=== PATIENT | female | born 1945 | race Caucasian/White ===

== ENCOUNTER → 2016-11-13 | Outpatient (CLI) | payer OTHER ==
[~2016-11-13] MED LIST: ALBU2SYP9 NEB; ALBUAER2 INH; ASPI-435 PO; ATRINS NEB; BUDE180I INH; BUTACAP36 PO; CICL8SOL4 TOP; CLOR3.7515 PO; ESCI10TA17 PO; EZET10TA47 PO; FLNIN; FRS/40 PO; HYDRCRE28 RE; LANS30CA12 PO; LEVO137T3 PO; MAGIC MOUTH WASH PO; METH-446 PO; METO5TAB3 PO; NITR0.4S UT; NRN600 PO; OXGN; OXYB5TAB74 PO; POTA10CA28 PO; PRAV20TA PO; PRED1SUS3 OPL; RRALBUT083; SPIR25TA PO; SUMA100T15 PO; SYMIN160 INH; TERB250T51 PO; TGM300 PO; TIOTCAP INH; TRIA3AER NAE; VERA240T20 PO
== END | disposition home or self-care (01) ==
LOC: C.PATHSPEC 18:01
PROVIDERS: ATTEND Plastic Surgery
DX: D23.5 Other benign neoplasm of skin of trunk (principal)

== ENCOUNTER → 2017-03-02 | Outpatient (CLI) | payer OTHER ==
[~2017-03-02] MED LIST changes: +DTR/5 PO; -OXYB5TAB74 PO
--- NOTE | 2017-03-02 10:38 | DIAGNOSTIC IMAGING REPORT ---
CT OF THE CHEST WITHOUT IV CONTRAST CLINICAL HISTORY: Pulmonary nodule follow-up. COMPARISON STUDY: Chest CT February 18, 2016. CT DOSE: 225.61 mGycm TECHNIQUE: Axial images of the chest were obtained without IV contrast. Images were reviewed in the axial, sagittal, and coronal planes. IV contrast was not administered for this examination. FINDINGS: Bilateral silicone breast implants are present. No enlarged axillary, mediastinal or hilar lymph nodes are present. The size of the heart is normal. There is no pericardial effusion. Central airways are patent. Severe emphysema is noted. Right middle lobe and lingular opacity is noted. Right middle lobe opacity is unchanged. This suggests atelectasis or scarring. Lingular opacity has slightly increased. Minimal irregular opacity within the superior segment of the right lower lobe is noted with a few ill-defined nodules measuring up to 8 mm. This is new since prior exam. The previously described 1.5 cm irregular right apical opacity is unchanged since exam of April 28, 2014. This favors scarring. A 1.5 cm irregular left apical opacity shown on image 19 of 306 has developed. This likely reflects scarring is well. No pneumothorax or pleural effusion is present. Bony thorax and upper abdomen are unremarkable with exception of a large amount stool within visualized portions of the colon. IMPRESSION: 1. No change in the 1.5 cm irregular right apical opacity since exam of April 28, 2014. This favors scarring. 2. Interval development of a 1.5 cm irregular left apical opacity. This is indeterminate. Scarring is favored although a follow-up chest CT in 6 months is recommended to exclude the less likely possibility of a neoplasm. 3. Minimal nodular opacities within the superior segment of the right lower lobe and lingula which have developed since prior exam and suggest a minimal infectious process or atelectasis. These can be assessed on subsequent CT. 4. Severe emphysema. Electronically signed by: Michele Jackson M.D. 03/02/2017 10:37 AM Dictated Date/Time: 03/02/2017 10:25 AM
== END | disposition home or self-care (01) ==
LOC: C.CTS 10:09
PROVIDERS: ATTEND Internal Medicine Pulmonary Disease
DX: R91.1 Solitary pulmonary nodule (principal)

== ENCOUNTER → 2017-03-31 | Outpatient (CLI) | payer OTHER | END | disposition home or self-care (01) | LOC: C.MAMM 13:11 | PROVIDERS: ATTEND Internal Medicine | DX: M19.90 Unspecified osteoarthritis, unspecified site (principal); M85.89 Other specified disorders of bone density and structure, multiple sites ==

== ENCOUNTER → 2017-04-02 | Outpatient (CLI) | payer OTHER ==
[2017-04-02 14:44] LABS: BASO % 1.1 %; BASO ABS # 0.06 K/uL (0-0.2); COMPLETE YES; EOS % 13.1 %; HEMATOCRIT 39.8 % (37-47); IG% 0.4 %; LYMPH % 28.3 %; LYMPH ABS # 1.58 K/uL (1.2-3.4); MEAN CELL VOLUME 94.8 fL (80-100); MEAN CORPUSCULAR HEMOGLOBIN 30.7 pg (25-34); MEAN CORPUSCULAR HGB CONC 32.4 g/dl (32-36); MEAN PLATELET VOLUME 8.8 fL (7.4-10.4); MONO % 10.4 %; NEUT % 46.7 %; PLATELET COUNT 312 K/uL (130-400); WHITE BLOOD COUNT 5.58 K/uL (4.8-10.8)
[2017-04-02 14:58] LABS: URINE APPEARANCE CLEAR (CLEAR); URINE BILIRUBIN NEG (NEG); URINE COLOR YELLOW; URINE EPITHELIAL CELL AUTO 0-5 /lpf (0-5); URINE NITRITE NEG (NEG); URINE SPECIFIC GRAVITY 1.014 (1.000-1.030); UROBILINOGEN NEG (NEG)
[2017-04-02 15:00] LABS: MANUAL MICROSCOPIC REQUIRED? NO; REVIEW REQ? NO
[2017-04-02 15:41] LABS: CALCIUM 9.2 mg/dl (8.5-10.1)
[2017-04-02 15:46] LABS: ALT/SGPT 26 U/L (12-78); AST/SGOT 17 U/L (15-37); BLOOD UREA NITROGEN 10 mg/dl (7-18); BUN/CREATININE RATIO 10.3 (10-20); CARBON DIOXIDE 30 mmol/L (21-32); CHLORIDE 101 mmol/L (98-107); CHOLESTEROL 178 mg/dl (0-200); CREATININE 0.97 mg/dl (0.60-1.20); GLUCOSE 77 mg/dl (70-99); POTASSIUM 4.4 mmol/L (3.5-5.1); SODIUM 138 mmol/L (136-145); TRIGLYCERIDES 62 mg/dl (0-150); VERY LOW DENSITY LIPOPROT CALC 12 mg/dl
[2017-04-02 15:57] LABS: CHOLESTEROL/HDL RATIO 2.1; HDL CHOLESTEROL 83 mg/dl; LDL CHOLESTEROL CALCULATED 83 mg/dl
[2017-04-03 05:51] LABS: ESTIMATED AVERAGE GLUCOSE 120 mg/dl; HA1C FLAG Normal (Normal)
--- NOTE | 2017-04-07 10:10 | CODING QUERY MEDICAL NECESSITY ---
SUPPORTING DIAGNOSIS NEEDED Dr. Dougherty, A supporting diagnosis is required for the test/procedure performed on this patient in order for us to be reimbursed by the patient's insurance. Please provide a supporting diagnosis for the following test/procedure listed below next to the test name along with your signature. *If there is no additional diagnosis for this patient that would support the following test/procedure please document that below next to the test/procedure. Test(s)/Procedure(s) that require a supporting diagnosis: * [id number] GLYCATED HEMOGLOBIN DIAGNOSIS: DATE OF SERVICE: 04/02/17 Provider Signature: Date: Thank you Kael Goyal [facility] Information Management Once completed, please kindly fax back to [phone] For questions please call [phone]
== END | disposition home or self-care (01) ==
LOC: C.LAB1850 12:42
PROVIDERS: ATTEND Internal Medicine
DX: E78.00 Pure hypercholesterolemia, unspecified (principal); R73.9 Hyperglycemia, unspecified

== ENCOUNTER → 2017-04-07 | Outpatient (CLI) | payer OTHER | END | disposition home or self-care (01) | LOC: C.LAB1850 13:14 | PROVIDERS: ATTEND Internal Medicine | DX: E78.00 Pure hypercholesterolemia, unspecified (principal) ==

== ENCOUNTER → 2017-05-15 | Outpatient (CLI) | payer OTHER ==
[~2017-05-15] MED LIST changes: -DTR/5 PO; +OXYB5TAB74 PO
--- NOTE | 2017-05-15 10:50 | DIAGNOSTIC IMAGING REPORT ---
CHEST 2 VIEWS ROUTINE CLINICAL HISTORY: 71 years-old Female presenting with dyspnea, preoperative evaluation. TECHNIQUE: PA and lateral views of the chest were obtained. COMPARISON: Chest CT from 03/02/2017. FINDINGS: Cardiomediastinal silhouette remarkable for atherosclerosis of the aortic arch. Severe emphysematous changes better appreciated on CT. Subtle right apical opacity correlates with CT, likely cicatrizing atelectasis. Additional bandlike opacities in the mid and lower lungs likely also atelectasis/scarring. Lungs are hyperinflated. No pleural effusion or pneumothorax. Cholecystectomy clips noted. Osseous structures normal. IMPRESSION: 1. Hyperinflation and emphysema. 2. Multifocal areas of atelectasis/scarring. No other focal infiltrate. Electronically signed by: Sharath Manuel M.D. 05/15/2017 10:48 AM Dictated Date/Time: 05/15/2017 10:45 AM
[2017-05-15 12:08] LABS: BASO % 0.5 %; BASO ABS # 0.03 K/uL (0-0.2); COMPLETE YES; HEMATOCRIT 41.1 % (37-47); IG% 0.3 %; LYMPH % 29.4 %; MEAN CELL VOLUME 91.7 fL (80-100); MEAN CORPUSCULAR HEMOGLOBIN 29.9 pg (25-34); MEAN CORPUSCULAR HGB CONC 32.6 g/dl (32-36); MONO % 12.4 %; NEUT % 49.4 %; PLATELET COUNT 280 K/uL (130-400); RED BLOOD COUNT 4.48 M/uL (4.2-5.4); WHITE BLOOD COUNT 6.12 K/uL (4.8-10.8)
[2017-05-15 12:16] LABS: BLOOD UREA NITROGEN 14 mg/dl (7-18); BUN/CREATININE RATIO 12.7 (10-20); CALCIUM 9.1 mg/dl (8.5-10.1); CARBON DIOXIDE 32 mmol/L (21-32); CHLORIDE 99 mmol/L (98-107); GLUCOSE 78 mg/dl (70-99); POTASSIUM 3.8 mmol/L (3.5-5.1); SODIUM 137 mmol/L (136-145)
[2017-05-15 12:18] LABS: INR 0.9 (0.9-1.1); PROTHROMBIN TIME (PATIENT) 9.9 SECONDS (9.0-12.0)
== END | disposition home or self-care (01) ==
LOC: C.LAB1850 10:22
PROVIDERS: ATTEND Internal Medicine Cardiovascular Disease
DX: R06.00 Dyspnea, unspecified (principal); Z01.818 Encounter for other preprocedural examination; J98.11 Atelectasis; J43.9 Emphysema, unspecified

== ENCOUNTER → 2017-05-21 | Day surgery (SDC) | payer OTHER ==
[~2017-05-21] VITALS: Ht 160 cm; Wt 62.2 kg
[~2017-05-21] MED LIST changes: +ADENOSINE IV SOLN 3 MG/ML 20 ML VIAL ONE; +FENTANYL CITRATE INJ 50 MCG/1 ML 2 ML VIAL ONE; +HEPARIN SOD (PORCINE) 1000 UNIT/ML 10 ML VIAL ONE; +MIDAZOLAM HCL 1 MG/ML 2ML VIAL ONE; +NITROGLYCERIN/D5W 100MCG/ML 20ML SYR ONE; +NiCARDipine HCL INJ 2.5 MG/ML 10 ML AMP ONE
[2017-05-21 09:11] VITALS: BP 139/62; PULSE 76; TEMP 36.6; O2SAT 92; Ht 160 cm; Wt 62.2 kg
[2017-05-21 13:01] LABS: ISTAT ARTERIAL BLOOD GAS HCO3 29 meq/L (19-24); ISTAT ARTERIAL BLOOD GAS PCO2 52 mmHg (35-46); ISTAT ARTERIAL BLOOD GAS PO2 42 mmHg (80-95); ISTAT ARTERIAL BLOOD GAS pH 7.36 (7.35-7.45); ISTAT CARBON DIOXIDE 31 mEq/l (24-31)
[2017-05-21 13:01] LABS: ISTAT ARTERIAL BLOOD GAS HCO3 30 meq/L (19-24); ISTAT ARTERIAL BLOOD GAS PCO2 49 mmHg (35-46); ISTAT ARTERIAL BLOOD GAS PO2 95 mmHg (80-95); ISTAT ARTERIAL BLOOD GAS pH 7.39 (7.35-7.45); ISTAT CARBON DIOXIDE 31 mEq/l (24-31)
--- NOTE | 2017-05-21 13:18 | History & Physical Bridge Note ---
H&P Re-Evaluation Bridge Note: I have examined the patient, reviewed the History & Physical and in the interval since the performance of the History & Physical I have noted the following changes of clinical significance: No changes noted
--- NOTE | 2017-05-21 13:19 | Procedure Note ---
Post-Mod Sedation Assessment General Date of Moderate Sedation May 21, 2017. Vital Signs: Vital Signs Past 12 Hours Date Time Temp Pulse Resp B/P (MAP) Pulse Ox O2 Delivery O2 Flow Rate FiO2 05/21/17 13:05 75 16 128/70 (89) 92 Room Air 05/21/17 12:50 76 16 126/64 (84) 92 Room Air 05/21/17 09:11 36.6 76 16 139/62 92 Room Air Review - Discharge Criteria Vital Signs Stable: Yes Alert/Oriented/Conversant: Yes Returned to Baseline Mental St: Yes Nausea Absent/Minimal: Yes Pain/Discomfort/Absent/Minimal: Yes Normal/Baseline Respirations: Yes Active Bleeding?: No Pt Received D/C Instructions: No Prescriptions Given: None Specific Proced. D/C Criteria Distal Pulses Present (Cardiac: Yes Groin site assessed-Card Cath: N/A Voided Prior To Discharge: N/A Discharged Patients Adult Escort/Transportation: Yes
--- NOTE | 2017-05-21 13:19 | Procedure Note ---
Pre-Mod Sedation Assessment General Date of Moderate Sedation: May 21, 2017. Vital Signs: Vital Signs Past 12 Hours Date Time Temp Pulse Resp B/P (MAP) Pulse Ox O2 Delivery O2 Flow Rate FiO2 05/21/17 13:05 75 16 128/70 (89) 92 Room Air 05/21/17 12:50 76 16 126/64 (84) 92 Room Air 05/21/17 09:11 36.6 76 16 139/62 92 Room Air Review Cardiovascular: regular rate, rhythm, no edema Abdomen: normal bowel sounds, non tender Lungs: chest non-tender, lungs clear Airway Class: II Pre-Sedation Airway Assessment Oral Cavity: WNL Short Thick Neck: No Hx of Sleep Apnea: No Smoking Status: Former Smoker Mallampati Classification: Class III ASA Classification: Class III Procedure Planning Contraindications-for Mod Sed: None Yes Notes The planned sedation has been discussed with the patient and consent obtained. I have identified the patient, determined the appropriateness of sedation and have assessed the patient immediately prior to the procedure. All medicine(s) and interventions are by my order.
--- NOTE | 2017-05-21 13:38 | Cardiac Catheterization ---
Procedure Note Procedure Date May 21, 2017. Pre-Procedure Diagnosis Angina, CAD AUC Score 7 Post-Procedure Diagnosis Moderate CAD, Normal Intracardiac Pressures Procedure(s) Performed Coronary Angiography, Left Heart Cath, Right Heart Cath, Fractional Flow [place] Supervisor [employer] [place] Environmental Compliance Technician(s) Ninfa Estimated Blood Loss 15 Medication(s) Fentanyl, Heparin, Nitroglycerin, Versed, Lidocaine 1% Summary of Findings Indication: History of CAD post prior stenting, concern for unstable angina. Access: 6Fr Right Radial Artery; 6Fr Slender antecubital vein Catheters: [place], 6Fr [place]; JR4 Findings: LM - Angiographically normal LAD - Moderate caliber, tortuous vessel, 30% mid segment stenosis, distal luminal irregularities. 1st diagonal with 40-50% proximal stenosis. Circumflex - Large caliber vessel, patent proximal-mid stent with minimal instent restenosis, distal vessel angiographically normal. RCA - Dominant, 40-50% mid segment stenosis, distal luminal irregularities. Small PLB, PDA with luminal irregularities. RA 4 RV 33/8 PA 35/13 (22) PCW 13 LV 18 PaSat 75% AoSat 97% [place] CO/CI 5.1/3.1 Thermo CO/CI 5.2/3.1 TPG 5 PVR 1 iFR mid RCA 0.96 FFR mid RCA 0.88 Arterial Closure: TR Band Summary: 1. Mild to moderate non-obstructive coronary artery disease - 40-50% mid RCA (FFR 0.88) - 40-50% 1st diagonal - Patent proximal-mid circumflex stent 2. Normal intracardiac filling pressures with normal cardiac output. No pulmonary hypertension. Recommendations: Continued ASCVD risk factor modification Follow-up with Dr. Webster, Dr. Purvis Hemodynamics Rest Ao: 138/56/89 Final Ao: 141/48/88 LV: 151/18 Recommendations Medical therapy and/or Counseling Specimens None Radiation Exposure (mGy) 630 Contrast (mls) 80 Fluids (cc crystalloids) 92 Drains None Anesthesia Moderate (11:50 - 12:50) Procedural Complication(s) None Disposition Key Sander Holding/Recovery ACC Data Cardiac Status Clinical evaluation leading to the procedure CAD Presntation: Unstable angina Anginal Classification: CCS III Heart Failure: No, NYHA Class: CCS I Cardiogenic Shock w/in 24Hrs: No Cardiac Arrest w/in 24Hrs: No Imaging studies past 6 months: Yes Stress studies past 6 months: No Coronary Anatomy Dominant: Right Left Main (% Stenosis): Normal LAD (% Stenosis): Mid (30) D1 (% Stenosis): Proximal (40-50) Circumflex (% Stenosis): Proximal (patent stent) RCA (% Stenosis): Mid (40-50) Diagnostic Physician's Name: Jayme Tomlin MD Status: Elective Closure Device Percutaneous Entry Location: Radial Closure Device: Radial Band Recommendations: Medical therapy and/or Counseling Intraprocedure Events Significant Dissection: No Perforation: No
--- NOTE | 2017-05-21 13:40 | Discharge Instructions ---
Discharge Instructions Procedure Procedure Date: May 21, 2017. Reason for Visit: Sob *Dr. Tomlin To Do*. Discharge Discharge Date: May 21, 2017. Discharge Diagnosis: mild to moderate coronary artery disease Last Recorded Wt (Kilograms): 62.2 Anesthesia Post Anesthesia Instructions: If you have had General Anesthesia or IV Sedation: * Do not drive today. * Resume driving when surgeon permits. * Do not make important decisions or sign legal documents today. * Call surgeon for: 1. Temperature elevations greater than 101 degrees F. 2. Uncontrollable pain. 3. Excessive bleeding. 4. Persistent nausea and vomiting. 5. Medication intolerance (nausea, vomiting or rash). * For nausea and vomiting use only clear liquids such as: tea, soda, bouillon until nausea subsides, then gradually increase diet as tolerated. * If you have any concerns or questions, call your surgeon's office. If physician is unavailable and it is an emergency, call 911 or go to the nearest emergency room. Instructions Activity Recommendations: limitations as noted below Recommended Home Diet: resume previous diet Allergies: Coded Allergies: Cortisone (Verified Allergy, Unknown, RASH FOR 3 MONTHS, 10/09/15) Levofloxacin (Verified Allergy, Unknown, RASH, 10/09/15) Uncoded Allergies: CLASS B STERIODS (Allergy, Unknown, RASH, 08/09/15) Follow Up Additional Instructions: ACTIVITY RECOMMENDATIONS: It is common to feel weak and fatigue for a few days. * Do not drive or operate any motorized equipment for the next 2 days. * Limit stair usage (2 or 3 trips a day only) for the next 2 days. * Do not lift anything heavier than 10 pounds for the next three days. * Do not engage in vigorous exercise or any sports for the next five days. * You may shower the day after your procedure, but do not immerse the area for three days. Cleanse the site gently with soap and water. SPECIAL CARE INSTRUCTIONS: * You may replace the pressure dressing or band-aid the morning after the procedure. * After your procedure, it is normal to have a small bruise or small lump at the site. Examine your site daily for any change in the bruise or lump, redness, swelling, drainage or numbness. Notify your doctor if any change. BLEEDING: * If there is a small amount of bleeding at the site, lie down and apply firm pressure with a clean cloth for ten minutes. When the bleeding stops, lie quietly keeping the procedure limb straight for six hours. Notify your doctor as soon as possible. * If the bleeding does not stop after ten minutes or if there is a large amount of bleeding or spurting, call 911 immediately. Continue to lie down and hold firm pressure until help arrives. SKIN IRRITATION: * You may experience some redness and/or swelling in the area where radiation was administered. If any skin irritation occurs, please contact your family physician. FOLLOW UP VISIT: Keep any scheduled doctor appointments. Follow-up with: Dr. Purvis; Dr. Webster [facility] Recommendations: Call your doctor if: * Temperature above 101 degrees * Pain not relieved by pain medicine ordered * There is increased drainage or redness from any incision * You have any unanswered questions or concerns. Your Doctors Instructions noted above were prepared by provider Evan Tomlin. Patient Signature Section: Patient Instructions Signature Page Luana Meek Patient (or Guardian) Signature/Date: I have read and understand the instructions given to me by my caregivers. Caregiver/RN/Doctor Signature/Date: The above-named patient and/or guardian has received patient instructions on this date. + Original Patient Signature Page (only) stays with chart. Please make copy for patient.
[2017-05-21 15:30] VITALS: BP 116/66; PULSE 68; O2SAT 92
== END | disposition home or self-care (01) ==
LOC: C.CATH 08:27
PROVIDERS: ATTEND Internal Medicine Interventional Cardiology
DX: I25.110 Atherosclerotic heart disease of native coronary artery with unstable angina pectoris (principal); J44.9 Chronic obstructive pulmonary disease, unspecified; K22.70 Barrett's esophagus without dysplasia; I50.42 Chronic combined systolic (congestive) and diastolic (congestive) heart failure; F32.9 Major depressive disorder, single episode, unspecified; E78.00 Pure hypercholesterolemia, unspecified; I11.0 Hypertensive heart disease with heart failure; E03.9 Hypothyroidism, unspecified; M19.90 Unspecified osteoarthritis, unspecified site; I25.2 Old myocardial infarction; Z79.82 Long term (current) use of aspirin; Z90.49 Acquired absence of other specified parts of digestive tract; Z82.49 Family history of ischemic heart disease and other diseases of the circulatory system; Z80.1 Family history of malignant neoplasm of trachea, bronchus and lung

== ENCOUNTER → 2017-05-23 | Outpatient (CLI) | payer OTHER ==
[~2017-05-23] MED LIST changes: -ADENOSINE IV SOLN 3 MG/ML 20 ML VIAL ONE; -BUDE180I INH; -FENTANYL CITRATE INJ 50 MCG/1 ML 2 ML VIAL ONE; -HEPARIN SOD (PORCINE) 1000 UNIT/ML 10 ML VIAL ONE; -MIDAZOLAM HCL 1 MG/ML 2ML VIAL ONE; -NITROGLYCERIN/D5W 100MCG/ML 20ML SYR ONE; -NiCARDipine HCL INJ 2.5 MG/ML 10 ML AMP ONE; -PRED1SUS3 OPL; -TERB250T51 PO
[2017-05-23 15:28] LABS: BLOOD UREA NITROGEN 10 mg/dl (7-18); BUN/CREATININE RATIO 10.6 (10-20); CARBON DIOXIDE 35 mmol/L (21-32); CHLORIDE 100 mmol/L (98-107); CREATININE 0.95 mg/dl (0.60-1.20); GLUCOSE 86 mg/dl (70-99); POTASSIUM 3.9 mmol/L (3.5-5.1); SODIUM 138 mmol/L (136-145)
== END | disposition home or self-care (01) ==
LOC: C.LAB 14:54
PROVIDERS: ATTEND Internal Medicine Interventional Cardiology
DX: N28.9 Disorder of kidney and ureter, unspecified (principal)

== ENCOUNTER → 2017-07-27 | Outpatient (CLI) | payer OTHER ==
[~2017-07-27] MED LIST changes: -ALBU2SYP9 NEB
== END | disposition home or self-care (01) ==
LOC: C.LABSPEC 13:30
PROVIDERS: ATTEND Internal Medicine
DX: E78.00 Pure hypercholesterolemia, unspecified (principal)

== ENCOUNTER → 2017-08-11 | Outpatient (CLI) | payer OTHER ==
--- NOTE | 2017-08-11 15:34 | DIAGNOSTIC IMAGING REPORT ---
(CHEST) THORAX WITHOUT CLINICAL HISTORY: 71 years-old Female presenting with PULMONARY NODULE. TECHNIQUE: Multidetector CT imaging of the chest was performed without the use of intravenous contrast. IV contrast: None. A dose lowering technique was used consistent with the principles of ALARA (as low as reasonably achievable). COMPARISON: 03/02/2017. CT DOSE (mGy.cm): The estimated cumulative dose is 220.09 mGycm. FINDINGS: Wild Life Manager topogram: Unremarkable. On soft tissue windows, bilateral breast implants with calcified pseudocapsules and evidence of extracapsular rupture at the inferior lateral aspect on the right. This is unchanged from prior. No axillary, supraclavicular, or mediastinal lymphadenopathy. Evaluation of the richard limited without intravenous contrast. Atherosclerosis of the aorta. Three-vessel coronary artery calcification. Normal heart size. No pericardial or pleural effusion. Cholecystectomy clips. Large stool burden. On lung windows, severe emphysema. Stable size and appearance of biapical spiculated consolidative changes. On the left this measures 1.4 cm, previously 1.5 cm. Few bandlike opacities in the right middle lobe, unchanged, likely scarring and/or atelectasis. Focal retractile changes with a bandlike opacity at the superior segment of the right lower lobe. This architectural distortion is new from prior and was the previous site of multiple nodular opacities. This may represent scarring from a prior infectious or inflammatory etiology. Minimal mucus plugging of subsegmental airways in the right lower lobe. Scattered debris noted in the trachea. On bone windows, significant osteopenia IMPRESSION: 1. Stable appearance of biapical irregular consolidative changes most consistent with cicatrizing atelectasis. 2. At the site of prior nodular opacities in the superior segment of the right lower lobe, new architectural distortion and scarring. 3. No new pulmonary nodule or concerning infiltrate. 4. Severe emphysema. 5. Minimal mucus plugging and subsegmental airways of the right lower lobe and debris in the trachea. This could raise concern for aspiration. 6. Stable appearance of the extracapsular rupture of the right breast implant. 7. Osteopenia. Electronically signed by: Sharath Manuel M.D. 08/11/2017 3:33 PM Dictated Date/Time: 08/11/2017 3:25 PM
== END | disposition home or self-care (01) ==
LOC: C.CTS 15:09
PROVIDERS: ATTEND Internal Medicine Critical Care Medicine
DX: J44.9 Chronic obstructive pulmonary disease, unspecified (principal); R91.1 Solitary pulmonary nodule; M85.88 Other specified disorders of bone density and structure, other site

== ENCOUNTER → 2017-10-19 | Outpatient (CLI) | payer OTHER ==
[~2017-10-19] MED LIST changes: +DTR/5 PO; -OXYB5TAB74 PO
--- NOTE | 2017-10-19 14:27 | DIAGNOSTIC IMAGING REPORT ---
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 Acute shortness of breath TECHNIQUE: Multiaxial CT images of the chest were performed without contrast. A dose lowering technique was utilized adhering to the principles of ALARA. COMPARISON: CT chest 08/11/2017. FINDINGS: Thyroid appears atrophic. No pathologically enlarged lymph nodes of the chest identified. Heart is normal in size without pericardial effusion. Coronary arterial disease. Moderate atherosclerosis of the thoracic aorta without aneurysm. No pneumothorax, pleural effusion or focal airspace consolidation. Severe upper lobe predominant emphysema with multifocal areas of pleural-parenchymal scarring and architectural distortion. Mild layering secretions are seen within the trachea and bronchi. Focal area of somewhat nodular biapical pleural-parenchymal scarring is unchanged. Focal pleural parenchymal scarring of the superior segment right lower lobe is also unchanged in comparison as seen on image 129 of series 4. No new pulmonary nodules or masses. Linear subsegmental opacities of the right middle lobe are unchanged with mild bronchial wall thickening suggesting area of chronic scarring/atelectasis. 3 mm pulmonary nodule of the screw segment left lower lobe, image 121 series 4 is unchanged and likely benign. No lobar airspace consolidation to suggest pneumonia. No acute amount of the imaged upper abdomen. Moderate stool volume. Prior cholecystectomy. Bilateral breast augmentation with extracapsular rupture on the right redemonstrated. The bones appear mildly demineralized and are intact. IMPRESSION: 1. No acute intrathoracic abnormality identified. No lobar airspace consolidation to suggest pneumonia. 2. Advanced emphysema with unchanged multifocal areas of pleural-parenchymal scarring and architectural distortion as described above. 3. Minimal mucosal debris noted within the tracheobronchial tree. 4. Additional incidental findings as above. Electronically signed by: Clarence Roche M.D. 10/19/2017 2:25 PM Dictated Date/Time: 10/19/2017 2:17 PM
== END | disposition home or self-care (01) ==
LOC: C.CTS 13:53
PROVIDERS: ATTEND Internal Medicine Critical Care Medicine
DX: A49.8 Other bacterial infections of unspecified site (principal)

== ENCOUNTER → 2017-12-03 | Day surgery (SDC) | payer OTHER ==
[2017-11-30 15:12] VITALS: BMI 23.0
[~2017-12-03] VITALS: Ht 162.6 cm; Wt 61.4 kg
[~2017-12-03] MED LIST changes: -ALBUAER2 INH; +AZIT500T26 PO; -CICL8SOL4 TOP; +LIDOCAINE HCL 2% 2 ML VIAL (20MG/ML) ONE; +METH-307 PO; +PROPOFOL IV EMULSION 10 MG/ML 20 ML VIAL IV ONE; -RRALBUT083; +RRALBUT083 INH; +SODIUM CHLORIDE 0.9% 500ML 500 ML IV ONE; +SPRIN/30 INH; -TIOTCAP INH; -TRIA3AER NAE; +VNTHFA/IN INH; +[UNRECOGNIZED DRUG - CODE] PO
--- NOTE | 2017-12-03 10:52 | Endo History and Physical ---
History & Physical Date of Service: Dec 03, 2017. Chief Complaint: screening; wale Referring Physician: Dr. Dougherty History of Present Illness screening colonoscopy; h/o wale Past Medical History Asthma, Anxiety, High Cholesterol, Heart Disease, CHF, Hypertension, COPD, Thyroid Disease, Depression, OK Past Surgical History Hx Cardiac Surgery: Yes (HEART CATH X2, STENT X1) Hx Internal Defibrillator: No Hx Pacemaker: No Hx Abdominal Surgery: Yes (TUBAL LIGATION, D&C, PRATIK, HEMORRHOIDECTOMY, PARTIAL HYSTER) Hx of Implantable Prosthesis: No Hx Post-Op Nausea and Vomiting: No Hx Cancer Surgery: No Hx Thoracic Surgery: Yes (BRONCHOSCOPY) Hx Orthopedic: No Hx Urinary Tract Surgery: Yes ("BLADDER TUBE" TACK X2, LT/RT CATARACTS) Family History Colon CA Social History Smoking Status: Never Smoker Hx Substance Use: No Hx Alcohol Use: Yes (OCCASIONAL) Allergies Coded Allergies: Cortisone (Verified Allergy, Unknown, RASH FOR 3 MONTHS, 11/30/17) Levofloxacin (Verified Allergy, Unknown, RASH, 11/30/17) Uncoded Allergies: CLASS B STERIODS (Allergy, Unknown, RASH, 08/09/15) Current Medications Reported Home Medications Medications Dose Route/Sig Max Daily Dose Days Date Category Sterrett Moisturizing Mouth (Glycerin (Mouth/Throat)) 35 % Spr 1 [place] PO UD PRN 11/30/17 Reported Zithromax (Azithromycin) 500 Mg Tab 500 Mg PO MWF 11/30/17 Reported Robaxin (Methocarbamol) 750 Mg Tab 2 Tabs PO HS 11/30/17 Reported Ventolin Hfa (Albuterol) 200 Puffs/59838 Mcg Aers 2-4 Puffs INH Q6H PRN 11/30/17 Reported Spiriva Handihaler (Tiotropium [place]) 30 Puff/540 Mcg Aerp 1 Cap INH QAM 11/30/17 Reported Oxygen Gas 3 Liters NA CONTINOUS 07/08/17 Reported Albuterol Sulfate (Albuterol Sulf) 2.5 Mg/3 Ml Nebu 3 Ml INH QID PRN 07/08/17 Reported Symbicort 160/4.5 Inhaler (Budesonide/Formoterol Fumarate) Aero 2 Puffs INH TID 05/21/17 Reported Imitrex (Sumatriptan Succinate) 100 Mg Tab 1 Tab PO UD PRN 05/21/17 Reported Ipratropium [place] 0.5 Mg/2.5 Ml Nebu 1 Vial NEB QID PRN 05/21/17 Reported Fluticasone Propionate 50 Mcg/Act Spr 1-2 Sprays NA HS 05/21/17 Reported [Magic Mouth Wash] 1 Tsp PO QID PRN 08/09/15 Reported Proctozone-Hc (Hydrocortisone (Rectal)) 2.5 % Cre 1 RE PRN 08/09/15 Reported Ditropan (Oxybutynin Chloride) 5 Mg Tab 5 Mg PO QID 07/10/15 Reported Levothyroxine Sodium 137 Mcg Tab 137 Mcg PO QAM 07/10/15 Reported Metoclopramide HCl 5 Mg Tab 5 Mg PO TIDM 07/10/15 Reported Cimetidine 300 Mg Tab 300 Mg PO HS 07/10/15 Reported Gabapentin 600 Mg Tab 600 Mg PO QID 07/10/15 Reported Aspirin 81 (Aspirin) 81 Mg Tab 81 Mg PO HS 07/10/15 Reported Robaxin (Methocarbamol) 750 Mg Tab 750 Mg PO QAM 06/28/15 Reported Fiorinal (Gvsgzkrpnu-Oiwpkkn-Pkhymzxb) 1 Cap Cap 1 Tab PO BID PRN 03/17/15 Reported Lasix (Furosemide) 40 Mg Tab 1.5-2 Tabs PO QAM 03/17/15 Reported Micro-K Ext Rel (Potassium Chloride) 10 Meq Capcr 10 Meq PO QAM 04/20/14 Reported Calan Sr Ext Rel (Verapamil HCl) 240 Mg Tabcr 240 Mg PO BID 04/20/14 Reported Zetia (Ezetimibe) 10 Mg Tab 10 Mg PO QPM 10/29/12 Reported Pravachol (Pravastatin Sodium) 20 Mg Tab 20 Mg PO HS 04/23/12 Reported Prevacid (Lansoprazole) 30 Mg Capcr 30 Mg PO QAM 04/12/12 Reported Nitrostat (Nitroglycerin) 0.4 Mg Sub 0.4 Mg UT UD PRN 04/12/12 Reported Micro-K Ext Rel (Potassium Chloride) 10 Meq Capcr 40 Meq PO HS 04/12/12 Reported Tranxene-T (Clorazepate Dipotassium) 3.75 Mg Tab 1-2 Tabs PO HS PRN 05/25/06 Reported Lexapro (Escitalopram Oxalate) 10 Mg Tab 10 Mg PO QPM 05/25/06 Reported Aldactone (Spironolactone) 25 Mg Tab 25 Mg PO BID 05/25/06 Reported Vital Signs Weight (Kilograms): 61.36 Height (Feet): 5 Height (Inches): 3.5 Physical Exam General Appearance: WD/WN, no apparent distress Assessment and Plan EGD and colonoscopy today
[2017-12-03 11:02] VITALS: Ht 162.6 cm; Wt 61.4 kg
--- NOTE | 2017-12-03 12:04 | Discharge Instructions ---
Endoscopy Patient Instructions Date / Procedure(s) Performed Dec 03, 2017. Colonoscopy, EGD Allergy Information Coded Allergies: Cortisone (Verified Allergy, Unknown, RASH FOR 3 MONTHS, 11/30/17) Levofloxacin (Verified Allergy, Unknown, RASH, 11/30/17) Uncoded Allergies: CLASS B STERIODS (Allergy, Unknown, RASH, 08/09/15) Discharge Date / Findings Dec 03, 2017. gastritis, Cronin's, tortuous colon Medication Instructions Stopped Medication(s): ASPRIN Restart Stopped Medication(s): OK to resume home medications Provider Instructions Activity Restrictions - No exercising or heavy lifting for 24 hours. - Do not drink alcohol the day of the procedure. - Do not drive a car or operate machinery until the day after the procedure. - Do not make any important decisions or sign important papers in 24 hours after the procedure. Following Day: - Return to full activity which may include returning to work/school. Diet Start your diet with liquids and light foods (jello, soup, juice, toast). Then eat your usual diet if not nauseated. Treatment For Common After Affects For mild abdominal pain, bloating, or excessive gas: - Rest - Eat lightly - Lie on right side Follow-Up Information Follow-up with DR. MYERS as scheduled Anesthesia Information What You Should Know You have had a procedure that required some medicine to reduce anxiety and discomfort. This treatment is called moderate sedation. After receiving the treatment, you may be sleepy, but you will be able to breathe on your own. The effects of the treatment may last for several hours. Follow these instructions along with Activity/Diet recommendations noted above: * Do NOT do anything where dizziness or clumsiness would be dangerous. * Rest quietly at home today, then you can be up and about tomorrow. * Have a responsible person stay with you the rest of today. * You may have had an I.V. today. If so, you may take the dressing off later today. Recommendations Call your doctor if: * Trouble breathing * Continuous vomiting for more than 24 hours * Temperature above 101 degrees * Severe abdominal pain or bloating * Pain not relieved by pain medicine ordered * There is increased drainage or redness from any incision * A large amount of rectal bleeding greater than 2-3 tablespoons. (If you had a polyp/s removed or have hemorrhoids, a small amount of blood - from the rectum is to be expected.) * You have any unanswered questions or concerns. IN THE EVENT OF A SERIOUS EMERGENCY, GO TO THE NEAREST EMERGENCY ROOM Your discharge instructions were prepared by provider Sugar Chicas. Patient Instructions Signature Page Luana Meek Patient (or Guardian) Signature/Date: I have read and understand the instructions given to me by my caregivers. Caregiver/RN/Doctor Signature/Date: The above-named patient and/or guardian has received patient instructions on this date. + Original Patient Signature Page (only) stays with chart. Please make copy for patient.
--- NOTE | 2017-12-03 12:08 | GI REPORT ---
Procedure Date: 12/03/2017 11:23 AM Procedure: Upper GI endoscopy Indications: Heartburn, Follow-up of Cronin's esophagus Medicines: Propofol per Anesthesia Complications: No immediate complications. Estimated blood loss: Minimal. Estimated Blood Loss: Estimated blood loss was minimal. Procedure: Pre-Anesthesia Assessment: - Prior to the procedure, a History and Physical was performed, and patient medications, allergies and sensitivities were reviewed. The patient's tolerance of previous anesthesia was reviewed. - The risks and benefits of the procedure and the sedation options and risks were discussed with the patient. All questions were answered and informed consent was obtained. - Patient identification and proposed procedure were verified prior to the procedure by the physician and the nurse. The procedure was verified in the pre-procedure area in the procedure room. - Mental Status Examination: alert and oriented. Airway Examination: normal oropharyngeal airway and neck mobility. Respiratory Examination: clear to auscultation. CV Examination: normal. Abdominal Examination: bowel sounds present, abdomen soft and non-tender, no masses or organomegaly noted. - ASA Grade Assessment: III - A patient with severe systemic disease. After obtaining informed consent, the endoscope was passed under direct vision. Throughout the procedure, the patient's blood pressure, pulse, and oxygen saturations were monitored continuously. The Scope was introduced through the mouth, and advanced to the second part of duodenum. The upper GI endoscopy was accomplished without difficulty. The patient tolerated the procedure well. Findings: The Z-line was irregular and was found at the gastroesophageal junction. Biopsies were taken with a cold forceps for histology. Verification of patient identification for the specimen was done by the physician and nurse using the patient's name and date. Estimated blood loss was minimal. Mild inflammation characterized by erythema was found in the entire examined stomach. Biopsies were taken with a cold forceps for Helicobacter pylori testing. Verification of patient identification for the specimen was done by the physician and nurse using the patient's name and date. Estimated blood loss was minimal. The examined duodenum was normal. Impression: - Z-line irregular, at the gastroesophageal junction. Biopsied. - Gastritis. Biopsied. - Normal examined duodenum. Recommendation: - Await pathology results. - Follow an antireflux regimen. - Continue present medications. - Repeat upper endoscopy for surveillance based on pathology results. - Discharge patient to home. Sugar Chicas D.O. Sugar Chicas, 12/03/2017 12:08:04 PM This report has been signed electronically. Note Initiated On: 12/03/2017 11:23 AM I attest to the content of the Intraoperative Record and orders documented therein, exceptions below
--- NOTE | 2017-12-03 12:10 | GI REPORT ---
Procedure Date: 12/03/2017 11:38 AM Procedure: Colonoscopy Indications: Screening patient at increased risk: Family history of 1st-degree relative with colorectal cancer at age 60 years (or older) Medicines: Propofol per Anesthesia Complications: No immediate complications. Estimated blood loss: None. Estimated Blood Loss: Estimated blood loss: none. Procedure: Pre-Anesthesia Assessment: - Prior to the procedure, a History and Physical was performed, and patient medications, allergies and sensitivities were reviewed. The patient's tolerance of previous anesthesia was reviewed. - The risks and benefits of the procedure and the sedation options and risks were discussed with the patient. All questions were answered and informed consent was obtained. - Patient identification and proposed procedure were verified prior to the procedure by the physician and the nurse. The procedure was verified in the pre-procedure area in the procedure room. - Mental Status Examination: alert and oriented. Airway Examination: normal oropharyngeal airway and neck mobility. Respiratory Examination: clear to auscultation. CV Examination: normal. Abdominal Examination: bowel sounds present, abdomen soft and non-tender, no masses or organomegaly noted. - ASA Grade Assessment: III - A patient with severe systemic disease. After I obtained informed consent, the scope was passed under direct vision. Throughout the procedure, the patient's blood pressure, pulse, and oxygen saturations were monitored continuously. The scope was introduced through the anus and advanced to the cecum, identified by appendiceal orifice and ileocecal valve. The colonoscopy was performed without difficulty. The patient tolerated the procedure well. The quality of the bowel preparation was fair. Findings: The perianal and digital rectal examinations were normal. Pertinent negatives include normal sphincter tone and no palpable rectal lesions. A moderate amount of liquid stool was found in the entire colon. The retroflexed view of the distal rectum and anal verge was normal and showed no anal or rectal abnormalities. Impression: - Preparation of the colon was fair. - Stool in the entire examined colon. - The distal rectum and anal verge are normal on retroflexion view. - No specimens collected. Recommendation: - Repeat colonoscopy in 5 years for screening purposes. - Return to referring physician as previously scheduled. - Discharge patient to home. Sugar Chicas D.O. Sugar Chicas DO 12/03/2017 12:09:39 PM This report has been signed electronically. Note Initiated On: 12/03/2017 11:38 AM I attest to the content of the Intraoperative Record and orders documented therein, exceptions below
--- NOTE | 2017-12-03 12:32 | Anesthesiology Progress Note ---
Anesthesia Post Op Note Date & Time Dec 03, 2017 at 12:32 Vital Signs Pain Intensity: 0 Vital Signs Past 12 Hours Date Time Temp Pulse Resp B/P (MAP) Pulse Ox O2 Delivery O2 Flow Rate FiO2 12/03/17 12:23 74 18 138/66 (90) 100 Nasal Cannula 3 12/03/17 12:09 71 16 113/66 (82) 98 Nasal Cannula 3 12/03/17 11:07 36.3 73 26 129/61 (83) 99 Nasal Cannula 3 Notes Mental Status: alert / awake / arousable, participated in evaluation Pt Amnestic to Procedure: Yes Nausea / Vomiting: adequately controlled Pain: adequately controlled Airway Patency, RR, SpO2: stable & adequate BP & HR: stable & adequate Hydration State: stable & adequate Anesthetic Complications: no major complications apparent
[2017-12-03 12:39] VITALS: BP 151/65; PULSE 70; O2SAT 100
== END | disposition home or self-care (01) ==
LOC: C.GI 10:38
PROVIDERS: ATTEND Internal Medicine
DX: Z12.11 Encounter for screening for malignant neoplasm of colon (principal); K29.70 Gastritis, unspecified, without bleeding; R12 Heartburn; J45.909 Unspecified asthma, uncomplicated; E78.00 Pure hypercholesterolemia, unspecified; I11.0 Hypertensive heart disease with heart failure; J44.9 Chronic obstructive pulmonary disease, unspecified; E07.9 Disorder of thyroid, unspecified; F32.9 Major depressive disorder, single episode, unspecified; I25.2 Old myocardial infarction; I50.9 Heart failure, unspecified; Z79.899 Other long term (current) drug therapy; Z80.0 Family history of malignant neoplasm of digestive organs
CPT/HCPCS: 43239; G0105

== ENCOUNTER → 2018-01-01 | Outpatient (CLI) | payer OTHER ==
[~2018-01-01] MED LIST changes: -LIDOCAINE HCL 2% 2 ML VIAL (20MG/ML) ONE; -PROPOFOL IV EMULSION 10 MG/ML 20 ML VIAL IV ONE; -SODIUM CHLORIDE 0.9% 500ML 500 ML IV ONE
== END | disposition home or self-care (01) ==
LOC: C.LAB1850 15:11
PROVIDERS: ATTEND Internal Medicine
DX: E78.00 Pure hypercholesterolemia, unspecified (principal)

== ENCOUNTER → 2018-01-21 | Outpatient (CLI) | payer OTHER | END | disposition home or self-care (01) | LOC: C.LAB1850 14:08 | PROVIDERS: ATTEND Internal Medicine | DX: Z00.00 Encounter for general adult medical examination without abnormal findings (principal) ==

== ENCOUNTER → 2018-01-28 | Outpatient (CLI) | payer OTHER ==
--- NOTE | 2018-01-29 07:20 | MAMMOGRAPHY REPORT ---
BILATERAL DIGITAL SCREENING MAMMOGRAM TOMOSYNTHESIS WITH CAD: 01/28/2018 CLINICAL HISTORY: Routine screening. Patient has no complaints. TECHNIQUE: Breast tomosynthesis in addition to standard 2D mammography was performed. Current study was also evaluated with a Computer Aided Detection (CAD) system. Tomosynthesis images were obtained of the implant displaced views only. COMPARISON: Comparison is made to exams dated: 10/08/2015 mammogram, 10/04/2014 mammogram, 06/13/2013 m ammogram, 07/30/2011 mammogram, 11/27/2009 mammogram - [facility], and 06/02/2008. BREAST COMPOSITION: There are scattered areas of fibroglandular density in both breasts. FINDINGS: There is motion artifact involving the non-implant displaced right CC and MLO views, for wh ich repeat is recommended. There are asymmetries seen along the medial aspect and superior aspect of the right prepectoral silicone implant, which could represent extracapsular silicone although evalua tion is limited due to motion artifact. Recommend second look ultrasound and possible additional spo t compression views. The remainder of both breasts are not significantly changed, without suspicious masses, calcification s, or areas of architectural distortion noted. The prepectoral left silicone implant is stable in ap pearance. Scattered bilateral benign-appearing calcifications are again noted. IMPRESSION: ACR BI-RADS CATEGORY 0: INCOMPLETE EVALUATION: NEED ADDITIONAL IMAGING EVALUATION Right breast asymmetries, for which additional imaging evaluation is recommended. Also recommend rep eat right CC and MLO non-implant displaced views due to motion artifact. The patient will be called to schedule an appointment. Approximately 10% of breast cancers are not detected with mammography. A negative mammographic report should not delay biopsy if a clinically suggestive mass is present. Chitra Hogue M.D. /:01/28/2018 17:03:48 Top Carrier: Amina MO(Robinson)(Donald)(BD), [facility] letter sent: Addl Imaging 0 BI-RADS Code: ACR BI-RADS Category 0: Incomplete Evaluation: Need Additional Imaging Evaluation
== END | disposition home or self-care (01) ==
LOC: C.MAMM 14:07
PROVIDERS: ATTEND Internal Medicine
DX: Z12.31 Encounter for screening mammogram for malignant neoplasm of breast (principal); Z98.82 Breast implant status; N64.89 Other specified disorders of breast

== ENCOUNTER → 2018-02-04 | Outpatient (CLI) | payer OTHER | END | disposition home or self-care (01) | LOC: C.PATHSPEC 13:31 | PROVIDERS: ATTEND Dermatology | DX: B07.9 Viral wart, unspecified (principal) ==

== ENCOUNTER → 2018-02-09 | Outpatient (CLI) | payer OTHER ==
--- NOTE | 2018-02-09 12:52 | MAMMOGRAPHY REPORT ---
UNILATERAL RIGHT DIGITAL DIAGNOSTIC MAMMOGRAM TOMOSYNTHESIS AND TARGETED RIGHT ULTRASOUND: 02/09/2018 CLINICAL HISTORY: 72-year-old woman with a history of bilateral silicone implants called back from sc reening mammography for dense asymmetries in the superior and medial aspect of the right breast. Als o repeat nondisplaced right CC and MLO views for motion artifact. TECHNIQUE: Nondisplaced right CC and MLO views in addition to spot compression tomosynthesis right CC and MLO views were obtained. COMPARISON: Comparison is made to exams dated: 01/28/2018 mammogram, 10/08/2015 mammogram, 10/04/2014 m ammogram, 06/13/2013 mammogram, 07/30/2011 mammogram, and 11/27/2009 mammogram - [facility]. BREAST COMPOSITION: There are scattered areas of fibroglandular density in the right breast. FINDINGS: There is a subglandular silicone implant in the right breast. There is a lobulated contour and focal dense ovoid mass adjacent to the superior aspect of the implant seen on the spot compressi on MLO view measuring 18 x 11 mm, which is the same density as the implants and likely represents ext racapsular silicone. There is a smaller dense asymmetry in the medial right breast on the spot compr ession CC view measuring approximately 8 x 5 mm, likely representing extracapsular silicone. Targeted ultrasound was performed in the upper outer and medial aspects of the right breast. In the 10:00 axis, 11 cm from the nipple, there is a curvilinear hyperechoic shadowing mass measuring approx imately 2 cm, likely representing extracapsular silicone. This is seen abutting the implant. A [place] hyperechoic smaller mass is seen in the medial approximate 3:00 right breast, also likely represe nting extracapsular silicone. IMPRESSION: ACR BI-RADS CATEGORY 2: BENIGN, TARGETED ULTRASOUND ACR BI-RADS CATEGORY 2: BENIGN There are mammographic and sonographic findings of extracapsular silicone in the upper outer 10:00 an d 3:00 right breast, compatible with extracapsular implant rupture. Given these findings and the age of the implants, there is a high likelihood of intracapsular and or extracapsular rupture of the con tralateral implant as well, although no definite dense mass was seen on the left mammograms. If need ed, further information regarding the left implant could be obtained with a breast MRI, which is the gold standard for assessing implant integrity. Otherwise would recommend return to annual screening mammography schedule. Approximately 10% of breast cancers are not detected with mammography. A negative mammographic report should not delay biopsy if a clinically suggestive mass is present. Ifrah Torres M.D. ay/:02/09/2018 12:14:05 Research Professional: Jelly MO(Robinson)(M), [facility] letter sent: Normal 1/2 BI-RADS Code: ACR BI-RADS Category 2: Benign Ultrasound BI-RADS: ACR BI-RADS Category 2: Benign
== END | disposition home or self-care (01) ==
LOC: C.MAMM 11:23
PROVIDERS: ATTEND Internal Medicine
DX: N64.89 Other specified disorders of breast (principal); Z98.82 Breast implant status

== ENCOUNTER → 2018-03-01 | Outpatient (CLI) | payer OTHER ==
[2018-03-01 15:51] LABS: ALT/SGPT 62 U/L (12-78); AST/SGOT 40 U/L (15-37); BLOOD UREA NITROGEN 12 mg/dl (7-18); CALCIUM 8.4 mg/dl (8.5-10.1); CARBON DIOXIDE 33 mmol/L (21-32); CREATININE 0.88 mg/dl (0.60-1.20); GLUCOSE 90 mg/dl (70-99); POTASSIUM 3.7 mmol/L (3.5-5.1); SODIUM 135 mmol/L (136-145)
[2018-03-01 15:54] LABS: ALKALINE PHOSPHATASE 81 U/L (45-117)
== END | disposition home or self-care (01) ==
LOC: C.LAB1850 13:34
PROVIDERS: ATTEND Physician Assistant
DX: R51 Headache (principal)

== ENCOUNTER → 2018-03-04 | Outpatient (CLI) | payer OTHER | END | disposition home or self-care (01) | LOC: C.PAPS 18:01 | PROVIDERS: ATTEND Obstetrics & Gynecology | DX: Z01.419 Encounter for gynecological examination (general) (routine) without abnormal findings (principal) ==

== ENCOUNTER 2019-01-04 18:30 | Inpatient (IN) ==
[2019-01-04] MEDS ORDERED: methylPREDNISolone 125 MG/2 ML VIAL IV STA (19:18)
[2019-01-04] MEDS ORDERED: ALBUT/IPRATROP 3MG/0.5MG NEB 3 ML VIAL NEB STA ×2 (19:18→20:55)
--- NOTE | 2019-01-04 19:24 | Emergency Department Note ---
Entered by Bridger Yu acting as a scribe for Micky Mast DO History of Present Illness General Chief complaint: Shortness of Breath/Dyspnea Stated complaint: SOB Source: patient History of Present Illness Onset (ago): week(s) 1 Location: chest (lungs) Pain Consistency: + other (persistent and worsening) Quality: + other (shortness of breath) Associated symptoms: + cough; no fever/chills and no nausea/vomiting The patient is a 73 year old female with a history of COPD/emphysema who presents to the Emergency Room with complaints of persistent and worsening shortness of breath beginning one week ago. The patient reports that she has a cough productive of yellow phlegm. She denies chest pain, fevers, nausea, or vom iting. She states that her symptoms have been worse today, noting that she called Dr. Craig Pulmonology and was advised to take a nebulizer and come to the ER. She reports that the last time she took steroids was a while ago. She states that she chronically wears three liters of supplemental oxygen, and she has not increased this amount. She notes that she has been mildly constipated during the past week but still occasionally has bowel movements. She states that she last saw her PCP Dr. Dougherty about a month ago. She reports a history of daily migraines managed by Dr. [facility]. Home Medications Home Medications Medication Instructions Recorded Confirmed Type Magic Mix 1 dose PO UD 01/04/19 01/04/19 History acetaminophen [Tylenol Extra 1,000 mg PO HS 01/04/19 01/04/19 History Strength] albuterol sulfate 0.63 mg INHALATION QID PRN 01/04/19 01/04/19 History albuterol sulfate [Ventolin HFA] 2 puff INHALATION QID PRN 01/04/19 01/04/19 History aspirin [Aspir-81] 81 mg PO QPM 01/04/19 01/04/19 History azithromycin [Zithromax] 500 mg PO 3XWK 01/04/19 01/04/19 History budesonide-formoterol [Symbicort] 2 puff INHALATION TID 01/04/19 01/04/19 History cimetidine 300 mg PO DAILY 01/04/19 01/04/19 History clorazepate dipotassium 2 tabs PO HS 01/04/19 01/04/19 History coQ10 (ubiquinol) 200 mg PO DAILY 01/04/19 01/04/19 History cranberry extract 200 mg PO DAILY 01/04/19 01/04/19 History erenumab-aooe [Aimovig 140 mg SUBCUT UD 01/04/19 01/04/19 History Autoinjector (2 Pack)] escitalopram oxalate [Lexapro] 10 mg PO QAM 01/04/19 01/04/19 History ezetimibe [Zetia] 10 mg PO QPM 01/04/19 01/04/19 History fluticasone [Flonase Allergy 1 - 2 spray INTRANASAL DAILY 01/04/19 01/04/19 History Relief] furosemide [Lasix] 80 mg PO QAM 01/04/19 01/04/19 History gabapentin 1,200 mg PO 01/04/19 01/04/19 History gabapentin 600 mg PO BID 01/04/19 01/04/19 History hydrocortisone [Proctosol HC] 1 applic IL TID PRN 01/04/19 01/04/19 History ipratropium bromide 1 dose INHALATION Q6H PRN 01/04/19 01/04/19 History lactobacillus combination no.4 0 mmu cells PO DAILY 01/04/19 01/04/19 History [Probiotic] lansoprazole [Prevacid] 30 mg PO BID 01/04/19 01/04/19 History levothyroxine [Synthroid] 137 mcg PO DAILY 01/04/19 01/04/19 History methocarbamol 750 mg PO QAM 01/04/19 01/04/19 History methocarbamol [Robaxin-750] 1,500 mg PO 01/04/19 01/04/19 History nitroglycerin [Nitrostat] 0.4 mg SUBLINGUAL UD PRN 01/04/19 01/04/19 History oxybutynin chloride 5 mg PO QID 01/04/19 01/04/19 History potassium chloride 10 meq PO QAM 01/04/19 01/04/19 History potassium chloride 40 meq PO QPM 01/04/19 01/04/19 History pravastatin 10 mg PO QPM 01/04/19 01/04/19 History simethicone [Gas Relief Ultra 180 mg PO DAILY 01/04/19 01/04/19 History Strength] spironolactone [Aldactone] 50 mg PO BID 01/04/19 01/04/19 History sumatriptan succinate 100 mg PO UD PRN 01/04/19 01/04/19 History sumatriptan succinate [Imitrex] 100 mg PO UD 01/04/19 01/04/19 History zinc 50 mg PO BID 01/04/19 01/04/19 History Allergies Allergy/AdvReac Type Severity Reaction Status Date / Time cortisone Allergy Unknown RASH FOR 3 Verified 01/04/19 22:23 MONTHS levofloxacin Allergy Unknown RASH Verified 01/04/19 22:23 nortriptyline Allergy Unknown RASH Unverified 01/04/19 22:23 CLASS B STERIODS Allergy Unknown RASH Uncoded 01/04/19 22:23 Past Med/Surg History Medical History COPD (chronic obstructive pulmonary disease) (Chronic) Emphysema lung (Chronic) Family History Other Family history non-contributory Social History Preferred Language: Indonesian Feels Safe at Home: Yes Smoking Status: Former smoker Review of Systems See HPI for pertinent positives & negatives. and A total of 10 systems reviewed and were otherwise negative Physical Exam Vital Signs Vital Signs - 24 hr 01/04/19 18:34 01/04/19 19:39 01/04/19 19:40 Temperature 36.6 C Temperature Source Oral Sepsis Recent Fever Within 48 Hours No Sepsis New/Unexplained Change in Mental Status No Sepsis Action Taken by Nursing No Action Required Pulse Rate 100 H Pulse Rate [Finger] 88 Respiratory Rate 22 18 Respiratory Effort / Characteristics Non-Labored Respiratory Depth Normal Normal Respiratory Pattern Regular Blood Pressure 172/78 H Blood Pressure [Left Arm] 142/74 H Blood Pressure Mean 109 Blood Pressure Mean [Left Arm] 96 Blood Pressure Position Sitting Pulse Oximetry 97 98 99 Oxygen Delivery Method Nasal Cannula Nasal Cannula Nasal Cannula Oxygen Flow Rate 3 3 3 01/04/19 20:59 01/04/19 22:00 01/04/19 23:08 Temperature Temperature Source Sepsis Recent Fever Within 48 Hours Sepsis New/Unexplained Change in Mental Status Sepsis Action Taken by Nursing Pulse Rate Pulse Rate [Finger] 86 95 H 99 H Respiratory Rate 22 20 18 Respiratory Effort / Characteristics Respiratory Depth Respiratory Pattern Blood Pressure Blood Pressure [Left Arm] 162/73 H 162/63 H 172/75 H Blood Pressure Mean Blood Pressure Mean [Left Arm] 102 96 107 Blood Pressure Position Pulse Oximetry 99 98 99 Oxygen Delivery Method Nebulizer Nasal Cannula Nasal Cannula Oxygen Flow Rate 3 3 01/05/19 01:06 Temperature Temperature Source Sepsis Recent Fever Within 48 Hours Sepsis New/Unexplained Change in Mental Status Sepsis Action Taken by Nursing Pulse Rate Pulse Rate [Finger] 97 H Respiratory Rate 18 Respiratory Effort / Characteristics Respiratory Depth Respiratory Pattern Blood Pressure Blood Pressure [Left Arm] 155/69 H Blood Pressure Mean Blood Pressure Mean [Left Arm] 97 Blood Pressure Position Pulse Oximetry 100 Oxygen Delivery Method Nasal Cannula Oxygen Flow Rate 3 GENERAL: Patient is awake alert in no acute distress patient is resting c omfortably and showing no signs of anxiety EYES: The conjunctivae are clear. The pupils are round and reactive. EARS, NOSE, MOUTH AND THROAT: The nose is without any evidence of any deformity. Mucous membranes are moist tongue is midline NECK: The neck is nontender and supple. RESPIRATORY: Diminished breath sounds were noted throughout. There is scattered wheezing in both upper lung bell. Significant tachypnea and conversational dyspnea was appreciated. Pursed lip breathing was noted. CARDIOVASCULAR: Regular rate and rhythm noted there no murmurs rubs or gallops normal S1 normal S2 GASTROINTESTINAL: The abdomen is soft. Bowel sounds are present in all quadrants. Abdomen is nontender MUSCULOSKELETAL/EXTREMITIES: There is no evidence of gross deformity full range of motion is noted in the hips and shoulders SKIN: There is no obvious evidence of any rash. There are no petechiae, pallor or cyanosis noted. NEUROLOGIC: Patient is awake alert and oriented x3. Course 1917: Past medical records reviewed. The patient was evaluated in room A10, and a complete history and physical examination were performed. 2054: The patient became winded when standing to use the restroom, but she states that she does not want to stay. She will be given another Duoneb. 2129: I consulted Dr. [facility] Pulmon[facility]. He states that he would prefer that the patient stays in the hospital, but if she insists on leaving then he will follow up with her as an outpatient. 2142: I updated the patient on results. 2300: I consulted Dr. Donaldo [facility] Hospitalist. He will reevaluate the patient for hospitalization. Consultations Consultation #1: I consulted Dr. [facility] Pulmonology. He states that he would prefer that the patient stays in the hospital, but if she insists on leaving then he will follow up with her as an outpatient. Time: 21:30 Consultation #2: I consulted [facility] Hospitalist. He will reevaluate the patient for hospitalization. Time: 23:01 Administered Medications Discontinued Medications Albuterol (Duoneb) 3 ml NEB NOW STA Stop: 01/04/19 19:19 Last Admin: 01/04/19 19:37 Dose: 3 ml Documented by: [id number] Albuterol (Duoneb) 3 ml NEB NOW STA Stop: 01/04/19 20:56 Last Admin: 01/04/19 20:58 Dose: 3 ml Documented by: [id number] Azithromycin (Zithromax) 500 mg PO NOW ONE Stop: 01/04/19 21:32 Last Admin: 01/04/19 21:48 Dose: 500 mg Documented by: [id number] Methylprednisolone (Solumedrol) 125 mg IV NOW STA Stop: 01/04/19 19:19 Last Admin: 01/04/19 19:37 Dose: 125 mg Documented by: [id number] Medical Decision Making Differential Diagnosis Differential diagnosis: Etiologies such as infections, reactive airway disease, pneumonia, pneumothorax, COPD, CHF, cardiac ischemia, pulmonary embolism, musculoskeletal, gastrointestinal, as well as others were entertained. Medical Records Attestation: I reviewed the patient's medical records. Home Medications Current Medication List: was personally reviewed by me Laboratory Data Attestation: I reviewed the patient's lab results. Result diagrams: 01/04/19 19:30 01/04/19 19:30 Lab Results 01/04/19 01/04/19 01/04/19 Range/Units 19:30 19:30 19:30 WBC 6.33 (4.8-10.8) K/uL RBC 4.09 L (4.2-5.4) M/uL Hgb 12.2 (12.0-16.0) g/dL Hct 37.4 (37-47) % MCV 91.4 (80-100) fL MCH 29.8 (25-34) pg MCHC 32.6 (32-36) g/dL RDW Std Deviation 47.4 H (36.4-46.3) fL RDW Coeff of Opal 14.0 (11.5-14.5) % Plt Count 241 (130-400) K/uL MPV 8.6 (7.4-10.4) fL Immature Gran % (Auto) 0.3 % Neut % (Auto) 60.7 % Lymph % (Auto) 25.3 % Wallace % (Auto) 10.7 % Eos % (Auto) 2.4 % Baso % (Auto) 0.6 % Immature Gran # (Auto) 0.02 (0.00-0.02) K/uL Neut # (Auto) 3.84 (1.4-6.5) K/uL Lymph # (Auto) 1.60 (1.2-3.4) K/uL Wallace # (Auto) 0.68 H (0.11-0.59) K/uL Eos # (Auto) 0.15 (0-0.5) K/uL Baso # (Auto) 0.04 (0-0.2) K/uL PT 10.0 (9.0-12.0) Seconds INR 1.0 (0.9-1.1) APTT 25.4 (21.0-31.0) Seconds PTT Ratio 0.9 Sodium 137 (136-145) mmol/L Potassium 3.4 L (3.5-5.1) mmol/L Chloride 97 L (98-107) mmol/L Carbon Dioxide 33 H (21-32) mmol/L Anion Gap 8.0 (3-11) BUN 15 (7-18) mg/dl Creatinine 0.86 (0.6-1.2) mg/dl Est Cr Clr Drug Dosing 52.9 ml/min Est GFR ( Amer) 78.2 Est GFR (Non-Af Amer) 67.5 BUN/Creatinine Ratio 17.0 (10-20) Glucose 90 (70-99) mg/dl Calcium 8.5 (8.5-10.1) mg/dl Magnesium 2.3 (1.8-2.4) mg/dl Total Bilirubin 0.2 (0.2-1) mg/dl AST 31 (15-37) U/L ALT 38 (12-78) U/L Alkaline Phosphatase 116 (45-117) U/L Troponin I < 0.015 (0-0.045) ng/ml Total Protein 7.1 (6.4-8.2) gm/dl Albumin 4.0 (3.4-5.0) gm/dl Globulin 3.1 (2.5-4.0) gm/dl Albumin/Globulin Ratio 1.3 (0.9-2) Valproic Acid (50-100) mcg/ml 01/04/19 Range/Units 19:30 WBC (4.8-10.8) K/uL RBC (4.2-5.4) M/uL Hgb (12.0-16.0) g/dL Hct (37-47) % MCV (80-100) fL MCH (25-34) pg MCHC (32-36) g/dL RDW Std Deviation (36.4-46.3) fL RDW Coeff of Opal (11.5-14.5) % Plt Count (130-400) K/uL MPV (7.4-10.4) fL Immature Gran % (Auto) % Neut % (Auto) % Lymph % (Auto) % Wallace % (Auto) % Eos % (Auto) % Baso % (Auto) % Immature Gran # (Auto) (0.00-0.02) K/uL Neut # (Auto) (1.4-6.5) K/uL Lymph # (Auto) (1.2-3.4) K/uL Wallace # (Auto) (0.11-0.59) K/uL Eos # (Auto) (0-0.5) K/uL Baso # (Auto) (0-0.2) K/uL PT (9.0-12.0) Seconds INR (0.9-1.1) APTT (21.0-31.0) Seconds PTT Ratio Sodium (136-145) mmol/L Potassium (3.5-5.1) mmol/L Chloride (98-107) mmol/L Carbon Dioxide (21-32) mmol/L Anion Gap (3-11) BUN (7-18) mg/dl Creatinine (0.6-1.2) mg/dl Est Cr Clr Drug Dosing ml/min Est GFR ( Amer) Est GFR (Non-Af Amer) BUN/Creatinine Ratio (10-20) Glucose (70-99) mg/dl Calcium (8.5-10.1) mg/dl Magnesium (1.8-2.4) mg/dl Total Bilirubin (0.2-1) mg/dl AST (15-37) U/L ALT (12-78) U/L Alkaline Phosphatase (45-117) U/L Troponin I (0-0.045) ng/ml Total Protein (6.4-8.2) gm/dl Albumin (3.4-5.0) gm/dl Globulin (2.5-4.0) gm/dl Albumin/Globulin Ratio (0.9-2) Valproic Acid 5 L (50-100) mcg/ml Imaging Data Radiologist's Impression: Radiology results as stated below per my review and the radiologist's interpretation: SINGLE VIEW CHEST CLINICAL HISTORY: Dyspnea. FINDINGS: An AP, portable, upright chest radiograph is compared to study dated 04/09/2018 and correlated with chest CT dated 04/08/2018. The cardiomediastinal silhouette is unremarkable, noting atherosclerotic calcification of the thoracic aorta. Advanced emphysema and chronic interstitial thickening are similar to previous. Apical scarring is observed, and there is bibasilar scarring/atelectasis. No airspace consolidation or large pleural effusion is identified. No pneumothorax is seen. The skeletal structures are osteopenic. The bony thorax is grossly intact. Calcified breast implants are noted bilaterally. IMPRESSION: Advanced emphysematous change with no acute cardiopulmonary abnormality identified. Electronically signed by: Chinmay Briscoe M.D. 01/04/2019 7:50 PM ECG Data Attestation: I personally reviewed and interpreted this ECG as follows: Indication: SOB/dyspnea Rate (beats per minute): 92 Rhythm: normal sinus Findings: + ST depression (laterally); no PAC and no PVC Comparison ECG Date: from (04/09/18) Change: no significant change Blood Pressure Blood Pressure Findings: Elevated blood pressure Blood Pressure Disposition: further management by hospitalist BRITTANY Navarro The patient is a 73-year-old female who presented to the emergency department for an evaluation of shortness of breath. Patient's history and physical exam to be consistent with COPD with superimposed bronchitis. The patient was treated with multiple bronchodilator duo nebs in the emergency department. She also had a DuoNeb prior to arrival. She was treated with IV steroids as well as oral antibiotics. The patient was reevaluated multiple times. She continued to have significant bronchospasm. I discussed the patient's laboratory and radiographic studies with her. I also discussed her case with her primary superintendent communications. Ultimately the patient was felt to be a good candidate for inpatient management. I discussed her case with the on-call [facility] hospitalist. They have agreed to evaluate the patient in the emergency department for further management and disposition. Impression & Plan COPD exacerbation, Bronchitis Discharge Plan Visit Data Chief Complaint: Shortness of Breath/Dyspnea Stated Complaint: SOB ED Provider: Micky Mast Discharge Problem: COPD exacerbation, Bronchitis Patient Disposition: Being Evaluated by Hospitalist Forms Stand Alone Forms: My [facility] Prescriptions Prescriptions: No Action furosemide [Lasix] 40 mg Tablet 80 mg PO QAM RF: 0 albuterol sulfate 0.63 mg/3 mL Solution For Nebulization 0.63 mg INHALATION QID PRN (Reason: Shortness Of Breath Or Wheezing) RF: 0 levothyroxine [Synthroid] 137 mcg tablet 137 mcg PO DAILY RF: 0 potassium chloride 10 mEq capsule, extended release 10 meq PO QAM RF: 0 potassium chloride 10 mEq capsule, extended release 40 meq PO QPM RF: 0 gabapentin 600 mg Tablet 600 mg PO BID RF: 0 gabapentin 600 mg Tablet 1,200 mg PO HS RF: 0 clorazepate dipotassium 3.75 mg tablet 2 tabs PO HS RF: 0 simethicone [Gas Relief Ultra Strength] 180 mg Capsule 180 mg PO DAILY RF: 0 sumatriptan succinate [Imitrex] 100 mg tablet 100 mg PO UD RF: 0 sumatriptan succinate 100 mg tablet 100 mg PO UD PRN (Reason: Migraine Headache) RF: 0 cimetidine 300 mg Tablet 300 mg PO DAILY RF: 0 aspirin [Aspir-81] 81 mg Tablet,Delayed Release (Dr/Ec) 81 mg PO QPM RF: 0 acetaminophen [Tylenol Extra Strength] 500 mg Tablet 1,000 mg PO HS RF: 0 spironolactone [Aldactone] 25 mg tablet 50 mg PO BID RF: 0 hydrocortisone [Proctosol HC] 2.5 % Cream With Perineal Applicator 1 applic IL TID PRN (Reason: Hemorrhoids) RF: 0 methocarbamol 750 mg Tablet 750 mg PO QAM RF: 0 methocarbamol [Robaxin-750] 750 mg tablet 1,500 mg PO HS RF: 0 pravastatin 10 mg Tablet 10 mg PO QPM RF: 0 lansoprazole [Prevacid] 30 mg Capsule,Delayed Release(Dr/Ec) 30 mg PO BID RF: 0 nitroglycerin [Nitrostat] 0.4 mg Tablet, Sublingual 0.4 mg Sublingual UD PRN (Reason: Chest Pain) RF: 0 zinc 50 mg Tablet 50 mg PO BID RF: 0 albuterol sulfate [Ventolin HFA] 90 mcg/actuation HFA aerosol inhaler 2 puff Inhalation QID PRN (Reason: Shortness Of Breath Or Wheezing) RF: 0 oxybutynin chloride 5 mg tablet 5 mg PO QID RF: 0 fluticasone [Flonase Allergy Relief] 50 mcg/actuation spray,suspension 1 - 2 spray Intranasal DAILY RF: 0 ipratropium bromide 0.02 % Solution 1 dose INHALATION Q6H PRN (Reason: Shortness Of Breath Or Wheezing) RF: 0 azithromycin [Zithromax] 500 mg tablet 500 mg PO 3XWK RF: 0 escitalopram oxalate [Lexapro] 10 mg tablet 10 mg PO QAM RF: 0 ezetimibe [Zetia] 10 mg tablet 10 mg PO QPM RF: 0 Symbicort 160-4.5 mcg/actuation HFA aerosol inhaler 2 puff Inhalation TID RF: 0 cranberry extract 200 mg Capsule 200 mg PO DAILY RF: 0 coQ10 (ubiquinol) 200 mg Capsule 200 mg PO DAILY RF: 0 Probiotic 3 billion cell Capsule PO DAILY RF: 0 Aimovig Autoinjector (2 Pack) 70 mg/mL auto-injector 140 mg subcut UD RF: 0 Magic Mix 1 dose PO UD RF: 0 Referrals Referrals: eZb Dougherty MD [Primary Care Provider] - The scribe's documentation has been prepared under my direction and personally reviewed by me in its entirety. I confirm that the note above accurately reflects all work, treatment, procedures, and medical decision making performed by me.
[2019-01-04 19:40] LABS: Basophils # (auto) 0.04 K/uL (0-0.2); Basophils % (auto) 0.6 %; Eosinophils # (auto) 0.15 K/uL (0-0.5); Eosinophils % (auto) 2.4 %; Hematocrit (blood only) 37.4 % (37-47); Hemoglobin 12.2 g/dL (12.0-16.0); Immature Granulocytes # (auto) 0.02 K/uL (0.00-0.02); Immature Granulocytes % (auto) 0.3 %; Lymphocytes % (auto) 25.3 %; Mean Corpuscular Hgb Conc 32.6 g/dL (32-36); Mean Corpuscular Volume 91.4 fL (80-100); Mean Platelet Volume 8.6 fL (7.4-10.4); Monocytes # (auto) 0.68 K/uL (0.11-0.59); Monocytes % (auto) 10.7 %; Neutrophils # (auto) 3.84 K/uL (1.4-6.5); Neutrophils % (auto) 60.7 %; Platelet Count 241 K/uL (130-400); RDW Standard Deviation 47.4 fL (36.4-46.3); Red Blood Count 4.09 M/uL (4.2-5.4); White Blood Count 6.33 K/uL (4.8-10.8)
[2019-01-04 19:51] LABS: Partial Thromboplastin Ratio 0.9; Partial Thromboplastin Time 25.4 Seconds (21.0-31.0)
--- NOTE | 2019-01-04 19:52 | XRay Report ---
SINGLE VIEW CHEST CLINICAL HISTORY: Dyspnea. FINDINGS: An AP, portable, upright chest radiograph is compared to study dated 04/09/2018 and correlate d with chest CT dated 04/08/2018. The cardiomediastinal silhouette is unremarkable, noting atherosclero tic calcification of the thoracic aorta. Advanced emphysema and chronic interstitial thickening are s imilar to previous. Apical scarring is observed, and there is bibasilar scarring/atelectasis. No airs pace consolidation or large pleural effusion is identified. No pneumothorax is seen. The skeletal str uctures are osteopenic. The bony thorax is grossly intact. Calcified breast implants are noted bilate rally. IMPRESSION: Advanced emphysematous change with no acute cardiopulmonary abnormality identified. Electronically signed by: Chinmay Briscoe M.D. 01/04/2019 7:50 PM
[2019-01-04 20:02] LABS: Alanine Aminotransferase 38 U/L (12-78); Aspartate Aminotransferase 31 U/L (15-37); Blood Urea Nitrogen 15 mg/dl (7-18); Calcium 8.5 mg/dl (8.5-10.1); Carbon Dioxide 33 mmol/L (21-32); Chloride 97 mmol/L (98-107); Creatinine Clr Calc Pharmacy 52.9 ml/min; Est GFR (African American) 78.2; Est GFR (Non-African American) 67.5; Glucose 90 mg/dl (70-99); Magnesium 2.3 mg/dl (1.8-2.4); Potassium 3.4 mmol/L (3.5-5.1); Sodium 137 mmol/L (136-145)
[2019-01-04 20:07] LABS: Albumin Globulin Ratio 1.3 (0.9-2); Alkaline Phosphatase 116 U/L (45-117); Bilirubin,Total 0.2 mg/dl (0.2-1); Globulin 3.1 gm/dl (2.5-4.0); Total Protein 7.1 gm/dl (6.4-8.2); Troponin I < 0.015 ng/ml (0-0.045)
[2019-01-04] MEDS ORDERED: AZITHROMYCIN 250 MG TAB PO ONE (21:31)
--- NOTE | 2019-01-05 01:06 | History & Physical Report ---
Date of Service January 05, 2019 Assessment & Plan (1) COPD exacerbation: Ms. Meek is a 73-year-old female with a history of COPD, Cronin's esophagus, coronary artery disease, chronic systolic congestive heart failure, migraine without aura, depression and anxiety, hypercholesterolemia, hypothy roidism, chronic low back pain with lumbar radiculopathy, who presents to the emergency department due to a 1 week history of more productive cough, shortness of breath, and chest tightness. ED course: DuoNeb's x2, 500 mg p.o. azithromycin, 125 mg IV Solu-Medrol -Admit to Med/Surg -Patient meets GOLD criteria for COPD exacerbation with increased cough, sputum production and dyspnea -Continue IV steroids, with Solu-Medrol 60 mg IV every 8 hours -Duo nebs every 4 hours scheduled, continue home inhalers -Continue azithromycin, add Rocephin to cover for possible superimposed pneumonia -Start budesonide 0.5 mg nebs twice daily GERD -Continue cimetidine, change lansoprazole to pantoprazole Depression and anxiety -Continue home Lexapro and clorazepate Congestive heart failure -Continue home Lasix, spironolactone and potassium supplementation Chronic back pain -Continue home gabapentin and methocarbamol Hypercholesterolemia -Continue home Zetia and pravastatin Coronary artery disease -Continue home aspirin Migraine without aura -Continue home PRN sumatriptan Urinary incontinence -To new home oxybutynin Hypothyroidism -Continue home Synthroid CODE STATUS: Full Disposition: Admit to med/surg DVT prophylaxis: SCDs, given patient ambulatory F/E/N: Heart healthy diet, potassium low at 3.4, continue home potassium supplementation. No IV fluids ordered. (2) GERD (gastroesophageal reflux disease): (3) Depression: (4) CHF (congestive heart failure): (5) Back pain: (6) Hypercholesterolemia: (7) Coronary artery disease: (8) Migraine without aura: (9) Hypothyroidism: History of Present Illness Primary Care Provider: Zeb Dougherty MD Ms. Meek is a 73-year-old female with a history of COPD, Cronin's esophagus, coronary artery disease, chronic systolic congestive heart failure, migraine without aura, depression and anxiety, hypercholesterolemia, hypothyroidism, chronic low back pain with lumbar radiculopathy, who presents to the emergency department due to a 1 week history of more productive cough, shortness of breath, and chest tightness. The patient states that she chronically wears 3 L of oxygen continuously at home. She has noted in the last 1 week, that her chest has felt "more rattle-y" and tight. She has been more short of breath and tired with minimal activity, such as walking from her bedroom to the bathroom. She denies associated fever and chills, and states that she is eating and drinking normally. She does have nebulizers that she uses at home, she states that she has been using them once a day for the past week. She states that she has a pulse oximeter at home, however has not been checking her oxygen saturations. She states that she has a history of chronic migraines without aura, for which she follows with Dr. Shea. She states she is trying a regimen of Aimovig for this. Of note, she is a prior smoker. She quit in October 2004, however smoked approximately 2 packs/day for 45 years. She consumes alcohol on a monthly basis, and denies use of recreational drugs. Allergies Allergy/AdvReac Type Severity Reaction Status Date / Time cortisone Allergy Unknown RASH FOR 3 Verified 01/04/19 22:23 MONTHS levofloxacin Allergy Unknown RASH Verified 01/04/19 22:23 nortriptyline Allergy Unknown RASH Unverified 01/04/19 22:23 CLASS B STERIODS Allergy Unknown RASH Uncoded 01/04/19 22:23 Home Medications Home Medications Medication Instructions Recorded Confirmed Type Magic Mix 1 dose PO UD 01/04/19 01/04/19 History acetaminophen [Tylenol Extra 1,000 mg PO HS 01/04/19 01/04/19 History Strength] albuterol sulfate 0.63 mg INHALATION QID PRN 01/04/19 01/04/19 History albuterol sulfate [Ventolin HFA] 2 puff INHALATION QID PRN 01/04/19 01/04/19 History aspirin [Aspir-81] 81 mg PO QPM 01/04/19 01/04/19 History azithromycin [Zithromax] 500 mg PO 3XWK 01/04/19 01/04/19 History budesonide-formoterol [Symbicort] 2 puff INHALATION TID 01/04/19 01/04/19 History cimetidine 300 mg PO DAILY 01/04/19 01/04/19 History clorazepate dipotassium 2 tabs PO HS 01/04/19 01/04/19 History coQ10 (ubiquinol) 200 mg PO DAILY 01/04/19 01/04/19 History cranberry extract 200 mg PO DAILY 01/04/19 01/04/19 History erenumab-aooe [Aimovig 140 mg SUBCUT UD 01/04/19 01/04/19 History Autoinjector (2 Pack)] escitalopram oxalate [Lexapro] 10 mg PO QAM 01/04/19 01/04/19 History ezetimibe [Zetia] 10 mg PO QPM 01/04/19 01/04/19 History fluticasone [Flonase Allergy 1 - 2 spray INTRANASAL DAILY 01/04/19 01/04/19 History Relief] furosemide [Lasix] 80 mg PO QAM 01/04/19 01/04/19 History gabapentin 1,200 mg PO HS 01/04/19 01/04/19 History gabapentin 600 mg PO BID 01/04/19 01/04/19 History hydrocortisone [Proctosol HC] 1 applic [place] TID PRN 01/04/19 01/04/19 History ipratropium bromide 1 dose INHALATION Q6H PRN 01/04/19 01/04/19 History lactobacillus combination no.4 0 mmu cells PO DAILY 01/04/19 01/04/19 History [Probiotic] lansoprazole [Prevacid] 30 mg PO BID 01/04/19 01/04/19 History levothyroxine [Synthroid] 137 mcg PO DAILY 01/04/19 01/04/19 History methocarbamol 750 mg PO QAM 01/04/19 01/04/19 History methocarbamol [Robaxin-750] 1,500 mg PO HS 01/04/19 01/04/19 History nitroglycerin [Nitrostat] 0.4 mg SUBLINGUAL UD PRN 01/04/19 01/04/19 History oxybutynin chloride 5 mg PO QID 01/04/19 01/04/19 History potassium chloride 10 meq PO QAM 01/04/19 01/04/19 History potassium chloride 40 meq PO QPM 01/04/19 01/04/19 History pravastatin 10 mg PO QPM 01/04/19 01/04/19 History simethicone [Gas Relief Ultra 180 mg PO DAILY 01/04/19 01/04/19 History Strength] spironolactone [Aldactone] 50 mg PO BID 01/04/19 01/04/19 History sumatriptan succinate 100 mg PO UD PRN 01/04/19 01/04/19 History sumatriptan succinate [Imitrex] 100 mg PO UD 01/04/19 01/04/19 History zinc 50 mg PO BID 01/04/19 01/04/19 History Past Med/Surg History Medical History Hypothyroidism Migraine without aura Coronary artery disease Hypercholesterolemia Back pain CHF (congestive heart failure) Depression GERD (gastroesophageal reflux disease) COPD (chronic obstructive pulmonary disease) (Chronic) Emphysema lung (Chronic) Family History Other Family history non-contributory Social History Communication Ability: Effective Beliefs That Will Affect Care: None Current Living Situation: Spouse Other Information That Helps Us Care for You: No Feels Safe at Home: Yes Safety Concerns: Feels Safe At This Time Smoking Status: Former smoker Hx Alcohol Use: No Hx Substance Use: No Review of Systems Constitutional: + fatigue; no fever, no chills and no anorexia Respiratory: + cough, + chest congestion, + dyspnea on exertion and + sputum production; no dyspnea Cardiovascular: no chest pain, no palpitations, no syncope, no edema and no calf pain Gastrointestinal: + constipation; no abdominal pain, no nausea and no vomiting Genitourinary (Female): no dysuria, no urinary frequency and no urinary hesitancy Integumentary: no rash and no lesions Neurologic: + headache(s) Physical Exam Vital Signs (Past 24 Hours): Last Vital Signs Temp 36.6 C 01/04/19 18:34 Pulse 99 H 01/04/19 23:08 Resp 18 01/04/19 23:08 BP 172/75 H 01/04/19 23:08 Pulse Ox 99 01/04/19 23:08 Constitutional: WD/WN, vitals as above cooperative and comfortable Wearing 3 L of oxygen via nasal cannula Eyes: PERRL, conjunctivae normal, anicteric sclerae ENMT: external ear and nose normal, oropharynx normal Respiratory: + cough and able to speak in complete sentences; no respiratory distress Auscultation: + diminished lung sounds (bilaterally) and + wheezes (Soft, scattered expiratory wheezing) Gastrointestinal (Abdomen): Inspection/Auscultation: + abdomen distended Percussion/Palpation: abdomen soft; abdomen nontender, no guarding and abdomen not rigid Psychiatric: A+Ox3, euthymic affect Results & Data Laboratory Results Laboratory Results - last 24 hr 01/04/19 01/04/19 01/04/19 19:30 19:30 19:30 WBC 6.33 RBC 4.09 L Hgb 12.2 Hct 37.4 MCV 91.4 MCH 29.8 MCHC 32.6 RDW Std Deviation 47.4 H RDW Coeff of Opal 14.0 Plt Count 241 MPV 8.6 Immature Gran % (Auto) 0.3 Neut % (Auto) 60.7 Lymph % (Auto) 25.3 Nuckolls % (Auto) 10.7 Eos % (Auto) 2.4 Baso % (Auto) 0.6 Immature Gran # (Auto) 0.02 Neut # (Auto) 3.84 Lymph # (Auto) 1.60 Nuckolls # (Auto) 0.68 H Eos # (Auto) 0.15 Baso # (Auto) 0.04 PT 10.0 INR 1.0 APTT 25.4 PTT Ratio 0.9 Sodium 137 Potassium 3.4 L Chloride 97 L Carbon Dioxide 33 H Anion Gap 8.0 BUN 15 Creatinine 0.86 Est Cr Clr Drug Dosing 52.9 Est GFR ( Amer) 78.2 Est GFR (Non-Af Amer) 67.5 BUN/Creatinine Ratio 17.0 Glucose 90 Calcium 8.5 Magnesium 2.3 Total Bilirubin 0.2 AST 31 ALT 38 Alkaline Phosphatase 116 Troponin I < 0.015 Total Protein 7.1 Albumin 4.0 Globulin 3.1 Albumin/Globulin Ratio 1.3 Valproic Acid 01/04/19 19:30 WBC RBC Hgb Hct MCV MCH MCHC RDW Std Deviation RDW Coeff of Opal Plt Count MPV Immature Gran % (Auto) Neut % (Auto) Lymph % (Auto) Nuckolls % (Auto) Eos % (Auto) Baso % (Auto) Immature Gran # (Auto) Neut # (Auto) Lymph # (Auto) Nuckolls # (Auto) Eos # (Auto) Baso # (Auto) PT INR APTT PTT Ratio Sodium Potassium Chloride Carbon Dioxide Anion Gap BUN Creatinine Est Cr Clr Drug Dosing Est GFR ( Amer) Est GFR (Non-Af Amer) BUN/Creatinine Ratio Glucose Calcium Magnesium Total Bilirubin AST ALT Alkaline Phosphatase Troponin I Total Protein Albumin Globulin Albumin/Globulin Ratio Valproic Acid 5 L Supervising Physician Co-Signing Physician Notes Attending addendum: I have physically seen this patient, have supervised the medical residents activities, and agree with the H&P unless as otherwise noted. Assessment and Plan: COPD exacerbation-- In the ED received Solu-Medrol 125 mg IV, duo nebs x2, and azithromycin 500 mg p.o. Solu-Medrol 60 mg IV every 8 hours. Duonebs every 4 hours while awake and every 2 hours when necessary. Ceftriaxone 1 g IV daily, and azithromycin 500 mg IV daily. Pulmicort Respules 0.5 mg inhaled twice daily. Sputum Gram stain and culture. Nasal cannula oxygen, titrate to keep pulse ox 92%. Remainder of orders and notations as noted. Resident Activity Tracking Resident Involvement: Resident Care Provided Care Provided: Adult Hospital Medicine
[2019-01-05] MEDS ORDERED: ACETAMINOPHEN 325 MG TAB PO PRN (01:46)
[2019-01-05] MEDS ORDERED: SUMAtriptan succinate 100 MG TAB PO PRN ×2 (01:46→16:50)
[2019-01-05] MEDS ORDERED: methylPREDNISolone 125 MG/2 ML VIAL IV SCH (01:46)
[2019-01-05] MEDS ORDERED: cefTRIAXone SODIUM 1,000 MG in DEXTROSE 5% 50 ML IV SCH (03:00)
[2019-01-05] MEDS ORDERED: CLORAZEPATE DIPOTASSIUM 3.75 MG TAB PO ONE (03:14)
[2019-01-05] MEDS: ALBUT/IPRATROP 3MG/0.5MG NEB 3 ML VIAL NEB SCH ×6 (03:17→23:01)
[2019-01-05] MEDS: methylPREDNISolone 60 MG in SYRINGE 0 ML IV SCH ×3 (03:59→20:38)
[2019-01-05] MEDS: GABAPENTIN 600 MG TAB PO SCH ×2 (06:05→13:52)
[2019-01-05] MEDS: LEVOTHYROXINE SODIUM 137 MCG TABLET PO SCH (06:05)
[2019-01-05] MEDS: BUDESONIDE 0.5 MG/2 ML VIAL (PULMICORT) NEB SCH ×2 (07:40→19:00)
[2019-01-05] MEDS ORDERED: NON-FORMULARY MEDICATION (Coq10 (Ubiquinol) 200 MG) PO SCH (09:00)
[2019-01-05] MEDS ORDERED: BUDESONIDE/FORMOTEROL FUMARATE 160/4.5 60 PUFFS/INHALER INH SCH (09:00)
[2019-01-05] MEDS ORDERED: CRANBERRY EXTRACT 200 MG PO SCH (09:00)
[2019-01-05] MEDS: SPIRONOLACTONE 25 MG TAB PO SCH ×2 (09:08→20:38)
[2019-01-05] MEDS: PANTOprazole 40 MG TAB PO SCH (09:08)
[2019-01-05] MEDS: OXYBUTYNIN CHLORIDE 5 MG TAB PO SCH ×4 (09:08→20:39)
[2019-01-05] MEDS: FAMOTIDINE 20 MG TAB PO SCH (09:09)
[2019-01-05] MEDS: FUROSEMIDE 80 MG TAB PO SCH (09:09)
[2019-01-05] MEDS: AZITHROMYCIN 250 MG TAB PO SCH (09:09)
[2019-01-05] MEDS: POTASSIUM CHLORIDE 10 MEQ TABCR PO SCH (09:10)
[2019-01-05] MEDS: METHOCARBAMOL 750 MG TABLET PO SCH (09:10)
[2019-01-05] MEDS: ESCITALOPRAM OXALATE 10 MG TAB PO SCH (09:10)
[2019-01-05] MEDS: FLUTICASONE PROPIONATE NA SPR 16 GM BTL SCH (09:10)
[2019-01-05 11:13] LABS: BUN Creatinine Ratio 13.6 (10-20); Blood Urea Nitrogen 14 mg/dl (7-18); Calcium 8.7 mg/dl (8.5-10.1); Carbon Dioxide 30 mmol/L (21-32); Chloride 101 mmol/L (98-107); Creatinine Clr Calc Pharmacy 41.6 ml/min; Est GFR (African American) 64.4; Est GFR (Non-African American) 55.6; Glucose 189 mg/dl (70-99); Magnesium 2.3 mg/dl (1.8-2.4); Potassium 3.5 mmol/L (3.5-5.1); Sodium 138 mmol/L (136-145)
[2019-01-05 11:24] LABS: Troponin I < 0.015 ng/ml (0-0.045)
[2019-01-05] MEDS ORDERED: MAGNESIUM HYDROXIDE SUSP 30 ML UDC PO PRN (15:35)
--- NOTE | 2019-01-05 15:36 | Hospitalist Progress Note ---
Date of Service January 05, 2019 Assessment & Plan (1) COPD exacerbation: COPD exacerbation: Ms. Meek is a 73-year-old female with a history of severe COPD, Cronin's esophagus, coronary artery disease, chronic systolic congestive heart failure, migraine without aura, depression and anxiety, hypercholesterolemia, hypothyroidism, chronic low back pain with lumbar radiculopathy, who presents to the emergency department due to a 1 week history of more productive cough, shortness of breath, and chest tightness. -Improving -with known severe COPD and has been evaluated for lung transplant at [facility] but then withdrew from the program due to not wanting to take the risk -Continue IV steroids, with Solu-Medrol 60 mg IV every 8 hours -continue Duo nebs every 4 hours scheduled, continue home inhalers -Continue azithromycin, can dc Rocephin as there is no PNA, PCT neg -continue home inhalers Acute on chronic hypoxic respiratory failure-now weaned back to home O2 3LNC GERD -Continue cimetidine, PPI Depression and anxiety -Continue home Lexapro and clorazepate Congestive heart failure -Continue home Lasix, spironolactone and potassium supplementation Chronic back pain -Continue home gabapentin and methocarbamol Hypercholesterolemia -Continue home Zetia and pravastatin Coronary artery disease -Continue home aspirin Migraine without aura -Continue home PRN sumatriptan Urinary incontinence -cont home oxybutynin Hypothyroidism -Continue home Synthroid CODE STATUS: Full Disposition: remain on med floor, possible dc to home tomorrow DVT prophylaxis: SCDs, add Lovenox SQ (2) GERD (gastroesophageal reflux disease): (3) Depression: (4) CHF (congestive heart failure): (5) Back pain: (6) Hypercholesterolemia: (7) Coronary artery disease: (8) Migraine without aura: (9) Hypothyroidism: (10) DVT prophylaxis: Subjective Feeling much better, less SOB and almost back to her baseline. Not coughing her usual productive yellow mucus Review of Systems All systems reviewed & are unremarkable except as noted in HPI & below Physical Exam Vital Signs (Past 24 Hours): Last Vital Signs Temp 36.7 C 01/05/19 15:00 Pulse 68 01/05/19 15:06 Resp 16 01/05/19 15:06 BP 153/76 H 01/05/19 15:00 Pulse Ox 98 01/05/19 15:06 Constitutional: WD/WN, vitals as above Eyes: PERRL, conjunctivae normal, anicteric sclerae ENMT: external ear and nose normal, oropharynx normal Neck: trachea midline, no thyromegaly Respiratory: normal respiratory effort Auscultation: + wheezes (diffuse exp, poor air movement) Cardiovascular: RRR, no murmur, no edema Gastrointestinal (Abdomen): normal bowel sounds, soft, nontender, no hepatosplenomegaly Musculoskeletal: Extremities: extremities normal to inspection; no cyanosis and no clubbing Skin: no rashes, warm and dry Neurologic: moves all extremities and awake; no focal motor deficits Psychiatric: A+Ox3, euthymic affect Results & Data Laboratory Results 01/05/19 01/05/19 01/05/19 Range/Units 10:42 10:42 10:42 Sodium 138 Cancelled Potassium 3.5 Cancelled Chloride 101 Cancelled Carbon Dioxide 30 Cancelled Anion Gap 7.0 Cancelled BUN 14 Cancelled Creatinine 1.01 Cancelled Est Cr Clr Drug Dosing 41.6 Cancelled Est GFR ( Amer) 64.4 Cancelled Est GFR (Non-Af Amer) 55.6 Cancelled BUN/Creatinine Ratio 13.6 Cancelled Glucose 189 H Cancelled Calcium 8.7 Cancelled Magnesium 2.3 (1.8-2.4) mg/dl Troponin I < 0.015 (0-0.045) ng/ml Procalcitonin < 0.05 (0-0.5) ng/ml TSH 0.087 L (0.300-4.500) uIu/ml
[2019-01-05] MEDS ORDERED: ASPIRIN 81 MG ECTAB PO SCH (21:00)
[2019-01-05] MEDS ORDERED: EZETIMIBE 10 MG TABLET PO SCH (21:00)
[2019-01-05] MEDS ORDERED: GABAPENTIN 600 MG TAB PO SCH (21:00)
[2019-01-05] MEDS ORDERED: CLORAZEPATE DIPOTASSIUM 3.75 MG TAB PO SCH (21:00)
[2019-01-05] MEDS ORDERED: POTASSIUM CHLORIDE 10 MEQ TABCR PO SCH (21:00)
[2019-01-05] MEDS ORDERED: METHOCARBAMOL 750 MG TABLET PO SCH (21:00)
[2019-01-05] MEDS ORDERED: PRAVASTATIN SOD 10 MG TAB PO SCH (21:00)
[2019-01-06] MEDS: ALBUT/IPRATROP 3MG/0.5MG NEB 3 ML VIAL NEB SCH ×3 (03:07→10:58)
[2019-01-06] MEDS: methylPREDNISolone 60 MG in SYRINGE 0 ML IV SCH ×2 (04:11→12:31)
[2019-01-06] MEDS: LEVOTHYROXINE SODIUM 137 MCG TABLET PO SCH (06:07)
[2019-01-06] MEDS: GABAPENTIN 600 MG TAB PO SCH (06:07)
[2019-01-06] MEDS: BUDESONIDE 0.5 MG/2 ML VIAL (PULMICORT) NEB SCH (06:53)
[2019-01-06] MEDS: ESCITALOPRAM OXALATE 10 MG TAB PO SCH (08:06)
[2019-01-06] MEDS: FAMOTIDINE 20 MG TAB PO SCH (08:06)
[2019-01-06] MEDS: METHOCARBAMOL 750 MG TABLET PO SCH (08:06)
[2019-01-06] MEDS: AZITHROMYCIN 250 MG TAB PO SCH (08:06)
[2019-01-06] MEDS: POTASSIUM CHLORIDE 10 MEQ TABCR PO SCH (08:07)
[2019-01-06] MEDS: OXYBUTYNIN CHLORIDE 5 MG TAB PO SCH ×2 (08:07→12:31)
[2019-01-06] MEDS: FUROSEMIDE 80 MG TAB PO SCH (08:07)
[2019-01-06] MEDS: SPIRONOLACTONE 25 MG TAB PO SCH (08:07)
[2019-01-06] MEDS: PANTOprazole 40 MG TAB PO SCH (08:08)
[2019-01-06] MEDS: FLUTICASONE PROPIONATE NA SPR 16 GM BTL SCH (08:09)
--- NOTE | 2019-01-06 11:47 | Discharge Summary ---
Date of Service January 06, 2019 Admission HPI Per Admitting Provider Ms. Meek is a 73-year-old female with a history of COPD, Cronin's esophagus, coronary artery disease, chronic systolic congestive heart failure, migraine without aura, depression and anxiety, hypercholesterolemia, hypothyroidism, chronic low back pain with lumbar radiculopathy, who presents to the emergency department due to a 1 week history of more productive cough, shortness of breath, and chest tightness. The patient states that she chronically wears 3 L of oxygen continuously at home. She has noted in the last 1 week, that her chest has felt "more rattle-y" and tight. She has been more short of breath and tired with minimal activity, such as walking from her bedroom to the bathroom. She denies associated fever and chills, and states that she is eating and drinking normally. She does have nebulizers that she uses at home, she states that she has been using them once a day for the past week. She states that she has a pulse oximeter at home, however has not been checking her oxygen saturations. She states that she has a history of chronic migraines without aura, for which she follows with Dr. Shea. She states she is trying a regimen of Aimovig for this. Of note, she is a prior smoker. She quit in October 2004, however smoked approximately 2 packs/day for 45 years. She consumes alcohol on a monthly basis, and denies use of recreational drugs. Principal Diagnosis COPD exacerbation, acute on chronic hypoxic respiratory failure Discharge Exam Constitutional WD/WN, vitals as above Eyes PERRL, conjunctivae normal, anicteric sclerae ENMT external ear and nose normal, oropharynx normal Neck trachea midline, no thyromegaly Respiratory normal respiratory effort Auscultation: + wheezes (Faint expiratory wheezes in upper airways only, much improved air movement from previous); no rales and no rhonchi Cardiovascular RRR, no murmur, no edema Gastrointestinal (Abdomen) normal bowel sounds, soft, nontender, no hepatosplenomegaly Musculoskeletal Extremities: extremities normal to inspection; no cyanosis and no clubbing Skin no rashes, warm and dry Neurologic moves all extremities and awake; no focal motor deficits Psychiatric A+Ox3, euthymic affect Discharge Data Allergies Allergy/AdvReac Type Severity Reaction Status Date / Time cortisone Allergy Unknown RASH FOR 3 Verified 01/04/19 22:23 MONTHS levofloxacin Allergy Unknown RASH Verified 01/04/19 22:23 nortriptyline Allergy Unknown RASH Unverified 01/04/19 22:23 CLASS B STERIODS Allergy Unknown RASH Uncoded 01/04/19 22:23 Consultations None Procedures Performed None Ordered Studies Chest x-ray Hospital Course (1) COPD exacerbation: COPD exacerbation: Ms. Meek is a 73-year-old female with a history of severe COPD, Cronin's esophagus, coronary artery disease, chronic systolic congestive heart failure, migraine without aura, depression and anxiety, hypercholesterolemia, hypothyroidism, chronic low back pain with lumbar radiculopathy, who presents to the emergency department due to a 1 week history of more productive cough, shortness of breath, and chest tightness. -Much improved since admission -with known severe COPD and has been evaluated for lung transplant at [facility] but then withdrew from the program due to not wanting to take the risk -Received IV steroids, with Solu-Medrol 60 mg IV every 8 hours and will transition to p.o. prednisone taper upon discharge over the next 2 weeks -continue Duo nebs every 4 hours scheduled, continue home inhalers -Continue azithromycin 500 mg daily x2 more days and then back to 500 mg on Thursday Acute on chronic hypoxic respiratory failure-now weaned back to home O2 3LNC GERD -Continue cimetidine, PPI Depression and anxiety -Continue home Lexapro and clorazepate Congestive heart failure -Continue home Lasix, spironolactone and potassium supplementation Chronic back pain -Continue home gabapentin and methocarbamol Hypercholesterolemia -Continue home Zetia and pravastatin Coronary artery disease -Continue home aspirin Migraine without aura -Continue home PRN sumatriptan Urinary incontinence -cont home oxybutynin Hypothyroidism -Continue home Synthroid CODE STATUS: Full Disposition: Stable for discharge to home DVT prophylaxis: SCDs, Lovenox SQ (2) GERD (gastroesophageal reflux disease): (3) Depression: (4) CHF (congestive heart failure): (5) Back pain: (6) Hypercholesterolemia: (7) Coronary artery disease: (8) Migraine without aura: (9) Hypothyroidism: (10) DVT prophylaxis: Total Time Total Time Spent Total Time Spent (In Minutes): Greater than 30 minutes Total Time Includes: Examination of the Patient, Discharge Planning and Medication Reconciliation Discharge Plan Discharge Items Patient Disposition: Home - Self-Care Reason For Visit: COPD EXACERBATION Discharge Diagnosis: COPD exacerbation Condition: Good Discharge Goals: Decrease discomfort, Diagnostic testing, Improve disease control, Learn about illness and Therapeutic intervention Activity: Resume your previous activity Bathing: No limitations Exercise/Sports: As tolerated Non-emergency contact: Primary Care Provider Call non-emergency contact if: you have any medication questions and your symptoms worsen Follow-up/Referrals: Zeb Dougherty MD [Primary Care Provider] - Diet: Heart Healthy Addtl Provider Instructions: You were admitted with an exacerbation for COPD. You are treated with IV steroids and daily azithromycin; he had improvement of your symptoms. Please finish out the prednisone taper and follow-up with Dr. Dougherty within 1-2 weeks as will be scheduled for you. Prescriptions: New prednisone 10 mg tablet 60 mg PO DAILY Qty: 48 RF: 0 Continued furosemide [Lasix] 40 mg Tablet 80 mg PO QAM RF: 0 albuterol sulfate 0.63 mg/3 mL Solution For Nebulization 0.63 mg INHALATION QID PRN (Reason: Shortness Of Breath Or Wheezing) RF: 0 levothyroxine [Synthroid] 137 mcg tablet 137 mcg PO DAILY RF: 0 potassium chloride 10 mEq capsule, extended release 10 meq PO QAM RF: 0 potassium chloride 10 mEq capsule, extended release 40 meq PO QPM RF: 0 gabapentin 600 mg Tablet 600 mg PO BID RF: 0 gabapentin 600 mg Tablet 1,200 mg PO HS RF: 0 clorazepate dipotassium 3.75 mg tablet 2 tabs PO HS RF: 0 simethicone [Gas Relief Ultra Strength] 180 mg Capsule 180 mg PO DAILY RF: 0 sumatriptan succinate [Imitrex] 100 mg tablet 100 mg PO UD RF: 0 cimetidine 300 mg Tablet 300 mg PO DAILY RF: 0 aspirin [Aspir-81] 81 mg Tablet,Delayed Release (Dr/Ec) 81 mg PO QPM RF: 0 acetaminophen [Tylenol Extra Strength] 500 mg Tablet 1,000 mg PO HS RF: 0 spironolactone [Aldactone] 25 mg tablet 50 mg PO BID RF: 0 hydrocortisone [Proctosol HC] 2.5 % Cream With Perineal Applicator 1 applic [place] TID PRN (Reason: Hemorrhoids) RF: 0 methocarbamol 750 mg Tablet 750 mg PO QAM RF: 0 methocarbamol [Robaxin-750] 750 mg tablet 1,500 mg PO HS RF: 0 pravastatin 10 mg Tablet 10 mg PO QPM RF: 0 lansoprazole [Prevacid] 30 mg Capsule,Delayed Release(Dr/Ec) 30 mg PO BID RF: 0 nitroglycerin [Nitrostat] 0.4 mg Tablet, Sublingual 0.4 mg Sublingual UD PRN (Reason: Chest Pain) RF: 0 zinc 50 mg Tablet 50 mg PO BID RF: 0 albuterol sulfate [Ventolin HFA] 90 mcg/actuation HFA aerosol inhaler 2 puff Inhalation QID PRN (Reason: Shortness Of Breath Or Wheezing) RF: 0 oxybutynin chloride 5 mg tablet 5 mg PO QID RF: 0 fluticasone [Flonase Allergy Relief] 50 mcg/actuation spray,suspension 1 - 2 spray Intranasal DAILY RF: 0 ipratropium bromide 0.02 % Solution 1 dose INHALATION Q6H PRN (Reason: Shortness Of Breath Or Wheezing) RF: 0 escitalopram oxalate [Lexapro] 10 mg tablet 10 mg PO QAM RF: 0 ezetimibe [Zetia] 10 mg tablet 10 mg PO QPM RF: 0 Symbicort 160-4.5 mcg/actuation HFA aerosol inhaler 2 puff Inhalation TID RF: 0 cranberry extract 200 mg Capsule 200 mg PO DAILY RF: 0 coQ10 (ubiquinol) 200 mg Capsule 200 mg PO DAILY RF: 0 Probiotic 3 billion cell Capsule PO DAILY RF: 0 Aimovig Autoinjector (2 Pack) 70 mg/mL auto-injector 140 mg subcut UD RF: 0 Magic Mix 1 dose PO UD RF: 0 Changed azithromycin [Zithromax] 500 mg tablet 500 mg PO DAILY 2 Days Qty: 2 RF: 0 Discontinued sumatriptan succinate 100 mg tablet 100 mg PO UD PRN (Reason: Migraine Headache) RF: 0 Stand-Alone Forms: [facility] Discharge Orders: Discharge Order (Routine); Ordered 01/06/19 Ordered By: Rosalinda Abrams Admission Data Admit Date/Time: 01/05/19 01:05 Attending Provider: Rosalinda Abrams Admit Provider: Tlaha Castelan Primary Care Provider: Zeb Dougherty Other Providers: Madi Fulton Service: Medical Other Pending Studies at Discharge: No
== END 2019-01-06 12:50 | disposition home or self-care (01) | DRG 189 ==
LOC: ED 18:30 → SUATTDRO 01-05 01:05 → 4W 01-05 01:05

== ENCOUNTER 2019-05-07 17:05 | Inpatient (IN) ==
--- NOTE | 2019-05-07 18:28 | Emergency Department Note ---
Entered by Sergo Cardenas acting as a scribe for Dante Celeste MD History of Present Illness General Chief complaint: Fall Stated complaint: FALL, HIT LEFT SIDE ON END TABLE, SOB Time Seen by Provider: 05/07/19 17:49 Source: patient and family Limitations: no limitations History of Present Illness Provider complaint: Fall Onset (ago): day(s) (this morning) Location: head, upper extremity (elbow), lower extremity (thigh) and left Radiation: non-radiation Maximum Pain Intensity: 9 Current Pain Intensity: 9 Relieved By: + none Exacerbated By: + none Associated symptoms: + cough (constant), + headaches, + shortness of breath (constant) and + other (-visual changes); no chest pain, no fever/chills and no syncope Treatments prior to arrival: other (constant oxygen) The patient is a 73 year old female who presents to the Emergency Department after falling this morning onto her left side. The patient states that last night she had fallen asleep in a rocking chair and had gotten up early this morning to go to the bathroom. As the patient was leaving the bathroom, she lost her balance and fell into a coffee table causing her to hit her left elbow and thigh. She denies hitting her head, syncope, and does not have any visual changes. She states that it hurts to take deep breathes since she fell. The patient rates her pain as a 9 out of 10 in severity. The patient has a history of COPD and has had a heart attack. She takes a baby aspirin daily and is on constant oxygen at home. The patient has a cough that has been worsening over the past month and also has intermittent headaches. The patient recently had an infection in her lungs which has been treated with prophylactics. The patient denies having a fever. Home Medications Home Medications Medication Instructions Recorded Confirmed Type Magic Mix 1 dose PO UD 01/04/19 05/07/19 History Probiotic 3 mmu cells PO DAILY 01/04/19 05/07/19 History Symbicort 2 puff INHALATION TID 01/04/19 05/07/19 History acetaminophen [Tylenol Extra 1,000 mg PO HS 01/04/19 05/07/19 History Strength] albuterol sulfate 0.63 mg INHALATION QID PRN 01/04/19 05/07/19 History albuterol sulfate [Ventolin HFA] 2 puff INHALATION QID PRN 01/04/19 05/07/19 History aspirin [Aspir-81] 81 mg PO QPM 01/04/19 05/07/19 History cimetidine 300 mg PO DAILY 01/04/19 05/07/19 History clorazepate dipotassium 2 tabs PO HS 01/04/19 05/07/19 History coQ10 (ubiquinol) 200 mg PO DAILY 01/04/19 05/07/19 History cranberry extract 200 mg PO DAILY 01/04/19 05/07/19 History escitalopram oxalate [Lexapro] 10 mg PO QAM 01/04/19 05/07/19 History ezetimibe [Zetia] 10 mg PO QPM 01/04/19 05/07/19 History fluticasone propionate [Flonase 1 - 2 spray INTRANASAL DAILY 01/04/19 05/07/19 History Allergy Relief] furosemide [Lasix] 80 mg PO QAM 01/04/19 05/07/19 History gabapentin 1,200 mg PO 01/04/19 05/07/19 History gabapentin 600 mg PO BID 01/04/19 05/07/19 History hydrocortisone [Proctosol HC] 1 applic TN TID PRN 01/04/19 05/07/19 History ipratropium bromide 1 dose INHALATION Q6H PRN 01/04/19 05/07/19 History lansoprazole [Prevacid] 30 mg PO BID 01/04/19 05/07/19 History levothyroxine [Synthroid] 137 mcg PO DAILY 01/04/19 05/07/19 History methocarbamol 750 mg PO QAM 01/04/19 05/07/19 History methocarbamol [Robaxin-750] 1,500 mg PO 01/04/19 05/07/19 History nitroglycerin [Nitrostat] 0.4 mg SUBLINGUAL UD PRN 01/04/19 05/07/19 History oxybutynin chloride 5 mg PO QID 01/04/19 05/07/19 History potassium chloride 20 meq PO QAM 01/04/19 05/07/19 History potassium chloride 30 meq PO QPM 01/04/19 05/07/19 History pravastatin 20 mg PO QPM 01/04/19 05/07/19 History simethicone [Gas Relief Ultra 180 mg PO DAILY 01/04/19 05/07/19 History Strength] spironolactone [Aldactone] 25 mg PO BID 01/04/19 05/07/19 History sumatriptan succinate [Imitrex] 100 mg PO UD 01/04/19 05/07/19 History zinc 50 mg PO BID 01/04/19 05/07/19 History [id number] 1 cap PO BID PRN 05/07/19 05/07/19 History metoclopramide HCl 5 mg PO TIDM 05/07/19 05/07/19 History tiotropium bromide [Spiriva with 1 cap INHALATION DAILY 05/07/19 05/07/19 History HandiHaler] Allergies Allergy/AdvReac Type Severity Reaction Status Date / Time cortisone Allergy Unknown RASH FOR 3 Verified 05/07/19 17:37 MONTHS levofloxacin Allergy Unknown RASH Verified 05/07/19 17:37 nortriptyline Allergy Unknown RASH Unverified 05/07/19 17:37 Past Med/Surg History Medical History Hypothyroidism Migraine without aura Coronary artery disease Hypercholesterolemia Back pain CHF (congestive heart failure) Depression GERD (gastroesophageal reflux disease) COPD (chronic obstructive pulmonary disease) (Chronic) Emphysema lung (Chronic) Anxiety and depression Cronin esophagus Surgical History History of bladder surgery History of breast augmentation History of cholecystectomy History of hemorrhoidectomy History of tonsillectomy Family History Other Family history non-contributory Social History Preferred Language: Romanian Communication Ability: Effective Beliefs That Will Affect Care: None Current Living Situation: Spouse Feels Safe at Home: Yes Smoking Status: Former smoker Tobacco Type: cigarettes Hx Alcohol Use: No Hx Substance Use: No Review of Systems See HPI for pertinent positives & negatives. and A total of 10 systems reviewed and were otherwise negative Physical Exam Vital Signs Vital Signs - 24 hr 05/07/19 17:07 05/07/19 18:05 05/07/19 19:13 Temperature 36.6 C Temperature Source Oral Sepsis Recent Fever Within 48 Hours No Sepsis New/Unexplained Change in Mental Status No Sepsis Action Taken by Nursing No Action Required Pulse Rate 82 Pulse Rate [Left Finger] 79 Pulse Rhythm [Left Finger] Respiratory Rate 20 16 Respiratory Effort / Characteristics Non-Labored Respiratory Depth Normal Respiratory Pattern Regular Blood Pressure 136/67 Blood Pressure [Left Arm] 163/90 H Blood Pressure Mean 90 Blood Pressure Mean [Left Arm] 114 Pulse Oximetry 97 100 Oxygen Delivery Method Nasal Cannula Room Air Nasal Cannula Oxygen Flow Rate 3 3 05/07/19 20:37 05/07/19 21:31 05/07/19 22:27 Temperature Temperature Source Sepsis Recent Fever Within 48 Hours Sepsis New/Unexplained Change in Mental Status Sepsis Action Taken by Nursing Pulse Rate Pulse Rate [Left Finger] 75 80 77 Pulse Rhythm [Left Finger] Regular Regular Respiratory Rate 15 15 25 H Respiratory Effort / Characteristics Non-Labored Non-Labored Non-Labored Respiratory Depth Normal Normal Normal Respiratory Pattern Regular Regular Regular Blood Pressure Blood Pressure [Left Arm] 177/83 H 177/87 H 176/80 H Blood Pressure Mean Blood Pressure Mean [Left Arm] 114 117 112 Pulse Oximetry 100 100 99 Oxygen Delivery Method Nasal Cannula Nasal Cannula Nasal Cannula Oxygen Flow Rate 3 3 3 General: Non-ill appearing older female in no acute distress with baseline nasal cannula. HEENT: Normal cephalic atraumatic. Pupils are equal round and reactive to light. Extraocular movements are intact. Oropharynx is pink with moist mucous membranes. No swelling of the mouth lips or tongue. Neck: Supple with a midline trachea. No meningeal signs or stiffness, no JVD or bruits. No Stridor. Chest: Clear to auscultation bilaterally. No wheezes or rhonchi. No increased work of breathing. Tender to palpation in left lateral chest with bruising. Heart: regular rate and rhythm. Abdomen: Soft nontender, nondistended without rebound guarding or rigidity. Extremities: No cyanosis clubbing or edema. No calf tenderness or asymmetry Spine/Back. Non tender to palpation. No CVA tenderness Skin: Good turgor without rashes. Neurologic exam: Cranial nerves two through 12 are intact. Motor and sensation are intact and symmetrical throughout. Course 1748: The patient was seen in room A11A, a physical exam was performed. 2114: I spoke with the patient about the rib fractures, I suggested she get admitted to the hospital for further evaluation. The patient states she does not want to be admitted and that she will think about it. I also gave her IV Toradol. 2223: The patient agrees to be admitted. 2225: I discussed the patient's case with Dr. Jay, [facility] Hospitalist, who agrees to accept the patient for further evaluation. 2230: The patient was admitted for further evaluation. Administered Medications Acetaminophen (Tylenol) 650 mg PO TID MARCUS Stop: 06/07/19 13:59 Last Admin: 05/08/19 13:43 Dose: 650 mg Documented by: [id number] Albuterol (Duoneb) 3 ml NEB [id number] MARCUS Stop: 06/07/19 07:59 Last Admin: 05/08/19 14:56 Dose: 3 ml Documented by: [id number] Admin: 05/08/19 11:00 Dose: 3 ml Documented by: [id number] Admin: 05/08/19 06:43 Dose: 3 ml Documented by: [id number] Budesonide/Formoterol Fumarate (Symbicort 160mcg/4.5mcg) 2 puffs INH TID MARCUS Stop: 06/07/19 08:59 Last Admin: 05/08/19 13:43 Dose: 2 puffs Documented by: [id number] Admin: 05/08/19 08:36 Dose: 2 puffs Documented by: [id number] Escitalopram Oxalate (Lexapro Tab) 10 mg PO QAM [facility] Stop: 06/07/19 08:59 Last Admin: 05/08/19 08:38 Dose: 10 mg Documented by: [id number] Famotidine (Pepcid) 20 mg PO DAILY MARCUS Stop: 06/07/19 08:59 Last Admin: 05/08/19 08:39 Dose: 20 mg Documented by: [id number] Fluticasone Propionate (Flonase) 2 sprays NA DAILY MARCUS Stop: 06/07/19 08:59 Last Admin: 05/08/19 08:54 Dose: 2 sprays Documented by: [id number] Furosemide (Lasix) 80 mg PO QAM MARCUS Stop: 06/07/19 08:59 Last Admin: 05/08/19 08:38 Dose: 80 mg Documented by: [id number] Gabapentin (Neurontin) 600 mg PO BID@0900,1400 MARCUS Stop: 06/07/19 08:59 Last Admin: 05/08/19 13:43 Dose: 600 mg Documented by: [id number] Admin: 05/08/19 08:39 Dose: 600 mg Documented by: [id number] Guaifenesin (Mucinex) 1,200 mg PO Q12 MARCUS Stop: 06/07/19 08:59 Last Admin: 05/08/19 08:37 Dose: 1,200 mg Documented by: [id number] Levothyroxine Sodium (Levothyroxine Sodium) 137 mcg PO DAILYBB [facility] Stop: 06/07/19 06:29 Last Admin: 05/08/19 06:33 Dose: 137 mcg Documented by: [id number] Lidocaine (Lidoderm 5%) 1 patch TD QAM [facility] Stop: 06/07/19 10:59 Last Admin: 05/08/19 11:29 Dose: 1 patch Documented by: [id number] Methocarbamol (Robaxin) 750 mg PO QAM [facility] Stop: 06/07/19 08:59 Last Admin: 05/08/19 08:44 Dose: 750 mg Documented by: [id number] Metoclopramide HCl (Reglan) 5 mg PO TIDM [facility] Stop: 06/07/19 07:59 Last Admin: 05/08/19 11:31 Dose: 5 mg Documented by: [id number] Admin: 05/08/19 08:38 Dose: 5 mg Documented by: [id number] Morphine Sulfate (Morphine Sulfate) 2 mg IV Q4H PRN PRN Reason: severe or breakthrough pain Stop: 05/22/19 00:20 Last Admin: 05/08/19 15:45 Dose: 2 mg Documented by: [id number] Oxybutynin Chloride (Ditropan) 5 mg PO QID [facility] Stop: 06/07/19 08:59 Last Admin: 05/08/19 13:42 Dose: 5 mg Documented by: [id number] Admin: 05/08/19 08:37 Dose: 5 mg Documented by: [id number] Pantoprazole Sodium (Protonix) 40 mg PO BID [facility] Stop: 06/07/19 08:59 Last Admin: 05/08/19 08:43 Dose: 40 mg Documented by: [id number] Polyethylene Glycol (Miralax Powder Packet) 17 gm PO DAILY PRN PRN Reason: Constipation Stop: 06/07/19 00:20 Last Admin: 05/08/19 08:59 Dose: 17 gm Documented by: [id number] Polyethylene Glycol (Miralax Powder Packet) 34 gm PO DAILY [facility] Stop: 06/07/19 10:44 Last Admin: 05/08/19 11:25 Dose: 34 gm Documented by: [id number] Potassium Chloride (Klor-Con M10) 20 meq PO QAM [facility] Stop: 06/07/19 08:59 Last Admin: 05/08/19 08:37 Dose: 20 meq Documented by: [id number] Simethicone (Mylicon) 160 mg PO DAILY MARCUS Stop: 06/07/19 08:59 Last Admin: 05/08/19 08:45 Dose: 160 mg Documented by: [id number] Spironolactone (Aldactone) 25 mg PO BIDM [facility] Stop: 06/07/19 07:59 Last Admin: 05/08/19 08:43 Dose: 25 mg Documented by: [id number] Tiotropium Ozan (Spiriva) 1 puffs INH QAM [facility] Stop: 06/07/19 10:29 Last Admin: 05/08/19 11:23 Dose: 1 puffs Documented by: [id number] Discontinued Medications Bisacodyl (Dulcolax) 10 mg PO NOW ONE Stop: 05/08/19 10:33 Last Admin: 05/08/19 11:23 Dose: 10 mg Documented by: [id number] Ioversol (Optiray 320 100ml) 93 ml IV ONCE PRN PRN Reason: Interaction Checking Stop: 05/11/19 20:12 Last Admin: 05/07/19 20:13 Dose: 93 ml Documented by: [id number] Ketorolac Tromethamine (Toradol) 15 mg IV NOW ONE Stop: 05/07/19 21:11 Last Admin: 05/07/19 21:20 Dose: 15 mg Documented by: [id number] Methylprednisolone (Solumedrol) 125 mg IV NOW STA Stop: 05/07/19 22:11 Last Admin: 05/07/19 22:22 Dose: 125 mg Documented by: [id number] Morphine Sulfate (Morphine Sulfate) 2 mg IV Q4H PRN PRN Reason: Pain Stop: 05/22/19 00:20 Last Admin: 05/08/19 08:59 Dose: 2 mg Documented by: [id number] Prednisone (Prednisone) 40 mg PO DAILY [facility] Stop: 06/07/19 08:59 Last Admin: 05/08/19 08:38 Dose: 40 mg Documented by: [id number] Medical Decision Making Differential Diagnosis Differential Diagnosis: Trauma, PNX, COPD exacerbation, cardiac distress Medical Records Attestation: I reviewed the patient's medical records. Home Medications Current Medication List: was personally reviewed by me Laboratory Data Attestation: I reviewed the patient's lab results. Result diagrams: 05/07/19 18:35 05/07/19 18:35 Lab Results 05/07/19 05/07/19 Range/Units 18:35 18:35 WBC 7.41 (4.8-10.8) K/uL RBC 4.57 (4.2-5.4) M/uL Hgb 13.5 (12.0-16.0) g/dL Hct 40.4 (37-47) % MCV 88.4 (80-100) fL MCH 29.5 (25-34) pg MCHC 33.4 (32-36) g/dL RDW Std Deviation 50.1 H (36.4-46.3) fL RDW Coeff of Opal 15.6 H (11.5-14.5) % Plt Count 211 (130-400) K/uL MPV 8.6 (7.4-10.4) fL Immature Gran % (Auto) 0.4 % Neut % (Auto) 69.7 % Lymph % (Auto) 15.0 % [place] % (Auto) 9.4 % Eos % (Auto) 5.1 % Baso % (Auto) 0.4 % Immature Gran # (Auto) 0.03 H (0.00-0.02) K/uL Neut # (Auto) 5.16 (1.4-6.5) K/uL Lymph # (Auto) 1.11 L (1.2-3.4) K/uL [place] # (Auto) 0.70 H (0.11-0.59) K/uL Eos # (Auto) 0.38 (0-0.5) K/uL Baso # (Auto) 0.03 (0-0.2) K/uL Sodium 136 (136-145) mmol/L Potassium 3.7 (3.5-5.1) mmol/L Chloride 98 (98-107) mmol/L Carbon Dioxide 32 (21-32) mmol/L Anion Gap 7.0 (3-11) BUN 10 (7-18) mg/dl Creatinine 0.85 (0.6-1.2) mg/dl Est Cr Clr Drug Dosing Not Reportable Est GFR ( Amer) 79.3 Est GFR (Non-Af Amer) 68.5 BUN/Creatinine Ratio 11.2 (10-20) Glucose 87 (70-99) mg/dl Calcium 8.7 (8.5-10.1) mg/dl Total Bilirubin 0.3 (0.2-1) mg/dl AST 34 (15-37) U/L ALT 39 (12-78) U/L Alkaline Phosphatase 100 (45-117) U/L Troponin I < 0.015 (0-0.045) ng/ml Total Protein 6.9 (6.4-8.2) gm/dl Albumin 4.2 (3.4-5.0) gm/dl Globulin 2.7 (2.5-4.0) gm/dl Albumin/Globulin Ratio 1.6 (0.9-2) Lipase 119 (73-393) U/L Imaging Data Radiologist's Impression: Radiology results as states below per my review and the radiologist's interpretation: CHEST CT WITH CONTRAST; CT abdomen and pelvis with IV contrast only CT DOSE: 450.20 mGy.cm HISTORY: Acute left-sided rib and abdominal pain status post trauma eval for trauma TECHNIQUE: Multiaxial CT images of the chest, abdomen and pelvis were performed following the intravenous administration of contrast. A dose lowering technique was utilized adhering to the principles of ALARA. COMPARISON: Chest CT 04/08/2018, CT abdomen and pelvis 12/15/2017. FINDINGS: CT CHEST: No focal thyroid nodule or adenopathy. Heart is normal in size without pericardial effusion. Coronary arterial calcifications are noted. Since of calcified plaque of the thoracic aorta. Pulmonary arterial tree appears unremarkable. Severe emphysema with biapical pleural-parenchymal scarring redemonstrated, notably within the right lung apex measuring up to 3.3 x 1.0 cm, unchanged. Chronic fibrotic changes with bilateral bronchial wall thickening. No pneumothorax or pleural effusion. Central airways appear to be patent. Peripherally calcified bilateral breast implants. Dense 1.8 x 1.4 cm lesion along the superior aspect of the right breast capsule is unchanged which may reflect a component of the granulomatous scarring. Degenerative changes of the shoulders and spine. Acute comminuted minimally displaced fracture of the posterior left 12th rib. Additional acute nondisplaced fractures are noted about the anterior left ninth and 10th ribs. Vertebral bodies appear intact. No acute sternal fracture. CT ABDOMEN/PELVIS: No pneumatosis or pneumoperitoneum. Hepatomegaly. No acute injury of the liver identified. Spleen and adrenal glands are unremarkable. Moderate to severe parenchymal atrophy of the pancreas. Mild dilation of the biliary tree, likely secondary to cholecystectomy. Kidneys appear normal. Hysterectomy with small cystocele. No adnexal mass lesions. Aorta and IVC are unremarkable without aneurysm. Extensive mixed plaque formation of the aorta. Wall thickening of the distal esophagus with small hiatal hernia. Moderate to extensive calcification. No bowel obstruction. There is no bowel wall thickening. Trace free fluid about the left pericolic gutter and inferior to the spleen. Normal appendix. Tiny fat filled periumbilical hernia. IMPRESSION: 1. Acute minimally displaced fracture of the posterior left 12th rib with additional acute nondisplaced fractures about the anterolateral left 9th and 10th ribs. No associated pneumothorax. 2. No pneumatosis, pneumoperitoneum or evidence of acute solid organ injury. 3. Severe emphysema with unchanged biapical pleural-parenchymal scarring. 4. No evidence of acute solid organ injury or pneumoperitoneum. 5. Trace nonspecific free fluid about the left pericolic gutter and inferior to the spleen. No evidence of acute splenic injury. 6. Additional incidental findings as above. Electronically signed by: Clarence Roche M.D. 05/07/2019 8:[address] WITH CONTRAST; CT abdomen and pelvis with IV contrast only CT DOSE: 450.20 mGy.cm HISTORY: Acute left-sided rib and abdominal pain status post trauma eval for trauma TECHNIQUE: Multiaxial CT images of the chest, abdomen and pelvis were performed following the intravenous administration of contrast. A dose lowering technique was utilized adhering to the principles of ALARA. COMPARISON: Chest CT 04/08/2018, CT abdomen and pelvis 12/15/2017. FINDINGS: CT CHEST: No focal thyroid nodule or adenopathy. Heart is normal in size without pericardial effusion. Coronary arterial calcifications are noted. Since of calcified plaque of the thoracic aorta. Pulmonary arterial tree appears unremarkable. Severe emphysema with biapical pleural-parenchymal scarring redemonstrated, notably within the right lung apex measuring up to 3.3 x 1.0 cm, unchanged. Chronic fibrotic changes with bilateral bronchial wall thickening. No pneumothorax or pleural effusion. Central airways appear to be patent. Peripherally calcified bilateral breast implants. Dense 1.8 x 1.4 cm lesion along the superior aspect of the right breast capsule is unchanged which may reflect a component of the granulomatous scarring. Degenerative changes of the shoulders and spine. Acute comminuted minimally displaced fracture of the posterior left 12th rib. Additional acute nondisplaced fractures are noted about the anterior left ninth and 10th ribs. Vertebral bodies appear intact. No acute sternal fracture. CT ABDOMEN/PELVIS: No pneumatosis or pneumoperitoneum. Hepatomegaly. No acute injury of the liver identified. Spleen and adrenal glands are unremarkable. Moderate to severe parenchymal atrophy of the pancreas. Mild dilation of the biliary tree, likely secondary to cholecystectomy. Kidneys appear normal. Hysterectomy with small cystocele. No adnexal mass lesions. Aorta and IVC are unremarkable without aneurysm. Extensive mixed plaque formation of the aorta. Wall thickening of the distal esophagus with small hiatal hernia. Moderate to extensive calcification. No bowel obstruction. There is no bowel wall thickening. Trace free fluid about the left pericolic gutter and inferior to the spleen. Normal appendix. Tiny fat filled periumbilical hernia. IMPRESSION: 1. Acute minimally displaced fracture of the posterior left 12th rib with additional acute nondisplaced fractures about the anterolateral left 9th and 10th ribs. No associated pneumothorax. 2. No pneumatosis, pneumoperitoneum or evidence of acute solid organ injury. 3. Severe emphysema with unchanged biapical pleural-parenchymal scarring. 4. No evidence of acute solid organ injury or pneumoperitoneum. 5. Trace nonspecific free fluid about the left pericolic gutter and inferior to the spleen. No evidence of acute splenic injury. 6. Additional incidental findings as above. Electronically signed by: Clarence Roche M.D. 05/07/2019 8:46 PM XR chest 1V portable HISTORY: 73 years-old Female Chest Pain acute atypical chest pain COMPARISON: Chest radiograph 03/14/2019, chest CT 04/08/2018. TECHNIQUE: Portable AP view of the chest FINDINGS: Cardiomediastinal and hilar silhouettes are unchanged. Calcification of the thoracic aortic arch. Severe emphysema with chronic interstitial coarsening. Ill-defined 1.7 cm linear opacity of the right upper lobe suggestive of probable pleural parenchymal scarring appears unchanged from comparison. There is no pn eumothorax, pleural effusion, overt pulmonary edema or new focal airspace consolidation. Calcified bilateral breast implants. Changes of the shoulders and spine. IMPRESSION: 1. No acute process. 2. Severe emphysema with chronic fibrotic change. 3. Unchanged opacity of the right lung apex, possibly reflective of pleural- parenchymal scarring. The above report was generated using voice recognition software. It may contain grammatical, syntax or spelling errors. Electronically signed by: Clarence Roche M.D. 05/07/2019 7:15 PM ECG Data Attestation: I personally reviewed and interpreted this ECG as follows: Indication: other (fall) Rate (beats per minute): 75 Rhythm: normal sinus Findings: + nonspecific-ST abn; no ST depression, no ST elevation, no acute ischemic change and no ectopy Comparison ECG Date: from (January 05, 2019) Change: no significant change Blood Pressure Blood Pressure Findings: Elevated blood pressure MDM Narrative This patient comes in as described above. She was placed in room a 11. She fell today and suffered a mechanical fall around 6:00 in the morning she does have history of COPD and wears oxygen she has pain in her left lateral rib/flank that hurts with breathing. On my exam, she appears in no distress and is wearing her baseline oxygen and is not hypoxemic with that. She does have some bruises on the flank. She did not have any syncope or head trauma. Denies any neck pain. She had no chest pain or palpitations or anything prior to falling to suggest this was anything but a mechanical fall. Chest x-ray was obtained as well as multiple blood testing. She was reassessed frequently. She was offered nebs but declined. Was given Toradol 50 mg IV and was feeling quite a bit better. EKG does not suggest acute coronary syndrome or arrhythmia. Chest x- ray does not show pneumothorax or any CHF or infiltrate. Her labs were not significantly abnormal. CAT scan of her chest and abdomen shows 3 rib fractures without pneumothorax. No definite solid organ injury. She tells me that her COPD has been getting worse lately prior to falling I did give her Solu-Medrol 125 mg IV. She does have significant COPD with oxygen requirements and seems in a lot of pain with moving, I do think she needs to be admitted/observe for pain management and further treatment evaluation of her COPD. I did consult the [facility] hospitalist to see her for these measures. Impression & Plan Acute exacerbation of chronic obstructive pulmonary disease (COPD), Fracture, ribs, Left-sided chest pain Discharge Plan Visit Data *Final* Discharge Date/Time: 05/07/19 23:50 Chief Complaint: Fall Stated Complaint: FALL, HIT LEFT SIDE ON END TABLE, SOB ED Provider: Dante Celeste Discharge Problem: Acute exacerbation of chronic obstructive pulmonary disease (COPD), Fracture, ribs, Left-sided chest pain Patient Disposition: Admitted As Inpatient Discharge Instructions Interventions: ED Discharge Assessment Last Done: 05/07/19 23:50 Discharge Problem: Fracture, ribs Qualifiers: Encounter type: initial encounter Rib fracture type: multiple ribs Fracture type: closed Laterality: left Qualified Code(s): S22.42XA - Multiple fractures of ribs, left side, initial encounter for closed fracture The scribe's documentation has been prepared under my direction and personally reviewed by me in its entirety. I confirm that the note above accurately reflects all work, treatment, procedures, and medical decision making performed by me.
[2019-05-07 18:51] LABS: Basophils # (auto) 0.03 K/uL (0-0.2); Basophils % (auto) 0.4 %; Eosinophils # (auto) 0.38 K/uL (0-0.5); Eosinophils % (auto) 5.1 %; Hematocrit (blood only) 40.4 % (37-47); Hemoglobin 13.5 g/dL (12.0-16.0); Immature Granulocytes # (auto) 0.03 K/uL (0.00-0.02); Immature Granulocytes % (auto) 0.4 %; Lymphocytes # (auto) 1.11 K/uL (1.2-3.4); Mean Corpuscular Hgb Conc 33.4 g/dL (32-36); Mean Corpuscular Volume 88.4 fL (80-100); Mean Platelet Volume 8.6 fL (7.4-10.4); Monocytes % (auto) 9.4 %; Neutrophils # (auto) 5.16 K/uL (1.4-6.5); Neutrophils % (auto) 69.7 %; Platelet Count 211 K/uL (130-400); RDW Coefficient of Variation 15.6 % (11.5-14.5); RDW Standard Deviation 50.1 fL (36.4-46.3); Red Blood Count 4.57 M/uL (4.2-5.4); White Blood Count 7.41 K/uL (4.8-10.8)
[2019-05-07 19:14] LABS: Alanine Aminotransferase 39 U/L (12-78); Albumin Level 4.2 gm/dl (3.4-5.0); Aspartate Aminotransferase 34 U/L (15-37); BUN Creatinine Ratio 11.2 (10-20); Blood Urea Nitrogen 10 mg/dl (7-18); Calcium 8.7 mg/dl (8.5-10.1); Carbon Dioxide 32 mmol/L (21-32); Chloride 98 mmol/L (98-107); Est GFR (African American) 79.3; Est GFR (Non-African American) 68.5; Glucose 87 mg/dl (70-99); Potassium 3.7 mmol/L (3.5-5.1); Sodium 136 mmol/L (136-145)
--- NOTE | 2019-05-07 19:16 | XRay Report ---
XR chest 1V portable HISTORY: 73 years-old Female Chest Pain acute atypical chest pain COMPARISON: Chest radiograph 03/14/2019, chest CT 04/08/2018. TECHNIQUE: Portable AP view of the chest FINDINGS: Cardiomediastinal and hilar silhouettes are unchanged. Calcification of the thoracic aortic arch. Sev ere emphysema with chronic interstitial coarsening. Ill-defined 1.7 cm linear opacity of the right up per lobe suggestive of probable pleural parenchymal scarring appears unchanged from comparison. There is no pneumothorax, pleural effusion, overt pulmonary edema or new focal airspace consolidation. Kelechi cified bilateral breast implants. Changes of the shoulders and spine. IMPRESSION: 1. No acute process. 2. Severe emphysema with chronic fibrotic change. 3. Unchanged opacity of the right lung apex, possibly reflective of pleural-parenchymal scarring. The above report was generated using voice recognition software. It may contain grammatical, syntax o r spelling errors. Electronically signed by: Clarence Roche M.D. 05/07/2019 7:15 PM
[2019-05-07 19:19] LABS: Albumin Globulin Ratio 1.6 (0.9-2); Alkaline Phosphatase 100 U/L (45-117); Bilirubin,Total 0.3 mg/dl (0.2-1); Globulin 2.7 gm/dl (2.5-4.0); Total Protein 6.9 gm/dl (6.4-8.2); Troponin I < 0.015 ng/ml (0-0.045)
[2019-05-07] MEDS ORDERED: IOVERSOL 100ml IV PRN (20:13)
--- NOTE | 2019-05-07 20:48 | CT Scan Report ---
CHEST CT WITH CONTRAST; CT abdomen and pelvis with IV contrast only CT DOSE: 450.20 mGy.cm HISTORY: Acute left-sided rib and abdominal pain status post trauma eval for trauma TECHNIQUE: Multiaxial CT images of the chest, abdomen and pelvis were performed following the intrave nous administration of contrast. A dose lowering technique was utilized adhering to the principles o f ALARA. COMPARISON: Chest CT 04/08/2018, CT abdomen and pelvis 12/15/2017. FINDINGS: CT CHEST: No focal thyroid nodule or adenopathy. Heart is normal in size without pericardial effusion. Coronary arterial calcifications are noted. Since of calcified plaque of the thoracic aorta. Pulmonary arteri al tree appears unremarkable. Severe emphysema with biapical pleural-parenchymal scarring redemonstra erika, notably within the right lung apex measuring up to 3.3 x 1.0 cm, unchanged. Chronic fibrotic jenny nges with bilateral bronchial wall thickening. No pneumothorax or pleural effusion. Central airways a ppear to be patent. Peripherally calcified bilateral breast implants. Dense 1.8 x 1.4 cm lesion along the superior aspect of the right breast capsule is unchanged which may reflect a component of the gr anulomatous scarring. Degenerative changes of the shoulders and spine. Acute comminuted minimally dis placed fracture of the posterior left 12th rib. Additional acute nondisplaced fractures are noted abo ut the anterior left ninth and 10th ribs. Vertebral bodies appear intact. No acute sternal fracture. CT ABDOMEN/PELVIS: No pneumatosis or pneumoperitoneum. Hepatomegaly. No acute injury of the liver identified. Spleen and adrenal glands are unremarkable. Moderate to severe parenchymal atrophy of the pancreas. Mild dilati on of the biliary tree, likely secondary to cholecystectomy. Kidneys appear normal. Hysterectomy with small cystocele. No adnexal mass lesions. Aorta and IVC are unremarkable without aneurysm. Extensive mixed plaque formation of the aorta. Wall thickening of the distal esophagus with small hiatal hernia. Moderate to extensive calcification . No bowel obstruction. There is no bowel wall thickening. Trace free fluid about the left pericolic gutter and inferior to the spleen. Normal appendix. Tiny fat filled periumbilical hernia. IMPRESSION: 1. Acute minimally displaced fracture of the posterior left 12th rib with additional acute nondisplac ed fractures about the anterolateral left 9th and 10th ribs. No associated pneumothorax. 2. No pneumatosis, pneumoperitoneum or evidence of acute solid organ injury. 3. Severe emphysema with unchanged biapical pleural-parenchymal scarring. 4. No evidence of acute solid organ injury or pneumoperitoneum. 5. Trace nonspecific free fluid about the left pericolic gutter and inferior to the spleen. No eviden ce of acute splenic injury. 6. Additional incidental findings as above. Electronically signed by: Clarence Roche M.D. 05/07/2019 8:46 PM
[2019-05-07] MEDS ORDERED: KETOROLAC TROMETHAMINE 15 MG/ML VIAL IV ONE (21:10)
[2019-05-07] MEDS ORDERED: methylPREDNISolone 125 MG/2 ML VIAL IV STA (22:10)
--- NOTE | 2019-05-07 23:11 | History & Physical Report ---
Date of Service May 07, 2019 Assessment & Plan (1) Fracture, ribs: Patient with closed fracture of T9-T10 and T12, no respiratory distress, no PTX -Admit to medical floor -Pain control with Morphine PRN -IS, encourage use q2hwa Present on Admission?: Yes (2) COPD exacerbation: Patient with one week of worsening cough, SOB and GAMEZ. No fevers/chills/edema/orthopnea. No PNA noted on imaging. -Prednisone 40mg po daily -DuoNeb q 4 hours -Albuterol q 2 hours PRN -Continue Symbicort -Continue to monitor respiratory status Present on Admission?: Yes (3) Hypothyroidism: Chronic -Continue Synthroid 137mcg po daily Present on Admission?: Yes (4) Migraine without aura: Patient reports daily headache. Patient reports taking her Butalbital BID scheduled. ?Medication overuse may be contributing to daily headache. -Continue Butalbital BID. Discuss with patient possibility of medication overuse contributing to headache -Imitrex PRN Present on Admission?: Yes (5) Coronary artery disease: Chronic. Stable. No CP or EKG evidence of ischemia. Cath in May 2017 with mild to moderate non-obstructive CAD -Continue ASA, Zetia, Pravastatin Present on Admission?: Yes (6) Hypercholesterolemia: Chronic -Continue Pravastatin and Zetia -Continue coQ10 at home Present on Admission?: Yes (7) CHF (congestive heart failure): No evidence of decompensated CHF. -Continue Lasix, Spironalactone and potassium Present on Admission?: Yes (8) Depression: Chronic. Well controlled -Continue Lexapro and clorazepate HS Present on Admission?: Yes (9) GERD (gastroesophageal reflux disease): Chronic. Stable -Continue cimetidine, Prevacid Present on Admission?: Yes (10) Back pain: Well controlled at present -Continue Methocarbamol -Continue Gabapentin (11) Urinary incontinence: Continue Oxybutynin F/E/N - Heplock. Electrolytes WNL. heart healthy diet Ppx - SCDs Code - Full Dispo - Obs to medicine floor History of Present Illness Chief Complaint: rib fractures Primary Care Provider: Zeb Dougherty MD Luana Meek is a 73yo C female with multiple medical comorbidities, COPD on 3L home O2. Patient was getting up from her chair this AM at 06:00 when she lost her balance and fell against an end table. She had a skin tear on her left arm and severe pain in her left flank following the fall. Patient denies LOC, head trauma, CP/palpitations/dizziness. She states that she is unable to take a deep breath secondary to pain and feels short of breath. She has had worsening GAMEZ and SOB as well as cough productive for yellow sputum over the last week as well as increased wheezing. ER Course: Toradol, Solumedrol 125mg Allergies Allergy/AdvReac Type Severity Reaction Status Date / Time cortisone Allergy Unknown RASH FOR 3 Verified 05/07/19 17:37 MONTHS levofloxacin Allergy Unknown RASH Verified 05/07/19 17:37 nortriptyline Allergy Unknown RASH Unverified 05/07/19 17:37 CLASS B STERIODS Allergy Unknown RASH Uncoded 05/07/19 17:37 Home Medications Home Medications Medication Instructions Recorded Confirmed Type Magic Mix 1 dose PO UD 01/04/19 05/07/19 History Probiotic 3 mmu cells PO DAILY 01/04/19 05/07/19 History Symbicort 2 puff INHALATION TID 01/04/19 05/07/19 History acetaminophen [Tylenol Extra 1,000 mg PO HS 01/04/19 05/07/19 History Strength] albuterol sulfate 0.63 mg INHALATION QID PRN 01/04/19 05/07/19 History albuterol sulfate [Ventolin HFA] 2 puff INHALATION QID PRN 01/04/19 05/07/19 History aspirin [Aspir-81] 81 mg PO QPM 01/04/19 05/07/19 History cimetidine 300 mg PO DAILY 01/04/19 05/07/19 History clorazepate dipotassium 2 tabs PO HS 01/04/19 05/07/19 History coQ10 (ubiquinol) 200 mg PO DAILY 01/04/19 05/07/19 History cranberry extract 200 mg PO DAILY 01/04/19 05/07/19 History escitalopram oxalate [Lexapro] 10 mg PO QAM 01/04/19 05/07/19 History ezetimibe [Zetia] 10 mg PO QPM 01/04/19 05/07/19 History fluticasone propionate [Flonase 1 - 2 spray INTRANASAL DAILY 01/04/19 05/07/19 History Allergy Relief] furosemide [Lasix] 80 mg PO QAM 01/04/19 05/07/19 History gabapentin 1,200 mg PO HS 01/04/19 05/07/19 History gabapentin 600 mg PO BID 01/04/19 05/07/19 History hydrocortisone [Proctosol HC] 1 applic AL TID PRN 01/04/19 05/07/19 History ipratropium bromide 1 dose INHALATION Q6H PRN 01/04/19 05/07/19 History lansoprazole [Prevacid] 30 mg PO BID 01/04/19 05/07/19 History levothyroxine [Synthroid] 137 mcg PO DAILY 01/04/19 05/07/19 History methocarbamol 750 mg PO QAM 01/04/19 05/07/19 History methocarbamol [Robaxin-750] 1,500 mg PO HS 01/04/19 05/07/19 History nitroglycerin [Nitrostat] 0.4 mg SUBLINGUAL UD PRN 01/04/19 05/07/19 History oxybutynin chloride 5 mg PO QID 01/04/19 05/07/19 History potassium chloride 20 meq PO QAM 01/04/19 05/07/19 History potassium chloride 30 meq PO QPM 01/04/19 05/07/19 History pravastatin 20 mg PO QPM 01/04/19 05/07/19 History simethicone [Gas Relief Ultra 180 mg PO DAILY 01/04/19 05/07/19 History Strength] spironolactone [Aldactone] 25 mg PO BID 01/04/19 05/07/19 History sumatriptan succinate [Imitrex] 100 mg PO UD 01/04/19 05/07/19 History zinc 50 mg PO BID 01/04/19 05/07/19 History [id number]-[id number] 1 cap PO BID 05/07/19 05/07/19 History metoclopramide HCl 5 mg PO TIDM 05/07/19 05/07/19 History tiotropium bromide [Spiriva with 1 cap INHALATION DAILY 05/07/19 05/07/19 History HandiHaler] Past Med/Surg History Medical History Hypothyroidism Migraine without aura Coronary artery disease Hypercholesterolemia Back pain CHF (congestive heart failure) Depression GERD (gastroesophageal reflux disease) COPD (chronic obstructive pulmonary disease) (Chronic) Emphysema lung (Chronic) Anxiety and depression Cronin esophagus Surgical History History of bladder surgery History of breast augmentation History of cholecystectomy History of hemorrhoidectomy History of tonsillectomy Family History Other Family history non-contributory Social History Preferred Language: [place] Communication Ability: Effective Beliefs That Will Affect Care: None Current Living Situation: Spouse Feels Safe at Home: Yes Smoking Status: Former smoker Tobacco Type: cigarettes Hx Alcohol Use: No Hx Substance Use: No Review of Systems Review of Systems: All systems reviewed & are unremarkable except as noted in HPI & below Patient denies fevers, chills, chest pain, palpitations Denies abdominal pain, nausea, vomiting, diarrhea +Constipation Physical Exam Physical Exam: General: patient resting comfortably, NAD, non-toxic in appearance, AA&O x 4 Skin: warm, dry, small tear on left arm with dressing in place, no bleeding or hematoma, bruising on left flank HEENT: NC/AT, PERRL, EOMI, anicteric sclera, conjunctiva without injection, external ear normal to inspection and nontender, nares patent, moist mucus membranes, dentition intact, no oropharyngeal lesions, neck supple, trachea midline, no LAD, no thyromegaly, no JVD Heart: +S1/S2, regular, no m/r/g Lungs: equal air entry bilaterally, no rales/rhonchi, scattered end expiratory wheezing, no crepitus Abd: +BS, soft, NT/ND, no masses/organomegaly/ascites Ext: warm, 2+ pulses in UE/LE bilaterally, no clubbing/cyanosis or edema Neuro: nonfocal, patient AA&O x 4, speech intact, no facial droop, moving all extremities on command with equal strength 5/5 Results & Data Vital Signs (Past 12 Hours) Vital Signs Temp Pulse Pulse Resp BP BP Pulse Ox 05/07/19 22:27 77 25 H 176/80 H 99 05/07/19 21:31 80 15 177/87 H 100 05/07/19 20:37 75 15 177/83 H 100 05/07/19 19:13 79 16 163/90 H 100 05/07/19 17:07 36.6 C 82 20 136/67 97 Laboratory Results Lab Results 05/07/19 05/07/19 Range/Units 18:35 18:35 WBC 7.41 (4.8-10.8) K/uL RBC 4.57 (4.2-5.4) M/uL Hgb 13.5 (12.0-16.0) g/dL Hct 40.4 (37-47) % MCV 88.4 (80-100) fL MCH 29.5 (25-34) pg MCHC 33.4 (32-36) g/dL RDW Std Deviation 50.1 H (36.4-46.3) fL RDW Coeff of Opal 15.6 H (11.5-14.5) % Plt Count 211 (130-400) K/uL MPV 8.6 (7.4-10.4) fL Immature Gran % (Auto) 0.4 % Neut % (Auto) 69.7 % Lymph % (Auto) 15.0 % Emanuel % (Auto) 9.4 % Eos % (Auto) 5.1 % Baso % (Auto) 0.4 % Immature Gran # (Auto) 0.03 H (0.00-0.02) K/uL Neut # (Auto) 5.16 (1.4-6.5) K/uL Lymph # (Auto) 1.11 L (1.2-3.4) K/uL Emanuel # (Auto) 0.70 H (0.11-0.59) K/uL Eos # (Auto) 0.38 (0-0.5) K/uL Baso # (Auto) 0.03 (0-0.2) K/uL Sodium 136 (136-145) mmol/L Potassium 3.7 (3.5-5.1) mmol/L Chloride 98 (98-107) mmol/L Carbon Dioxide 32 (21-32) mmol/L Anion Gap 7.0 (3-11) BUN 10 (7-18) mg/dl Creatinine 0.85 (0.6-1.2) mg/dl Est Cr Clr Drug Dosing Not Reportable Est GFR ( Amer) 79.3 Est GFR (Non-Af Amer) 68.5 BUN/Creatinine Ratio 11.2 (10-20) Glucose 87 (70-99) mg/dl Calcium 8.7 (8.5-10.1) mg/dl Total Bilirubin 0.3 (0.2-1) mg/dl AST 34 (15-37) U/L ALT 39 (12-78) U/L Alkaline Phosphatase 100 (45-117) U/L Troponin I < 0.015 (0-0.045) ng/ml Total Protein 6.9 (6.4-8.2) gm/dl Albumin 4.2 (3.4-5.0) gm/dl Globulin 2.7 (2.5-4.0) gm/dl Albumin/Globulin Ratio 1.6 (0.9-2) Lipase 119 (73-393) U/L Diagnostic Findings CHEST CT WITH CONTRAST; CT abdomen and pelvis with IV contrast only CT DOSE: 450.20 mGy.cm HISTORY: Acute left-sided rib and abdominal pain status post trauma eval for trauma TECHNIQUE: Multiaxial CT images of the chest, abdomen and pelvis were performed following the intravenous administration of contrast. A dose lowering technique was utilized adhering to the principles of ALARA. COMPARISON: Chest CT 04/08/2018, CT abdomen and pelvis 12/15/2017. FINDINGS: CT CHEST: No focal thyroid nodule or adenopathy. Heart is normal in size without pericardial effusion. Coronary arterial calcifications are noted. Since of calcified plaque of the thoracic aorta. Pulmonary arterial tree appears unremarkable. Severe emphysema with biapical pleural-parenchymal scarring redemonstrated, notably within the right lung apex measuring up to 3.3 x 1.0 cm, unchanged. Chronic fibrotic changes with bilateral bronchial wall thickening. No pneumothorax or pleural effusion. Central airways appear to be patent. Peripherally calcified bilateral breast implants. Dense 1.8 x 1.4 cm lesion along the superior aspect of the right breast capsule is unchanged which may reflect a component of the granulomatous scarring. Degenerative changes of the shoulders and spine. Acute comminuted minimally displaced fracture of the posterior left 12th rib. Additional acute nondisplaced fractures are noted about the anterior left ninth and 10th ribs. Vertebral bodies appear intact. No acute sternal fracture. CT ABDOMEN/PELVIS: No pneumatosis or pneumoperitoneum. Hepatomegaly. No acute injury of the liver identified. Spleen and adrenal glands are unremarkable. Moderate to severe parenchymal atrophy of the pancreas. Mild dilation of the biliary tree, likely secondary to cholecystectomy. Kidneys appear normal. Hysterectomy with small cystocele. No adnexal mass lesions. Aorta and IVC are unremarkable without aneurysm. Extensive mixed plaque formation of the aorta. Wall thickening of the distal esophagus with small hiatal hernia. Moderate to extensive calcification. No bowel obstruction. There is no bowel wall thickening. Trace free fluid about the left pericolic gutter and inferior to the spleen. Normal appendix. Tiny fat filled periumbilical hernia. IMPRESSION: 1. Acute minimally displaced fracture of the posterior left 12th rib with additional acute nondisplaced fractures about the anterolateral left 9th and 10th ribs. No associated pneumothorax. 2. No pneumatosis, pneumoperitoneum or evidence of acute solid organ injury. 3. Severe emphysema with unchanged biapical pleural-parenchymal scarring. 4. No evidence of acute solid organ injury or pneumoperitoneum. 5. Trace nonspecific free fluid about the left pericolic gutter and inferior to the spleen. No evidence of acute splenic injury. 6. Additional incidental findings as above. Electronically signed by: Clarence Roche M.D. 05/07/2019 8:46 PM Dictated: 05/07/192033 Transcribed: 05/07/192033 ######################### ################################################################################ ################################## XR chest 1V portable HISTORY: 73 years-old Female Chest Pain acute atypical chest pain COMPARISON: Chest radiograph 03/14/2019, chest CT 04/08/2018. TECHNIQUE: Portable AP view of the chest FINDINGS: Cardiomediastinal and hilar silhouettes are unchanged. Calcification of the thoracic aortic arch. Severe emphysema with chronic interstitial coarsening. Ill-defined 1.7 cm linear opacity of the right upper lobe suggestive of probable pleural parenchymal scarring appears unchanged from comparison. There is no pneumothorax, pleural effusion, overt pulmonary edema or new focal airspace consolidation. Calcified bilateral breast implants. Changes of the shoulders and spine. IMPRESSION: 1. No acute process. 2. Severe emphysema with chronic fibrotic change. 3. Unchanged opacity of the right lung apex, possibly reflective of pleural- parenchymal scarring. The above report was generated using voice recognition software. It may contain grammatical, syntax or spelling errors. Electronically signed by: Clarence Roche M.D. 05/07/2019 7:15 PM Dictated: 05/07/191912 Transcribed: 05/07/191912 ECG Additional Comments: The study shows NSR at 75, normal axis, OJ=395, QRS=84, GBc=277, no acute ischemic changes Code Status & VTE Plan Code Status Full code. PG Care Time/CCT Total # of Minutes Spent Total Time Spent with Patient: Total time spent is greater than 50% in coordination of care (as documented) at patient's floor/unit and/or counseling patient: (1) Fracture, ribs Encounter type: initial encounter Laterality: left Rib fracture type: multiple ribs Fracture type: closed Qualified Code(s): S22.42XA - Multiple fractures of ribs, left side, initial encounter for closed fracture (2) Hypothyroidism Hypothyroidism type: unspecified Qualified Code(s): E03.9 - Hypothyroidism, unspecified (3) Migraine without aura Status migrainosus presence: without status migrainosus Intractability: not intractable Qualified Code(s): G43.009 - Migraine without aura, not intractable, without status migrainosus (4) Coronary artery disease Coronary Disease-Associated Artery/Lesion type: [place] artery [place] vs. transplanted heart: [place] heart Associated angina: without angina Qualified Code(s): I25.10 - Atherosclerotic heart disease of [place] coronary artery without angina pectoris (5) CHF (congestive heart failure) Heart failure type: systolic Heart failure chronicity: chronic Qualified Code(s): I50.22 - Chronic systolic (congestive) heart failure (6) Depression Depression Type: unspecified Qualified Code(s): F32.9 - Major depressive disorder, single episode, unspecified (7) GERD (gastroesophageal reflux disease) Esophagitis presence: esophagitis presence not specified Qualified Code(s): K21.9 - Gastro-esophageal reflux disease without esophagitis (8) Back pain Back pain location: low back pain Chronicity: chronic Back pain laterality: unspecified Sciatica presence: without sciatica Qualified Code(s): M54.5 - Low back pain; G89.29 - Other chronic pain (9) Urinary incontinence Urinary Incontinence type: unspecified incontinence Qualified Code(s): R32 - Unspecified urinary incontinence
[2019-05-08] MEDS ORDERED: BISACODYL 10 MG SUPP PR PRN (00:21)
[2019-05-08] MEDS ORDERED: MoRPHine SULFATE 2 MG/ML CARP IV PRN (00:21)
[2019-05-08] MEDS ORDERED: MAGIC MIX PO SCH (00:21)
[2019-05-08] MEDS ORDERED: DOCUSATE SODIUM 100 MG CAP PO PRN (00:21)
[2019-05-08] MEDS ORDERED: ONDANSETRON INJ 2 MG/ML 2 ML VIAL IV PRN (00:21)
[2019-05-08] MEDS ORDERED: POLYETHYLENE (MIRALAX) 17 GM PACK PO PRN ×2 (00:21→10:34)
[2019-05-08] MEDS: LEVOTHYROXINE SODIUM 137 MCG TABLET PO SCH (06:33)
[2019-05-08] MEDS: ALBUT/IPRATROP 3MG/0.5MG NEB 3 ML VIAL NEB SCH ×5 (06:43→22:50)
[2019-05-08] MEDS: BUDESONIDE/FORMOTEROL FUMARATE 160/4.5 60 PUFFS/INHALER INH SCH ×3 (08:36→20:53)
[2019-05-08] MEDS: OXYBUTYNIN CHLORIDE 5 MG TAB PO SCH ×4 (08:37→20:52)
[2019-05-08] MEDS: POTASSIUM CHLORIDE 10 MEQ TABCR PO SCH ×2 (08:37→20:51)
[2019-05-08] MEDS: guaiFENesin 600 MG TABCR PO SCH ×2 (08:37→20:52)
[2019-05-08] MEDS: ESCITALOPRAM OXALATE 10 MG TAB PO SCH (08:38)
[2019-05-08] MEDS: METOCLOPRAMIDE HCL 5 MG TABLET PO SCH ×3 (08:38→17:00)
[2019-05-08] MEDS: FUROSEMIDE 80 MG TAB PO SCH (08:38)
[2019-05-08] MEDS: GABAPENTIN 600 MG TAB PO SCH ×3 (08:39→20:52)
[2019-05-08] MEDS: FAMOTIDINE 20 MG TAB PO SCH (08:39)
[2019-05-08] MEDS: PANTOprazole 40 MG TAB PO SCH ×2 (08:43→20:52)
[2019-05-08] MEDS: SPIRONOLACTONE 25 MG TAB PO SCH ×2 (08:43→17:00)
[2019-05-08] MEDS: METHOCARBAMOL 750 MG TABLET PO SCH ×2 (08:44→20:52)
[2019-05-08] MEDS: SIMETHICONE 80 MG CHEW PO SCH (08:45)
[2019-05-08] MEDS: FLUTICASONE PROPIONATE NA SPR 16 GM BTL SCH (08:54)
[2019-05-08] MEDS ORDERED: predniSONE 20 MG TAB PO SCH (09:00)
[2019-05-08] MEDS ORDERED: NON-FORMULARY MEDICATION (Coq10 (Ubiquinol) 200 MG) PO SCH (09:00)
[2019-05-08] MEDS ORDERED: BISACODYL 5 MG TABEC PO ONE (10:32)
[2019-05-08] MEDS: TIOTROPIUM BROMIDE 5 PUFF/90 MCG INH INH SCH (11:23)
[2019-05-08] MEDS: POLYETHYLENE (MIRALAX) 17 GM PACK PO SCH (11:25)
[2019-05-08] MEDS: LIDOCAINE 5% 1 PATCH TD SCH (11:29)
[2019-05-08] MEDS: ACETAMINOPHEN 325 MG TAB PO SCH ×2 (13:43→20:52)
[2019-05-08] MEDS: MoRPHine SULFATE 2 MG/ML CARP IV PRN (15:45)
--- NOTE | 2019-05-08 15:49 | Hospitalist Progress Note ---
Date of Service May 08, 2019 Assessment & Plan (1) Fracture, ribs: Patient with closed fracture of T9-T10 and T12, no respiratory distress, no PTX -Lidocaine patch -Scheduled Tylenol -Oxycodone/morphine as needed -PT/OT eval and treat (2) COPD exacerbation: Seems much improved already. Reduce steroids to 20 mg. Continue supportive care/pulmonary toilet otherwise. (3) Hypothyroidism: Continue home medsSynthroid 137mcg po daily (4) Migraine without aura: Seems to be tension and migraine headaches, possibly with rebound headaches as well. -Tried to educate on the difference between tension and migraine, it is not quite clear what her symptoms are that would cue her in on which it is, so therefore we can educate her on how to use her triptan more judiciously but also earlier in the course of a migraine. -OMT for tension headache (5) Coronary artery disease: Asymptomatic. Continue home meds (6) Hypercholesterolemia: Continue home meds (7) CHF (congestive heart failure): Asymptomatic, volume status appears euvolemic (8) Depression: Chronic. Well controlled -Continue Lexapro and clorazepate HS (9) GERD (gastroesophageal reflux disease): Chronic. Stable -Continue cimetidine, Prevacid (10) Back pain: Well controlled at present -Continue Methocarbamol -Continue Gabapentin (11) Urinary incontinence: Continue Oxybutynin (12) Constipation: Dulcolax x1 today. Escalate MiraLAX significantly to work towards bowel movements. Educated on escalating doses of MiraLAX in the future (13) Headache: See above discussion (14) Somatic dysfunction of cervical region: OMT as above (15) Discharge planning issues: PT/OT eval and treat. Discussed that sometimes after these types of fractures people need rehab, we will see how she progresses (16) DVT prophylaxis: Lovenox Subjective Pain reasonably controlled. Does hurt, but notes that morphine helps. It did make her feel a little bit dizzy. Overall she feels better than she thought she would. Breathing is okay, she does not have significant shortness of breath although it does hurt to breathe. She is worried about constipation, she notes she is chronically constipated notes she has not had a bowel movement for several days and of course with the current pain and pain control she is worried about having ongoing bowel movements. She also has chronic headaches, noting most recently she is probably had 20 severe headaches in the last month and basically daily headaches. She does not necessarily notice discrete changes in different headaches other than intensity but seems vaguely aware that sometimes she has photophobia. She is afraid to take Imitrex too often because she only has 12 a month, so she takes other medications frequently as well. She has worked with chiropractic, but it does not sound like they have necessarily focused in on her suboccipital region. Review of Systems Review of Systems: All systems reviewed & are unremarkable except as noted in HPI & below Physical Exam Physical Exam: General she is awake and alert fatigued appearing but otherwise no distress. HEENT normocephalic atraumatic mucous members moist. Breathing is surprisingly clear somewhat quiet no rales rhonchi or wheezes good effort no accessory muscle use. Abdomen is soft mildly distended nontender no guarding no rebound no rigidity, extremities show no sinus clubbing or edema. Skin shows no rashes no pallor or icterus. Neuro shows cranial nerves II through XII be grossly intact gross motor and sensory intact. Osteopathic/musculoskeletal exam shows right greater than left suboccipital musculature high in tone, tender, decreased range of motioninhibitory pressure/unwinding done with improvement in tissue texture, patient tolerated well. Results & Data Vital Signs (Past 12 Hours) Vital Signs Temp Pulse Pulse Resp BP Pulse Ox 05/08/19 15:44 108 H 20 127/66 05/08/19 14:57 18 96 05/08/19 11:01 71 18 94 05/08/19 08:00 36.4 C L 115 H 18 129/72 95 05/08/19 06:45 87 18 96 PG Care Time/CCT Total # of Minutes Spent Total Time Spent with Patient: Total time spent is greater than 50% in coordination of care (as documented) at patient's floor/unit and/or counseling patient: (1) Fracture, ribs Encounter type: initial encounter Fracture type: closed Laterality: left Rib fracture type: multiple ribs Qualified Code(s): S22.42XA - Multiple fractures of ribs, left side, initial encounter for closed fracture (2) Hypothyroidism Hypothyroidism type: unspecified Qualified Code(s): E03.9 - Hypothyroidism, unspecified (3) Migraine without aura Status migrainosus presence: without status migrainosus Intractability: not intractable Qualified Code(s): G43.009 - Migraine without aura, not intractable, without status migrainosus (4) Coronary artery disease Coronary Disease-Associated Artery/Lesion type: [place] artery [place] vs. transplanted heart: [place] heart Associated angina: without angina Qualified Code(s): I25.10 - Atherosclerotic heart disease of [place] coronary artery without angina pectoris (5) CHF (congestive heart failure) Heart failure type: systolic Heart failure chronicity: chronic Qualified Code(s): I50.22 - Chronic systolic (congestive) heart failure (6) Depression Depression Type: unspecified Qualified Code(s): F32.9 - Major depressive disorder, single episode, unspecified (7) GERD (gastroesophageal reflux disease) Esophagitis presence: esophagitis presence not specified Qualified Code(s): K21.9 - Gastro-esophageal reflux disease without esophagitis (8) Back pain Back pain location: low back pain Chronicity: chronic Back pain laterality: unspecified Sciatica presence: without sciatica Qualified Code(s): M54.5 - Low back pain; G89.29 - Other chronic pain (9) Urinary incontinence Urinary Incontinence type: unspecified incontinence Qualified Code(s): R32 - Unspecified urinary incontinence
[2019-05-08] MEDS: ASPIRIN 81 MG ECTAB PO SCH (20:52)
[2019-05-08] MEDS: PRAVASTATIN SOD 10 MG TAB PO SCH (20:52)
[2019-05-08] MEDS: EZETIMIBE 10 MG TABLET PO SCH (20:52)
[2019-05-08] MEDS: CLORAZEPATE DIPOTASSIUM 3.75 MG TAB PO SCH ×2 (20:59→22:03)
[2019-05-08] MEDS ORDERED: ACETAMINOPHEN 500 MG TAB PO SCH (21:00)
[2019-05-08] MEDS: OXYCODONE HCL IR 5 MG TAB (IMMEDIATE RELEASE) PO PRN (23:08)
[2019-05-09] MEDS: BUTALBITAL/ASPIRIN/CAFFEINE 1 TAB TAB PO PRN (00:42)
[2019-05-09] MEDS: ALBUTEROL 0.5% NEB SOLN 2.5 MG/0.5 ML VIAL NEB PRN (00:57)
[2019-05-09] MEDS: LEVOTHYROXINE SODIUM 137 MCG TABLET PO SCH (05:59)
[2019-05-09] MEDS: ALBUT/IPRATROP 3MG/0.5MG NEB 3 ML VIAL NEB SCH ×4 (06:59→19:19)
[2019-05-09] MEDS: METHOCARBAMOL 750 MG TABLET PO SCH ×2 (08:03→21:14)
[2019-05-09] MEDS: METOCLOPRAMIDE HCL 5 MG TABLET PO SCH ×3 (08:03→17:10)
[2019-05-09] MEDS: OXYBUTYNIN CHLORIDE 5 MG TAB PO SCH ×4 (08:03→21:19)
[2019-05-09] MEDS: GABAPENTIN 600 MG TAB PO SCH ×3 (08:04→21:18)
[2019-05-09] MEDS: ESCITALOPRAM OXALATE 10 MG TAB PO SCH (08:04)
[2019-05-09] MEDS: guaiFENesin 600 MG TABCR PO SCH ×2 (08:04→21:17)
[2019-05-09] MEDS: SPIRONOLACTONE 25 MG TAB PO SCH ×2 (08:04→17:12)
[2019-05-09] MEDS: POTASSIUM CHLORIDE 10 MEQ TABCR PO SCH ×2 (08:05→17:10)
[2019-05-09] MEDS: FAMOTIDINE 20 MG TAB PO SCH (08:05)
[2019-05-09] MEDS: ACETAMINOPHEN 325 MG TAB PO SCH ×3 (08:05→21:15)
[2019-05-09] MEDS: FLUTICASONE PROPIONATE NA SPR 16 GM BTL SCH (08:06)
[2019-05-09] MEDS: TIOTROPIUM BROMIDE 5 PUFF/90 MCG INH INH SCH (08:06)
[2019-05-09] MEDS: predniSONE 20 MG TAB PO SCH (08:06)
[2019-05-09] MEDS: FUROSEMIDE 80 MG TAB PO SCH (08:07)
[2019-05-09] MEDS: POLYETHYLENE (MIRALAX) 17 GM PACK PO SCH (08:07)
[2019-05-09] MEDS: SIMETHICONE 80 MG CHEW PO SCH (08:07)
[2019-05-09] MEDS: PANTOprazole 40 MG TAB PO SCH ×2 (08:07→21:18)
[2019-05-09] MEDS: LIDOCAINE 5% 1 PATCH TD SCH (08:08)
[2019-05-09] MEDS: BUDESONIDE/FORMOTEROL FUMARATE 160/4.5 60 PUFFS/INHALER INH SCH ×3 (09:00→21:20)
--- NOTE | 2019-05-09 09:54 | Family Medicine Progress Note ---
Date of Service May 09, 2019 Assessment & Plan (1) Fracture, ribs: 73yo F PMH COPD (3L at home), CAD, HLD, CHF, Depression, Hypothyroid, migraines admitted after mechanical fall and resultant rib fracture Fracture, ribs Patient with closed fracture of T9-T10 and T12, no respiratory distress, no PTX -Lidocaine patch -Scheduled Tylenol -Oxycodone/morphine as needed -PT/OT eval and treat, awaiting assessments. May need acute rehab stay COPD Exacerbation -Improving. -Continue prednisone 20, day 2 -Supportive care, pulm toilet as tolerated Migraine without aura -Seems to be tension and migraine headaches, possibly with rebound headaches as well. -Tried to educate on the difference between tension and migraine, it is not quite clear what her symptoms are that would cue her in on which it is, -Pt educated on how to use her triptan more judiciously but also earlier in the course of a migraine. -OMT for tension headache. Recommend Dr. Short gear treatments towards occipital muscle relaxation, or recommend OMT with Dr. Sanchez to continue to help treat tension headaches. Hypothyroid -Cont home synthroid 137mcg daily CAD/CHF/HLD -Stable/asymptomatic -Clinically euvolemic -Continue home med regimen Depression -Continue Lexapro and clorazepate HS GERD -Continue cimetidine, Prevacid Back Pain Well controlled at present -Continue Methocarbamol, Gabapentin Urinary Incontinence -Continue Oxybutynin Constipation -Escalate MiraLAX, pt educated. Code: Full DVTP: [facility] Dispo: awaiting PT/OT evals, possible rehab candidate (2) COPD exacerbation: (3) Hypothyroidism: (4) Migraine without aura: (5) Coronary artery disease: (6) Hypercholesterolemia: (7) CHF (congestive heart failure): (8) Depression: (9) GERD (gastroesophageal reflux disease): (10) Back pain: (11) Urinary incontinence: (12) Constipation: (13) Headache: (14) Somatic dysfunction of cervical region: (15) Discharge planning issues: (16) DVT prophylaxis: Supervising Physician Co-Signing Physician Notes I personally examined the patient and verified all rudd points of history and exam, discussed case, and agree with decision making with Dr Downing. Pain a little bit worse today, breathing a little bit worse today. Not significantly changed. Headache ongoing but better. [place] that OMT helped considerably. Vitals noted, in general she is awake and alert pleasant fatigued appearing no distress. Lungs show diffuse faint wheeze and slightly diminished base right. She shows proficiency with incentive spirometry but only able to move approximately 200 to 500 mL's of air each time. Osteopathic structural exam shows right greater than left suboccipitals to be high in tone, tender, decreased range of motion although better than yesterdayinhibitory pressureimproved. Patient tolerated well. Rib fractures/dyspneato appear to generally go together. I suspect that her worsening pain today is simply because of surrounding muscle spasm and inflammation from the rib fractures. She shows no considerable objective worsening, continue current care and supportive care. Encouraged incentive spirometry use. Suspect her lung findings are predominantly due to baseline COPD as well as atelectasis, continue to follow closely, but keep steroids at 20 mg for now. Headachesimproved. Somatic dysfunction cervical regionOMT as above. Given her improvement with OMT, would definitely give consideration outpatient referral for further treatment. Subjective Pt c/o 9/10 pain this morning. States that she thinks the oxycodone does not work as well compared to the IV morphine. She also notes breathing difficulty from her rib fracture and notes her breathing is worse than yesterday. She does note her headache is "not that bad yet today". Review of Systems Review of Systems: All systems reviewed & are unremarkable except as noted in HPI & below Constitutional: + body aches Respiratory: + dyspnea, + pain on inspiration, + pain with cough and + sputum production Cardiovascular: + dyspnea at rest and + dyspnea on exertion; no chest pain, no chest pain with activity and no edema Gastrointestinal: no nausea and no vomiting Musculoskeletal: + back pain, + joint pain, + stiffness and + limited range of motion Neurologic: + gait abnormality, + unsteadiness, + falls and + generalized w eakness; no dizziness Physical Exam Constitutional: WD/WN, vitals as above + well hydrated, + frail appearing and cooperative Eyes: PERRL, conjunctivae normal, anicteric sclerae ENMT: external ear and nose normal, oropharynx normal Neck: normal visual inspection Respiratory: normal respiratory effort and + cough Auscultation: + crackles (LLL) and + wheezes (minimal, diffuse expiratory) Cardiovascular: RRR, no murmur, no edema Gastrointestinal (Abdomen): normal bowel sounds, soft, nontender, no hepatosplenomegaly Musculoskeletal: Head/Neck/Chest: + localized rib tenderness Spine: + li mited thoraco-lumbar ROM and + thoracic spinal tenderness Skin: no rashes, warm and dry Neurologic: PERRL, EOMI, accommodation nl, no face palsy, no dysarthria Psychiatric: A+Ox3, euthymic affect Results & Data Vital Signs (Past 12 Hours) Vital Signs Temp Pulse Pulse Resp BP Pulse Ox 05/09/19 07:32 36.5 C 89 20 116/69 99 05/09/19 07:00 78 16 97 05/09/19 00:59 81 20 92 05/08/19 23:46 36.7 C 90 20 111/63 100 05/08/19 22:56 95 H 16 97 Laboratory Results 05/09/19 Range/Units 05:34 PT 10.0 (9.0-12.0) Seconds INR 1.0 (0.9-1.1) Medications Administered Current Inpatient Medications Acetaminophen (Tylenol) 650 mg PO TID [facility] Stop: 06/07/19 13:59 Last Admin: 05/09/19 08:05 Dose: 650 mg Documented by: Albuterol (Ventolin 0.5% 2.5mg/0.5ml) 2.5 mg NEB Q2H PRN PRN Reason: SOB/Wheeze Stop: 06/07/19 00:20 Last Admin: 05/09/19 00:57 Dose: 2.5 mg Documented by: Albuterol (Duoneb) 3 ml NEB Q4RWA [facility] Stop: 06/07/19 07:59 Last Admin: 05/09/19 06:59 Dose: 3 ml Documented by: Aspirin (Ecotrin Ectab) 81 mg PO QPM [facility] Stop: 06/07/19 20:59 Last Admin: 05/08/19 20:52 Dose: 81 mg Documented by: Bisacodyl (Dulcolax) 10 mg SD DAILY PRN PRN Reason: Constipation Stop: 06/07/19 00:20 Budesonide/Formoterol Fumarate (Symbicort 160mcg/4.5mcg) 2 puffs INH TID [facility] Stop: 06/07/19 08:59 Last Admin: 05/08/19 20:53 Dose: 2 puffs Documented by: Butalbital/Aspirin/Caffeine (Fiorinal) 1 tab PO BID PRN PRN Reason: Migraine Headache Stop: 06/07/19 08:59 Last Admin: 05/09/19 00:42 Dose: 1 tab Documented by: Clorazepate Dipotassium (Tranxene-T) 7.5 mg PO HS [facility] Stop: 06/07/19 20:59 Last Admin: 05/08/19 22:03 Dose: 7.5 mg Documented by: Docusate Sodium (Colace) 100 mg PO BID PRN PRN Reason: Constipation Stop: 06/07/19 00:20 Ezetimibe (Zetia) 10 mg PO QPM [facility] Stop: 06/07/19 20:59 Last Admin: 05/08/19 20:52 Dose: 10 mg Documented by: Enoxaparin Sodium (Lovenox) 40 mg SQ QAM [facility] Stop: 06/08/19 08:59 Escitalopram Oxalate (Lexapro Tab) 10 mg PO QAM [facility] Stop: 06/07/19 08:59 Last Admin: 05/09/19 08:04 Dose: 10 mg Documented by: Famotidine (Pepcid) 20 mg PO DAILY [facility] Stop: 06/07/19 08:59 Last Admin: 05/09/19 08:05 Dose: 20 mg Documented by: Fluticasone Propionate (Flonase) 2 sprays NA DAILY [facility] Stop: 06/07/19 08:59 Last Admin: 05/09/19 08:06 Dose: 2 sprays Documented by: Furosemide (Lasix) 80 mg PO QAM [facility] Stop: 06/07/19 08:59 Last Admin: 05/09/19 08:07 Dose: 80 mg Documented by: Gabapentin (Neurontin) 1,200 mg PO HS [facility] Stop: 06/07/19 20:59 Last Admin: 05/08/19 20:52 Dose: 1,200 mg Documented by: Gabapentin (Neurontin) 600 mg PO BID@0900,1400 [facility] Stop: 06/07/19 08:59 Last Admin: 05/09/19 08:04 Dose: 600 mg Documented by: Guaifenesin (Mucinex) 1,200 mg PO Q12 [facility] Stop: 06/07/19 08:59 Last Admin: 05/09/19 08:04 Dose: 1,200 mg Documented by: Levothyroxine Sodium (Levothyroxine Sodium) 137 mcg PO DAILYBB [facility] Stop: 06/07/19 06:29 Last Admin: 05/09/19 05:59 Dose: 137 mcg Documented by: Lidocaine (Lidoderm 5%) 1 patch TD QAM [facility] Stop: 06/07/19 10:59 Last Admin: 05/09/19 08:08 Dose: 1 patch Documented by: Methocarbamol (Robaxin) 1,500 mg PO HS [facility] Stop: 06/07/19 20:59 Last Admin: 05/08/19 20:52 Dose: 1,500 mg Documented by: Methocarbamol (Robaxin) 750 mg PO QAM [facility] Stop: 06/07/19 08:59 Last Admin: 05/09/19 08:03 Dose: 750 mg Documented by: Metoclopramide HCl (Reglan) 5 mg PO TIDM [facility] Stop: 06/07/19 07:59 Last Admin: 05/09/19 08:03 Dose: 5 mg Documented by: Miscellaneous (Remove Lidoderm Patch) 1 ea N/A DAILY@2100 [facility] Stop: 06/07/19 22:59 Last Admin: 05/08/19 22:13 Dose: 1 ea Documented by: Morphine Sulfate (Morphine Sulfate) 2 mg IV Q4H PRN PRN Reason: severe or breakthrough pain Stop: 05/22/19 00:20 Last Admin: 05/08/19 15:45 Dose: 2 mg Documented by: Ondansetron HCl (Zofran) 4 mg IV Q6H PRN PRN Reason: Nausea Stop: 06/07/19 00:20 Oxybutynin Chloride (Ditropan) 5 mg PO QID [facility] Stop: 06/07/19 08:59 Last Admin: 05/09/19 08:03 Dose: 5 mg Documented by: Oxycodone HCl (Roxicodone Immediate Rel) 5 mg PO QID PRN PRN Reason: Moderate Pain Stop: 05/22/19 10:31 Last Admin: 05/08/19 23:08 Dose: 5 mg Documented by: Pantoprazole Sodium (Protonix) 40 mg PO BID [facility] Stop: 06/07/19 08:59 Last Admin: 05/09/19 08:07 Dose: 40 mg Documented by: Polyethylene Glycol (Miralax Powder Packet) 17 gm PO DAILY PRN PRN Reason: Constipation Stop: 06/07/19 00:20 Last Admin: 05/08/19 08:59 Dose: 17 gm Documented by: Polyethylene Glycol (Miralax Powder Packet) 34 gm PO DAILY [facility] Stop: 06/07/19 10:44 Last Admin: 05/09/19 08:07 Dose: 34 gm Documented by: Polyethylene Glycol (Miralax Powder Packet) 34 gm PO DAILY PRN PRN Reason: Constipation Stop: 06/07/19 10:33 Potassium Chloride (Klor-Con M10) 20 meq PO QAM [facility] Stop: 06/07/19 08:59 Last Admin: 05/09/19 08:05 Dose: 20 meq Documented by: Potassium Chloride (Klor-Con M10) 30 meq PO 1700 [facility] Stop: 06/07/19 16:59 Last Admin: 05/08/19 20:51 Dose: 30 meq Documented by: Pravastatin Sodium (Pravachol) 20 mg PO QPM [facility] Stop: 06/07/19 20:59 Last Admin: 05/08/19 20:52 Dose: 20 mg Documented by: Prednisone (Prednisone) 20 mg PO DAILY [facility] Stop: 06/08/19 08:59 Last Admin: 05/09/19 08:06 Dose: 20 mg Documented by: Simethicone (Mylicon) 160 mg PO DAILY [facility] Stop: 06/07/19 08:59 Last Admin: 05/09/19 08:07 Dose: 160 mg Documented by: Spironolactone (Aldactone) 25 mg PO BIDM [facility] Stop: 06/07/19 07:59 Last Admin: 05/09/19 08:04 Dose: 25 mg Documented by: Tiotropium [place] (Spiriva) 1 puffs INH QAM [facility] Stop: 06/07/19 10:29 Last Admin: 05/09/19 08:06 Dose: 1 puffs Documented by: PG Care Time/CCT Total # of Minutes Spent Total Time Spent with Patient: Total time spent is greater than 50% in coordination of care (as documented) at patient's floor/unit and/or counseling patient: Resident Activity Tracking Resident Involvement: Resident Care Provided Care Provided: Adult Hospital Medicine (1) Fracture, ribs Encounter type: initial encounter Fracture type: closed Laterality: left Rib fracture type: multiple ribs Qualified Code(s): S22.42XA - Multiple fractures of ribs, left side, initial encounter for closed fracture (2) Urinary incontinence Urinary Incontinence type: unspecified incontinence Qualified Code(s): R32 - Unspecified urinary incontinence (3) Coronary artery disease Associated angina: without angina Coronary Disease-Associated Artery/Lesion type: [place] artery [place] vs. transplanted heart: [place] heart Qualified Code(s): I25.10 - Atherosclerotic heart disease of [place] coronary artery without angina pectoris (4) Migraine without aura Intractability: not intractable Status migrainosus presence: without status migrainosus Qualified Code(s): G43.009 - Migraine without aura, not intractable, without status migrainosus (5) CHF (congestive heart failure) Heart failure chronicity: chronic Heart failure type: systolic Qualified Code(s): I50.22 - Chronic systolic (congestive) heart failure (6) Back pain Back pain laterality: unspecified Back pain location: low back pain Chronicity: chronic Sciatica presence: without sciatica Qualified Code(s): M54.5 - Low back pain; G89.29 - Other chronic pain (7) Depression Depression Type: unspecified Qualified Code(s): F32.9 - Major depressive disorder, single episode, unspecified (8) Hypothyroidism Hypothyroidism type: unspecified Qualified Code(s): E03.9 - Hypothyroidism, unspecified (9) GERD (gastroesophageal reflux disease) Esophagitis presence: esophagitis presence not specified Qualified Code(s): K21.9 - Gastro-esophageal reflux disease without esophagitis
[2019-05-09] MEDS: MoRPHine SULFATE 2 MG/ML CARP IV PRN ×2 (10:23→22:20)
[2019-05-09] MEDS: ENOXAPARIN INJ 40 MG/0.4 ML SYR SQ SCH (12:41)
[2019-05-09] MEDS: OXYCODONE HCL IR 5 MG TAB (IMMEDIATE RELEASE) PO PRN (17:14)
[2019-05-09] MEDS: ASPIRIN 81 MG ECTAB PO SCH (21:16)
[2019-05-09] MEDS: PRAVASTATIN SOD 10 MG TAB PO SCH (21:17)
[2019-05-09] MEDS: EZETIMIBE 10 MG TABLET PO SCH (21:19)
[2019-05-09] MEDS: CLORAZEPATE DIPOTASSIUM 3.75 MG TAB PO SCH (21:22)
[2019-05-10] MEDS: ALBUTEROL 0.5% NEB SOLN 2.5 MG/0.5 ML VIAL NEB PRN (03:03)
[2019-05-10] MEDS: LEVOTHYROXINE SODIUM 137 MCG TABLET PO SCH (06:35)
[2019-05-10] MEDS: ALBUT/IPRATROP 3MG/0.5MG NEB 3 ML VIAL NEB SCH ×4 (07:08→19:20)
[2019-05-10] MEDS: BUDESONIDE/FORMOTEROL FUMARATE 160/4.5 60 PUFFS/INHALER INH SCH ×3 (07:41→21:07)
[2019-05-10] MEDS: TIOTROPIUM BROMIDE 5 PUFF/90 MCG INH INH SCH (07:42)
[2019-05-10] MEDS: FLUTICASONE PROPIONATE NA SPR 16 GM BTL SCH (07:42)
[2019-05-10] MEDS: FAMOTIDINE 20 MG TAB PO SCH (07:43)
[2019-05-10] MEDS: POTASSIUM CHLORIDE 10 MEQ TABCR PO SCH ×2 (07:44→23:13)
[2019-05-10] MEDS: predniSONE 20 MG TAB PO SCH (07:44)
[2019-05-10] MEDS: SIMETHICONE 80 MG CHEW PO SCH (07:44)
[2019-05-10] MEDS: METOCLOPRAMIDE HCL 5 MG TABLET PO SCH ×3 (07:45→17:15)
[2019-05-10] MEDS: OXYBUTYNIN CHLORIDE 5 MG TAB PO SCH ×4 (07:45→21:02)
[2019-05-10] MEDS: GABAPENTIN 600 MG TAB PO SCH ×3 (07:45→21:00)
[2019-05-10] MEDS: FUROSEMIDE 80 MG TAB PO SCH (07:45)
[2019-05-10] MEDS: guaiFENesin 600 MG TABCR PO SCH ×2 (07:45→20:59)
[2019-05-10] MEDS: ACETAMINOPHEN 325 MG TAB PO SCH ×3 (07:46→21:01)
[2019-05-10] MEDS: METHOCARBAMOL 750 MG TABLET PO SCH ×2 (07:46→20:59)
[2019-05-10] MEDS: LIDOCAINE 5% 1 PATCH TD SCH (07:47)
[2019-05-10] MEDS: ENOXAPARIN INJ 40 MG/0.4 ML SYR SQ SCH (07:48)
[2019-05-10] MEDS: POLYETHYLENE (MIRALAX) 17 GM PACK PO SCH (07:48)
[2019-05-10] MEDS: PANTOprazole 40 MG TAB PO SCH ×2 (07:49→21:02)
[2019-05-10] MEDS: ESCITALOPRAM OXALATE 10 MG TAB PO SCH (07:49)
--- NOTE | 2019-05-10 08:24 | Family Medicine Progress Note ---
Date of Service May 10, 2019 Assessment & Plan (1) Fracture, ribs: 73yo F PMH COPD (3L at home), CAD, HLD, CHF, Depression, Hypothyroid, migraines admitted after mechanical fall and resultant rib fracture Fracture, ribs -Patient with closed fracture of T9-T10 and T12, no respiratory distress, no PTX -Lidocaine patch -Scheduled Tylenol -Oxycodone/morphine as needed. Goal to opt for PO meds for discharge. -PT rec's home with possible home PT. Awaiting OT eval -Improving. Discussed, as above, trying to avoid IV if possible to get home sooner. COPD Exacerbation -Improving. -Continue prednisone 20, started 05/08/19. Complete 5 day course -Supportive care, pulm toilet as tolerated (increased IS use particularly) Migraine without aura -Seems to be tension and migraine headaches, possibly with rebound headaches as well. -Tried to educate on the difference between tension and migraine, it is not quite clear what her symptoms are that would cue her in on which it is, -Pt educated on how to use her triptan more judiciously but also earlier in the course of a migraine. -OMT for tension headache. Recommend Dr. Short gear treatments towards occipital muscle relaxation, or recommend OMT with Dr. Sanchez to continue to help treat tension headaches. Hypothyroid -Cont home synthroid 137mcg daily CAD/CHF/HLD -Stable/asymptomatic -Clinically euvolemic -Continue home med regimen Depression -Continue Lexapro and clorazepate HS GERD -Continue cimetidine, Prevacid Back Pain Well controlled at present -Continue Methocarbamol, Gabapentin Urinary Incontinence -Continue Oxybutynin Constipation -Optimize MiraLAX, pt educated. Code: Full DVTP: lovenox Dispo: awaiting OT eval, hopefully home tomorrow (2) COPD exacerbation: (3) Hypothyroidism: (4) Migraine without aura: (5) Coronary artery disease: (6) Hypercholesterolemia: (7) CHF (congestive heart failure): (8) Depression: (9) GERD (gastroesophageal reflux disease): (10) Back pain: (11) Urinary incontinence: (12) Constipation: (13) Headache: (14) Somatic dysfunction of cervical region: (15) Discharge planning issues: (16) DVT prophylaxis: Supervising Physician Co-Signing Physician Notes I personally examined the patient and verified all rudd points of history and exam, discussed case, and agree with decision making with Dr Downing. pain improving breathing improving. just worried about goig home too soon from past experiences Vitals noted, in general she is awake and alert pleasant fatigued appearing no distress. Lungs show diffuse faint wheeze but noticably better air entry than yesterday no accessory muscles. Rib fractures/dyspneato appear to generally go together. pain ipmroving. con tinue current regimen, hopefully home tomorrow Headachesimproved. outpt OMT referral would be of benefit Subjective Luana feels subjectively better today, stating her rib pain is improved and she feels she can take deeper breaths. She notes from a COPD perspective she was pretty junky this morning but after her medicines she felt a lot better. Notes continued headache. Is hesitant for home today but hopes to be ready tomorrow. Review of Systems Constitutional: + body aches Respiratory: + pain on inspiration, + pain with cough and + sputum production Cardiovascular: + dyspnea on exertion; no chest pain, no chest pain with acti vity and no edema Musculoskeletal: + back pain, + joint pain, + stiffness and + limited range of motion Neurologic: + gait abnormality, + unsteadiness and + generalized weakness; no dizziness Physical Exam Constitutional: WD/WN, vitals as above + well hydrated, + frail appearing and cooperative Eyes: PERRL, conjunctivae normal, anicteric sclerae ENMT: external ear and nose normal, oropharynx normal Neck: normal visual inspection Respiratory: normal respiratory effort Auscultation: + wheezes (minimal, diffuse expiratory) Cardiovascular: RRR, no murmur, no edema Gastrointestinal (Abdomen): normal bowel sounds, soft, nontender, no hepatosplenomegaly Musculoskeletal: Head/Neck/Chest: + localized rib tenderness Spine: + limited thoraco-lumbar ROM and + thoracic spinal tenderness Skin: no rashes, warm and dry Neurologic: PERRL, EOMI, accommodation nl, no face palsy, no dysarthria Psychiatric: A+Ox3, euthymic affect Results & Data Vital Signs (Past 12 Hours) Vital Signs Temp Pulse Pulse Resp BP Pulse Ox 05/10/19 07:08 36.5 C 83 18 154/75 H 98 05/10/19 03:04 89 16 97 05/09/19 23:09 37.1 C 93 H 20 110/68 98 Medications Administered Current Inpatient Medications Acetaminophen (Tylenol) 650 mg PO TID [facility] Stop: 06/07/19 13:59 Last Admin: 05/10/19 07:46 Dose: 650 mg Documented by: Albuterol (Ventolin 0.5% 2.5mg/0.5ml) 2.5 mg NEB Q2H PRN PRN Reason: SOB/Wheeze Stop: 06/07/19 00:20 Last Admin: 05/10/19 03:03 Dose: 2.5 mg Documented by: Albuterol (Duoneb) 3 ml NEB Q4RWA [facility] Stop: 06/07/19 07:59 Last Admin: 05/10/19 07:08 Dose: 3 ml Documented by: Aspirin (Ecotrin Ectab) 81 mg PO QPM [facility] Stop: 06/07/19 20:59 Last Admin: 05/09/19 21:16 Dose: 81 mg Documented by: Bisacodyl (Dulcolax) 10 mg SD DAILY PRN PRN Reason: Constipation Stop: 06/07/19 00:20 Budesonide/Formoterol Fumarate (Symbicort 160mcg/4.5mcg) 2 puffs INH TID [facility] Stop: 06/07/19 08:59 Last Admin: 05/10/19 07:41 Dose: 2 puffs Documented by: Butalbital/Aspirin/Caffeine (Fiorinal) 1 tab PO BID PRN PRN Reason: Migraine Headache Stop: 06/07/19 08:59 Last Admin: 05/09/19 00:42 Dose: 1 tab Documented by: Clorazepate Dipotassium (Tranxene-T) 7.5 mg PO HS [facility] Stop: 06/07/19 20:59 Last Admin: 05/09/19 21:22 Dose: 7.5 mg Documented by: Docusate Sodium (Colace) 100 mg PO BID PRN PRN Reason: Constipation Stop: 06/07/19 00:20 Last Admin: 05/10/19 08:30 Dose: 100 mg Documented by: Ezetimibe (Zetia) 10 mg PO QPM [facility] Stop: 06/07/19 20:59 Last Admin: 05/09/19 21:19 Dose: 10 mg Documented by: Enoxaparin Sodium (Lovenox) 40 mg SQ QAM [facility] Stop: 06/08/19 08:59 Last Admin: 05/10/19 07:48 Dose: 40 mg Documented by: Escitalopram Oxalate (Lexapro Tab) 10 mg PO QAM [facility] Stop: 06/07/19 08:59 Last Admin: 05/10/19 07:49 Dose: 10 mg Documented by: Famotidine (Pepcid) 20 mg PO DAILY [facility] Stop: 06/07/19 08:59 Last Admin: 05/10/19 07:43 Dose: 20 mg Documented by: Fluticasone Propionate (Flonase) 2 sprays NA DAILY [facility] Stop: 06/07/19 08:59 Last Admin: 05/10/19 07:42 Dose: 2 sprays Documented by: [facility]urosem[facility] (Lasix) [facility] [place] Stop: 06/07/19 08:59 Last Admin: 05/10/19 07:45 Dose: 80 mg Documented by: Gabapentin (Neurontin) 1,200 mg PO [facility] Stop: 06/07/19 20:59 Last Admin: 05/09/19 21:18 Dose: 1,200 mg Documented by: Gabapentin (Neurontin) 600 mg PO BID@0900,1400 [facility] Stop: 06/07/19 08:59 Last Admin: 05/10/19 07:45 Dose: 600 mg Documented by: Guaifenesin (Mucinex) 1,200 mg PO Q12 [facility] Stop: 06/07/19 08:59 Last Admin: 05/10/19 07:45 Dose: 1,200 mg Documented by: Levothyroxine Sodium (Levothyroxine Sodium) 137 mcg PO DAILYBB [facility] Stop: 06/07/19 06:29 Last Admin: 05/10/19 06:35 Dose: 137 mcg Documented by: Lidocaine (Lidoderm 5%) 1 patch TD [facility] [place] Stop: 06/07/19 10:59 Last Admin: 05/10/19 07:47 Dose: 1 patch Documented by: Methocarbamol (Robaxin) 1,500 mg PO [facility] Stop: 06/07/19 20:59 Last Admin: 05/09/19 21:14 Dose: 1,500 mg Documented by: Methocarbamol (Robaxin) 750 mg PO QAM [facility] Stop: 06/07/19 08:59 Last Admin: 05/10/19 07:46 Dose: 750 mg Documented by: Metoclopramide HCl (Reglan) 5 mg PO TIDM [facility] Stop: 06/07/19 07:59 Last Admin: 05/10/19 07:45 Dose: 5 mg Documented by: Miscellaneous (Remove Lidoderm Patch) 1 ea N/A DAILY@2100 [facility] Stop: 06/07/19 22:59 Last Admin: 05/09/19 21:21 Dose: 1 ea Documented by: Morphine Sulfate (Morphine Sulfate) 2 mg IV Q4H PRN PRN Reason: severe or breakthrough pain Stop: 05/22/19 00:20 Last Admin: 05/09/19 22:20 Dose: 2 mg Documented by: Ondansetron HCl (Zofran) 4 mg IV Q6H PRN PRN Reason: Nausea Stop: 06/07/19 00:20 Oxybutynin Chloride (Ditropan) 5 mg PO QID [facility] Stop: 06/07/19 08:59 Last Admin: 05/10/19 07:45 Dose: 5 mg Documented by: Oxycodone HCl (Roxicodone Immediate Rel) 5 mg PO QID PRN PRN Reason: Moderate Pain Stop: 05/22/19 10:31 Last Admin: 05/10/19 08:29 Dose: 5 mg Documented by: Pantoprazole Sodium (Protonix) 40 mg PO BID [facility] Stop: 06/07/19 08:59 Last Admin: 05/10/19 07:49 Dose: 40 mg Documented by: Polyethylene Glycol (Miralax Powder Packet) 17 gm PO DAILY PRN PRN Reason: Constipation Stop: 06/07/19 00:20 Last Admin: 05/08/19 08:59 Dose: 17 gm Documented by: Polyethylene Glycol (Miralax Powder Packet) 34 gm PO DAILY [facility] Stop: 06/07/19 10:44 Last Admin: 05/10/19 07:48 Dose: 34 gm Documented by: Polyethylene Glycol (Miralax Powder Packet) 34 gm PO DAILY PRN PRN Reason: Constipation Stop: 06/07/19 10:33 Potassium Chloride (Klor-Con M10) 20 meq PO QAM [facility] Stop: 06/07/19 08:59 Last Admin: 05/10/19 07:44 Dose: 20 meq Documented by: Potassium Chloride (Klor-Con M10) 30 meq PO 1700 [facility] Stop: 06/07/19 16:59 Last Admin: 05/09/19 17:10 Dose: 30 meq Documented by: Pravastatin Sodium (Pravachol) 20 mg PO QPM [facility] Stop: 06/07/19 20:59 Last Admin: 05/09/19 21:17 Dose: 20 mg Documented by: Prednisone (Prednisone) 20 mg PO DAILY [facility] Stop: 06/08/19 08:59 Last Admin: 05/10/19 07:44 Dose: 20 mg Documented by: Simethicone (Mylicon) 160 mg PO DAILY [facility] Stop: 06/07/19 08:59 Last Admin: 05/10/19 07:44 Dose: 160 mg Documented by: Spironolactone (Aldactone) 25 mg PO BIDM [facility] Stop: 06/07/19 07:59 Last Admin: 05/10/19 08:30 Dose: 25 mg Documented by: Tiotropium [place] (Spiriva) 1 puffs INH QAM [facility] Stop: 06/07/19 10:29 Last Admin: 05/10/19 07:42 Dose: 1 puffs Documented by: PG Care Time/CCT Total # of Minutes Spent Total Time Spent with Patient: Total time spent is greater than 50% in coordination of care (as documented) at patient's floor/unit and/or counseling patient: Resident Activity Tracking Resident Involvement: Resident Care Provided Care Provided: Adult Hospital Medicine (1) Fracture, ribs Encounter type: initial encounter Fracture type: closed Laterality: left Rib fracture type: multiple ribs Qualified Code(s): S22.42XA - Multiple fractures of ribs, left side, initial encounter for closed fracture (2) Urinary incontinence Urinary Incontinence type: unspecified incontinence Qualified Code(s): R32 - Unspecified urinary incontinence (3) Coronary artery disease Associated angina: without angina Coronary Disease-Associated Artery/Lesion type: [place] artery [place] vs. transplanted heart: [place] heart Qualified Code(s): I25.10 - Atherosclerotic heart disease of [place] coronary artery without angina pectoris (4) Migraine without aura Intractability: not intractable Status migrainosus presence: without status migrainosus Qualified Code(s): G43.009 - Migraine without aura, not intractable, without status migrainosus (5) CHF (congestive heart failure) Heart failure chronicity: chronic Heart failure type: systolic Qualified Code(s): I50.22 - Chronic systolic (congestive) heart failure (6) Back pain Back pain laterality: unspecified Back pain location: low back pain Chronicity: chronic Sciatica presence: without sciatica Qualified Code(s): M54.5 - Low back pain; G89.29 - Other chronic pain (7) Depression Depression Type: unspecified Qualified Code(s): F32.9 - Major depressive disorder, single episode, unspecified (8) Hypothyroidism Hypothyroidism type: unspecified Qualified Code(s): E03.9 - Hypothyroidism, unspecified (9) GERD (gastroesophageal reflux disease) Esophagitis presence: esophagitis presence not specified Qualified Code(s): K21.9 - Gastro-esophageal reflux disease without esophagitis
[2019-05-10] MEDS: OXYCODONE HCL IR 5 MG TAB (IMMEDIATE RELEASE) PO PRN (08:29)
[2019-05-10] MEDS: SPIRONOLACTONE 25 MG TAB PO SCH ×2 (08:30→17:14)
[2019-05-10] MEDS: CLORAZEPATE DIPOTASSIUM 3.75 MG TAB PO SCH (20:58)
[2019-05-10] MEDS ORDERED: POTASSIUM CHLORIDE 10 MEQ TABCR PO SCH (21:00)
[2019-05-10] MEDS: PRAVASTATIN SOD 10 MG TAB PO SCH (21:00)
[2019-05-10] MEDS: EZETIMIBE 10 MG TABLET PO SCH (21:04)
[2019-05-10] MEDS: ASPIRIN 81 MG ECTAB PO SCH (21:06)
[2019-05-11] MEDS: ALBUT/IPRATROP 3MG/0.5MG NEB 3 ML VIAL NEB SCH ×3 (01:51→11:07)
[2019-05-11 05:54] LABS: Hematocrit (blood only) 35.3 % (37-47); Hemoglobin 11.3 g/dL (12.0-16.0); Mean Corpuscular Volume 89.6 fL (80-100); Mean Platelet Volume 8.8 fL (7.4-10.4); Platelet Count 204 K/uL (130-400); RDW Coefficient of Variation 15.9 % (11.5-14.5); RDW Standard Deviation 52.4 fL (36.4-46.3); Red Blood Count 3.94 M/uL (4.2-5.4); White Blood Count 5.82 K/uL (4.8-10.8)
[2019-05-11] MEDS: LEVOTHYROXINE SODIUM 137 MCG TABLET PO SCH (06:07)
[2019-05-11] MEDS: OXYCODONE HCL IR 5 MG TAB (IMMEDIATE RELEASE) PO PRN (06:09)
[2019-05-11 06:24] LABS: Creatinine Clr Calc Pharmacy 65.9 ml/min; Est GFR (African American) 100.3; Est GFR (Non-African American) 86.6
[2019-05-11] MEDS: BUDESONIDE/FORMOTEROL FUMARATE 160/4.5 60 PUFFS/INHALER INH SCH ×2 (06:26→13:16)
[2019-05-11] MEDS: POLYETHYLENE (MIRALAX) 17 GM PACK PO SCH (07:35)
[2019-05-11] MEDS: ENOXAPARIN INJ 40 MG/0.4 ML SYR SQ SCH (07:36)
[2019-05-11] MEDS: guaiFENesin 600 MG TABCR PO SCH (07:36)
[2019-05-11] MEDS: FLUTICASONE PROPIONATE NA SPR 16 GM BTL SCH (07:36)
[2019-05-11] MEDS: POTASSIUM CHLORIDE 10 MEQ TABCR PO SCH (07:37)
[2019-05-11] MEDS: OXYBUTYNIN CHLORIDE 5 MG TAB PO SCH ×2 (07:37→13:16)
[2019-05-11] MEDS: METOCLOPRAMIDE HCL 5 MG TABLET PO SCH ×2 (07:37→12:00)
[2019-05-11] MEDS: PANTOprazole 40 MG TAB PO SCH (07:38)
[2019-05-11] MEDS: ACETAMINOPHEN 325 MG TAB PO SCH ×2 (07:38→13:16)
[2019-05-11] MEDS: TIOTROPIUM BROMIDE 5 PUFF/90 MCG INH INH SCH (07:38)
[2019-05-11] MEDS: SPIRONOLACTONE 25 MG TAB PO SCH (07:38)
[2019-05-11] MEDS: METHOCARBAMOL 750 MG TABLET PO SCH (07:39)
[2019-05-11] MEDS: LIDOCAINE 5% 1 PATCH TD SCH (07:39)
[2019-05-11] MEDS: SIMETHICONE 80 MG CHEW PO SCH (07:40)
[2019-05-11] MEDS: FUROSEMIDE 80 MG TAB PO SCH (07:40)
[2019-05-11] MEDS: FAMOTIDINE 20 MG TAB PO SCH (07:40)
[2019-05-11] MEDS: GABAPENTIN 600 MG TAB PO SCH ×2 (07:41→13:16)
[2019-05-11] MEDS: predniSONE 20 MG TAB PO SCH (07:41)
[2019-05-11] MEDS: ESCITALOPRAM OXALATE 10 MG TAB PO SCH (07:41)
[2019-05-11] MEDS: BUTALBITAL/ASPIRIN/CAFFEINE 1 TAB TAB PO PRN (09:30)
--- NOTE | 2019-05-11 10:40 | Discharge Summary ---
Date of Service May 11, 2019 Admission HPI Per Admitting Provider Luana Meek is a 73yo C female with multiple medical comorbidities, COPD on 3L home O2. Patient was getting up from her chair this AM at 06:00 when she lost her balance and fell against an end table. She had a skin tear on her left arm and severe pain in her left flank following the fall. Patient denies LOC, head trauma, CP/palpitations/dizziness. She states that she is unable to take a deep breath secondary to pain and feels short of breath. She has had worsening GAMEZ and SOB as well as cough productive for yellow sputum over the last week as well as increased wheezing. ER Course: Toradol, Solumedrol 125mg Admission Exam (Per Admitting) Constitutional WD/WN, vitals as above + well hydrated, + frail appearing and cooperative Eyes PERRL, conjunctivae normal, anicteric sclerae ENMT external ear and nose normal, oropharynx normal Neck normal visual inspection Respiratory normal respiratory effort Auscultation: + wheezes (minimal, diffuse expiratory) Cardiovascular RRR, no murmur, no edema Gastrointestinal (Abdomen) normal bowel sounds, soft, nontender, no hepatosplenomegaly Musculoskeletal Head/Neck/Chest: + localized rib tenderness Spine: + limited thoraco-lumbar ROM and + thoracic spinal tenderness Skin no rashes, warm and dry Neurologic PERRL, EOMI, accommodation nl, no face palsy, no dysarthria Psychiatric A+Ox3, euthymic affect Discharge Data Consultations 05/07/19 22:12 ED Decision to Admit Stat Hospital Course (1) Fracture, ribs: 73yo F PMH COPD (3L at home), CAD, HLD, CHF, Depression, Hypothyroid, migraines admitted after mechanical fall and resultant rib fracture Fracture, ribs -Patient with closed fracture of T9-T10 and T12, no respiratory distress, no PTX -Lidocaine patch at night -Scheduled Tylenol -Voltaren gel q4h when patch not applied. -Oxycodone q6h as needed if above measures do not keep pain <7/10. -Improving. Discussed lengthy process of rib healing and techniques to avoid straining ribcage. COPD Exacerbation -Improving. -Completed 5 day course of steroids. Pt feels back to baseline -Pulm toilet as tolerated (increased IS use particularly) Migraine without aura -Seems to be tension and migraine headaches, possibly with rebound headaches as well. -Tried to educate on the difference between tension and migraine, it is not quite clear what her symptoms are that would cue her in on which it is, -Pt educated on how to use her triptan more judiciously but also earlier in the course of a migraine. -OMT for tension headache. Recommend Dr. Short gear treatments towards occipital muscle relaxation, and referred to OMT with Dr. Sanchez to continue to help treat tension headaches. Hypothyroid -Cont home synthroid 137mcg daily CAD/CHF/HLD -Stable/asymptomatic -Clinically euvolemic -Continue home med regimen Depression -Continue Lexapro and clorazepate HS GERD -Continue cimetidine, Prevacid Back Pain Well controlled at present -Continue Methocarbamol, Gabapentin Urinary Incontinence -Continue Oxybutynin Constipation -Optimize MiraLAX, pt educated especially in light of opioid use Code: Full (2) COPD exacerbation: (3) Hypothyroidism: (4) Migraine without aura: (5) Coronary artery disease: (6) Hypercholesterolemia: (7) CHF (congestive heart failure): (8) Depression: (9) GERD (gastroesophageal reflux disease): (10) Back pain: (11) Urinary incontinence: (12) Constipation: (13) Headache: (14) Somatic dysfunction of cervical region: (15) Discharge planning issues: (16) DVT prophylaxis: Supervising Physician Co-Signing Physician Notes I personally examined the patient and verified all rudd points of history and exam, discussed case, and agree with decision making with Dr Downing. pain improving breathing improving. Feels okay to go home. Would like further OMT prior to discharge. Vitals noted, in general she is awake and alert pleasant fatigued appearing no distress. Lungs show diffuse faint wheeze but noticably better air entry than yesterday no accessory muscles. Osteopathic structural exam shows right greater than left suboccipital musculature high in tone, tender, decreased range of motioninhibitory pressureimproved. Patient tolerated well. Rib fractures/dyspneastable for home. Med management as above. Headachesimproved. outpt OMT referral would be of benefit Somatic dysfunction cervicalOMT as above. Resident Activity Tracking Resident Involvement: Resident Care Provided Care Provided: Adult [facility] Medicine
[2019-05-11] MEDS ORDERED: DICLOFENAC SOD 1% GEL 100 GM TUBE EXT SCH ×2 (12:00→21:00)
[2019-05-11] MEDS ORDERED: LIDOCAINE 5% 1 PATCH TD SCH (21:00)
== END 2019-05-11 14:00 | disposition home or self-care (01) | DRG 184 ==
LOC: ED 17:05 → SUATTDRO 23:06 → OBSVTOIN 23:06 → INTOOBSV 23:06 → 4E 23:06

== ENCOUNTER 2020-07-22 19:37 | Inpatient (IN) ==
[2020-07-22] MEDS ORDERED: methylPREDNISolone 125 MG/2 ML VIAL IV STA (19:44)
[2020-07-22] MEDS ORDERED: ALBUT/IPRATROP 3MG/0.5MG NEB 3 ML VIAL NEB ONE (19:44)
--- NOTE | 2020-07-22 19:55 | Emergency Department Note ---
Impression & Plan Acute exacerbation of chronic obstructive pulmonary disease, Acute bronchitis, Acute respiratory distress, Acute respiratory acidosis ED Provider Note NAME: PANFILO MAN AGE: 74 SEX: F : 1945 ARRIVES VIA: Ambulance INFORMANT: Patient, prehospital personnel ED PROVIDER(S): Micky Mast DO CHIEF COMPLAINT: Shortness of breath HPI: The patient is a 74-year-old female who presented to the emergency department for an evaluation of cough and shortness of breath. The patient has had ongoing symptoms for approximately 1 week. She states that she normally uses bronchodilator therapy as well as home oxygen. She has been using her bronchodilator therapy more often and increasing her oxygen over the last 48 hours especially. She complains of cough which is productive for colored sputum. Usually it is yellow. She denies having any hemoptysis. She denies having any fever. She has no orthopnea or lower extremity swelling. She denies having any chest pain. She states her symptoms are mild at rest but increased to moderate to severe especially with any exertion. She denies having any recent falls. She is been compliant with all of her outpatient medication. ROS: See above HPI for pertinent positives & negatives. A total of 10 systems reviewed and were otherwise negative. PAST MEDICAL HISTORY: See Below PAST SURGICAL HISTORY: See Below FAMILY HISTORY: See Below SOCIAL HISTORY: See Below HOME MEDICATIONS: See Below ALLERGIES: See Below VITALS: See Below PHYSICAL EXAMINATION: GENERAL: The patient is awake and alert. The patient is very anxious appearing and appears to be in significant distress. EYES: The conjunctivae are clear. The pupils are round and reactive. EARS, NOSE, MOUTH AND THROAT: The nose is without any evidence of any deformity. Mucous membranes are moist. Tongue is midline. NECK: The neck is nontender and supple. RESPIRATORY: Very shallow respirations were noted. Diminished breath sounds are noted throughout. There is faint expiratory wheezing in both upper lung bell. CARDIOVASCULAR: Tachycardic rate with regular rhythm was noted. There was no definite murmur. GASTROINTESTINAL: The abdomen is soft. Abdomen is nontender. MUSCULOSKELETAL/EXTREMITIES: There is no evidence of gross deformity full range of motion is noted in the hips and shoulders. SKIN: There is no obvious evidence of any rash. Skin was warm and dry. Trace pedal edema was noted bilaterally. NEUROLOGIC: Patient is awake alert and oriented x3. MEDICAL DECISION MAKING: The patient is a 74-year-old female who presented to the emergency department for an evaluation of difficulty breathing. The patient has a history of COPD. She presented to the emergency department for productive cough and difficulty breathing over the last month. Her physical exam was consistent with very significant difficulty breathing with tachypnea and pursed lip breathing. She was treated with an hour-long DuoNeb as well as IV fluids and IV antibiotics. She was also given IV steroids. She was reevaluated multiple times. On subsequent reevaluation she was significantly improved. I discussed the patient's laboratory and radiographic studies with her. I also discussed her case with the on-call [facility] hospitalist group. They will evaluate the patient in the emergency department for further management and disposition. Triage Nursing notes reviewed. Prior medical records reviewed Vital Signs: reviewed and remarkable for tachycardia and tachypnea. Differential diagnosis: Reactive airway disease, pneumonia, pneumothorax, COPD, CHF, infections, cardiac ischemia, pulmonary embolism, musculoskeletal, gastrointestinal, as well as other pathologies. ER treatment provided: See below Diagnostics interpreted by me: ECG: EKG was obtained in the emergency department. My interpretation is sinus tachycardia 112 bpm. There is no ectopy. Inferior and lateral ST depressions were noted. Diffuse T wave inversions were noted. This was compared to a tracing from May [id number]. The T wave flattening is new compared to the previous tracing. Cardiac Monitoring: An order was placed for continuous cardiac monitoring. The monitor shows a rate of 110 bpm with sinus tachycardia rhythm. Laboratory studies: As stated above and show below. Imaging studies: See below Consultation(s): 2300: I discussed this case with Dr. Fulton ED COURSE: Procedures: none PDMP:reviewed and no issues Critical Care: I have personally spent greater than 45 minutes of critical care time in the direct management of this patient. This includes bedside care, interpretation of diagnostic studies, and testing, discussion with consultants, patient, and family members, and other required patient management activities. This 45 minutes is in excess of all separately billable procedures. Past Med/Surg History Medical History Anxiety and depression Back pain Cronin esophagus CHF (congestive heart failure) Chronic rhinitis COPD (chronic obstructive pulmonary disease) Coronary artery disease Depression Emphysema lung GERD (gastroesophageal reflux disease) Hypercholesterolemia Hypothyroidism Migraine without aura Surgical History History of bladder surgery History of breast augmentation History of cholecystectomy History of hemorrhoidectomy History of tonsillectomy Family History Unknown Lung cancer Liver cancer Colon cancer Father Liver cancer Mother Hypertension Other Family history non-contributory Social History Smoking Status: Current every day smoker Age Quit Using Tobacco: 60; packs per day: 2; Hx Alcohol Use: No Hx Substance Use: No Preferred Language: German Communication Ability: Effective Skein Drier Required: No Beliefs That Will Affect Care: None marital status: Current Living Situation: Spouse Feels Safe at Home: Yes Allergies Allergies Allergy/AdvReac Type Severity Reaction Status Date / Time Sulfa (Sulfonamide Allergy Intermediate Hives Verified 05/29/20 13:30 Antibiotics) cortisone Allergy Unknown RASH FOR 3 Verified 05/29/20 13:30 MONTHS levofloxacin Allergy Unknown RASH Verified 05/29/20 13:30 nortriptyline Allergy Unknown RASH Verified 05/29/20 13:30 hydrocortisone Allergy Verified 05/29/20 13:30 [From Cortizone-10] Home Meds Home Medications Medication Instructions Recorded Confirmed Probiotic 3 mmu cells PO DAILY 01/04/19 07/22/20 acetaminophen [Tylenol Extra 1,000 mg PO HS 01/04/19 07/22/20 Strength] coQ10 (ubiquinol) 200 mg PO QPM 01/04/19 07/22/20 cranberry extract 200 mg PO DAILY 01/04/19 05/30/20 nitroglycerin [Nitrostat] 0.4 mg SUBLINGUAL UD PRN 01/04/19 07/22/20 pravastatin 20 mg PO QPM 01/04/19 07/22/20 simethicone [Gas Relief Ultra 180 mg PO DAILY 01/04/19 05/30/20 Strength] zinc 50 mg PO AMHS 01/04/19 05/30/20 albuterol sulfate 2.5 mg CONTINUOUS NEBULIZATION Q4 06/29/19 07/22/20 PRN aspirin 81 mg tablet,delayed 81 mg PO QPM tab 04/02/20 07/22/20 release lysine 500 mg tablet 500 mg PO BID tab 05/22/20 07/22/20 azithromycin 500 mg PO 3XWK 07/22/20 07/22/20 ptizdkyckc-qjhmxzp-eefwlkko 1 cap PO Q6 PRN 07/22/20 07/22/20 cimetidine 300 mg PO HS 07/22/20 07/22/20 clorazepate dipotassium 3.75 mg PO UD PRN 07/22/20 07/22/20 gabapentin 600 mg PO QID 07/22/20 07/22/20 hydrocortisone [Proctosol HC] 1 applic [place] DAILY PRN 07/22/20 07/22/20 ipratropium bromide 2.5 ml INHALATION Q4 PRN 07/22/20 07/22/20 lansoprazole 30 mg PO BID 07/22/20 07/22/20 metoclopramide HCl 5 mg PO AC 07/22/20 07/22/20 sumatriptan succinate [Imitrex] 100 mg PO BID PRN MDD 2 07/22/20 07/22/20 Previous Rx's Medication Instructions Recorded furosemide 40 mg tablet 80 mg PO QAM #180 tab 07/27/19 potassium chloride 10 mEq 20 meq PO QAM #180 cap 08/29/19 capsule,extended release potassium chloride 10 mEq 30 meq PO QPM #270 cap 08/29/19 capsule,extended release methocarbamol 750 mg tablet 750 mg PO .COMPLEX 30 Days #270 tab 09/12/19 ipratropium bromide 42 mcg (0.06 2 sprays INTNAS Q8H PRN #30 ml 09/16/19 %) nasal spray tiotropium bromide 18 mcg capsule 1 cap INHALATION DAILY #90 puffs 10/29/19 with inhalation device levothyroxine 137 mcg tablet 137 mcg PO DAILY #90 tab 11/04/19 spironolactone 25 mg tablet 25 mg PO BID #180 tab 04/16/20 oxybutynin chloride 5 mg tablet 5 mg PO QID #360 tab 04/23/20 azelastine 0.15 % (205.5 mcg) 2 sprays INTNAS BID #30 ml 05/30/20 nasal spray nystatin 100,000 unit/mL oral 500,000 units PO QID #200 ml 05/30/20 suspension budesonide-formoterol HFA 160 2 puff INHALATION BID #10.2 gm 06/08/20 mcg-4.5 mcg/actuation aerosol inhaler ezetimibe 10 mg tablet 10 mg PO QPM #90 tab 06/11/20 escitalopram oxalate 10 mg tablet See Rx Instructions .ROUTE 06/21/20 .COMPLEX #30 tab albuterol sulfate 90 mcg/actuation 2 puff INHALATION QID PRN #54 gm 07/04/20 aerosol inhaler Results & Data (ED) Vital Signs Vital Signs - 24 hr 07/22/20 19:55 07/22/20 20:00 07/22/20 20:01 Temperature 36.4 C L Temperature Source Oral Pulse Rate 101 H Pulse Rate [Right Finger] 101 H Respiratory Rate 23 21 Respiratory Effort / Characteristics Labored Labored Respiratory Pattern Regular Blood Pressure 178/117 H Blood Pressure [Right Arm] 128/81 Blood Pressure Mean 137 Blood Pressure Mean [Right Arm] 96 Blood Pressure Position Lying Pulse Oximetry 93 93 99 Oxygen Delivery Method Nasal Cannula Room Air Nasal Cannula Oxygen Flow Rate 3 6 Sepsis Recent Fever Within 48 Hours No Sepsis New/Unexplained Change in Mental Status N/A Sepsis Action Taken by Nursing Physician Notified 07/22/20 20:07 07/22/20 20:25 07/22/20 20:38 Temperature Temperature Source Pulse Rate Pulse Rate [Right Finger] 98 H 97 H 104 H Respiratory Rate 16 14 18 Respiratory Effort / Characteristics Spontaneous SOB on Exertion Respiratory Pattern Blood Pressure Blood Pressure [Right Arm] 153/79 H 135/74 Blood Pressure Mean Blood Pressure Mean [Right Arm] 103 94 Blood Pressure Position Pulse Oximetry 99 100 100 Oxygen Delivery Method Nasal Cannula Nebulizer Nebulizer Oxygen Flow Rate 6 Sepsis Recent Fever Within 48 Hours Sepsis New/Unexplained Change in Mental Status Sepsis Action Taken by Nursing 07/22/20 21:02 07/22/20 21:28 07/22/20 22:08 Temperature Temperature Source Pulse Rate Pulse Rate [Right Finger] 110 H 115 H 112 H Respiratory Rate 24 13 16 Respiratory Effort / Characteristics Respiratory Pattern Blood Pressure Blood Pressure [Right Arm] 141/74 H 138/66 143/73 H Blood Pressure Mean Blood Pressure Mean [Right Arm] 96 90 96 Blood Pressure Position Pulse Oximetry 100 100 99 Oxygen Delivery Method Nasal Cannula Nasal Cannula Oxygen Flow Rate 4 3 Sepsis Recent Fever Within 48 Hours Sepsis New/Unexplained Change in Mental Status Sepsis Action Taken by Nursing 07/22/20 22:46 Temperature Temperature Source Pulse Rate Pulse Rate [Right Finger] 107 H Respiratory Rate 19 Respiratory Effort / Characteristics Respiratory Pattern Blood Pressure Blood Pressure [Right Arm] 118/75 Blood Pressure Mean Blood Pressure Mean [Right Arm] 89 Blood Pressure Position Pulse Oximetry 100 Oxygen Delivery Method Oxygen Flow Rate Sepsis Recent Fever Within 48 Hours Sepsis New/Unexplained Change in Mental Status Sepsis Action Taken by Retirement Medications Current Medication List: was personally reviewed by me Laboratory Data Attestation: I reviewed the patient's lab results. Result diagrams: 07/22/20 19:44 07/22/20 19:44 Lab Results 07/22/20 07/22/20 07/22/20 Range/Units 19:44 19:44 19:44 WBC 7.65 (4.8-10.8) K/uL RBC 4.33 (4.2-5.4) M/uL Hgb 13.9 (12.0-16.0) g/dL Hct 42.2 (37-47) % MCV 97.5 (80-100) fL MCH 32.1 (25-34) pg MCHC 32.9 (32-36) g/dL RDW Std Deviation 47.8 H (36.4-46.3) fL RDW Coeff of Opal 13.3 (11.5-14.5) % Plt Count 265 (130-400) K/uL MPV 9.5 (7.4-10.4) fL Immature Gran % (Auto) 0.5 % Neut % (Auto) 59.7 % Lymph % (Auto) 24.2 % [place] % (Auto) 7.6 % Eos % (Auto) 7.2 % Baso % (Auto) 0.8 % Neut # (Auto) 4.57 (1.4-6.5) K/uL Lymph # (Auto) 1.85 (1.2-3.4) K/uL [place] # (Auto) 0.58 (0.11-0.59) K/uL Eos # (Auto) 0.55 H (0-0.5) K/uL Baso # (Auto) 0.06 (0-0.2) K/uL Immature Gran # (Auto) 0.04 H (0.00-0.02) K/uL PT 10.8 (9.0-12.0) Seconds INR 1.0 (0.9-1.1) APTT 24.4 (21.0-31.0) Seconds PTT Ratio 0.9 VBG pH (7.36-7.41) VBG pCO2 (38-50) mmHg VBG pO2 mmHg VBG HCO3 mmol/L VBG O2 Saturation % VBG Base Excess mEq/L Barometric Pressure mm/Hg Sodium 138 (136-145) mmol/L Potassium 4.2 (3.5-5.1) mmol/L Chloride 100 (98-107) mmol/L Carbon Dioxide 27 (21-32) mmol/L Anion Gap 11.0 (3-11) BUN 7 (7-18) mg/dl Creatinine 0.77 (0.6-1.2) mg/dl Est Cr Clr Drug Dosing 64.3 ml/min Est GFR ( Amer) 88.8 Est GFR (Non-Af Amer) 76.6 BUN/Creatinine Ratio 8.7 L (10-20) Glucose 163 H (70-99) mg/dl Lactate (0.4-2.0) mmol/L Calcium 9.1 (8.5-10.1) mg/dl Magnesium 2.2 (1.8-2.4) mg/dl Total Bilirubin 0.3 (0.2-1) mg/dl AST 42 H (15-37) U/L ALT 45 (12-78) U/L Alkaline Phosphatase 111 (45-117) U/L Troponin I 0.073 H* (0-0.045) ng/ml Total Protein 6.5 (6.4-8.2) gm/dl Albumin 3.9 (3.4-5.0) gm/dl Globulin 2.6 (2.5-4.0) gm/dl Albumin/Globulin Ratio 1.5 (0.9-2) Procalcitonin (0-0.5) ng/ml COVID-19 Eval Order COVID-19 PCR (Negative) Influenza Type A (PCR) (Neg) Influenza Type B (PCR) (Neg) 07/22/20 07/22/20 07/22/20 Range/Units 19:44 19:44 19:52 WBC (4.8-10.8) K/uL RBC (4.2-5.4) M/uL Hgb (12.0-16.0) g/dL Hct (37-47) % MCV (80-100) fL MCH (25-34) pg MCHC (32-36) g/dL RDW Std Deviation (36.4-46.3) fL RDW Coeff of Opal (11.5-14.5) % Plt Count (130-400) K/uL MPV (7.4-10.4) fL Immature Gran % (Auto) % Neut % (Auto) % Lymph % (Auto) % [place] % (Auto) % Eos % (Auto) % Baso % (Auto) % Neut # (Auto) (1.4-6.5) K/uL Lymph # (Auto) (1.2-3.4) K/uL [place] # (Auto) (0.11-0.59) K/uL Eos # (Auto) (0-0.5) K/uL Baso # (Auto) (0-0.2) K/uL Immature Gran # (Auto) (0.00-0.02) K/uL PT (9.0-12.0) Seconds INR (0.9-1.1) APTT (21.0-31.0) Seconds PTT Ratio VBG pH (7.36-7.41) VBG pCO2 (38-50) mmHg VBG pO2 mmHg VBG HCO3 mmol/L VBG O2 Saturation % VBG Base Excess mEq/L Barometric Pressure mm/Hg Sodium (136-145) mmol/L Potassium (3.5-5.1) mmol/L Chloride (98-107) mmol/L Carbon Dioxide (21-32) mmol/L Anion Gap (3-11) BUN (7-18) mg/dl Creatinine (0.6-1.2) mg/dl Est Cr Clr Drug Dosing ml/min Est GFR ( Amer) Est GFR (Non-Af Amer) BUN/Creatinine Ratio (10-20) Glucose (70-99) mg/dl Lactate 1.3 (0.4-2.0) mmol/L Calcium (8.5-10.1) mg/dl Magnesium (1.8-2.4) mg/dl Total Bilirubin (0.2-1) mg/dl AST (15-37) U/L ALT (12-78) U/L Alkaline Phosphatase (45-117) U/L Troponin I (0-0.045) ng/ml Total Protein (6.4-8.2) gm/dl Albumin (3.4-5.0) gm/dl Globulin (2.5-4.0) gm/dl Albumin/Globulin Ratio (0.9-2) Procalcitonin < 0.05 (0-0.5) ng/ml COVID-19 Eval Order COVID-19 PCR (Negative) Influenza Type A (PCR) Neg for Influ A (Neg) Influenza Type B (PCR) Neg for Influ B (Neg) 07/22/20 07/22/20 07/22/20 Range/Units 19:52 19:52 21:18 WBC (4.8-10.8) K/uL RBC (4.2-5.4) M/uL Hgb (12.0-16.0) g/dL Hct (37-47) % MCV (80-100) fL MCH (25-34) pg MCHC (32-36) g/dL RDW Std Deviation (36.4-46.3) fL RDW Coeff of Opal (11.5-14.5) % Plt Count (130-400) K/uL MPV (7.4-10.4) fL Immature Gran % (Auto) % Neut % (Auto) % Lymph % (Auto) % [place] % (Auto) % Eos % (Auto) % Baso % (Auto) % Neut # (Auto) (1.4-6.5) K/uL Lymph # (Auto) (1.2-3.4) K/uL [place] # (Auto) (0.11-0.59) K/uL Eos # (Auto) (0-0.5) K/uL Baso # (Auto) (0-0.2) K/uL Immature Gran # (Auto) (0.00-0.02) K/uL PT (9.0-12.0) Seconds INR (0.9-1.1) APTT (21.0-31.0) Seconds PTT Ratio VBG pH 7.32 L (7.36-7.41) VBG pCO2 65 H (38-50) mmHg VBG pO2 25 mmHg VBG HCO3 33 mmol/L VBG O2 Saturation < 60.0 % VBG Base Excess 4.5 mEq/L Barometric Pressure 744.9 mm/Hg Sodium (136-145) mmol/L Potassium (3.5-5.1) mmol/L Chloride (98-107) mmol/L Carbon Dioxide (21-32) mmol/L Anion Gap (3-11) BUN (7-18) mg/dl Creatinine (0.6-1.2) mg/dl Est Cr Clr Drug Dosing ml/min Est GFR ( Amer) Est GFR (Non-Af Amer) BUN/Creatinine Ratio (10-20) Glucose (70-99) mg/dl Lactate (0.4-2.0) mmol/L Calcium (8.5-10.1) mg/dl Magnesium (1.8-2.4) mg/dl Total Bilirubin (0.2-1) mg/dl AST (15-37) U/L ALT (12-78) U/L Alkaline Phosphatase (45-117) U/L Troponin I (0-0.045) ng/ml Total Protein (6.4-8.2) gm/dl Albumin (3.4-5.0) gm/dl Globulin (2.5-4.0) gm/dl Albumin/Globulin Ratio (0.9-2) Procalcitonin (0-0.5) ng/ml COVID-19 Eval Order Covid19 Done at [facility] COVID-19 PCR NEGATIVE (Negative) Influenza Type A (PCR) (Neg) Influenza Type B (PCR) (Neg) Administered Medications Discontinued Medications Albuterol (Albut/Ipratrop 3mg/0.5mg Neb 3 Ml Vial) 12 ml NEB ONE ONE Stop: 07/22/20 19:45 Last Admin: 07/22/20 20:05 Dose: 12 ml Documented by: [id number] Ceftriaxone Sodium (Rocephin) 1,000 mg in 50 mls @ 100 mls/hr IV NOW STA Stop: 07/22/20 21:32 Last Infusion: 07/22/20 21:53 Dose: 0 mls/hr Documented by: [id number] Admin: 07/22/20 21:17 Dose: 100 mls/hr Documented by: [id number] Ioversol (Optiray 320 125ml) 86 ml IV ONCE ONE Stop: 07/22/20 21:47 Last Admin: 07/22/20 21:46 Dose: 86 ml Documented by: [id number] Methylprednisolone (Methylprednisolone 125 Mg/2 Ml Vial) 125 mg IV NOW STA Stop: 07/22/20 19:45 Last Admin: 07/22/20 20:00 Dose: 125 mg Documented by: [id number] Imaging Data Attestation: I personally reviewed and interpreted this imaging study as follows: My Impression: Chest x-ray was obtained in the emergency department. My interpretation is no free air breast augmentation was noted. Possible right lower lobe infiltrate was noted. Heart size was small. Radiologist's Impression: CT the chest was obtained in the emergency department. The stat read report was reviewed. No PE was noted, no aortic aneurysm or dissection. Central lobar emphysema was noted. No definite consolidation or pleural effusion was noted. Blood Pressure Blood Pressure Findings: Normal blood pressure Discharge Plan Visit Data Chief Complaint: Respiratory Distress Stated Complaint: RESP. DISTRESS ED Provider: Micky Mast Discharge Problem: Acute exacerbation of chronic obstructive pulmonary disease, Acute bronchitis, Acute respiratory distress, Acute respiratory acidosis Patient Disposition: Being Evaluated by Hospitalist Condition: Good Forms Stand Alone Forms: My [facility] Prescriptions Prescriptions: No Action furosemide [Lasix] 40 mg tablet 80 mg PO QAM Qty: 180 RF: 3 potassium chloride 10 mEq capsule, extended release 30 meq PO QPM Qty: 270 RF: 3 potassium chloride 10 mEq capsule, extended release 20 meq PO QAM Qty: 180 RF: 3 methocarbamol 750 mg tablet 750 mg PO .COMPLEX 30 Days Qty: 270 RF: 3 ipratropium bromide 42 mcg (0.06 %) spray,non-aerosol 2 sprays INTNAS Q8H PRN (Reason: runny nose) Qty: 30 RF: 5 Spiriva with HandiHaler 18 mcg capsule, w/inhalation device 1 cap inhalation DAILY Qty: 90 RF: 3 levothyroxine [Synthroid] 137 mcg tablet 137 mcg PO DAILY Qty: 90 RF: 3 spironolactone [Aldactone] 25 mg tablet 25 mg PO BID Qty: 180 RF: 3 oxybutynin chloride 5 mg tablet 5 mg PO QID Qty: 360 RF: 3 Symbicort 160-4.5 mcg/actuation HFA aerosol inhaler 2 puff Inhalation BID Qty: 10.2 RF: 5 ezetimibe [Zetia] 10 mg tablet 10 mg PO QPM Qty: 90 RF: 3 escitalopram oxalate 10 mg tablet See Rx Instructions .ROUTE .COMPLEX Qty: 30 RF: 5 albuterol sulfate [Ventolin HFA] 90 mcg/actuation HFA aerosol inhaler 2 puff Inhalation QID PRN (Reason: Shortness Of Breath Or Wheezing) Qty: 54 RF: 1 albuterol sulfate 2.5 mg /3 mL (0.083 %) solution for nebulization 2.5 mg continuous nebulization Q4 PRN (Reason: Shortness Of Breath Or Wheezing) RF: 0 nystatin 100,000 unit/mL suspension 500,000 units PO QID Qty: 200 RF: 0 azelastine 0.15 % (205.5 mcg) spray,non-aerosol 2 sprays INTNAS BID Qty: 30 RF: 3 lysine [L-Lysine] 500 mg tablet 500 mg PO BID RF: 0 simethicone [Gas Relief Ultra Strength] 180 mg Capsule 180 mg PO DAILY RF: 0 acetaminophen [Tylenol Extra Strength] 500 mg Tablet 1,000 mg PO HS RF: 0 pravastatin 10 mg Tablet 20 mg PO QPM RF: 0 nitroglycerin [Nitrostat] 0.4 mg Tablet, Sublingual 0.4 mg Sublingual UD PRN (Reason: Chest Pain) RF: 0 zinc 50 mg Tablet 50 mg PO AMHS RF: 0 cranberry extract 200 mg Capsule 200 mg PO DAILY RF: 0 coQ10 (ubiquinol) 200 mg Capsule 200 mg PO QPM RF: 0 Probiotic 3 billion cell Capsule 3 mmu cells PO DAILY RF: 0 aspirin [Aspir-81] 81 mg tablet,delayed release (DR/EC) 81 mg PO QPM RF: 0 gabapentin 600 mg tablet 600 mg PO QID RF: 0 sumatriptan succinate [Imitrex] 100 mg tablet 100 mg PO BID MDD 2 PRN (Reason: migraine headache) RF: 0 cimetidine 300 mg tablet 300 mg PO HS RF: 0 azithromycin 500 mg tablet 500 mg PO [id number] RF: 0 metoclopramide HCl 5 mg tablet 5 mg PO AC RF: 0 lansoprazole 30 mg capsule,delayed release(DR/EC) 30 mg PO BID RF: 0 ipratropium bromide 0.02 % solution 2.5 ml inhalation Q4 PRN (Reason: Shortness Of Breath Or Wheezing) RF: 0 hydrocortisone [Proctosol HC] 2.5 % cream with perineal applicator 1 applic [place] DAILY PRN (Reason: Hemorrhoids) RF: 0 clorazepate dipotassium 3.75 mg tablet 3.75 mg PO UD PRN (Reason: Sleep) RF: 0 nczqcuywlr-hmfvrcn-zzjkcypj 50-325-40 mg capsule 1 cap PO Q6 PRN (Reason: Headache) RF: 0 Referrals Referrals: Tl Dougherty MD [Primary Care Provider] - Discharge Problem: Acute bronchitis Qualifiers: Bronchitis organism: unspecified organism Qualified Code(s): J20.9 - Acute bronchitis, unspecified
[2020-07-22 19:59] LABS: Basophils # (auto) 0.06 K/uL (0-0.2); Basophils % (auto) 0.8 %; Eosinophils # (auto) 0.55 K/uL (0-0.5); Eosinophils % (auto) 7.2 %; Hematocrit (blood only) 42.2 % (37-47); Hemoglobin 13.9 g/dL (12.0-16.0); Immature Granulocytes # (auto) 0.04 K/uL (0.00-0.02); Immature Granulocytes % (auto) 0.5 %; Lymphocytes # (auto) 1.85 K/uL (1.2-3.4); Lymphocytes % (auto) 24.2 %; Mean Corpuscular Hemoglobin 32.1 pg (25-34); Mean Corpuscular Hgb Conc 32.9 g/dL (32-36); Mean Corpuscular Volume 97.5 fL (80-100); Mean Platelet Volume 9.5 fL (7.4-10.4); Monocytes # (auto) 0.58 K/uL (0.11-0.59); Monocytes % (auto) 7.6 %; Neutrophils # (auto) 4.57 K/uL (1.4-6.5); Neutrophils % (auto) 59.7 %; Platelet Count 265 K/uL (130-400); RDW Coefficient of Variation 13.3 % (11.5-14.5); RDW Standard Deviation 47.8 fL (36.4-46.3); Red Blood Count 4.33 M/uL (4.2-5.4); White Blood Count 7.65 K/uL (4.8-10.8)
[2020-07-22 20:12] LABS: Partial Thromboplastin Ratio 0.9; Partial Thromboplastin Time 24.4 Seconds (21.0-31.0); Prothrombin Time 10.8 Seconds (9.0-12.0)
[2020-07-22 20:33] LABS: Albumin Level 3.9 gm/dl (3.4-5.0); BUN Creatinine Ratio 8.7 (10-20); Calcium 9.1 mg/dl (8.5-10.1); Creatinine Clr Calc Pharmacy 64.3 ml/min; Est GFR (African American) 88.8; Est GFR (Non-African American) 76.6; Magnesium 2.2 mg/dl (1.8-2.4); Potassium 4.2 mmol/L (3.5-5.1)
[2020-07-22 20:41] LABS: Albumin Globulin Ratio 1.5 (0.9-2); Bilirubin,Total 0.3 mg/dl (0.2-1); Globulin 2.6 gm/dl (2.5-4.0); Total Protein 6.5 gm/dl (6.4-8.2); Troponin I 0.073 ng/ml (0-0.045)
[2020-07-22 20:48] LABS: Influenza A virus by PCR Neg for Influ A (Neg); Influenza B virus by PCR Neg for Influ B (Neg)
[2020-07-22] MEDS ORDERED: cefTRIAXone SODIUM 1,000 MG/50 ML BAG IV STA (21:03)
[2020-07-22 21:28] LABS: Base Excess VBG 4.5 mEq/L; HCO3 VBG 33 mmol/L; PCO2 VBG 65 mmHg (38-50); PO2 VBG 25 mmHg; pH VBG 7.32 (7.36-7.41)
[2020-07-22 21:31] LABS: Oxygen Saturation VBG < 60.0 %
[2020-07-22] MEDS ORDERED: OPTIRAY 320 125ml IV ONE (21:46)
[2020-07-22] MEDS ORDERED: SODIUM CHLORIDE 0.9% 1000ML 1,000 ML IV ONE (23:22)
--- NOTE | 2020-07-22 23:57 | History & Physical Report ---
Date of Service July 22, 2020 Assessment & Plan (1) Acute on chronic respiratory failure with hypoxia: Acute on chronic respiratory failure with hypoxia/acute exacerbation of COPD/pneumonia- Received methylprednisolone high 25 mg IV, DuoNeb x1, and ceftriaxone 1 g IV from the ED. Admit on methylprednisolone 40 mg IV every 8 hours, ceftriaxone 1 g IV daily, azithromycin 500 mg IV daily, guaifenesin extended release 60 mg p.o. twice daily, Xopenex/Atrovent 1.5 mils nebulizers every 6 hours, Pulmicort Respules 0.5 mg inhaled twice daily. Continue Breo Ellipta 1 inhalation daily. Of note, patient feels that her symptoms developed when her Symbicort 160/4.5 was decreased from 3 times a day to 12 2 times per day, and did not improve when she increased her DuoNeb nebulizer from 2-4 times daily. Of note, her nasal cannula oxygen at home was previously humidified when she has her oxygen concentrator, and is no longer humidified at this time. Consult pulmonology Dr. Craig Present on Admission?: Yes (2) Acute exacerbation of chronic obstructive pulmonary disease: See above Present on Admission?: Yes (3) Coronary artery disease: CAD/HTN/CHF/elevated troponin- The patient will be admitted to telemetry for serial cardiac enzymes, serial EKG's, cardiac rhythm monitoring. Likely type II, supply demand mismatch Continue aspirin, furosemide, potassium chloride Consult cardiology Dr. Purvis Present on Admission?: Yes (4) Hypertension: see above Present on Admission?: Yes (5) CHF (congestive heart failure): see above Present on Admission?: Yes (6) Anxiety and depression: Continue escitalopram 10 mg p.o. twice daily Present on Admission?: Yes (7) Hypothyroidism: Continue levothyroxine 137 mcg daily Present on Admission?: Yes (8) GERD (gastroesophageal reflux disease): GERD/Cronin's esophagus- Continue cimetidine and lansoprazole or substitute Present on Admission?: Yes (9) Cronin esophagus: see above Present on Admission?: Yes (10) Migraine without aura: Continue sumatriptan Present on Admission?: Yes (11) Hypercholesterolemia: Continue Zetia and pravastatin Present on Admission?: Yes (12) Pneumonia: See above Present on Admission?: Yes History of Present Illness Chief Complaint: Patient presents to the emergency department with complaint of shortness of breath cough, and chest pressure over the past month since having her Symbicort 160/4.5 decreased from 2 puffs 3 times daily to the recommended 2 puffs twice daily. Primary Care Provider: Tl Dougherty MD The patient is a 74-year-old female with a past medical history including anxiety and depression, Cronin's esophagus, stented coronary arteries, DJD, urinary incontinence, hypertension, COPD, hypothyroidism, migraine without aura, CAD, hypercholesterolemia, CHF, COPD exacerbation, sepsis and pneumonia. She reports that she began to develop progressively worsening shortness of breath and chest pressure along with cough, over the past month since her Symbicort was decreased. She reports that she has had to use her albuterol/ ipratropium bromide nebulizer more frequently from the previous 2 times daily up to 4 times daily, without significant improvement. Her cough is gradually become more productive, and discolored. She denies any recent travels or sick exposures. She reports having migraine headaches, that are relieved by sumatriptan, over the past 2 years. In the emergency department, patient received methylprednisolone 125 mg IV x1, DuoNeb x1, and ceftriaxone 1 g IV. Allergies Allergy/AdvReac Type Severity Reaction Status Date / Time Sulfa (Sulfonamide Allergy Intermediate Hives Verified 07/22/20 23:46 Antibiotics) cortisone Allergy Unknown RASH FOR 3 Verified 07/22/20 23:46 MONTHS levofloxacin Allergy Unknown RASH Verified 07/22/20 23:46 nortriptyline Allergy Unknown RASH Verified 07/22/20 23:46 hydrocortisone Allergy Unknown Verified 07/22/20 23:46 [From Cortizone-10] Home Medications Home Medications Medication Instructions Recorded Confirmed Type Probiotic 3 mmu cells PO DAILY 01/04/19 07/22/20 History acetaminophen [Tylenol Extra 1,000 mg PO HS 01/04/19 07/22/20 History Strength] coQ10 (ubiquinol) 200 mg PO QPM 01/04/19 07/22/20 History nitroglycerin [Nitrostat] 0.4 mg SUBLINGUAL UD PRN 01/04/19 07/22/20 History pravastatin 20 mg PO QPM 01/04/19 07/22/20 History simethicone [Gas Relief Ultra 180 mg PO QPM 01/04/19 07/22/20 History Strength] zinc 50 mg PO AMHS 01/04/19 07/22/20 History albuterol sulfate 2.5 mg CONTINUOUS NEBULIZATION Q4 06/29/19 07/22/20 History PRN furosemide 40 mg tablet 80 mg PO QAM #180 tab 07/27/19 07/22/20 Rx potassium chloride 10 mEq 20 meq PO QAM #180 cap 08/29/19 07/22/20 Rx capsule,extended release potassium chloride 10 mEq 30 meq PO QPM #270 cap 08/29/19 07/22/20 Rx capsule,extended release methocarbamol 750 mg tablet 750 mg PO .COMPLEX 30 Days #270 tab 09/12/19 07/22/20 Rx ipratropium bromide 42 mcg (0.06 2 sprays INTNAS Q8H PRN #30 ml 09/16/19 07/22/20 Rx %) nasal spray levothyroxine 137 mcg tablet 137 mcg PO DAILY #90 tab 11/04/19 07/22/20 Rx aspirin 81 mg tablet,delayed 81 mg PO QPM tab 04/02/20 07/22/20 History release spironolactone 25 mg tablet 25 mg PO BID #180 tab 04/16/20 07/22/20 Rx oxybutynin chloride 5 mg tablet 5 mg PO QID #360 tab 04/23/20 07/22/20 Rx lysine 500 mg tablet 500 mg PO BID tab 05/22/20 07/22/20 History nystatin 100,000 unit/mL oral 500,000 units PO QID #200 ml 05/30/20 07/22/20 Rx suspension ezetimibe 10 mg tablet 10 mg PO QPM #90 tab 06/11/20 07/22/20 Rx albuterol sulfate 90 mcg/actuation 2 puff INHALATION QID PRN #54 gm 07/04/20 07/22/20 Rx aerosol inhaler 303 Muscle Relaxer 2 tab PO HS 07/22/20 07/22/20 History Medical Marijuana 0 cap PO UD 07/22/20 07/22/20 History ascorbate calcium (vitamin C) 250 mg PO BID 07/22/20 07/22/20 History [Joanne-C] yssnedv-ksvbhkhxnopah-xoggrcjd 1 tab PO BID PRN 07/22/20 07/22/20 History [Excedrin Migraine] azithromycin 500 mg PO 3XWK 07/22/20 07/22/20 History budesonide-formoterol [Symbicort] 2 puff INHALATION BID 07/22/20 07/22/20 History ewtjnhgoso-iiablxr-oudvjbhe 1 cap PO Q6 PRN 07/22/20 07/22/20 History cimetidine 300 mg PO HS 07/22/20 07/22/20 History clorazepate dipotassium 3.75 mg PO UD PRN 07/22/20 07/22/20 History cranberry extract 500 mg PO DAILY 07/22/20 07/22/20 History escitalopram oxalate 10 mg PO AMPM 07/22/20 07/22/20 History fluticasone propionate [Flonase 2 spray INTRANASAL QPM 07/22/20 07/22/20 History Allergy Relief] gabapentin 600 mg PO QID 07/22/20 07/22/20 History guaifenesin [Mucinex] 300 mg PO TID 07/22/20 07/22/20 History hydrocortisone [Proctosol HC] 1 applic CA DAILY PRN 07/22/20 07/22/20 History ipratropium bromide 2.5 ml INHALATION Q4 PRN 07/22/20 07/22/20 History lansoprazole 30 mg PO BID 07/22/20 07/22/20 History magnesium hydroxide [Porter Milk See Rx Instructions .ROUTE .COMPLEX 07/22/20 07/22/20 History of Magnesia] metoclopramide HCl 5 mg PO AC 07/22/20 07/22/20 History multivitamin [Multiple Vitamins] 1 tab PO DAILY 07/22/20 07/22/20 History simethicone 125 mg PO QAM 07/22/20 07/22/20 History sumatriptan succinate [Imitrex] 100 mg PO BID PRN MDD 2 07/22/20 07/22/20 History tiotropium bromide [Spiriva with 1 cap INHALATION QAM 07/22/20 07/22/20 History HandiHaler] Past Med/Surg History Medical History Anxiety and depression Back pain Cronin esophagus CHF (congestive heart failure) Chronic rhinitis COPD (chronic obstructive pulmonary disease) Coronary artery disease Depression Emphysema lung GERD (gastroesophageal reflux disease) Hypercholesterolemia Hypothyroidism Migraine without aura Surgical History History of bladder surgery History of breast augmentation History of cholecystectomy History of hemorrhoidectomy History of tonsillectomy Family History Unknown Lung cancer Liver cancer Colon cancer Father Liver cancer Mother Hypertension Other Family history non-contributory Social History Smoking Status: Former smoker Age Quit Using Tobacco: 60; packs per day: 2; Second Hand Exposure: No; Do You Dip or Chew Tobacco: No; Tobacco Cessation Education Requested by Patient: No Hx Alcohol Use: No Hx Substance Use: No Preferred Language: Prydeinig Communication Ability: Effective Integration Solution Architect Required: No Beliefs That Will Affect Care: None marital status: Current Living Situation: Spouse Other Information That Helps Us Care for You: No Feels Safe at Home: Yes Safety Concerns: Feels Safe At This Time Review of Systems Review of Systems: The patient denies palpitations, lower extremity swelling, sore throat, fevers, chills, sweats, nausea, vomiting, diarrhea , constipation, abdominal pain, pelvic pain, blood in urine or stool, dysuria, urinary frequency or urgency, lightheadedness, dizziness, memory loss, loss of consciousness, rash, abnormal bruising or bleeding, imbalance, focal weakness, numbness or tingling in arms or legs, generalized arthralgias or myalgias, back or neck pain, or night sweats. The review of systems is otherwise negative other than for that already noted above, and at least 10 systems have been reviewed. Physical Exam Physical Exam: The patient is awake, alert and oriented 3, normocephalic and atraumatic, sitting upright in bed and in no acute distress. HEENT--PERRL, EOMI, mucous membranes and oropharynx normal. Neck--supple. No JVD. No bruits. Thyroid normal, trachea midline, no adenopathy. Heart--normal S1 and S2. No murmurs, rubs or gallops. Lungs--decreased breath sounds throughout. No respiratory distress, no accessory muscle use. Abdomen--normal bowel sounds and soft. Nontender. Nondistended, no hernias or masses, no organomegaly. Extremities--no cyanosis or clubbing. No edema. Dermatologic--normal skin turgor, normal color, no abnormal lymph nodes, no rash. Neurologic--cranial nerves II through XII grossly intact. Rheumatologic--normal range of motion. Psychiatric--normal affect. Results & Data Results & Data ([facility]) Vital Signs (Past 12 Hours) Vital Signs Temp Pulse Pulse Resp BP BP Pulse Ox 07/22/20 23:34 107 H 20 141/71 H 98 07/22/20 23:31 98 07/22/20 22:46 107 H 19 118/75 100 07/22/20 22:08 112 H 16 143/73 H 99 07/22/20 21:28 115 H 13 138/66 100 07/22/20 21:02 110 H 24 141/74 H 100 07/22/20 20:38 104 H 18 135/74 100 07/22/20 20:25 97 H 14 153/79 H 100 07/22/20 20:07 98 H 16 99 07/22/20 20:01 101 H 21 128/81 99 07/22/20 20:00 93 07/22/20 19:55 97.5 F L 101 H 23 178/117 H 93 Laboratory Results Laboratory Results WBC 7.65 K/uL (4.8-10.8) 07/22/20 19:44 RBC 4.33 M/uL (4.2-5.4) 07/22/20 19:44 Hgb 13.9 g/dL (12.0-16.0) 07/22/20 19:44 Hct 42.2 % (37-47) 07/22/20 19:44 MCV 97.5 fL (80-100) 07/22/20 19:44 MCH 32.1 pg (25-34) 07/22/20 19:44 MCHC 32.9 g/dL (32-36) 07/22/20 19:44 RDW Std Deviation 47.8 fL (36.4-46.3) H 07/22/20 19:44 RDW Coeff of Opal 13.3 % (11.5-14.5) 07/22/20 19:44 Plt Count 265 K/uL (130-400) 07/22/20 19:44 MPV 9.5 fL (7.4-10.4) 07/22/20 19:44 Immature Gran % (Auto) 0.5 % 07/22/20 19:44 Neut % (Auto) 59.7 % 07/22/20 19:44 Lymph % (Auto) 24.2 % 07/22/20 19:44 [place] % (Auto) 7.6 % 07/22/20 19:44 Eos % (Auto) 7.2 % 07/22/20 19:44 Baso % (Auto) 0.8 % 07/22/20 19:44 Neut # (Auto) 4.57 K/uL (1.4-6.5) 07/22/20 19:44 Lymph # (Auto) 1.85 K/uL (1.2-3.4) 07/22/20 19:44 [place] # (Auto) 0.58 K/uL (0.11-0.59) 07/22/20 19:44 Eos # (Auto) 0.55 K/uL (0-0.5) H 07/22/20 19:44 Baso # (Auto) 0.06 K/uL (0-0.2) 07/22/20 19:44 Immature Gran # (Auto) 0.04 K/uL (0.00-0.02) H 07/22/20 19:44 PT 10.8 Seconds (9.0-12.0) 07/22/20 19:44 INR 1.0 (0.9-1.1) 07/22/20 19:44 APTT 24.4 Seconds (21.0-31.0) 07/22/20 19:44 PTT Ratio 0.9 07/22/20 19:44 VBG pH 7.32 (7.36-7.41) L 07/22/20 21:18 VBG pCO2 65 mmHg (38-50) H 07/22/20 21:18 VBG pO2 25 mmHg 07/22/20 21:18 VBG HCO3 33 mmol/L 07/22/20 21:18 VBG O2 Saturation < 60.0 % 07/22/20 21:18 VBG Base Excess 4.5 mEq/L 07/22/20 21:18 Barometric Pressure 744.9 mm/Hg 07/22/20 21:18 Sodium 138 mmol/L (136-145) 07/22/20 19:44 Potassium 4.2 mmol/L (3.5-5.1) 07/22/20 19:44 Chloride 100 mmol/L (98-107) 07/22/20 19:44 Carbon Dioxide 27 mmol/L (21-32) 07/22/20 19:44 Anion Gap 11.0 (3-11) 07/22/20 19:44 BUN 7 mg/dl (7-18) 07/22/20 19:44 Creatinine 0.77 mg/dl (0.6-1.2) 07/22/20 19:44 Est Cr Clr Drug Dosing 64.3 ml/min 07/22/20 19:44 Est GFR ( Amer) 88.8 07/22/20 19:44 Est GFR (Non-Af Amer) 76.6 07/22/20 19:44 BUN/Creatinine Ratio 8.7 (10-20) L 07/22/20 19:44 Glucose 163 mg/dl (70-99) H 07/22/20 19:44 Lactate 1.3 mmol/L (0.4-2.0) 07/22/20 19:44 Calcium 9.1 mg/dl (8.5-10.1) 07/22/20 19:44 Magnesium 2.2 mg/dl (1.8-2.4) 07/22/20 19:44 Total Bilirubin 0.3 mg/dl (0.2-1) 07/22/20 19:44 AST 42 U/L (15-37) H 07/22/20 19:44 ALT 45 U/L (12-78) 07/22/20 19:44 Alkaline Phosphatase 111 U/L (45-117) 07/22/20 19:44 Troponin I 0.073 ng/ml (0-0.045) H* 07/22/20 19:44 Total Protein 6.5 gm/dl (6.4-8.2) 07/22/20 19:44 Albumin 3.9 gm/dl (3.4-5.0) 07/22/20 19:44 Globulin 2.6 gm/dl (2.5-4.0) 07/22/20 19:44 Albumin/Globulin Ratio 1.5 (0.9-2) 07/22/20 19:44 Procalcitonin < 0.05 ng/ml (0-0.5) 07/22/20 19:44 COVID-19 Eval Order Covid19 Done at [facility] 07/22/20 19:52 COVID-19 PCR NEGATIVE (Negative) 07/22/20 19:52 Influenza Type A (PCR) Neg for Influ A (Neg) 07/22/20 19:52 Influenza Type B (PCR) Neg for Influ B (Neg) 07/22/20 19:52 Diagnostic Findings [facility] Patient: PANFILO MAN (Female) : 47 Status: ER Date: 07/22/20 21:49 Room #: History: INCREASED SHORTNESS OF BREATH OVER THE LAST WEEK DENIES CHEST PAINS Slices: [id number] Priors: Tech: Olvin Shruthi @ [phone] Exams: CTA CHEST Contrast: IV Amt: 86ML OF OPTIRAY 320 Accession Numbers: [id number] Preliminary Findings Only See Final Report For Complete Findings ADDENDUM - Added by Jaswinder Huang M.D. on 07/22/2020 10:10 PM (-07:00) Coronary arteriosclerosis. CTA CHEST: No PE. No aortic aneurysm or dissection. Centrilobular emphysema. No consolidation, pleural effusion or pneumothorax. Biapical scarring. Radiologist: Jaswinder Huang M.D. Study ready at 21:55 and initial results transmitted at 22:08 *This report constitutes a preliminary interpretation only. Non-acute findings felt to be unrelated to the clinical presentation may not be discussed in this report. The study will be interpreted and a final report will be generated by the local Radiologist the following shift. To reach the hospital radiology department call [phone]. If a discrepancy is found between the preliminary and final interpretations of this study, please notify us via our Client Portal at [email or web address] under QA Exams.You can also fax this report with a description of the discrepancy, or include the final report, to our daytime fax number [phone].If faxing, please indicate the severity of discrepancy using one of the following categories: [ ] 1 - Agree/Informational [ ] 2 - Unlikely to Affect Management [ ] 3 - Possible Eventual Change of Management [ ] 4 - Probable Immediate Change of Management For all other patient related information, please fax us at [phone]. [id number] Code Status & VTE Plan Code Status Full code VTE Prophylaxis Plan VTE Prophylaxis will be ordered: Yes PG Care Time/CCT Total # of Minutes Spent Total Time Spent with Patient: Total time spent is greater than 50% in coordination of care (as documented) at patient's floor/unit and/or counseling patient: Coding Level of Care Code 18231 Initial Inpt Care Lvl 3 Diagnoses Acute on chronic respiratory failure with hypoxia J96.21 Acute exacerbation of chronic obstructive pulmonary disease J44.1 Coronary artery disease I25.10 Coronary Disease-Associated Artery/Lesion type: [place] artery [place] vs. transplanted heart: tejon heart Associated angina: without angina Hypertension I10 CHF (congestive heart failure) I50.22 Heart failure type: systolic Heart failure chronicity: chronic Anxiety and depression F41.9; F32.9 Hypothyroidism E03.9 Hypothyroidism type: unspecified GERD (gastroesophageal reflux disease) K21.9 Esophagitis presence: esophagitis presence not specified Cronin esophagus K22.70 Migraine without aura G43.009 Status migrainosus presence: without status migrainosus Intractability: not intractable Hypercholesterolemia E78.00 Pneumonia J18.9 (1) Hypothyroidism Hypothyroidism type: unspecified Qualified Code(s): E03.9 - Hypothyroidism, unspecified (2) Migraine without aura Status migrainosus presence: without status migrainosus Intractability: not intractable Qualified Code(s): G43.009 - Migraine without aura, not intractable, without status migrainosus (3) Coronary artery disease Coronary Disease-Associated Artery/Lesion type: [place] artery [place] vs. transplanted heart: tejon heart Associated angina: without angina Qualified Code(s): I25.10 - Atherosclerotic heart disease of tejon coronary artery without angina pectoris (4) CHF (congestive heart failure) Heart failure type: systolic Heart failure chronicity: chronic Qualified Code(s): I50.22 - Chronic systolic (congestive) heart failure (5) GERD (gastroesophageal reflux disease) Esophagitis presence: esophagitis presence not specified Qualified Code(s): K21.9 - Gastro-esophageal reflux disease without esophagitis
[2020-07-23] MEDS ORDERED: NITROGLYCERIN SL 0.4 MG/TAB TAB SL PRN (01:04)
[2020-07-23] MEDS ORDERED: ALUMINUM/MAGNESIUM SUSP 30 ML UDC PO PRN (01:04)
[2020-07-23] MEDS ORDERED: ONDANSETRON INJ 2 MG/ML 2 ML VIAL IV PRN (01:04)
[2020-07-23] MEDS ORDERED: MAGNESIUM HYDROXIDE SUSP 30 ML UDC PO PRN (01:04)
[2020-07-23] MEDS ORDERED: HYDROCORTISONE HC 2.5% CRM 30GM TUBE EXT PRN (01:04)
[2020-07-23] MEDS ORDERED: XOPENEX/ATROVENT 1.25mg/0.5MG NEB COMBO NEB SCH (01:04)
[2020-07-23] MEDS ORDERED: NON-FORMULARY MEDICATION (Aspirin-Acetaminophen-Caffeine [Excedrin Migraine] 1 TAB) PO PRN (01:04)
[2020-07-23] MEDS ORDERED: ACETAMINOPHEN 325 MG TAB PO PRN (01:04)
[2020-07-23] MEDS ORDERED: NON-FORMULARY MEDICATION (Lysine [L-Lysine] 500 MG) PO SCH (01:04)
[2020-07-23] MEDS ORDERED: SUMAtriptan succinate 100 MG TAB PO PRN (01:04)
[2020-07-23] MEDS ORDERED: INFLUENZA ADMINISTRATION CHARGE ONE (01:23)
[2020-07-23] MEDS ORDERED: INFLUENZA VACCINE HIGH DOSE 65+ 0.5 ML SYR IM ONE (01:23)
[2020-07-23] MEDS ORDERED: MEDICAL MARIJUANA PO SCH (01:45)
[2020-07-23] MEDS: SPIRONOLACTONE 25 MG TAB PO SCH ×4 (02:14→21:15)
[2020-07-23] MEDS: CLORAZEPATE DIPOTASSIUM 3.75 MG TAB PO PRN ×2 (02:41→23:13)
[2020-07-23] MEDS ORDERED: methylPREDNISolone 40 MG in SYRINGE 0 ML IV SCH (06:00)
[2020-07-23] MEDS: LEVOTHYROXINE SODIUM 137 MCG TABLET PO SCH (06:13)
[2020-07-23 06:21] LABS: Basophils # (auto) 0.01 K/uL (0-0.2); Basophils % (auto) 0.2 %; Hematocrit (blood only) 38.7 % (37-47); Hemoglobin 13.1 g/dL (12.0-16.0); Immature Granulocytes # (auto) 0.01 K/uL (0.00-0.02); Immature Granulocytes % (auto) 0.2 %; Lymphocytes # (auto) 0.53 K/uL (1.2-3.4); Lymphocytes % (auto) 9.1 %; Mean Corpuscular Hemoglobin 32.3 pg (25-34); Mean Corpuscular Hgb Conc 33.9 g/dL (32-36); Mean Corpuscular Volume 95.6 fL (80-100); Mean Platelet Volume 9.1 fL (7.4-10.4); Monocytes # (auto) 0.29 K/uL (0.11-0.59); Neutrophils # (auto) 4.96 K/uL (1.4-6.5); Neutrophils % (auto) 85.5 %; Platelet Count 250 K/uL (130-400); RDW Coefficient of Variation 13.4 % (11.5-14.5); RDW Standard Deviation 46.8 fL (36.4-46.3); Red Blood Count 4.05 M/uL (4.2-5.4)
[2020-07-23 06:32] LABS: Partial Thromboplastin Ratio 0.9; Partial Thromboplastin Time 25.4 Seconds (21.0-31.0); Prothrombin Time 10.9 Seconds (9.0-12.0)
[2020-07-23 06:57] LABS: Albumin Level 3.7 gm/dl (3.4-5.0); BUN Creatinine Ratio 10.1 (10-20); Calcium 8.6 mg/dl (8.5-10.1); Creatinine Clr Calc Pharmacy 64.4 ml/min; Est GFR (African American) 97.9; Est GFR (Non-African American) 84.5; Magnesium 1.9 mg/dl (1.8-2.4); Potassium 3.5 mmol/L (3.5-5.1)
[2020-07-23 07:04] LABS: Phosphorus 3.9 mg/dl (2.5-4.9); Troponin I 0.068 ng/ml (0-0.045)
[2020-07-23] MEDS: BUDESONIDE 0.5 MG/2 ML VIAL (PULMICORT) NEB SCH ×2 (07:10→19:22)
[2020-07-23] MEDS: IPRATROPIUM BROMIDE NEB SOLN 0.02% 2.5 ML VIAL INH SCH ×3 (07:10→19:22)
[2020-07-23] MEDS: LEVALBUTEROL 1.25MG/0.5ML NEB INH SCH ×3 (07:10→19:22)
--- NOTE | 2020-07-23 07:20 | CT Scan Report ---
CT ANGIOGRAM OF THE CHEST CLINICAL HISTORY: Shortness of breath. Possible pulmonary embolism. COMPARISON STUDY: 05/07/2019 TECHNIQUE: Following the IV administration of 86 mL of Optiray-320, CT angiogram of the thorax was pe rformed from the thoracic inlet to the lung bases utilizing the pulmonary embolus protocol. Images ar e reviewed in the axial, sagittal, and coronal planes. IV contrast was administered without complicat ion. MIP imaging was performed. A dose lowering technique was utilized adhering to the principles of ALARA. CT DOSE: 293.09 mGy.cm FINDINGS: No pathologically enlarged axillary mediastinal or hilar lymph nodes were visualized. There was no evidence of thoracic aortic dilatation. There were no pulmonary artery filling defects to indicate acute pulmonary embolism. No pleural effusions are visualized. There is severe pulmonary emphysema. There is stable biapical scarring is a stable 8 mm right upper l obe pulmonary nodule. There is right middle lobe atelectasis/scarring. There are bilateral calcified breast implants. There is a stable 17 mm lesion abutting the right impl ant posterior laterally.. IMPRESSION: 1. No evidence of acute pulmonary embolism 2. Severe pulmonary emphysema. 3. Stable areas of scarring. Stable 8 mm right upper lobe pulmonary nodule. ACT 112: Negative or not required by law. Electronically signed by: Prosper Huynh M.D. 07/23/2020 7:19 AM
[2020-07-23] MEDS: BUTALBITAL/ASPIRIN/CAFFEINE 1 TAB TAB PO PRN ×2 (07:49→14:00)
--- NOTE | 2020-07-23 07:55 | Hospitalist Progress Note ---
Date of Service July 23, 2020 Assessment & Plan (1) Acute on chronic respiratory failure with hypoxia: Acute on chronic respiratory failure with hypoxia/acute exacerbation of COPD/pneumonia- Received methylprednisolone, DuoNeb, and ceftriaxone in the ED. Pulmonary changed to p.o. prednisolone x10 days, ceftriaxone 1 g IV daily, azithromycin 500 mg IV daily, sputum culture is been sent Continues with guaifenesin extended release 600 mg p.o. twice daily, Xopenex/Atrovent nebulizers, Pulmicort Respules 0.5 mg inhaled twice daily, Breo Ellipta 1 inhalation daily. Of note, patient feels that her symptoms developed when her Symbicort 160/4.5 was decreased from 3 times a day to 12 2 times per day, and did not improve when she increased her DuoNeb nebulizer from 2-4 times daily. Of note, her nasal cannula oxygen at home was previously humidified when she has her oxygen concentrator, and is no longer humidified at this time. Patient typically is on 3 L of oxygen at home (2) Coronary artery disease: CAD/HTN/CHF/elevated troponin- elevation of troponin is demand ischemia Continues on aspirin, furosemide, potassium chloride, typically follows with Dr Purvis (3) CHF (congestive heart failure): Chronic systolic heart failure, stable at this time (4) Anxiety and depression: Continue escitalopram 10 mg p.o. twice daily (5) Hypothyroidism: Continue levothyroxine 137 mcg daily (6) GERD (gastroesophageal reflux disease): GERD/Cronin's esophagus- Continue cimetidine and lansoprazole or substitute (7) Cronin esophagus: see above (8) Migraine without aura: Continue sumatriptan (9) Hypercholesterolemia: Continue Zetia and pravastatin (10) Breast implant leak: Seen on ultrasound of breast January 2019 recommend follow-up plastic surgery (11) Headache: Patient requests additional dose of sumatriptan today we will also try some ketorolac however she already has polypharmacy for multiple somatic complaints Admission and Anticipated Discharge Date Admission Date: July 22, 2020 Subjective Patient feels about 50% back to her baseline regarding her shortness of breath she has chronic daily headaches which have no resolution she is seen many people for these headaches. He discloses to me the someone told on her previous breast imaging she may have leakage of her previous breast implant encourage her to have follow-up with plastic surgery this is commented on in January 2019 breast ultrasound Review of Systems Review of Systems: Mild distress and fatigue Chronic daily headache but no complaints of blurry or double vision no speech or swallowing issues no chest pain, pressure or palpitations Increased over baseline shortness of breath, nonproductive cough but no wheezes no abdominal pain, nausea or vomiting, diarrhea or constipation no dysuria, hematuria or frequency no focal joint pain or swelling no back pain, CVA tenderness or radicular pain no bruising, bleeding or rashes no focal signs of weakness or numbness or altered sensation no complaints or anxiety or depression. Physical Exam Physical Exam: The patient appeared thin but in no significant distress Vital signs as documented. Head exam is normocephalic atraumatic no scleral icterus Neck is without JVD, thyromegaly, or carotid bruits. Lungs are creased air movement in all lung bell no focal loss no expiratory wheeze Cardiac exam, Rhythm is regular.. No murmurs, rubs or gallops. Abdominal exam reveals normal bowel sounds, soft non tender, no masses Extremities are nonedematous and both pedal pulses are normal. Neurologic exam is alert and oriented, no focal loss of strength or sensation Skin is without bruises or rashes Psychologically is without concerns for anxiety or depression. Results & Data Results & Data ([facility]) Vital Signs (Past 12 Hours) Vital Signs Temp Pulse Pulse Resp BP BP Pulse Ox 07/23/20 07:41 97.9 F 100 H 19 126/62 94 07/23/20 07:11 98 H 18 98 07/23/20 04:10 97.9 F 103 H 18 112/59 L 96 07/23/20 02:19 121 H 07/23/20 00:44 98.2 F 113 H 27 H 164/80 H 100 07/23/20 00:34 105 H 22 143/69 H 99 07/22/20 23:34 107 H 20 141/71 H 98 07/22/20 23:31 98 07/22/20 22:46 107 H 19 118/75 100 07/22/20 22:08 112 H 16 143/73 H 99 07/22/20 21:28 115 H 13 138/66 100 07/22/20 21:02 110 H 24 141/74 H 100 07/22/20 20:38 104 H 18 135/74 100 09/20/20 20:25 97 H 14 153/79 H 100 07/22/20 20:07 98 H 16 99 07/22/20 20:01 101 H 21 128/81 99 07/22/20 20:00 93 07/22/20 19:55 97.5 F L 101 H 23 178/117 H 93 PG Care Time/CCT Total # of Minutes Spent Total Time Spent with Patient: Total time spent is greater than 50% in coordination of care (as documented) at patient's floor/unit and/or counseling patient: Coding Level of Care Code 05252 Subseq Hosp Care Lvl 3 Diagnoses Acute on chronic respiratory failure with hypoxia J96.21 Coronary artery disease I25.10 Associated angina: without angina Coronary Disease-Associated Artery/Lesion type: [place] artery [place] vs. transplanted heart: [place] heart CHF (congestive heart failure) I50.22 Heart failure chronicity: chronic Heart failure type: systolic Anxiety and depression F41.9; F32.9 Hypothyroidism E03.9 Hypothyroidism type: unspecified GERD (gastroesophageal reflux disease) K21.9 Esophagitis presence: esophagitis presence not specified Cronin esophagus K22.70 Migraine without aura G43.009 Intractability: not intractable Status migrainosus presence: without status migrainosus Hypercholesterolemia E78.00 Breast implant leak T85.43XA Headache R51 (1) Coronary artery disease Associated angina: without angina Coronary Disease-Associated Artery/Lesion type: [place] artery [place] vs. transplanted heart: [place] heart Qualified Code(s): I25.10 - Atherosclerotic heart disease of [place] coronary artery witho ut angina pectoris (2) Migraine without aura Intractability: not intractable Status migrainosus presence: without status migrainosus Qualified Code(s): G43.009 - Migraine without aura, not intractable, without status migrainosus (3) CHF (congestive heart failure) Heart failure chronicity: chronic Heart failure type: systolic Qualified Code(s): I50.22 - Chronic systolic (congestive) heart failure (4) Hypothyroidism Hypothyroidism type: unspecified Qualified Code(s): E03.9 - Hypothyroidism, unspecified (5) GERD (gastroesophageal reflux disease) Esophagitis presence: esophagitis presence not specified Qualified Code(s): K21.9 - Gastro-esophageal reflux disease without esophagitis
[2020-07-23] MEDS: OXYBUTYNIN CHLORIDE 5 MG TAB PO SCH ×4 (08:12→21:14)
[2020-07-23] MEDS: guaiFENesin 600 MG TABCR PO SCH ×2 (08:12→21:17)
[2020-07-23] MEDS: FLUTICASONE/VILANTEROL 200/25MCG 14 PUFFS/INHALER INH SCH (08:13)
[2020-07-23] MEDS: ESCITALOPRAM OXALATE 10 MG TAB PO SCH ×2 (08:13→21:16)
[2020-07-23] MEDS: METOCLOPRAMIDE HCL 5 MG TABLET PO SCH ×3 (08:13→16:09)
[2020-07-23] MEDS: LACTOBACILLUS ACIDOPHILUS (FLORANEX) TAB PO SCH (08:14)
[2020-07-23] MEDS: HEPARIN SOD 5,000 UNIT/0.5 ML VIAL SQ SCH ×3 (08:14→21:25)
[2020-07-23] MEDS: NYSTATIN SUSP 500,000 U/5 ML UDC PO SCH ×4 (08:15→21:16)
[2020-07-23] MEDS: ASCORBIC ACID 500 MG TAB PO SCH ×2 (08:15→21:19)
[2020-07-23] MEDS: FUROSEMIDE 80 MG TAB PO SCH (08:15)
[2020-07-23] MEDS: POTASSIUM CHLORIDE 20 MEQ TABCR PO SCH (08:15)
[2020-07-23] MEDS: PANTOprazole 40 MG TAB PO SCH ×2 (08:16→21:18)
[2020-07-23] MEDS: ZINC SULFATE 220 MG CAPSULE PO SCH ×2 (08:16→21:19)
[2020-07-23] MEDS: SIMETHICONE 80 MG CHEW PO SCH ×2 (08:16→21:17)
[2020-07-23] MEDS: GABAPENTIN 600 MG TAB PO SCH ×4 (08:16→21:17)
[2020-07-23] MEDS: AZITHROMYCIN 500 MG in DEXTROSE 5% 250 ML IV SCH (08:17)
[2020-07-23] MEDS: METHOCARBAMOL 750 MG TABLET PO SCH ×2 (08:17→21:18)
--- NOTE | 2020-07-23 08:19 | XRay Report ---
XR chest 1V portable HISTORY: SEPSIS COMPARISON: Chest 05/19/2019. FINDINGS: Mild diffuse interstitial thickening is likely chronic. The heart is normal in size. No new focal lung consolidations to suggest pneumonia. No evidence for pulmonary edema. No pleural effusion s. No pneumothorax. IMPRESSION: No significant change compared to the prior study. No acute process. ACT 112: Negative or not required by law. Electronically signed by: Neftali Lacy M.D. 07/23/2020 8:18 AM
[2020-07-23] MEDS ORDERED: NON-FORMULARY MEDICATION (Cranberry Extract 500 MG) PO SCH (09:00)
--- NOTE | 2020-07-23 09:27 | Electrocardiogram Report ---
Test Reason : Blood Pressure : / mmHG Vent. Rate : 112 BPM Atrial Rate : 112 BPM P-R Int : 130 ms QRS Dur : 076 ms QT Int : 330 ms P-R-T Axes : 081 081 107 degrees QTc Int : 450 ms Sinus tachycardia Possible Left atrial enlargement Nonspecific ST and T wave abnormality Abnormal ECG When compared with ECG of 07-MAY-2019 18:34, Vent. rate has increased BY 37 BPM Nonspecific T wave abnormality now evident in Lateral leads Confirmed by Frederick Matos ([id number]) on 07/23/2020 9:27:24 AM Referred By: REFERRED SELF Confirmed By:Frederick Matos
--- NOTE | 2020-07-23 09:37 | Electrocardiogram Report ---
Test Reason : Blood Pressure : / mmHG Vent. Rate : 095 BPM Atrial Rate : 095 BPM P-R Int : 126 ms QRS Dur : 084 ms QT Int : 434 ms P-R-T Axes : 088 079 189 degrees QTc Int : 545 ms Normal sinus rhythm Prolonged QT Abnormal ECG When compared with ECG of 22-JUL-2020 19:43, (unconfirmed) T wave inversion now evident in Inferior leads T wave inversion now evident in Anterior leads Confirmed by Frederick Matos ([id number]) on 07/23/2020 9:37:11 AM Referred By: REFERRED SELF Confirmed By:Frederick Matos
--- NOTE | 2020-07-23 10:02 | Cardiology Consultation ---
Date of Consultation July 23, 2020 Assessment & Plan (1) Elevated troponin I level: Mrs. 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 Her initial troponin I was 0.073 and trended down to 0.068 ng/ml. She has not experienced any of her angina throughout this COPD exacerbation. It would be reasonable to do an Echocardiogram to evaluate for any wall motion abnormalities. She is not a good candidate for beta saman at this point. Mild to moderate CAD with patent LCx stent on Cardiac Catheterization 2016. Recommend ongoing medical management with the following: -- Continue Aspirin 81 mg daily. -- Continue Pravastatin 20 mg each evening. -- Continue Zetia 10 mg daily. (2) CAD (coronary artery disease): -- As outlined above. -- Ongoing medical management. (3) Acute exacerbation of chronic obstructive pulmonary disease: -- Patient is responding to current treatment. -- Continue IV steroids, antibiotics, nebulizers, and supplemental O2. -- Pulmonology has been consulted. (4) CHF (congestive heart failure): History of chronic diastolic CHF -- she appears to be compensated / euvolemic. -- Continue Lasix 80 mg daily. -- Continue Spironolactone 25 mg b.i.d.. -- Continue Potassium Chloride 20 mEq each morning and 30 mEq each evening. -- Monitor I&O's, body weights. -- Low sodium heart healthy diet. History of Present Illness Reason for Consultation: -- Elevated Troponin I. -- CAD. Requesting Physician: Titi Hinds MD Attending Physician: Frederick Matos MD History of Present Illness Mrs. 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 She states that she began to develop progressively worsening shortness of breath, chest tightness along with a cough for approximately 1 month and it seemed to begin after her Symbicort dosage was decreased. Approximately 2 weeks ago her shortness of breath seemed to worsen, and she was feeling short of breath rest and felt like she could not get enough air into her lungs. She is chronically on supplemental oxygen (and she turned it up to 4 L/minute the day of admission). She was also using her Combivent nebulizer more frequently -- up to 4 times daily, without any significant improvement in her symptoms. Her cough gradually became more productive and the sputum is yellow. Patient is feeling better today. She is receiving IV corticosteroids, antibiotics, supplemental O2. Her EKGs have shown nonspecific ST and T-wave abnormalities most prominent in the lateral leads and a long QT interval. Her initial troponin I was elevated at 0.073 and has trended down to 0.068 ng/mL. Patient denies having any anginal discomfort since she has been feeling poorly and having trouble breathing. She has not had any nausea, vomiting, or diaphoresis. CARDIAC CATHETERIZATION 2017: -- LMCA -- Angiographically normal. -- LAD -- 30% Midvessel stenosis. -- D1 -- 40% to 50% proximal stenosis. -- LCx -- Patent proximal to midvessel stent. -- RCA -- Dominant vessel, 40%-50% midvessel stenosis. -- R PLB, R PDA -- Luminal irregularities. RIGHT HEART CATHETERIZATION 2017 showed: -- Mild pulmonary hypertension (PA pressure 35/13 mmHg). -- Normal wedge pressure (13 mmHg). -- Mildly elevated left ventricular end-diastolic pressure (18 mmHg). Allergies Allergy/AdvReac Type Severity Reaction Status Date / Time Sulfa (Sulfonamide Allergy Intermediate Hives Verified 07/22/20 23:46 Antibiotics) cortisone Allergy Unknown RASH FOR 3 Verified 07/22/20 23:46 MONTHS levofloxacin Allergy Unknown RASH Verified 07/22/20 23:46 nortriptyline Allergy Unknown RASH Verified 07/22/20 23:46 hydrocortisone Allergy Unknown Verified 07/22/20 23:46 [From Cortizone-10] Home Medications Home Medications Medication Instructions Recorded Confirmed Type Probiotic 3 mmu cells PO DAILY 01/04/19 07/22/20 History acetaminophen [Tylenol Extra 1,000 mg PO HS 01/04/19 07/22/20 History Strength] coQ10 (ubiquinol) 200 mg PO QPM 01/04/19 07/22/20 History nitroglycerin [Nitrostat] 0.4 mg SUBLINGUAL UD PRN 01/04/19 07/22/20 History pravastatin 20 mg PO QPM 01/04/19 07/22/20 History simethicone [Gas Relief Ultra 180 mg PO QPM 01/04/19 07/22/20 History Strength] zinc 50 mg PO AMHS 01/04/19 07/22/20 History albuterol sulfate 2.5 mg CONTINUOUS NEBULIZATION Q4 06/29/19 07/22/20 History PRN furosemide 40 mg tablet 80 mg PO QAM #180 tab 07/27/19 07/22/20 Rx potassium chloride 10 mEq 20 meq PO QAM #180 cap 08/29/19 07/22/20 Rx capsule,extended release potassium chloride 10 mEq 30 meq PO QPM #270 cap 08/29/19 07/22/20 Rx capsule,extended release methocarbamol 750 mg tablet 750 mg PO .COMPLEX 30 Days #270 tab 09/12/19 07/22/20 Rx ipratropium bromide 42 mcg (0.06 2 sprays INTNAS Q8H PRN #30 ml 09/16/19 07/22/20 Rx %) nasal spray levothyroxine 137 mcg tablet 137 mcg PO DAILY #90 tab 11/04/19 07/22/20 Rx aspirin 81 mg tablet,delayed 81 mg PO QPM tab 04/02/20 07/22/20 History release spironolactone 25 mg tablet 25 mg PO BID #180 tab 04/16/20 07/22/20 Rx oxybutynin chloride 5 mg tablet 5 mg PO QID #360 tab 04/23/20 07/22/20 Rx lysine 500 mg tablet 500 mg PO BID tab 05/22/20 07/22/20 History nystatin 100,000 unit/mL oral 500,000 units PO QID #200 ml 05/30/20 07/22/20 Rx suspension ezetimibe 10 mg tablet 10 mg PO QPM #90 tab 06/11/20 07/22/20 Rx albuterol sulfate 90 mcg/actuation 2 puff INHALATION QID PRN #54 gm 07/04/20 07/22/20 Rx aerosol inhaler 303 Muscle Relaxer 2 tab PO HS 07/22/20 07/22/20 History Medical Marijuana 0 cap PO UD 07/22/20 07/22/20 History ascorbate calcium (vitamin C) 250 mg PO BID 07/22/20 07/22/20 History [Joanne-C] [id number] 1 tab PO BID PRN 07/22/20 07/22/20 History [Excedrin Migraine] azithromycin 500 mg PO 3XWK 07/22/20 07/22/20 History budesonide-formoterol [Symbicort] 2 puff INHALATION BID 07/22/20 07/22/20 History ovopotslep-[id number] 1 cap PO Q6 PRN 07/22/20 07/22/20 History cimetidine 300 mg PO HS 07/22/20 07/22/20 History clorazepate dipotassium 3.75 mg PO UD PRN 07/22/20 07/22/20 History cranberry extract 500 mg PO DAILY 07/22/20 07/22/20 History escitalopram oxalate 10 mg PO AMPM 07/22/20 07/22/20 History fluticasone propionate [Flonase 2 spray INTRANASAL QPM 07/22/20 07/22/20 History Allergy Relief] gabapentin 600 mg PO QID 07/22/20 07/22/20 History guaifenesin [Mucinex] 300 mg PO TID 07/22/20 07/22/20 History hydrocortisone [Proctosol HC] 1 applic ID DAILY PRN 07/22/20 07/22/20 History ipratropium bromide 2.5 ml INHALATION Q4 PRN 07/22/20 07/22/20 History lansoprazole 30 mg PO BID 07/22/20 07/22/20 History magnesium hydroxide [Porter Milk See Rx Instructions .ROUTE .COMPLEX 07/22/20 07/22/20 History of Magnesia] metoclopramide HCl 5 mg PO AC 07/22/20 07/22/20 History multivitamin [Multiple Vitamins] 1 tab PO DAILY 07/22/20 07/22/20 History simethicone 125 mg PO QAM 07/22/20 07/22/20 History sumatriptan succinate [Imitrex] 100 mg PO BID PRN MDD 2 07/22/20 07/22/20 History tiotropium bromide [Spiriva with 1 cap INHALATION QAM 07/22/20 07/22/20 History HandiHaler] Patient History Medical History Anxiety and depression Back pain Cronin esophagus CHF (congestive heart failure) Chronic rhinitis COPD (chronic obstructive pulmonary disease) Coronary artery disease Depression Emphysema lung GERD (gastroesophageal reflux disease) Hypercholesterolemia Hypothyroidism Migraine without aura Surgical History History of bladder surgery History of breast augmentation History of cholecystectomy History of hemorrhoidectomy History of tonsillectomy Family History Unknown Lung cancer Liver cancer Colon cancer Father Liver cancer Mother Hypertension Other Family history non-contributory Social History Smoking Status: Former smoker Age Quit Using Tobacco: 60; packs per day: 2; Second Hand Exposure: No; Do You Dip or Chew Tobacco: No; Tobacco Cessation Education Requested by Patient: No Hx Alcohol Use: No Hx Substance Use: No Preferred Language: Bulgarian Communication Ability: Effective Insights Manager Required: No Beliefs That Will Affect Care: None marital status: Current Living Situation: Spouse Other Information That Helps Us Care for You: No Feels Safe at Home: Yes Safety Concerns: Feels Safe At This Time Assistive Devices: None Physical Exam Physical Exam: GENERAL: Patient in no acute distress. HEENT: Head is atraumatic, normocephalic. EOM's intact. Facies symmetric. No perioral cyanosis. NECK: No JVD. JVP is not elevated. Carotid upstrokes are + 2 bilaterally. CHEST/LUNGS: Markedly diminished breath sounds throughout, scattered late expiratory wheezes. CVS: S1 and S2 are regular, distant at a rate of 100 bpm without obvious murmurs, gallops, or rubs. PMI is displaced inferiorly. No lifts, heaves, or thrills. No abdominal aortic or renal bruits. ABDOMINAL EXAM: Bowel sounds are present. No masses, organomegaly, or tenderness. EXTREMITIES: No clubbing or cyanosis. No edema. NEUROLOGIC EXAM: Patient is awake, alert, and oriented. Pleasant and cooperative. Answers questions appropriately. Speech is clear. TELEMETRY: -- Normal sinus rhythm to sinus tachycardia with rates between 80 and 110 bpm. Results & Data ([facility]) Vital Signs (Past 12 Hours) Vital Signs Temp Pulse Pulse Resp BP BP Pulse Ox 07/23/20 07:41 36.6 C 100 H 19 126/62 94 07/23/20 07:11 98 H 18 98 07/23/20 04:10 36.6 C 103 H 18 112/59 L 96 07/23/20 02:19 121 H 07/23/20 00:44 36.8 C 113 H 27 H 164/80 H 100 07/23/20 00:34 105 H 22 143/69 H 99 07/22/20 23:34 107 H 20 141/71 H 98 07/22/20 23:31 98 07/22/20 22:46 107 H 19 118/75 100 07/22/20 22:08 112 H 16 143/73 H 99 Laboratory Results Laboratory Results - last 24 hr 07/22/20 07/22/20 07/22/20 19:44 19:44 19:44 WBC 7.65 RBC 4.33 Hgb 13.9 Hct 42.2 MCV 97.5 MCH 32.1 MCHC 32.9 RDW Std Deviation 47.8 H RDW Coeff of Opal 13.3 Plt Count 265 MPV 9.5 Immature Gran % (Auto) 0.5 Neut % (Auto) 59.7 Lymph % (Auto) 24.2 [place] % (Auto) 7.6 Eos % (Auto) 7.2 Baso % (Auto) 0.8 Neut # (Auto) 4.57 Lymph # (Auto) 1.85 [place] # (Auto) 0.58 Eos # (Auto) 0.55 H Baso # (Auto) 0.06 Immature Gran # (Auto) 0.04 H PT 10.8 INR 1.0 APTT 24.4 PTT Ratio 0.9 VBG pH VBG pCO2 VBG pO2 VBG HCO3 VBG O2 Saturation VBG Base Excess Barometric Pressure Sodium 138 Potassium 4.2 Chloride 100 Carbon Dioxide 27 Anion Gap 11.0 BUN 7 Creatinine 0.77 Est Cr Clr Drug Dosing 64.3 Est GFR ( Amer) 88.8 Est GFR (Non-Af Amer) 76.6 BUN/Creatinine Ratio 8.7 L Glucose 163 H Lactate Calcium 9.1 Phosphorus Magnesium 2.2 Total Bilirubin 0.3 AST 42 H ALT 45 Alkaline Phosphatase 111 Troponin I 0.073 H* Total Protein 6.5 Albumin 3.9 Globulin 2.6 Albumin/Globulin Ratio 1.5 Procalcitonin COVID-19 Eval Order COVID-19 PCR Influenza Type A (PCR) Influenza Type B (PCR) 07/22/20 07/22/20 07/22/20 19:44 19:44 19:52 WBC RBC Hgb Hct MCV MCH MCHC RDW Std Deviation RDW Coeff of Opal Plt Count MPV Immature Gran % (Auto) Neut % (Auto) Lymph % (Auto) [place] % (Auto) Eos % (Auto) Baso % (Auto) Neut # (Auto) Lymph # (Auto) [place] # (Auto) Eos # (Auto) Baso # (Auto) Immature Gran # (Auto) PT INR APTT PTT Ratio VBG pH VBG pCO2 VBG pO2 VBG HCO3 VBG O2 Saturation VBG Base Excess Barometric Pressure Sodium Potassium Chloride Carbon Dioxide Anion Gap BUN Creatinine Est Cr Clr Drug Dosing Est GFR ( Amer) Est GFR (Non-Af Amer) BUN/Creatinine Ratio Glucose Lactate 1.3 Calcium Phosphorus Magnesium Total Bilirubin AST ALT Alkaline Phosphatase Troponin I Total Protein Albumin Globulin Albumin/Globulin Ratio Procalcitonin < 0.05 COVID-19 Eval Order COVID-19 PCR Influenza Type A (PCR) Neg for Influ A Influenza Type B (PCR) Neg for Influ B 07/22/20 07/22/20 07/22/20 19:52 19:52 21:18 WBC RBC Hgb Hct MCV MCH MCHC RDW Std Deviation RDW Coeff of Opal Plt Count MPV Immature Gran % (Auto) Neut % (Auto) Lymph % (Auto) [place] % (Auto) Eos % (Auto) Baso % (Auto) Neut # (Auto) Lymph # (Auto) [place] # (Auto) Eos # (Auto) Baso # (Auto) Immature Gran # (Auto) PT INR APTT PTT Ratio VBG pH 7.32 L VBG pCO2 65 H VBG pO2 25 VBG HCO3 33 VBG O2 Saturation < 60.0 VBG Base Excess 4.5 Barometric Pressure 744.9 Sodium Potassium Chloride Carbon Dioxide Anion Gap BUN Creatinine Est Cr Clr Drug Dosing Est GFR ( Amer) Est GFR (Non-Af Amer) BUN/Creatinine Ratio Glucose Lactate Calcium Phosphorus Magnesium Total Bilirubin AST ALT Alkaline Phosphatase Troponin I Total Protein Albumin Globulin Albumin/Globulin Ratio Procalcitonin ID- Eval Order Covid19 Done at [facility] COVID-19 PCR NEGATIVE Influenza Type A (PCR) Influenza Type B (PCR) 07/23/20 07/23/20 07/23/20 06:04 06:04 06:04 WBC 5.80 RBC 4.05 L Hgb 13.1 Hct 38.7 MCV 95.6 MCH 32.3 MCHC 33.9 RDW Std Deviation 46.8 H RDW Coeff of Opal 13.4 Plt Count 250 MPV 9.1 Immature Gran % (Auto) 0.2 Neut % (Auto) 85.5 Lymph % (Auto) 9.1 [place] % (Auto) 5.0 Eos % (Auto) 0.0 Baso % (Auto) 0.2 Neut # (Auto) 4.96 Lymph # (Auto) 0.53 L [place] # (Auto) 0.29 Eos # (Auto) 0.00 Baso # (Auto) 0.01 Immature Gran # (Auto) 0.01 PT 10.9 INR 1.0 APTT 25.4 PTT Ratio 0.9 VBG pH VBG pCO2 VBG pO2 VBG HCO3 VBG O2 Saturation VBG Base Excess Barometric Pressure Sodium 138 Potassium 3.5 D Chloride 98 Carbon Dioxide 32 Anion Gap 8.0 BUN 7 Creatinine 0.71 Est Cr Clr Drug Dosing 64.4 Est GFR ( Amer) 97.9 Est GFR (Non-Af Amer) 84.5 BUN/Creatinine Ratio 10.1 Glucose 134 H Lactate Calcium 8.6 Phosphorus 3.9 Magnesium 1.9 Total Bilirubin AST ALT Alkaline Phosphatase Troponin I 0.068 H* Total Protein Albumin 3.7 Globulin Albumin/Globulin Ratio Procalcitonin COVID-19 Eval Order COVID-19 PCR Influenza Type A (PCR) Influenza Type B (PCR) Medications Administered Active Medications Generic Name Dose Route Start Last Admin Trade Name Freq PRN Reason Stop Dose Admin Acetaminophen 1,000 mg 07/23/20 21:00 Acetaminophen 500 Mg Tab PO 08/22/20 20:59 HS MARCUS Acetaminophen 650 mg 07/23/20 01:04 Acetaminophen 325 Mg Tab PO 08/22/20 01:03 Q4H PRN Pain or Fever Al Hydrox/Mg Hydrox/Simethicone 15 ml 07/23/20 01:04 Aluminum/Magnesium Susp 30 Ml Udc PO 08/22/20 01:03 Q4H PRN Dyspepsia Ascorbic Acid 250 mg 07/23/20 09:00 07/23/20 08:15 Ascorbic Acid 500 Mg Tab PO 08/22/20 08:59 250 mg BID MARCUS Administration Aspirin 81 mg 07/23/20 21:00 Aspirin 81 Mg Ectab PO 08/22/20 20:59 QPM MARCUS Budesonide 0.5 mg 07/23/20 07:00 07/23/20 07:10 Budesonide 0.5 Mg/2 Ml Vial (Pulmicort) NEB 08/22/20 06:59 0.5 mg BIDR MARCUS Administration Butalbital/Aspirin/Caffeine 1 tab 07/23/20 01:04 07/23/20 07:49 Butalbital/Aspirin/Caffeine 1 Tab Tab PO 08/22/20 01:03 1 tab Q6 PRN Administration Headache Clorazepate Dipotassium 3.75 - 7.5 mg 07/23/20 01:04 07/23/20 02:41 Clorazepate Dipotassium 3.75 Mg Tab PO 08/22/20 01:03 7.5 mg HS PRN Administration Sleep Ezetimibe 10 mg 07/23/20 21:00 Ezetimibe 10 Mg Tablet PO 08/22/20 20:59 QPM MARCUS Escitalopram Oxalate 10 mg 07/23/20 09:00 07/23/20 08:13 Escitalopram Oxalate 10 Mg Tab PO 08/22/20 08:59 10 mg BID MARCUS Administration Famotidine 20 mg 07/23/20 21:00 Famotidine 20 Mg Tab PO 08/22/20 20:59 HS MARCUS Fluticasone/Vilanterol 1 puffs 07/23/20 09:00 07/23/20 08:13 Fluticasone/Vilanterol 200/25mcg 14 Puffs/Inhaler INH 08/22/20 08:59 1 puffs DAILY MARCUS Administration Furosemide 80 mg 07/23/20 09:00 07/23/20 08:15 Furosemide 80 Mg Tab PO 08/22/20 08:59 80 mg QAM MARCUS Administration Gabapentin 600 mg 07/23/20 09:00 07/23/20 08:16 Gabapentin 600 Mg Tab PO 08/22/20 08:59 600 mg QID MARCUS Administration Guaifenesin 600 mg 07/23/20 09:00 07/23/20 08:12 Guaifenesin 600 Mg Tabcr PO 08/22/20 08:59 600 mg Q12 MARCUS Administration Heparin Sodium (Porcine) 5,000 units 07/23/20 09:00 07/23/20 08:14 Heparin Sod 5,000 Unit/0.5 Ml Vial SQ 08/22/20 08:59 5,000 units Q12 MARCUS Administration Hydrocortisone 1 appln 07/23/20 01:04 Hydrocortisone Hc 2.5% Crm 30gm Tube EXT 08/22/20 01:03 DAILY PRN Hemorrhoids Ceftriaxone Sodium 1,000 mg/ 50 mls @ 100 mls/hr 07/23/20 21:00 Dextrose IV 07/28/20 21:29 Q24H MARCUS Protocol Azithromycin 500 mg/ Dextrose 255 mls @ 125 mls/hr 07/23/20 09:00 07/23/20 10:20 IV 07/30/20 08:59 Infused DAILY MARCUS Infusion Methylprednisolone 40 mg/ 0.64 mls @ 1.5 mls/min 07/23/20 06:00 07/23/20 06:13 Syringe IV 08/22/20 05:59 1.5 mls/min Q8H MARCUS Administration Ipratropium [place] 0.5 mg 07/23/20 07:00 07/23/20 07:10 Ipratropium [place] Neb Soln 0.02% 2.5 Ml Vial INH 08/22/20 06:59 0.5 mg Q6R MARCUS Administration Lactobacillus Acidophilus 4 tab 07/23/20 09:00 07/23/20 08:14 Lactobacillus Acidophilus (Floranex) Tab PO 08/22/20 08:59 4 tab DAILY MARCUS Administration Levalbuterol HCl 1.25 mg 07/23/20 07:00 07/23/20 07:10 Levalbuterol 1.25mg/0.5ml Neb INH 08/22/20 06:59 1.25 mg Q6R MARCUS Administration Levothyroxine Sodium 137 mcg 07/23/20 06:30 07/23/20 06:13 Levothyroxine Sodium 137 Mcg Tablet PO 08/22/20 06:29 137 mcg DAILYBB MARCUS Administration Magnesium Hydroxide 30 ml 07/23/20 01:04 Magnesium Hydroxide Susp 30 Ml Udc PO 08/22/20 01:03 Q12H PRN Constipation Methocarbamol 750 mg 07/23/20 09:00 07/23/20 08:17 Methocarbamol 750 Mg Tablet PO 08/22/20 08:59 750 mg QAM MARCUS Administration Methocarbamol 1,500 mg 07/23/20 21:00 Methocarbamol 750 Mg Tablet PO 08/22/20 20:59 PM MARCUS Metoclopramide HCl 5 mg 07/23/20 07:30 07/23/20 08:13 Metoclopramide Hcl 5 Mg Tablet PO 08/22/20 07:29 5 mg AC MARCUS Administration Miscellaneous Medication 1 dose 07/23/20 01:45 Medical Marijuana PO 08/22/20 01:44 UD MARCUS Nitroglycerin 0.4 mg 07/23/20 01:04 Nitroglycerin Sl 0.4 Mg/Tab Tab SL 08/22/20 01:03 UD PRN Chest Pain Nystatin 5 ml 07/23/20 09:00 07/23/20 08:15 Nystatin Susp 500,000 U/5 Ml Udc PO 08/02/20 08:59 5 ml QID MARCUS Administration Ondansetron HCl 4 mg 07/23/20 01:04 Ondansetron Inj 2 Mg/Ml 2 Ml Vial IV 08/22/20 01:03 Q6H PRN Nausea Oxybutynin Chloride 5 mg 07/23/20 09:00 07/23/20 08:12 Oxybutynin Chloride 5 Mg Tab PO 08/22/20 08:59 5 mg QID MARCUS Administration Pantoprazole Sodium 40 mg 07/23/20 09:00 07/23/20 08:16 Pantoprazole 40 Mg Tab PO 08/22/20 08:59 40 mg BID MARCUS Administration Potassium Chloride 20 meq 07/23/20 09:00 07/23/20 08:15 Potassium Chloride 20 Meq Tabcr PO 08/22/20 08:59 20 meq QAM MARCUS Administration Potassium Chloride 30 meq 07/23/20 21:00 Potassium Chloride 10 Meq Tabcr PO 08/22/20 20:59 QPM MARCUS Pravastatin Sodium 20 mg 07/23/20 21:00 Pravastatin Sod 20 Mg Tab PO 08/22/20 20:59 QPM MARCUS Simethicone 160 mg 07/23/20 21:00 Simethicone 80 Mg Chew PO 08/22/20 20:59 QPM MARCUS Simethicone 120 mg 07/23/20 09:00 07/23/20 08:16 Simethicone 80 Mg Chew PO 08/22/20 08:59 120 mg QAM MARCUS Administration Spironolactone 25 mg 07/23/20 01:04 07/23/20 08:11 Spironolactone 25 Mg Tab PO 08/22/20 01:03 25 mg BID MARCUS Administration Sumatriptan Succinate 100 mg 07/23/20 01:04 Sumatriptan Succinate 100 Mg Tab PO 08/22/20 01:03 BID PRN migraine headache Zinc Sulfate 220 mg 07/23/20 09:00 07/23/20 08:16 Zinc Sulfate 220 Mg Capsule PO 08/22/20 08:59 220 mg AMHS MARCUS Administration PG Care Time/CCT Total # of Minutes Spent Total Time Spent with Patient: Total time spent is greater than 50% in coordination of care (as documented) at patient's floor/unit and/or counseling patient: Coding Level of Care Code 86259 Initial Inpt Care Lvl 3 Diagnoses Elevated troponin I level R79.89 CAD (coronary artery disease) I25.10 Acute exacerbation of chronic obstructive pulmonary disease J44.1 CHF (congestive heart failure) I50.22 Heart failure type: systolic Heart failure chronicity: chronic (1) CHF (congestive heart failure) Heart failure type: systolic Heart failure chronicity: chronic Qualified Code(s): I50.22 - Chronic systolic (congestive) heart failure
--- NOTE | 2020-07-23 12:10 | Pulmonary Consultation ---
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 Recommend 5 days of antibiotics including azithromycin. Patient is on Thursday, Thursday and Thursday prophylactic azithromycin as an anti-inflammatory. Recommend continuing this as an outpatient. Recommend switching her Symbicort and Spiriva to Trelegy once daily upon discharge. I am going to check a morning ABG to see if there is evidence of hypercapnia in which case she can be a candidate for noninvasive ventilation. Continue oxygen to maintain sats 88 to 92%. I am switching her IV Solu-Medrol to 30 mg of p.o. prednisone which can be continued for total 10 days. Patient has very advanced lung disease and actually was evaluated for lung transplant at [facility]. She noted that she did not want to proceed with a lung transplantation due to all the complications related to lung transplant. She also has a history of multidrug-resistant organisms and I placed her on contact isolation's. She will need a repeat sputum culture. Lastly, she has a stable 7.52 mm right upper lobe lung nodule that will need follow-up. Pulmonary will continue to follow along with you. Thank you for the consult. (2) 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: (3) Acute on chronic respiratory failure with hypoxia and hypercapnia: (4) Cough with sputum: (5) Lung nodule: History of Present Illness Reason for Consultation: COPD exacerbation Requesting Physician: Dr. Hinds Attending Physician: Titi Hinds MD History of Present Illness 74-year-old female with a past medical history of coronary artery disease, dyslipidemia, hypertension, GERD and COPD with an FEV1 of 35% predicted in 2019 who presented to the hospital due to increasing shortness of breath on 07/22/2020. Patient notes that she has been more short of breath over the last several months and particularly since July 03 after her Symbicort inhaler was stopped from 3 times a day to twice a day. She reports increasing cough with occasional sputum. She denies any fevers. She has been mostly in isolation the last several months due to the COVID-19 pandemic. She lives with her who does the grocery shopping. She is chronically on 3 L of oxygen. She was on prednisone roughly 6 weeks ago per her account that was prescribed by her med peds Dr. ansari. She reports a history of smoking and quit in 2003. She smoked 2 packs/day for 40 to 45 years. She also uses Spiriva at home and nebulizers 3-4 times a day. She does not have any pets at home. She does have a history of multidrug-resistant Achromobacter growing in her sputum on May 20, 2019. She also has a history of Pseudomonas and Stenotrophomonas maltophilia on previous sputum samples. CTA of her chest demonstrated severe pulmonary em physema, stable areas of scarring and a stable 8 mm right upper lobe pulmonary nodule. White count on admission was 7600. VBG demonstrated pH of 7.32 and a PCO2 of 65. Patient is currently on methylprednisone 40 mg every 8 hours. She received a dose of Rocephin in the ER. She is on Rocephin 1000 mg every 24 hours and azithromycin 500 mg daily. Allergies Allergy/AdvReac Type Severity Reaction Status Date / Time Sulfa (Sulfonamide Allergy Intermediate Hives Verified 07/22/20 23:46 Antibiotics) cortisone Allergy Unknown RASH FOR 3 Verified 07/22/20 23:46 MONTHS levofloxacin Allergy Unknown RASH Verified 07/22/20 23:46 nortriptyline Allergy Unknown RASH Verified 07/22/20 23:46 hydrocortisone Allergy Unknown Verified 07/22/20 23:46 [From Cortizone-10] Home Medications Home Medications Medication Instructions Recorded Confirmed Type Probiotic 3 mmu cells PO DAILY 01/04/19 07/22/20 History acetaminophen [Tylenol Extra 1,000 mg PO HS 01/04/19 07/22/20 History Strength] coQ10 (ubiquinol) 200 mg PO QPM 01/04/19 07/22/20 History nitroglycerin [Nitrostat] 0.4 mg SUBLINGUAL UD PRN 01/04/19 07/22/20 History pravastatin 20 mg PO QPM 01/04/19 07/22/20 History simethicone [Gas Relief Ultra 180 mg PO QPM 01/04/19 07/22/20 History Strength] zinc 50 mg PO AMHS 01/04/19 07/22/20 History albuterol sulfate 2.5 mg CONTINUOUS NEBULIZATION Q4 06/29/19 07/22/20 History PRN furosemide 40 mg tablet 80 mg PO QAM #180 tab 07/27/19 07/22/20 Rx potassium chloride 10 mEq 20 meq PO QAM #180 cap 08/29/19 07/22/20 Rx capsule,extended release potassium chloride 10 mEq 30 meq PO QPM #270 cap 08/29/19 07/22/20 Rx capsule,extended release methocarbamol 750 mg tablet 750 mg PO .COMPLEX 30 Days #270 tab 09/12/19 07/22/20 Rx ipratropium bromide 42 mcg (0.06 2 sprays INTNAS Q8H PRN #30 ml 09/16/19 Rx %) nasal spray levothyroxine 137 mcg tablet 137 mcg PO DAILY #90 tab 11/04/19 07/22/20 Rx aspirin 81 mg tablet,delayed 81 mg PO QPM tab 04/02/20 07/22/20 History release spironolactone 25 mg tablet 25 mg PO BID #180 tab 04/16/20 07/22/20 Rx oxybutynin chloride 5 mg tablet 5 mg PO QID #360 tab 04/23/20 07/22/20 Rx lysine 500 mg tablet 500 mg PO BID tab 05/22/20 07/22/20 History nystatin 100,000 unit/mL oral 500,000 units PO QID #200 ml 05/30/20 07/22/20 Rx suspension ezetimibe 10 mg tablet 10 mg PO QPM #90 tab 06/11/20 07/22/20 Rx albuterol sulfate 90 mcg/actuation 2 puff INHALATION QID PRN #54 gm 07/04/20 07/22/20 Rx aerosol inhaler 303 Muscle Relaxer 2 tab PO HS 07/22/20 07/22/20 History Medical Marijuana 0 cap PO UD 07/22/20 07/22/20 History ascorbate calcium (vitamin C) 250 mg PO BID 07/22/20 07/22/20 History [Joanne-C] wonjjtd-udjshcfykaclw-ixauzcjy 1 tab PO BID PRN 07/22/20 07/22/20 History [Excedrin Migraine] azithromycin 500 mg PO 3XWK 07/22/20 07/22/20 History budesonide-formoterol [Symbicort] 2 puff INHALATION BID 07/22/20 07/22/20 History tqzgwecdgf-ebqlnvg-xxolrhnx 1 cap PO Q6 PRN 07/22/20 07/22/20 History cimetidine 300 mg PO HS 07/22/20 07/22/20 History clorazepate dipotassium 3.75 mg PO UD PRN 07/22/20 07/22/20 History cranberry extract 500 mg PO DAILY 07/22/20 07/22/20 History escitalopram oxalate 10 mg PO AMPM 07/22/20 07/22/20 History fluticasone propionate [Flonase 2 spray INTRANASAL QPM 07/22/20 07/22/20 History Allergy Relief] gabapentin 600 mg PO QID 07/22/20 07/22/20 History guaifenesin [Mucinex] 300 mg PO TID 07/22/20 07/22/20 History hydrocortisone [Proctosol HC] 1 applic NE DAILY PRN 07/22/20 07/22/20 History ipratropium bromide 2.5 ml INHALATION Q4 PRN 07/22/20 07/22/20 History lansoprazole 30 mg PO BID 07/22/20 07/22/20 History magnesium hydroxide [Porter Milk See Rx Instructions .ROUTE .COMPLEX 07/22/20 07/22/20 History of Magnesia] metoclopramide HCl 5 mg PO AC 07/22/20 07/22/20 History multivitamin [Multiple Vitamins] 1 tab PO DAILY 07/22/20 07/22/20 History simethicone 125 mg PO QAM 07/22/20 07/22/20 History sumatriptan succinate [Imitrex] 100 mg PO BID PRN MDD 2 07/22/20 07/22/20 History tiotropium bromide [Spiriva with 1 cap INHALATION QAM 07/22/20 07/22/20 History HandiHaler] Patient History Medical History Anxiety and depression Back pain Cronin esophagus CHF (congestive heart failure) Chronic rhinitis COPD (chronic obstructive pulmonary disease) Coronary artery disease Depression Emphysema lung GERD (gastroesophageal reflux disease) Hypercholesterolemia Hypothyroidism Migraine without aura Surgical History History of bladder surgery History of breast augmentation History of cholecystectomy History of hemorrhoidectomy History of tonsillectomy Family History Unknown Lung cancer Liver cancer Colon cancer Father Liver cancer Mother Hypertension Other Family history non-contributory Social History Smoking Status: Former smoker Age Quit Using Tobacco: 60; packs per day: 2; Second Hand Exposure: No; Do You Dip or Chew Tobacco: No; Tobacco Cessation Education Requested by Patient: No Hx Alcohol Use: No Hx Substance Use: No Preferred Language: Bahraini Communication Ability: Effective [employer] Clerk Required: No Beliefs That Will Affect Care: None marital status: Current Living Situation: Spouse Other Information That Helps Us Care for You: No Feels Safe at Home: Yes Safety Concerns: Feels Safe At This Time Assistive Devices: None Review of Systems Review of Systems: All systems reviewed & are unremarkable except as noted in HPI & below Physical Exam Constitutional: Elderly-appearing and frail. No apparent distress. Coughing frequently during the exam. Eyes: PERRL, conjunctivae normal, anicteric sclerae ENMT: external ear and nose normal, oropharynx normal Neck: normal visual inspection Respiratory: normal respiratory effort, lungs clear to auscultation Cardiovascular: RRR, no murmur, no edema Gastrointestinal (Abdomen): normal bowel sounds, soft, nontender, no hepatosplenomegaly Musculoskeletal: no cyanosis or clubbing, extremities motor strength 5/5 Skin: no rashes, warm and dry Neurologic: PERRL, EOMI, accommodation nl, no face palsy, no dysarthria Psychiatric: A+Ox3, euthymic affect Results & Data Results & Data ([facility]) Vital Signs (Past 12 Hours) Vital Signs Temp Pulse Pulse Resp BP BP Pulse Ox 07/23/20 11:41 98.1 F 95 H 19 106/63 97 07/23/20 07:41 97.9 F 100 H 19 126/62 94 07/23/20 07:11 98 H 18 98 07/23/20 04:10 97.9 F 103 H 18 112/59 L 96 07/23/20 02:19 121 H 07/23/20 00:44 98.2 F 113 H 27 H 164/80 H 100 07/23/20 00:34 105 H 22 143/69 H 99 I reviewed vital signs, labs and imaging PG Care Time/CCT Total # of Minutes Spent Total Time Spent with Patient: Total time spent is greater than 50% in coordination of care (as documented) at patient's floor/unit and/or counseling patient: Coding Level of Care Code 54813 Initial Inpt Care Lvl 3 Diagnoses COPD with exacerbation J44.1 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 Z86.19 Acute on chronic respiratory failure with hypoxia and hypercapnia J96.21; J96.22 Cough with sputum R05 Lung nodule R91.1
[2020-07-23] MEDS ORDERED: KETOROLAC TROMETHAMINE 15 MG/ML VIAL IV PRN (14:43)
[2020-07-23 16:28] LABS: Appearance Urine Clear (Clear); Bilirubin Urine Negative (Negative); Blood Urine Negative (Negative); Color Urine Yellow; Glucose Urine UA Negative (Negative); Ketones Urine Negative (Negative); Leukocyte Esterase Urine Negative (Negative); Nitrite Urine Negative (Negative); Protein Urine Negative (Negative); Specific Gravity Urine 1.014 (1.000-1.030); Urobilinogen Urine Negative (Negative); pH Urine 5.5 (4.5-7.5)
[2020-07-23] MEDS ORDERED: DICLOFENAC SOD 1% GEL 100 GM TUBE EXT PRN (19:22)
[2020-07-23] MEDS ORDERED: NON-FORMULARY MEDICATION (Coq10 (Ubiquinol) 200 MG) PO SCH (21:00)
[2020-07-23] MEDS ORDERED: cefTRIAXone SODIUM 1,000 MG in DEXTROSE 5% 50 ML IV SCH (21:00)
[2020-07-23] MEDS: ASPIRIN 81 MG ECTAB PO SCH (21:15)
[2020-07-23] MEDS: POTASSIUM CHLORIDE 10 MEQ TABCR PO SCH (21:15)
[2020-07-23] MEDS: FAMOTIDINE 20 MG TAB PO SCH (21:17)
[2020-07-23] MEDS: PRAVASTATIN SOD 20 MG TAB PO SCH (21:18)
[2020-07-23] MEDS: ACETAMINOPHEN 500 MG TAB PO SCH (21:19)
[2020-07-23] MEDS: EZETIMIBE 10 MG TABLET PO SCH (21:19)
[2020-07-23] MEDS ORDERED: BUDESONIDE/FORMOTEROL FUMARATE 160/4.5 60 PUFFS/INHALER INH SCH (21:45)
[2020-07-24] MEDS: IPRATROPIUM BROMIDE NEB SOLN 0.02% 2.5 ML VIAL INH SCH ×4 (00:48→19:15)
[2020-07-24] MEDS: LEVALBUTEROL 1.25MG/0.5ML NEB INH SCH ×4 (00:48→19:15)
[2020-07-24] MEDS: LEVOTHYROXINE SODIUM 137 MCG TABLET PO SCH (05:23)
[2020-07-24 05:55] LABS: Basophils # (auto) 0.03 K/uL (0-0.2); Basophils % (auto) 0.4 %; Eosinophils # (auto) 0.29 K/uL (0-0.5); Eosinophils % (auto) 4.2 %; Hematocrit (blood only) 35.4 % (37-47); Hemoglobin 11.9 g/dL (12.0-16.0); Immature Granulocytes # (auto) 0.03 K/uL (0.00-0.02); Immature Granulocytes % (auto) 0.4 %; Lymphocytes # (auto) 2.01 K/uL (1.2-3.4); Lymphocytes % (auto) 29.2 %; Mean Corpuscular Hemoglobin 31.9 pg (25-34); Mean Corpuscular Hgb Conc 33.6 g/dL (32-36); Mean Corpuscular Volume 94.9 fL (80-100); Mean Platelet Volume 8.7 fL (7.4-10.4); Monocytes # (auto) 0.77 K/uL (0.11-0.59); Monocytes % (auto) 11.2 %; Neutrophils # (auto) 3.76 K/uL (1.4-6.5); Neutrophils % (auto) 54.6 %; Platelet Count 228 K/uL (130-400); RDW Coefficient of Variation 13.2 % (11.5-14.5); RDW Standard Deviation 46.2 fL (36.4-46.3); Red Blood Count 3.73 M/uL (4.2-5.4); White Blood Count 6.89 K/uL (4.8-10.8)
[2020-07-24 06:00] LABS: Base Excess ABG 5.3 mEq/L (-9-1.8); HCO3 ABG 30 mmol/L (19-24); Oxygen Saturation ABG 99.4 % (90-95); PCO2 ABG 46 mmHg (35-46); PO2 ABG 180 mmHg (80-95); pH ABG 7.44 (7.35-7.45)
[2020-07-24 06:02] LABS: Allen Test Pos (Pos)
[2020-07-24 06:12] LABS: Partial Thromboplastin Time 26.6 Seconds (21.0-31.0); Prothrombin Time 10.9 Seconds (9.0-12.0)
[2020-07-24 06:21] LABS: Albumin Level 3.4 gm/dl (3.4-5.0); BUN Creatinine Ratio 12.3 (10-20); Creatinine Clr Calc Pharmacy 70.4 ml/min; Est GFR (African American) 101.6; Est GFR (Non-African American) 87.6; Magnesium 2.1 mg/dl (1.8-2.4); Potassium 3.4 mmol/L (3.5-5.1)
[2020-07-24 06:37] LABS: Phosphorus 2.8 mg/dl (2.5-4.9); Troponin I 0.062 ng/ml (0-0.045)
[2020-07-24] MEDS: BUDESONIDE 0.5 MG/2 ML VIAL (PULMICORT) NEB SCH (07:05)
[2020-07-24] MEDS: METOCLOPRAMIDE HCL 5 MG TABLET PO SCH ×3 (07:23→16:46)
--- NOTE | 2020-07-24 08:31 | Hospitalist Progress Note ---
Date of Service July 24, 2020 Assessment & Plan (1) Acute on chronic respiratory failure with hypoxia: Acute on chronic respiratory failure with hypoxia/acute exacerbation of COPD/pneumonia- Received methylprednisolone, DuoNeb, and ceftriaxone in the ED. Pulmonary changed to p.o. prednisolone x10 days,stopping ceftriaxone 1 g IV daily, azithromycin to be continued 3x a week for anti inflammatory effects Continues with guaifenesin extended release 600 mg p.o. twice daily, Xopenex/At rovent nebulizers, Pulmicort Respules 0.5 mg inhaled twice daily, Pt will supply Symbicort to use TID and pulmonary med added spiriva Patient typically is on 3 L of oxygen at home (2) Coronary artery disease: CAD/HTN/CHF/elevated troponin- elevation of troponin is demand ischemia Continues on aspirin, furosemide, potassium chloride, typically follows with Dr Purvis, no plans for further work up (3) CHF (congestive heart failure): Chronic systolic heart failure, remains stable at this time (4) Anxiety and depression: Continue escitalopram 10 mg p.o. twice daily (5) Hypothyroidism: Continue levothyroxine 137 mcg daily (6) GERD (gastroesophageal reflux disease): GERD/Cronin's esophagus- Continue cimetidine and lansoprazole or substitute, also uses reglan regularly (7) Cronin esophagus: (8) Migraine without aura: Continue sumatriptan (9) Hypercholesterolemia: Continue Zetia and pravastatin (10) Breast implant leak: Seen on ultrasound of breast January 2019 recommend follow-up plastic surgery (11) Headache: Patient requests additional dose of sumatriptan today we will also try some ketorolac however she already has polypharmacy for multiple somatic complaints Admission and Anticipated Discharge Date Admission Date: July 22, 2020 Subjective 74-year-old woman with CAD (drug-eluting stent 2004, 2017 cath with only borderline disease), resolved cardiomyopathy (EF 65% 2013), and severe COPD who was admitted 07/22/20 with acute exacerbation of COPD and mildly elevated troponin. Patient is had no further chest pain but continues to have fairly significant complaints of dyspnea. According to pulmonary medicine she has significant reduction in her pulmonary function test previously Troponin curve is fairly flat (0.040.07 range). ECG today shows sinus rhythm with flattened T waves (anterior T wave inversion noted yesterday has resolved). No specific complaints at the time of my evaluation. No dyspnea at rest. Review of Systems Review of Systems: Mild distress and fatigue Chronic daily headache but no complaints of blurry or double vision no speech or swallowing issues no chest pain, pressure or palpitations Increased over baseline shortness of breath, nonproductive cough but no wheezes no abdominal pain, nausea or vomiting, diarrhea or constipation no dysuria, hematuria or frequency no focal joint pain or swelling no back pain, CVA tenderness or radicular pain no bruising, bleeding or rashes no focal signs of weakness or numbness or altered sensation no complaints or anxiety or depression. Physical Exam Physical Exam: The patient appeared thin but in no significant distress Vital signs as documented. Head exam is normocephalic atraumatic no scleral icterus Neck is without JVD, thyromegaly, or carotid bruits. Lungs are creased air movement in all lung bell no focal loss no expiratory wheeze Cardiac exam, Rhythm is regular.. No murmurs, rubs or gallops. Abdominal exam reveals normal bowel sounds, soft non tender, no masses Extremities are nonedematous and both pedal pulses are normal. Neurologic exam is alert and oriented, no focal loss of strength or sensation Skin is without bruises or rashes Psychologically is without concerns for anxiety or depression. Results & Data Results & Data ([facility]) Vital Signs (Past 12 Hours) Vital Signs Temp Pulse Pulse Resp BP Pulse Ox 07/24/20 07:48 97.3 F L 87 16 112/71 100 07/24/20 07:06 89 18 98 07/24/20 04:10 98.1 F 96 H 18 98/52 L 94 07/24/20 00:48 101 H 20 95 07/23/20 23:59 107 H 07/23/20 23:49 98.1 F 89 18 134/78 100 PG Care Time/CCT Total # of Minutes Spent Total Time Spent with Patient: Total time spent is greater than 50% in coordination of care (as documented) at patient's floor/unit and/or counseling patient: Coding Level of Care Code 03053 Subseq Hosp Care Lvl 3 Diagnoses Acute on chronic respiratory failure with hypoxia J96.21 Coronary artery disease I25.10 Associated angina: without angina Coronary Disease-Associated Artery/Lesion type: [place] artery [place] vs. transplanted heart: [place] heart CHF (congestive heart failure) I50.22 Heart failure chronicity: chronic Heart failure type: systolic Anxiety and depression F41.9; F32.9 Hypothyroidism E03.9 Hypothyroidism type: unspecified GERD (gastroesophageal reflux disease) K21.9 Esophagitis presence: esophagitis presence not specified Cronin esophagus K22.70 Migraine without aura G43.009 Intractability: not intractable Status migrainosus presence: without status migrainosus Hypercholesterolemia E78.00 Breast implant leak T85.43XA Headache R51 (1) Coronary artery disease Associated angina: without angina Coronary Disease-Associated Artery/Lesion type: [place] artery [place] vs. transplanted heart: [place] heart Qualified Code(s): I25.10 - Atherosclerotic heart disease of [place] coronary artery without angina pectoris (2) Migraine without aura Intractability: not intractable Status migrainosus presence: without status migrainosus Qualified Code(s): G43.009 - Migraine without aura, not intractable, without status migrainosus (3) CHF (congestive heart failure) Heart failure chronicity: chronic Heart failure type: systolic Qualified Code(s): I50.22 - Chronic systolic (congestive) heart failure (4) Hypothyroidism Hypothyroidism type: unspecified Qualified Code(s): E03.9 - Hypothyroidism, unspecified (5) GERD (gastroesophageal reflux disease) Esophagitis presence: esophagitis presence not specified Qualified Code(s): K21.9 - Gastro-esophageal reflux disease without esophagitis
[2020-07-24] MEDS: FLUTICASONE/VILANTEROL 200/25MCG 14 PUFFS/INHALER INH SCH (09:10)
[2020-07-24] MEDS: PANTOprazole 40 MG TAB PO SCH ×2 (09:11→20:05)
[2020-07-24] MEDS: predniSONE 10 MG TABLET PO SCH (09:13)
[2020-07-24] MEDS: ASCORBIC ACID 500 MG TAB PO SCH ×2 (09:14→20:06)
[2020-07-24] MEDS: SPIRONOLACTONE 25 MG TAB PO SCH ×2 (09:16→19:57)
[2020-07-24] MEDS: OXYBUTYNIN CHLORIDE 5 MG TAB PO SCH ×4 (09:17→20:01)
[2020-07-24] MEDS: LACTOBACILLUS ACIDOPHILUS (FLORANEX) TAB PO SCH (09:18)
[2020-07-24] MEDS: METHOCARBAMOL 750 MG TABLET PO SCH ×2 (09:18→20:05)
[2020-07-24] MEDS: ESCITALOPRAM OXALATE 10 MG TAB PO SCH ×2 (09:18→20:03)
[2020-07-24] MEDS: guaiFENesin 600 MG TABCR PO SCH ×2 (09:18→20:03)
[2020-07-24] MEDS: GABAPENTIN 600 MG TAB PO SCH ×4 (09:19→20:04)
[2020-07-24] MEDS: ZINC SULFATE 220 MG CAPSULE PO SCH ×2 (09:19→20:06)
[2020-07-24] MEDS: FUROSEMIDE 80 MG TAB PO SCH (09:20)
[2020-07-24] MEDS: NYSTATIN SUSP 500,000 U/5 ML UDC PO SCH ×4 (09:21→20:03)
[2020-07-24] MEDS: SIMETHICONE 80 MG CHEW PO SCH ×2 (09:22→20:04)
[2020-07-24] MEDS: POTASSIUM CHLORIDE 20 MEQ TABCR PO SCH ×3 (09:22→20:02)
[2020-07-24] MEDS: AZITHROMYCIN 500 MG in DEXTROSE 5% 250 ML IV SCH (09:35)
[2020-07-24] MEDS: HEPARIN SOD 5,000 UNIT/0.5 ML VIAL SQ SCH ×2 (10:07→20:02)
--- NOTE | 2020-07-24 10:21 | Cardiology Progress Note ---
Date of Service July 24, 2020 Assessment & Plan (1) Elevated troponin I level: Given the degree of her respiratory distress on presentation and in the absence of chest pain or diagnostic ECG changes, feel that her mild troponin elevation is most consistent with demand ischemia. Recommend ongoing medical management with the following: -- Continue Aspirin 81 mg daily. -- Continue Pravastatin 20 mg each evening. -- Continue Zetia 10 mg daily. No need for anticoagulation beyond DVT prophylaxis. (2) CAD (coronary artery disease): -- As outlined above. -- Ongoing medical management. (3) Acute exacerbation of chronic obstructive pulmonary disease: Respiratory status improving, followed by pulmonology. (4) CHF (congestive heart failure): She appears euvolemic on furosemide 80 mg daily. Will need to augment her potassium supplement with mild hypokalemia today. Admission and Anticipated Discharge Date Admission Date: July 22, 2020 Subjective 74-year-old woman with CAD (drug-eluting stent 2004, 2017 cath with only b orderline disease), resolved cardiomyopathy (EF 65% 2013), and severe COPD who was admitted 07/22/20 with acute exacerbation of COPD and mildly elevated troponin. She had an uneventful night and is generally feeling better today. She denies chest pain at any time. Troponin curve is fairly flat (0.040.07 range). ECG today shows sinus rhythm with flattened T waves (anterior T wave inversion noted yesterday has resolved). No specific complaints at the time of my evaluation. No dyspnea at rest. Physical Exam Physical Exam: No distress, sitting quietly. Skin: No obvious ecchymoses, no generalized lesions. HEENT: unremarkable. Neck: Jugular venous pulse just above the clavicle at 90 with increased respiratory variation, no carotid bruits. Lungs: Moderately decreased breath sounds, no wheezing on quiet respiration but diffuse wheezing on forced exhalation. No accessory muscle use, abdominal paradox, or nasal flaring. Cardiac: regular rhythm and no murmur or gallop. Abdomen benign. Extremities: No pretibial edema, diminished but palpable lower extremity pulses, excellent capillary refill (one second). Neurologic: normal affect, nonfocal. Results & Data ([facility]) Laboratory Results Sodium 133, potassium 3.4, chloride 93, CO2 30, BUN 8, creatinine 0.66. Diagnostic Findings ECG as noted in HPI. PG Care Time/CCT Total # of Minutes Spent Total Time Spent with Patient: Total time spent is greater than 50% in coordination of care (as documented) at patient's floor/unit and/or counseling patient: Coding Level of Care Code 31170 Subseq Hosp Care Lvl 3 Diagnoses Elevated troponin I level R79.89 CAD (coronary artery disease) I25.10 Acute exacerbation of chronic obstructive pulmonary disease J44.1 CHF (congestive heart failure) I50.22 Heart failure type: systolic Heart failure chronicity: chronic (1) CHF (congestive heart failure) Heart failure type: systolic Heart failure chronicity: chronic Qualified Code(s): I50.22 - Chronic systolic (congestive) heart failure
--- NOTE | 2020-07-24 13:45 | Pulmonology Progress Note ---
Date of Service July 24, 2020 Assessment & Plan (1) COPD with exacerbation: 74-year-old female with a history of severe COPD, CHF, chronic hypoxemic respiratory failure and a history of multidrug-resistant stenotrophomonas maltophilia and Achromobacter presenting to the hospital with a COPD exacerbation. Given that she has not any significant fevers, normal procalcitonin level and no discrete infiltrates on imaging, I am discontinuing her antibiotics. Patient is on Thursday, Thursday and Thursday prophylactic azithromycin as an anti- inflammatory. Recommend continuing this as an outpatient. I have placed an order for her to use Symbicort 3 times a day while in the hospital. This appears to be the medication that seems to improve her shortness of breath the most compared to other inhalers. I will also prescribe her Spiriva. The morning ABG did not represent any significant hypercapnia. Continue oxygen to maintain sats 88 to 92%. Continue 30 mg of p.o. prednisone for total 10-day course including the IV Solu-Medrol that she received on admission. Patient has very advanced lung disease and actually was evaluated for lung transplant at [facility]. She noted that she did not want to proceed with a lung transplantation due to all the complications related to lung transplant. She also has a history of multidrug-resistant organisms and I placed her on contact isolation's. Sputum cultures growing gram-negative rods. 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 Lastly, she has a stable 7.52 mm right upper lobe lung nodule that will need follow-up. Pulmonary will continue to follow along with you. Thank you for the consult. (2) 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: (3) Acute on chronic respiratory failure with hypoxia and hypercapnia: (4) Cough with sputum: (5) Lung nodule: Admission and Anticipated Discharge Date Admission Date: July 22, 2020 Subjective Patient notes that she had a difficult night last night with frequent coughing and wheezing. She also notes that she was very short of breath this morning and had a panic attack. She is upset that she is not getting her Symbicort inhaler and describes that Breo does nothing for her. She notes that her breathing is a little bit better this afternoon. She denies any chest pain. Review of Systems Review of Systems: All systems reviewed & are unremarkable except as noted in HPI & below Physical Exam Constitutional: Elderly-appearing and frail. No apparent distress. Coughing frequently during the exam. Eyes: PERRL, conjunctivae normal, anicteric sclerae ENMT: external ear and nose normal, oropharynx normal Neck: normal visual inspection Respiratory: Mild expiratory wheezing noted in the lower lobes. Prolonged phase of exhalation. Cardiovascular: RRR, no murmur, no edema Gastrointestinal (Abdomen): normal bowel sounds, soft, nontender, no hepatosplenomegaly Musculoskeletal: no cyanosis or clubbing, extremities motor strength 5/5 Skin: no rashes, warm and dry Neurologic: PERRL, EOMI, accommodation nl, no face palsy, no dysarthria Psychiatric: A+Ox3, euthymic affect Results & Data Results & Data ([facility]) Vital Signs (Past 12 Hours) Vital Signs Temp Pulse Resp BP Pulse Ox 07/24/20 11:52 98.6 F 95 H 18 104/67 95 07/24/20 07:48 97.3 F L 87 16 112/71 100 07/24/20 07:06 89 18 98 07/24/20 04:10 98.1 F 96 H 18 98/52 L 94 I reviewed vital signs, labs and imaging PG Care Time/CCT Total # of Minutes Spent Total Time Spent with Patient: Total time spent is greater than 50% in coordination of care (as documented) at patient's floor/unit and/or counseling patient: Coding Level of Care Code 03557 Subseq Hosp Care Lvl 3 Diagnoses COPD with exacerbation J44.1 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 Z86.19 Acute on chronic respiratory failure with hypoxia and hypercapnia J96.21; J96.22 Cough with sputum R05 Lung nodule R91.1
[2020-07-24] MEDS ORDERED: BUDESONIDE/FORMOTEROL FUMARATE 80/4.5 60 PUFFS/INHALER INH SCH (14:00)
[2020-07-24] MEDS: SUMAtriptan succinate 100 MG TAB PO PRN ×2 (14:04→21:41)
[2020-07-24] MEDS ORDERED: Nursing to Pharmacy Communication SCH (14:15)
[2020-07-24] MEDS: ASPIRIN 81 MG ECTAB PO SCH (20:01)
[2020-07-24] MEDS: POTASSIUM CHLORIDE 10 MEQ TABCR PO SCH (20:02)
[2020-07-24] MEDS: FAMOTIDINE 20 MG TAB PO SCH (20:04)
[2020-07-24] MEDS: PRAVASTATIN SOD 20 MG TAB PO SCH (20:04)
[2020-07-24] MEDS: ACETAMINOPHEN 500 MG TAB PO SCH (20:05)
[2020-07-24] MEDS: BUDESONIDE/FORMOTEROL FUMARATE 160/4.5 60 PUFFS/INHALER INH SCH (20:05)
[2020-07-24] MEDS: EZETIMIBE 10 MG TABLET PO SCH (20:06)
[2020-07-25] MEDS: LEVALBUTEROL 1.25MG/0.5ML NEB INH SCH ×4 (01:03→19:12)
[2020-07-25] MEDS: IPRATROPIUM BROMIDE NEB SOLN 0.02% 2.5 ML VIAL INH SCH ×4 (01:03→19:12)
[2020-07-25] MEDS: LEVOTHYROXINE SODIUM 137 MCG TABLET PO SCH (05:50)
[2020-07-25 07:24] LABS: Partial Thromboplastin Ratio 0.8; Partial Thromboplastin Time 22.5 Seconds (21.0-31.0); Prothrombin Time 10.3 Seconds (9.0-12.0)
[2020-07-25 07:28] LABS: Albumin Level 3.5 gm/dl (3.4-5.0); BUN Creatinine Ratio 9.6 (10-20); Calcium 8.8 mg/dl (8.5-10.1); Creatinine Clr Calc Pharmacy 70.9 ml/min; Est GFR (African American) 102.1; Est GFR (Non-African American) 88.1; Magnesium 2.8 mg/dl (1.8-2.4); Phosphorus 3.2 mg/dl (2.5-4.9); Potassium 4.1 mmol/L (3.5-5.1)
[2020-07-25 07:36] LABS: Basophils # (auto) 0.05 K/uL (0-0.2); Basophils % (auto) 0.7 %; Eosinophils # (auto) 0.58 K/uL (0-0.5); Eosinophils % (auto) 8.3 %; Hematocrit (blood only) 39.3 % (37-47); Hemoglobin 13.2 g/dL (12.0-16.0); Immature Granulocytes # (auto) 0.04 K/uL (0.00-0.02); Immature Granulocytes % (auto) 0.6 %; Lymphocytes # (auto) 1.71 K/uL (1.2-3.4); Lymphocytes % (auto) 24.3 %; Mean Corpuscular Hemoglobin 32.3 pg (25-34); Mean Corpuscular Hgb Conc 33.6 g/dL (32-36); Mean Corpuscular Volume 96.1 fL (80-100); Mean Platelet Volume 9.2 fL (7.4-10.4); Monocytes # (auto) 0.71 K/uL (0.11-0.59); Monocytes % (auto) 10.1 %; Neutrophils # (auto) 3.94 K/uL (1.4-6.5); Platelet Count 234 K/uL (130-400); RDW Coefficient of Variation 13.3 % (11.5-14.5); RDW Standard Deviation 46.6 fL (36.4-46.3); Red Blood Count 4.09 M/uL (4.2-5.4); White Blood Count 7.03 K/uL (4.8-10.8)
[2020-07-25] MEDS: UMECLIDINIUM BROMIDE 62.5MCG/BLISTER 7 PUFFS/INHALER INH SCH (07:57)
[2020-07-25] MEDS: BUDESONIDE/FORMOTEROL FUMARATE 160/4.5 60 PUFFS/INHALER INH SCH ×3 (07:58→21:42)
[2020-07-25] MEDS: METOCLOPRAMIDE HCL 5 MG TABLET PO SCH ×3 (07:58→16:39)
[2020-07-25] MEDS: METHOCARBAMOL 750 MG TABLET PO SCH ×2 (07:59→21:42)
[2020-07-25] MEDS: predniSONE 10 MG TABLET PO SCH (07:59)
[2020-07-25] MEDS: POTASSIUM CHLORIDE 20 MEQ TABCR PO SCH ×2 (08:00→08:02)
[2020-07-25] MEDS: SIMETHICONE 80 MG CHEW PO SCH ×2 (08:01→21:38)
[2020-07-25] MEDS: PANTOprazole 40 MG TAB PO SCH ×2 (08:02→21:39)
[2020-07-25] MEDS: GABAPENTIN 600 MG TAB PO SCH ×3 (08:03→21:41)
[2020-07-25] MEDS: NYSTATIN SUSP 500,000 U/5 ML UDC PO SCH ×4 (08:03→21:41)
[2020-07-25] MEDS: guaiFENesin 600 MG TABCR PO SCH ×2 (08:04→21:40)
[2020-07-25] MEDS: LACTOBACILLUS ACIDOPHILUS (FLORANEX) TAB PO SCH (08:05)
[2020-07-25] MEDS: ESCITALOPRAM OXALATE 10 MG TAB PO SCH ×2 (08:06→21:40)
[2020-07-25] MEDS: SPIRONOLACTONE 25 MG TAB PO SCH ×2 (08:06→16:44)
[2020-07-25] MEDS: OXYBUTYNIN CHLORIDE 5 MG TAB PO SCH ×4 (08:06→21:41)
[2020-07-25] MEDS: HEPARIN SOD 5,000 UNIT/0.5 ML VIAL SQ SCH ×2 (08:07→21:37)
[2020-07-25] MEDS: FUROSEMIDE 80 MG TAB PO SCH (08:08)
[2020-07-25] MEDS: ZINC SULFATE 220 MG CAPSULE PO SCH ×2 (08:09→21:39)
[2020-07-25] MEDS: ASCORBIC ACID 500 MG TAB PO SCH ×2 (08:10→21:40)
--- NOTE | 2020-07-25 10:39 | Pulmonology Progress Note ---
Date of Service July 25, 2020 Assessment & Plan (1) COPD with exacerbation: 74-year-old female with a history of severe COPD, CHF, chronic hypoxemic respiratory failure and a history of multidrug-resistant stenotrophomonas maltophilia and Achromobacter presenting to the hospital with a COPD exacerbation. Patient is on Thursday, Thursday and Thursday prophylactic azithromycin as an anti- inflammatory. Recommend continuing this as an outpatient. Continue Symbicort 3 times a day while in the hospital. This appears to be the medication that seems to improve her shortness of breath the most compared to other inhalers. Continue incruse while inpatient. The morning ABG did not represent any significant hypercapnia. Continue oxygen to maintain sats 88 to 92%. Continue 30 mg of p.o. prednisone for total 10-day course including the IV Solu-Medrol that she received on admission. Patient has very advanced lung disease and actually was evaluated for lung transplant at [facility]. She noted that she did not want to proceed with a lung transplantation due to all the complications related to lung transplant. She also has a history of multidrug-resistant organisms and I placed her on contact isolation's. Sputum cultures growing gram-negative rods. 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 Lastly, she has a stable 7.52 mm right upper lobe lung nodule that will need follow-up. Pulmonary will follow peripherally. Please call with questions. Thank you for the consult. (2) 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: (3) Acute on chronic respiratory failure with hypoxia and hypercapnia: (4) Cough with sputum: (5) Lung nodule: Admission and Anticipated Discharge Date Admission Date: July 22, 2020 Subjective better last night. She is using herPatient describes she is feeling much better today. She slept much Symbicort 3 times a day now which she is pleased with. She says she has not yet ready to go home. Review of Systems Review of Systems: All systems reviewed & are unremarkable except as noted in HPI & below Physical Exam Eyes: PERRL, conjunctivae normal, anicteric sclerae ENMT: external ear and nose normal, oropharynx normal Neck: normal visual inspection Respiratory: normal respiratory effort, lungs clear to auscultation Cardiovascular: RRR, no murmur, no edema Gastrointestinal (Abdomen): normal bowel sounds, soft, nontender, no hepatosplenomegaly Musculoskeletal: no cyanosis or clubbing, extremities motor strength 5/5 Skin: no rashes, warm and dry Neurologic: PERRL, EOMI, accommodation nl, no face palsy, no dysarthria Psychiatric: A+Ox3, euthymic affect Results & Data Results & Data ([facility]) Vital Signs (Past 12 Hours) Vital Signs Temp Pulse Pulse Resp BP Pulse Ox 07/25/20 09:27 82 137/78 07/25/20 07:40 97.9 F 100 H 22 123/71 94 07/25/20 07:18 87 07/25/20 07:10 90 17 99 07/25/20 03:55 98.8 F 93 H 22 129/76 97 07/25/20 01:03 90 18 97 07/24/20 22:59 97.9 F 87 18 113/69 100 PG Care Time/CCT Total # of Minutes Spent Total Time Spent with Patient: Total time spent is greater than 50% in co ordination of care (as documented) at patient's floor/unit and/or counseling patient: Coding Level of Care Code 20017 Subseq Hosp Care Lvl 2 Diagnoses COPD with exacerbation J44.1 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 Z86.19 Acute on chronic respiratory failure with hypoxia and hypercapnia J96.21; J96.22 Cough with sputum R05 Lung nodule R91.1
--- NOTE | 2020-07-25 14:03 | Electrocardiogram Report ---
Test Reason : Blood Pressure : / mmHG Vent. Rate : 086 BPM Atrial Rate : 086 BPM P-R Int : 136 ms QRS Dur : 082 ms QT Int : 390 ms P-R-T Axes : 076 070 077 degrees QTc Int : 466 ms Poor data quality, interpretation may be adversely affected Normal sinus rhythm Abnormal ECG When compared with ECG of 23-JUL-2020 06:56, No significant change Confirmed by Frederick Matos ([id number]) on 07/25/2020 2:03:17 PM Referred By: REFERRED SELF Confirmed By:Frederick Matos
--- NOTE | 2020-07-25 16:41 | Hospitalist Progress Note ---
Date of Service July 25, 2020 Assessment & Plan (1) Acute on chronic respiratory failure with hypoxia: Acute on chronic respiratory failure with hypoxia/acute exacerbation of COPD/pneumonia- Received methylprednisolone, DuoNeb, and ceftriaxone in the ED. Pulmonary changed to p.o. prednisolone x10 days,stopping 08/01 azithromycin to be continued 3x a week for anti inflammatory effects Continues with guaifenesin extended release 600 mg p.o. twice daily, Xopenex/Atrovent nebulizers, Pulmicort Respules 0.5 mg inhaled twice daily, Pt will supply Symbicort to use TID and pulmonary added spiriva Patient typically is on 3 L of oxygen at home (2) Coronary artery disease: CAD/HTN/CHF/elevated troponin-no plans for further testing per cardiology elevation of troponin is demand ischemia Continues on aspirin, furosemide, potassium chloride, typically follows with Dr Purvis, no plans for further work up (3) CHF (congestive heart failure): Chronic systolic heart failure, remains stable at this time (4) Anxiety and depression: Continue escitalopram 10 mg p.o. twice daily (5) Hypothyroidism: Continue levothyroxine 137 mcg daily (6) GERD (gastroesophageal reflux disease): GERD/Cronin's esophagus- Continue cimetidine and lansoprazole or substitute, also uses reglan regularly (7) Cronin esophagus: see above (8) Migraine without aura: Continue sumatriptan (9) Hypercholesterolemia: Continue Zetia and pravastatin (10) Breast implant leak: Seen on ultrasound of breast January 2019 recommend follow-up plastic surgery (11) Headache: Patient requests additional dose of sumatriptan, also try some ketorolac. however she already has polypharmacy for multiple somatic complaints Admission and Anticipated Discharge Date Admission Date: July 22, 2020 Subjective 74-year-old woman with CAD (drug-eluting stent 2004, 2017 cath with only borderline disease), resolved cardiomyopathy (EF 65% 2013), and severe COPD who was admitted 07/22/20 with acute exacerbation of COPD and mildly elevated troponin. Patient is had no further chest pain but continues to have fairly significant complaints of dyspnea. According to pulmonary medicine she has significant reduction in her pulmonary function test previously. Pt feels slow and steady improvement feels that today is "too soon" to go home as she does not have her strenght back Troponin curve is fairly flat (0.040.07 range). ECG today shows sinus rhythm with flattened T waves (anterior T wave inversion noted yesterday has resolved). No specific complaints at the time of my evaluation. No dyspnea at rest. Review of Systems Review of Systems: Mild distress and fatigue Chronic daily headache but no complaints of blurry or double vision no speech or swallowing issues no chest pain, pressure or palpitations Increased over baseline shortness of breath, nonproductive cough but no wheezes no abdominal pain, nausea or vomiting, diarrhea or constipation no dysuria, hematuria or frequency no focal joint pain or swelling no back pain, CVA tenderness or radicular pain no bruising, bleeding or rashes no focal signs of weakness or numbness or altered sensation no complaints or anxiety or depression. Physical Exam Physical Exam: The patient appeared thin but in no significant distress Vital signs as documented. Head exam is normocephalic atraumatic no scleral icterus Neck is without JVD, thyromegaly, or carotid bruits. Lungs are creased air movement in all lung bell no focal loss no expiratory wheeze Cardiac exam, Rhythm is regular.. No murmurs, rubs or gallops. Abdominal exam reveals normal bowel sounds, soft non tender, no masses Extremities are nonedematous and both pedal pulses are normal. Neurologic exam is alert and oriented, no focal loss of strength or sensation Skin is without bruises or rashes Psychologically is without concerns for anxiety or depression. Results & Data Results & Data ([facility]) Vital Signs (Past 12 Hours) Vital Signs Temp Pulse Pulse Pulse Pulse Resp BP 07/25/20 16:00 96 H 07/25/20 15:16 97.9 F 107 H 19 127/71 07/25/20 12:25 111 H 25 H 07/25/20 11:51 97.7 F 106 H 20 138/68 07/25/20 09:27 82 137/78 07/25/20 07:40 97.9 F 100 H 22 123/71 07/25/20 07:18 87 07/25/20 07:10 90 17 Pulse Ox 07/25/20 16:00 07/25/20 15:16 92 07/25/20 12:25 93 07/25/20 11:51 94 07/25/20 09:27 07/25/20 07:40 94 07/25/20 07:18 09/23/20 07:10 99 PG Care Time/CCT Total # of Minutes Spent Total Time Spent with Patient: Total time spent is greater than 50% in coordination of care (as documented) at patient's floor/unit and/or counseling patient: Coding Level of Care Code 30697 Subseq Hosp Care Lvl 2 Diagnoses Acute on chronic respiratory failure with hypoxia J96.21 Coronary artery disease I25.10 Coronary Disease-Associated Artery/Lesion type: [place] artery [place] vs. transplanted heart: [place] heart Associated angina: without angina CHF (congestive heart failure) I50.22 Heart failure type: systolic Heart failure chronicity: chronic Anxiety and depression F41.9; F32.9 Hypothyroidism E03.9 Hypothyroidism type: unspecified GERD (gastroesophageal reflux disease) K21.9 Esophagitis presence: esophagitis presence not specified Cronin esophagus K22.70 Migraine without aura G43.009 Status migrainosus presence: without status migrainosus Intractability: not intractable Hypercholesterolemia E78.00 Breast implant leak T85.43XA Headache R51 (1) Coronary artery disease Coronary Disease-Associated Artery/Lesion type: [place] artery [place] vs. transplanted heart: [place] heart Associated angina: without angina Qualified Code(s): I25.10 - Atherosclerotic heart disease of [place] coronary artery without angina pectoris (2) CHF (congestive heart failure) Heart failure type: systolic Heart failure chronicity: chronic Qualified Code(s): I50.22 - Chronic systolic (congestive) heart failure (3) Hypothyroidism Hypothyroidism type: unspecified Qualified Code(s): E03.9 - Hypothyroidism, unspecified (4) GERD (gastroesophageal reflux disease) Esophagitis presence: esophagitis presence not specified Qualified Code(s): K21.9 - Gastro-esophageal reflux disease without esophagitis (5) Migraine without aura Status migrainosus presence: without status migrainosus Intractability: not intractable Qualified Code(s): G43.009 - Migraine without aura, not intractable, without status migrainosus
[2020-07-25] MEDS: EZETIMIBE 10 MG TABLET PO SCH (21:38)
[2020-07-25] MEDS: PRAVASTATIN SOD 20 MG TAB PO SCH (21:39)
[2020-07-25] MEDS: POTASSIUM CHLORIDE 10 MEQ TABCR PO SCH (21:39)
[2020-07-25] MEDS: FAMOTIDINE 20 MG TAB PO SCH (21:40)
[2020-07-25] MEDS: ASPIRIN 81 MG ECTAB PO SCH (21:41)
[2020-07-25] MEDS: ACETAMINOPHEN 500 MG TAB PO SCH (21:42)
[2020-07-25] MEDS: CLORAZEPATE DIPOTASSIUM 3.75 MG TAB PO PRN (21:54)
[2020-07-26] MEDS: LEVALBUTEROL 1.25MG/0.5ML NEB INH SCH ×2 (00:11→07:05)
[2020-07-26] MEDS: IPRATROPIUM BROMIDE NEB SOLN 0.02% 2.5 ML VIAL INH SCH ×2 (00:11→07:05)
[2020-07-26] MEDS: SUMAtriptan succinate 100 MG TAB PO PRN (00:12)
[2020-07-26] MEDS ORDERED: BENZONATATE 100 MG CAPSULE PO PRN (01:49)
[2020-07-26] MEDS ORDERED: guaiFENesin SUGAR FREE 100 MG/5 ML UDC PO PRN (01:49)
[2020-07-26] MEDS: LEVOTHYROXINE SODIUM 137 MCG TABLET PO SCH (05:33)
[2020-07-26] MEDS: PANTOprazole 40 MG TAB PO SCH (07:30)
[2020-07-26] MEDS: guaiFENesin 600 MG TABCR PO SCH (07:30)
[2020-07-26] MEDS: NYSTATIN SUSP 500,000 U/5 ML UDC PO SCH (07:30)
[2020-07-26] MEDS: OXYBUTYNIN CHLORIDE 5 MG TAB PO SCH (07:30)
[2020-07-26] MEDS: ESCITALOPRAM OXALATE 10 MG TAB PO SCH (07:31)
[2020-07-26] MEDS: GABAPENTIN 600 MG TAB PO SCH (07:31)
[2020-07-26] MEDS: FUROSEMIDE 80 MG TAB PO SCH (07:32)
[2020-07-26] MEDS: POTASSIUM CHLORIDE 20 MEQ TABCR PO SCH (07:32)
[2020-07-26] MEDS: ZINC SULFATE 220 MG CAPSULE PO SCH (07:33)
[2020-07-26] MEDS: LACTOBACILLUS ACIDOPHILUS (FLORANEX) TAB PO SCH (07:33)
[2020-07-26] MEDS: ASCORBIC ACID 500 MG TAB PO SCH (07:34)
[2020-07-26] MEDS: UMECLIDINIUM BROMIDE 62.5MCG/BLISTER 7 PUFFS/INHALER INH SCH (07:35)
[2020-07-26] MEDS: predniSONE 10 MG TABLET PO SCH (07:35)
[2020-07-26] MEDS: SIMETHICONE 80 MG CHEW PO SCH (07:39)
[2020-07-26] MEDS: HEPARIN SOD 5,000 UNIT/0.5 ML VIAL SQ SCH (07:40)
[2020-07-26] MEDS: BUDESONIDE/FORMOTEROL FUMARATE 160/4.5 60 PUFFS/INHALER INH SCH (07:40)
[2020-07-26] MEDS: SPIRONOLACTONE 25 MG TAB PO SCH (07:41)
[2020-07-26] MEDS: METHOCARBAMOL 750 MG TABLET PO SCH (07:41)
[2020-07-26] MEDS: METOCLOPRAMIDE HCL 5 MG TABLET PO SCH (07:51)
--- NOTE | 2020-07-26 10:32 | Discharge Summary ---
Date of Service July 26, 2020 Admission HPI Per Admitting Provider The patient is a 74-year-old female with a past medical history including anxiety and depression, Cronin's esophagus, stented coronary arteries, DJD, urinary incontinence, hypertension, COPD, hypothyroidism, migraine without aura, CAD, hypercholesterolemia, CHF, COPD exacerbation, sepsis and pneumonia. She reports that she began to develop progressively worsening shortness of breath and chest pressure along with cough, over the past month since her Symbicort was decreased. She reports that she has had to use her albuterol/ ipratropium bromide nebulizer more frequently from the previous 2 times daily up to 4 times daily, without significant improvement. Her cough is gradually become more productive, and discolored. She denies any recent travels or sick exposures. She reports having migraine headaches, that are relieved by sumatriptan, over the past 2 years. In the emergency department, patient received methylprednisolone 125 mg IV x1, DuoNeb x1, and ceftriaxone 1 g IV. Principal Diagnosis acute on chronic respiratory failure with hypoxia Discharge Exam The patient appeared chronically ill Vital signs as documented. Lungs are diminished with poor air movement Cardiac exam, Rhythm is regular.. No murmurs, rubs or gallops. Abdominal exam reveals normal bowel sounds, soft non tender, no masses Extremities are nonedematous and both pedal pulses are normal. Neurologic exam is alert and oriented, no focal loss of strength or sensation Skin is without bruises or rashes Psychologically is without concerns for anxiety or depression. Discharge Data Allergies Allergy/AdvReac Type Severity Reaction Status Date / Time Sulfa (Sulfonamide Allergy Intermediate Hives Verified 07/22/20 23:46 Antibiotics) cortisone Allergy Unknown RASH FOR 3 Verified 07/22/20 23:46 MONTHS levofloxacin Allergy Unknown RASH Verified 07/22/20 23:46 nortriptyline Allergy Unknown RASH Verified 07/22/20 23:46 hydrocortisone Allergy Unknown Verified 07/22/20 23:46 [From Cortizone-10] Consultations 07/22/20 22:21 ED Decision to Admit Stat 07/23/20 01:04 Consult Case Management - Discharge Planning Routine Consult Pulmonology Routine 07/23/20 03:55 Consult Cardiology Routine Ordered Studies 07/22/20 21:21 CT angio chest PE protocol Urgent Hospital Course (1) Acute on chronic respiratory failure with hypoxia: Acute on chronic respiratory failure with hypoxia/acute exacerbation of COPD/pneumonia- Received methylprednisolone, DuoNeb, and ceftriaxone in the ED. Pulmonary changed to p.o. prednisolone x10 days,stopping 08/01 azithromycin to be continued 3x a week for anti inflammatory effects Continues with guaifenesin extended release 600 mg p.o. twice daily, Xopenex/Atrovent nebulizers, Pulmicort Respules 0.5 mg inhaled twice daily, Pt will supply Symbicort to use TID and pulmonary continues spiriva Patient typically is on 3 L of oxygen at home (2) Coronary artery disease: CAD/HTN/CHF/elevated troponin-no plans for further testing per cardiology elevation of troponin is demand ischemia Continues on aspirin, furosemide, potassium chloride, typically follows with Dr Purvis, no plans for further work up (3) CHF (congestive heart failure): Chronic systolic heart failure, remains stable at this time (4) Anxiety and depression: Continue escitalopram 10 mg p.o. twice daily (5) Hypothyroidism: Continue levothyroxine 137 mcg daily (6) GERD (gastroesophageal reflux disease): GERD/Cronin's esophagus- Continue cimetidine and lansoprazole or substitute, also uses reglan regularly (7) Cronin esophagus: see above (8) Migraine without aura: Continue sumatriptan (9) Hypercholesterolemia: Continue Zetia and pravastatin (10) Breast implant leak: Seen on ultrasound of breast January 2019 recommend follow-up plastic surgery (11) Headache: Patient requests additional dose of sumatriptan, also try some ketorolac. however she already has polypharmacy for multiple somatic complaints Total Time Total Time Spent Total Time Spent (In Minutes): It required greater than 30 minutes to prepare this patient for discharge Discharge Plan Discharge Items Patient Disposition: Home - Self-Care Reason For Visit: PNEUMONIA, COPD EX, NONSTEMI Discharge Diagnosis: acute on chronic respiratory failure with hypoxia Condition on Discharge: Good Activity: Per Instructions section Activity Comment: gradually increase activity, consider pulmonary rehab Non-emergency contact: Primary Care Provider and Bar Tacker Call non-emergency contact if: you have any medication questions Follow-up/Referrals: Tl Dougherty MD [Primary Care Provider] - Diet: Regular Addtl Attending Provider Instructions: You have been diagnosed with an exacerbation of your COPD. Dr. Steward did see you his pulmonary consult during your stay he is in agreement to continue your Symbicort 3 times a day. He will wishes for you to have a steroid taper stopping on August 01 and add a Spiriva medication. The remainder of medications should be the same. It would be helpful to discussion medications with Dr. das off as there are many medications that you may benefit from having them reduced or deleted. He did have minor elevation of your troponin however Dr. Purvis did not feel any further testing was needed, this was most likely from lower oxygen levels from your COPD Pending Studies at Discharge: No Stand-Alone Forms: My [facility], Smoking Cessation Medications and DC Order Prescriptions: New prednisone 10 mg tablet 10 mg PO UD Qty: 18 RF: 0 Continued furosemide [Lasix] 40 mg tablet 80 mg PO QAM Qty: 180 RF: 3 potassium chloride 10 mEq capsule, extended release 30 meq PO QPM Qty: 270 RF: 3 potassium chloride 10 mEq capsule, extended release 20 meq PO QAM Qty: 180 RF: 3 methocarbamol 750 mg tablet 750 mg PO .COMPLEX 30 Days Qty: 270 RF: 3 ipratropium bromide 42 mcg (0.06 %) spray,non-aerosol 2 sprays INTNAS Q8H PRN (Reason: runny nose) Qty: 30 RF: 5 levothyroxine [Synthroid] 137 mcg tablet 137 mcg PO DAILY Qty: 90 RF: 3 spironolactone [Aldactone] 25 mg tablet 25 mg PO BID Qty: 180 RF: 3 oxybutynin chloride 5 mg tablet 5 mg PO QID Qty: 360 RF: 3 ezetimibe [Zetia] 10 mg tablet 10 mg PO QPM Qty: 90 RF: 3 albuterol sulfate [Ventolin HFA] 90 mcg/actuation HFA aerosol inhaler 2 puff Inhalation QID PRN (Reason: Shortness Of Breath Or Wheezing) Qty: 54 R F: 1 albuterol sulfate 2.5 mg /3 mL (0.083 %) solution for nebulization 2.5 mg continuous nebulization Q4 PRN (Reason: Shortness Of Breath Or Wheezing) RF: 0 nystatin 100,000 unit/mL suspension 500,000 units PO QID Qty: 200 RF: 0 lysine [L-Lysine] 500 mg tablet 500 mg PO BID RF: 0 simethicone [Gas Relief Ultra Strength] 180 mg Capsule 180 mg PO QPM RF: 0 acetaminophen [Tylenol Extra Strength] 500 mg Tablet 1,000 mg PO HS RF: 0 pravastatin 10 mg Tablet 20 mg PO QPM RF: 0 nitroglycerin [Nitrostat] 0.4 mg Tablet, Sublingual 0.4 mg Sublingual UD PRN (Reason: Chest Pain) RF: 0 zinc 50 mg Tablet 50 mg PO AMHS RF: 0 coQ10 (ubiquinol) 200 mg Capsule 200 mg PO QPM RF: 0 Probiotic 3 billion cell Capsule 3 mmu cells PO DAILY RF: 0 aspirin [Aspir-81] 81 mg tablet,delayed release (DR/EC) 81 mg PO QPM RF: 0 gabapentin 600 mg tablet 600 mg PO QID RF: 0 sumatriptan succinate [Imitrex] 100 mg tablet 100 mg PO BID MDD 2 PRN (Reason: migraine headache) RF: 0 cimetidine 300 mg tablet 300 mg PO HS RF: 0 azithromycin 500 mg tablet 500 mg PO 3XWK RF: 0 metoclopramide HCl 5 mg tablet 5 mg PO AC RF: 0 lansoprazole 30 mg capsule,delayed release(DR/EC) 30 mg PO BID RF: 0 ipratropium bromide 0.02 % solution 2.5 ml inhalation Q4 PRN (Reason: Shortness Of Breath Or Wheezing) RF: 0 hydrocortisone [Proctosol HC] 2.5 % cream with perineal applicator 1 applic IA DAILY PRN (Reason: Hemorrhoids) RF: 0 clorazepate dipotassium 3.75 mg tablet 3.75 mg PO UD PRN (Reason: Sleep) RF: 0 ygvcomhxrl-yedywzm-etwepvio 50-325-40 mg capsule 1 cap PO Q6 PRN (Reason: Headache) RF: 0 Spiriva with HandiHaler 18 mcg capsule, w/inhalation device 1 cap inhalation QAM RF: 0 fluticasone propionate [Flonase Allergy Relief] 50 mcg/actuation spray,suspension 2 spray INTRANASAL QPM RF: 0 escitalopram oxalate 10 mg tablet 10 mg PO AMPM RF: 0 Medical Marijuana 0 cap PO UD RF: 0 cranberry extract 500 mg Tablet 500 mg PO DAILY RF: 0 ascorbate calcium (vitamin C) [Joanne-C] 500 mg Tablet 250 mg PO BID RF: 0 Excedrin Migraine 250-250-65 mg Tablet 1 tab PO BID PRN (Reason: Headache) RF: 0 simethicone 125 mg Tablet 125 mg PO QAM RF: 0 multivitamin [Multiple Vitamins] Tablet 1 tab PO DAILY RF: 0 Porter Milk of Magnesia 311 mg Tablet,Chewable See Rx Instructions .ROUTE .COMPLEX RF: 0 guaifenesin [Mucinex] 600 mg Tablet Extended Release 12hr 300 mg PO TID RF: 0 Changed budesonide-formoterol [Symbicort] 160-4.5 mcg/actuation Hfa Aerosol Inhaler 2 puff INHALATION TID Qty: 0 RF: 0 Discontinued 303 Muscle Relaxer 2 tab PO HS RF: 0 Discharge Orders: Discharge Order (Routine); Ordered 07/26/20 Ordered By: Titi Hinds Admission Data Admit Date/Time: 07/22/20 23:56 Attending Provider: Titi Hinds Admit Provider: Madi Fulton Primary Care Provider: Tl Dougherty Other Providers: Madi Fulton ; Hawk Craig ; Boris Purvis Other Interventions: Discharge Summary Assessment (RN) Last Done: 07/26/20 10:26 Coding Level of Care Code D/C Day Management >30 mins Diagnoses Acute on chronic respiratory failure with hypoxia J96.21 Coronary artery disease I25.10 Coronary Disease-Associated Artery/Lesion type: [place] artery [place] vs. transplanted heart: [place] heart Associated angina: without angina CHF (congestive heart failure) I50.22 Heart failure type: systolic Heart failure chronicity: chronic Anxiety and depression F41.9; F32.9 Hypothyroidism E03.9 Hypothyroidism type: unspecified GERD (gastroesophageal reflux disease) K21.9 Esophagitis presence: esophagitis presence not specified Cronin esophagus K22.70 Migraine without aura G43.009 Status migrainosus presence: without status migrainosus Intractability: not intractable Hypercholesterolemia E78.00 Breast implant leak T85.43XA Headache R51
== END 2020-07-26 11:51 | disposition home or self-care (01) | DRG 193 ==
LOC: ED 19:37 → SUATTDRO 23:56 → 2E 23:56
DX: J18.9 Pneumonia, unspecified organism; K22.70 Barrett's esophagus without dysplasia; Z79.899 Other long term (current) drug therapy; J96.21 Acute and chronic respiratory failure with hypoxia; K21.9 Gastro-esophageal reflux disease without esophagitis; I25.10 Atherosclerotic heart disease of native coronary artery without angina pectoris; I50.22 Chronic systolic (congestive) heart failure; Z79.82 Long term (current) use of aspirin; J44.1 Chronic obstructive pulmonary disease with (acute) exacerbation; G43.909 Migraine, unspecified, not intractable, without status migrainosus; F32.9 Major depressive disorder, single episode, unspecified; I11.0 Hypertensive heart disease with heart failure; E03.9 Hypothyroidism, unspecified; E78.00 Pure hypercholesterolemia, unspecified; J96.22 Acute and chronic respiratory failure with hypercapnia; J44.0 Chronic obstructive pulmonary disease with (acute) lower respiratory infection; F41.9 Anxiety disorder, unspecified

== ENCOUNTER 2021-01-20 00:37 | Inpatient (IN) ==
--- NOTE | 2021-01-20 01:02 | Emergency Department Note ---
Impression & Plan AMS (altered mental status), Lactic acidosis, Leukocytosis ED Provider Note Name: PANFILO MAN Age: 75 Sex: F Arrives Via: Ambulance Informant: Patient (poor historian), story from ED Provider: Noel Abraham MD Chief Complaint: confusion Impression: AMS Lactic Acidosis Leukocytosis Medical Decision Makin yr old female with extensive PMH with significant COPD arrives with worsening confusion over the last days. She is somnolent/obtunded on exam though does awaken some without any specific neuro deficits. CT head is negative. CXR with questionable retrocardiac congestion. WBC, Lactic acid, and procal are all elevated consistent with infection. She was given some fluids and exam with improvement in mental status. No evidence meningitis by exam nor nuchal rigidity. Given IV fluids and broad spectrum ABX. Abdomen soft, urine OK. She is on multiple sedatives which are likely contributing to somnolence in setting of infection. Prior Medical Record and Triage/Nursing Notes reviewed by Me Additional history obtained from chart Differentials:Infection, dehydration, metabolic abnormality, hypo/hyperglycemia, electrolyte disturbance, anemia, hypoxia, cardiac sources, intracerebral event, toxicologic, neurologic, as well as other pathologies. Vital Signs: reviewed and remarkable for no significant abnormalities Interventions: saline lock, zosyn iv, nss bolus, vanco iv Labs:Reviewed and remarkable for elevated wbc, lactic acid, procal Imaging:X ray results are stated below per my interpretation: Chest: 1 view: Chronic emphysema, questionable retrocardiac infiltrate EKG:Per My Interpretation: Indication AMS: NSR 96 bpm, qtc 454. No Ectopy. Lateral ST depressions which compared to EKG 01/20/21, no significant changes. Cardiac/Tele Monitoring: Cardiac Monitoring: An Order was placed for continuous cardiac monitoring. The monitor shows a rate of 90 with a normal sinus rhythm. Consults:Dr Pierre MEHTA Hospitalist Plan: Disposition:Hospitalization. Condition: Fair Story mostly from as patient too sleepy to even stay awake for conve rsation. History of Present Illness:75 yr old female arrives for evaluation of AMS. Patient has become increasingly tired and confused throughout the day. She was well yesterday without issues. Today gradually confused and difficulty remembering simple things. She became quite weak as the day went on. This evening unable to walk or even sit up. No nausea, vomiting, headache (beyond chronic migraine), neck pain, abdominal pain, back pain, urinary/bowel changes, leg swelling, rashes, calf pain, sob, cp, fevers, chills, nor other symptoms. No falls, trauma, injuries. She has taken no medications prior to arrival. notes daily/frequent Tylenol, Excedrin, Sumatriptan and Marijuana use for her chronic headaches. She is on NCO2 at all times due to COPD (quite smoking 2003). She has recently started amoxicillin in addition to her every other day Azithro for her COPD. Patient with chronic constipation unchanged recently. denies any slurred speech, focal weakness, seizure activity. He denies any concerns that she may have been using other drugs or etoh. ROS: See above HPI for pertinent positives & negatives. A total of 10 systems reviewed and were otherwise negative. Past Medical History:See Below Past Surgical History:See Below Family History:See Below Social History:See Below Home Medications:See Below Allergies:See Below Vitals:Blood Pressure: 155/69, Pulse 112, RR 16, T 36.5C, O2 95% on NC Physical Exam: GENERAL: Patient is very somnolent/obtunded appearing and in no acute distress. She awakens briefly to name and answers with simple one word answers EYES: No scleral icterus, unremarkable pupils. ENT: Mucous membranes moist, no nasal congestion. NECK: No masses appreciated, nomeningismus, trachea is midline. RESPIRATORY: No dyspnea. Clear to auscultation and equal bilaterally. No wheeze, no rhonchi. CARDIOVASCULAR: Regular rate and rhythm.No murmurs, rubs, gallops appreciated. GASTROINTESTINAL: Mild distention though abdomen soft, non-tender, no peritonitis.Bowel sounds positive.No masses appreciated. BACK: No midline tenderness, no CVA tenderness EXTREMITIES: Normal motion all extremities, no cyanosis, no edema. NEUROLOGIC: Slow slighty slurred speech. Somnolent, shaky but full ROM all extremities without focal weakness noted. No acute motor or sensory deficits, no focal weakness, cranial nerves grossly intact. SKIN: No rash, no jaundice, no diaphoresis. PSYCH: Too sleepy to get psych eval GCS: 14 ED Course: Times/Reassessments: sleepy though more aware with IV fluids. 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 Hypercholesterolemia Hypothyroidism Lung nodule Lung nodule Migraine without aura Surgical History History of bladder surgery History of breast augmentation History of cholecystectomy History of hemorrhoidectomy History of tonsillectomy Family History Unknown Lung cancer Liver cancer Colon cancer Father Liver cancer Mother Hypertension Other Family history non-contributory Social History Smoking Status: Former smoker Age Quit Using Tobacco: 60; packs per day: 2; Years Smoked: 40; Second Hand Exposure: No; Hx Alcohol Use: No Hx Substance Use: No Preferred Language: Nicaraguan Communication Ability: Effective 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: No Beliefs That Will Affect Care: None marital status: Current Living Situation: Spouse Feels Safe at Home: Yes Assistive Devices: Oxygen - Continuous Allergies Allergies Allergy/AdvReac Type Severity Reaction Status Date / Time Sulfa (Sulfonamide Allergy Intermediate Hives Verified 01/20/21 02:35 Antibiotics) cortisone Allergy Unknown RASH FOR 3 Verified 01/20/21 02:35 MONTHS levofloxacin Allergy Unknown RASH Verified 01/20/21 02:35 nortriptyline Allergy Unknown RASH Verified 01/20/21 02:35 hydrocortisone Allergy Unknown Verified 01/20/21 02:35 [From Cortizone-10] Home Meds Home Medications Medication Instructions Recorded Confirmed Probiotic 3 mmu cells PO DAILY 01/04/19 01/20/21 acetaminophen [Tylenol Extra 1,000 mg PO HS 01/04/19 01/20/21 Strength] coQ10 (ubiquinol) 200 mg PO QPM 01/04/19 01/20/21 nitroglycerin [Nitrostat] 0.4 mg SUBLINGUAL UD PRN 01/04/19 01/20/21 pravastatin 20 mg PO QPM 01/04/19 01/20/21 simethicone [Gas Relief Ultra 180 mg PO QPM 01/04/19 01/20/21 Strength] zinc 50 mg PO AMHS 01/04/19 01/20/21 lysine 500 mg tablet 500 mg PO BID tab 05/22/20 01/20/21 Excedrin Migraine 1 tab PO BID PRN 07/22/20 01/20/21 Medical Marijuana 0 dose PO UD 07/22/20 01/20/21 Porter Milk of Magnesia See Rx Instructions .ROUTE .COMPLEX 07/22/20 01/20/21 cranberry extract 500 mg PO DAILY 07/22/20 01/20/21 fluticasone propionate [Flonase 2 spray INTRANASAL QPM 07/22/20 01/20/21 Allergy Relief] guaifenesin [Mucinex] 300 mg PO TID 07/22/20 01/20/21 ipratropium bromide 2.5 ml INHALATION Q4 PRN 07/22/20 01/20/21 metoclopramide HCl 5 mg PO AC 07/22/20 01/20/21 multivitamin [Multiple Vitamins] 1 tab PO DAILY 07/22/20 01/20/21 simethicone 125 mg PO QAM 07/22/20 01/20/21 amoxicillin 875 mg PO BID 01/20/21 01/20/21 ascorbate calcium (vitamin C) 250 mg PO BID 01/20/21 01/20/21 [Joanne-C] aspirin [Aspirin Low Dose] 81 mg PO QPM 01/20/21 01/20/21 budesonide-formoterol 2 puff INHALATION TID 01/20/21 01/20/21 escitalopram oxalate 20 mg PO DAILY 01/20/21 01/20/21 Previous Rx's Medication Instructions Recorded ipratropium bromide 42 mcg (0.06 2 sprays INTNAS Q8H PRN #30 ml 09/16/19 %) nasal spray levothyroxine 137 mcg tablet 137 mcg PO DAILY #90 tab 11/04/19 spironolactone 25 mg tablet 25 mg PO BID #180 tab 04/16/20 oxybutynin chloride 5 mg tablet 5 mg PO QID #360 tab 04/23/20 ezetimibe 10 mg tablet 10 mg PO QPM #90 tab 06/11/20 albuterol sulfate 90 mcg/actuation 2 puff INHALATION QID PRN #54 gm 07/04/20 aerosol inhaler lansoprazole 30 mg capsule,delayed 30 mg PO BID #180 cap 07/30/20 release cimetidine 300 mg tablet 300 mg PO HS #90 tab 08/21/20 gabapentin 600 mg tablet 600 mg PO QID #120 tab 08/28/20 clorazepate dipotassium 3.75 mg 3.75 mg PO UD PRN #90 tab 08/29/20 tablet methocarbamol 750 mg tablet 750 mg PO .COMPLEX 90 Days #270 tab 08/30/20 potassium chloride 10 mEq See Rx Instructions PO BID #450 cap 09/03/20 capsule,extended release albuterol sulfate 2.5 mg INHALATION Q4 PRN #540 ml 09/04/20 nystatin 100,000 unit/mL oral 500,000 unit PO QID #200 ml 09/25/20 suspension cxhpvtzjit-cfpxjgi-jedeprjj 50 1 cap PO BID PRN #60 cap 10/10/20 mg-325 mg-40 mg capsule sumatriptan succinate 100 mg tablet 100 mg PO BID PRN 30 Days #12 tab 10/10/20 MDD 2 tiotropium bromide 18 mcg capsule 1 cap INHALATION QAM #30 inh 10/23/20 with inhalation device azithromycin 500 mg tablet 500 mg PO 3XWK #12 tab 10/29/20 furosemide 40 mg tablet 80 mg PO QAM #180 tab 10/30/20 Results & Data (ED) Vital Signs Vital Signs - 24 hr 01/20/21 00:37 01/20/21 00:40 01/20/21 00:45 Temperature 37.5 C Temperature Source Oral Pulse Rate 103 H Pulse Rate from SpO2 Sensor Pulse Rhythm Regular Pulse Strength Normal Respiratory Rate 18 Respiratory Effort / Characteristics Non-Labored Spontaneous Spontaneous SOB on Exertion Respiratory Depth Normal Normal Respiratory Pattern Regular Regular Blood Pressure 170/71 H Blood Pressure Mean 104 Blood Pressure Position Sitting Pulse Oximetry 96 Oxygen Delivery Method Nasal Cannula Nasal Cannula Oxygen Flow Rate 2 2 Sepsis Recent Fever Within 48 Hours No Sepsis New/Unexplained Change in Mental Status Yes Sepsis Action Taken by Nursing No Action Required Oxygen Flow Rate - Titration Pulse Oximetry Post Tiitration 01/20/21 00:50 01/20/21 01:15 01/20/21 01:22 Temperature Temperature Source Pulse Rate 106 H 98 H 100 H Pulse Rate from SpO2 Sensor 97 H 98 H 101 H Pulse Rhythm Pulse Strength Respiratory Rate 19 15 15 Respiratory Effort / Characteristics Respiratory Depth Respiratory Pattern Blood Pressure 170/71 H 160/67 H Blood Pressure Mean 104 98 Blood Pressure Position Pulse Oximetry 96 99 98 Oxygen Delivery Method Nasal Cannula Nasal Cannula Nasal Cannula Oxygen Flow Rate 3 3 3 Sepsis Recent Fever Within 48 Hours Sepsis New/Unexplained Change in Mental Status Sepsis Action Taken by Nursing Oxygen Flow Rate - Titration Pulse Oximetry Post Tiitration 01/20/21 01:30 01/20/21 01:59 01/20/21 02:00 Temperature Temperature Source Pulse Rate 101 H 104 H 103 H Pulse Rate from SpO2 Sensor 101 H 105 H 104 H Pulse Rhythm Pulse Strength Respiratory Rate 16 18 15 Respiratory Effort / Characteristics Respiratory Depth Respiratory Pattern Blood Pressure 161/61 H 152/76 H 126/67 Blood Pressure Mean 94 101 86 Blood Pressure Position Pulse Oximetry 98 98 99 Oxygen Delivery Method Nasal Cannula Nasal Cannula Oxygen Flow Rate 3 3 3 Sepsis Recent Fever Within 48 Hours Sepsis New/Unexplained Change in Mental Status Sepsis Action Taken by Nursing Oxygen Flow Rate - Titration Pulse Oximetry Post Tiitration 01/20/21 02:15 01/20/21 02:30 01/20/21 02:31 Temperature Temperature Source Pulse Rate 103 H 105 H 103 H Pulse Rate from SpO2 Sensor 103 H Pulse Rhythm Pulse Strength Respiratory Rate 16 14 15 Respiratory Effort / Characteristics Respiratory Depth Respiratory Pattern Blood Pressure 135/70 140/87 Blood Pressure Mean 91 104 Blood Pressure Position Pulse Oximetry 100 96 97 Oxygen Delivery Method Nasal Cannula Nasal Cannula Nasal Cannula Oxygen Flow Rate 3 3 3 Sepsis Recent Fever Within 48 Hours Sepsis New/Unexplained Change in Mental Status Sepsis Action Taken by Nursing Oxygen Flow Rate - Titration Pulse Oximetry Post Tiitration 01/20/21 02:45 01/20/21 02:46 01/20/21 03:00 Temperature 37.6 C H Temperature Source Rectal Pulse Rate 103 H 102 H 103 H Pulse Rate from SpO2 Sensor 103 H Pulse Rhythm Pulse Strength Respiratory Rate 16 15 13 Respiratory Effort / Characteristics Respiratory Depth Respiratory Pattern Blood Pressure 148/76 H 162/67 H Blood Pressure Mean 100 98 Blood Pressure Position Pulse Oximetry 98 98 Oxygen Delivery Method Nasal Cannula Nasal Cannula Oxygen Flow Rate 3 3 Sepsis Recent Fever Within 48 Hours Sepsis New/Unexplained Change in Mental Status Sepsis Action Taken by Nursing Oxygen Flow Rate - Titration Pulse Oximetry Post Tiitration 01/20/21 03:01 01/20/21 03:15 01/20/21 03:16 Temperature Temperature Source Pulse Rate 101 H 106 H 106 H Pulse Rate from SpO2 Sensor 102 H Pulse Rhythm Pulse Strength Respiratory Rate 15 16 12 Respiratory Effort / Characteristics Respiratory Depth Respiratory Pattern Blood Pressure 165/69 H Blood Pressure Mean 101 Blood Pressure Position Pulse Oximetry 98 97 Oxygen Delivery Method Nasal Cannula Oxygen Flow Rate 3 Sepsis Recent Fever Within 48 Hours Sepsis New/Unexplained Change in Mental Status Sepsis Action Taken by Nursing Oxygen Flow Rate - Titration Pulse Oximetry Post Tiitration 01/20/21 03:30 01/20/21 03:31 01/20/21 03:43 Temperature Temperature Source Pulse Rate 108 H 112 H Pulse Rate from SpO2 Sensor Pulse Rhythm Pulse Strength Respiratory Rate 17 17 Respiratory Effort / Characteristics Respiratory Depth Respiratory Pattern Blood Pressure 159/67 H Blood Pressure Mean 97 Blood Pressure Position Pulse Oximetry 94 89 L Oxygen Delivery Method Nasal Cannula Nasal Cannula Oxygen Flow Rate 3 3 Sepsis Recent Fever Within 48 Hours Sepsis New/Unexplained Change in Mental Status Sepsis Action Taken by Nursing Oxygen Flow Rate - Titration 4 Pulse Oximetry Post Tiitration 97 01/20/21 03:44 01/20/21 03:45 Temperature Temperature Source Pulse Rate 105 H Pulse Rate from SpO2 Sensor 105 H Pulse Rhythm Pulse Strength Respiratory Rate 14 Respiratory Effort / Characteristics Respiratory Depth Respiratory Pattern Blood Pressure 164/72 H Blood Pressure Mean 102 Blood Pressure Position Pulse Oximetry 89 L 99 Oxygen Delivery Method Nasal Cannula Nasal Cannula Oxygen Flow Rate 3 4 Sepsis Recent Fever Within 48 Hours Sepsis New/Unexplained Change in Mental Status Sepsis Action Taken by Nursing Oxygen Flow Rate - Titration Pulse Oximetry Post Tiitration Laboratory Data Result diagrams: 01/20/21 00:33 01/20/21 00:33 Lab Results 01/20/21 01/20/21 01/20/21 Range/Units 00:33 00:33 00:33 WBC 17.44 H (4.8-10.8) K/uL RBC 4.60 (4.2-5.4) M/uL Hgb 15.1 (12.0-16.0) g/dL Hct 44.0 (37-47) % MCV 95.7 (80-100) fL MCH 32.8 (25-34) pg MCHC 34.3 (32-36) g/dL RDW Std Deviation 46.1 (36.4-46.3) fL RDW Coeff of Opal 13.2 (11.5-14.5) % Plt Count 338 (130-400) K/uL MPV 9.7 (7.4-10.4) fL Immature Gran % (Auto) 0.2 % Neut % (Auto) 90.6 % Lymph % (Auto) 5.5 % [place] % (Auto) 3.6 % Eos % (Auto) 0.0 % Baso % (Auto) 0.1 % Neut # (Auto) 15.81 H (1.4-6.5) K/uL Lymph # (Auto) 0.96 L (1.2-3.4) K/uL [place] # (Auto) 0.62 H (0.11-0.59) K/uL Eos # (Auto) 0.00 (0-0.5) K/uL Baso # (Auto) 0.01 (0-0.2) K/uL Immature Gran # (Auto) 0.04 H (0.00-0.02) K/uL PT 9.8 (9.0-12.0) Seconds INR 1.0 (0.9-1.1) ABG pH (7.35-7.45) ABG pCO2 (35-46) mmHg ABG pO2 (80-95) mmHg ABG HCO3 (19-24) mmol/L ABG O2 Saturation (90-95) % ABG Base Excess (-9-1.8) mEq/L Camilo Test (Pos) Barometric Pressure mm/Hg Oxygen Given Sodium 133 L (136-145) mmol/L Potassium 3.9 (3.5-5.1) mmol/L Chloride 95 L (98-107) mmol/L Carbon Dioxide 31 (21-32) mmol/L Anion Gap 7.0 (3-11) BUN 13 (7-18) mg/dl Creatinine 1.08 (0.6-1.2) mg/dl Est Cr Clr Drug Dosing Not Reportable Est GFR ( Amer) 58.6 Est GFR (Non-Af Amer) 50.5 BUN/Creatinine Ratio 11.7 (10-20) Glucose 179 H (70-99) mg/dl POC Glucose (70-99) mg/dl Lactate (0.4-2.0) mmol/L Calcium 9.8 (8.5-10.1) mg/dl Magnesium 4.5 H (1.8-2.4) mg/dl Total Bilirubin 0.4 (0.2-1) mg/dl Direct Bilirubin 0.1 (0-0.2) mg/dl AST 32 (15-37) U/L ALT 41 (12-78) U/L Alkaline Phosphatase 106 (45-117) U/L Ammonia (11-32) umol/L Troponin I < 0.015 (0-0.045) ng/ml Total Protein 7.0 (6.4-8.2) gm/dl Albumin 4.1 (3.4-5.0) gm/dl Lipase 76 (73-393) U/L Procalcitonin (0-0.5) ng/ml TSH 1.620 (0.300-4.500) uIu/ml Urine Color Urine Appearance (Clear) Urine pH (4.5-7.5) Ur Specific [place] (1.000-1.030) Urine Protein (Negative) Urine Glucose (UA) (Negative) Urine Ketones (Negative) Urine Blood (Negative) Urine Nitrite (Negative) Urine Bilirubin (Negative) Urine Urobilinogen (Negative) Ur Leukocyte Esterase (Negative) Urine WBC (Auto) (0-5) /hpf Urine RBC (Auto) (0-4) /hpf U Hyaline Cast (Auto) (0-5) /lpf U Epithel Cells (Auto) (0-5) /lpf Urine Bacteria (Auto) (Negative) Nasal Screen MRSA (PCR) (Negative) Urine Opiates Screen (Neg) Ur Methadone, Qual (Neg) Urine Barbiturates (Neg) Ur Phencyclidine (PCP) (Neg) U Amphetamin/Meth Scrn (Neg) MDMA (Ecstasy) Screen (Neg) U Benzodiazepines Scrn (Neg) Ur Cocaine Metabolite (Neg) U Marijuana (THC) Screen (Neg) Ethyl Alcohol mg/dL (0-3) mg/dl COVID-19 Eval Order SARS-CoV-2, RNA, NAAT (NEGATIVE) 01/20/21 01/20/21 01/20/21 Range/Units 00:33 00:58 01:10 WBC (4.8-10.8) K/uL RBC (4.2-5.4) M/uL Hgb (12.0-16.0) g/dL Hct (37-47) % MCV (80-100) fL MCH (25-34) pg MCHC (32-36) g/dL RDW Std Deviation (36.4-46.3) fL RDW Coeff of Opal (11.5-14.5) % Plt Count (130-400) K/uL MPV (7.4-10.4) fL Immature Gran % (Auto) % Neut % (Auto) % Lymph % (Auto) % [place] % (Auto) % Eos % (Auto) % Baso % (Auto) % Neut # (Auto) (1.4-6.5) K/uL Lymph # (Auto) (1.2-3.4) K/uL [place] # (Auto) (0.11-0.59) K/uL Eos # (Auto) (0-0.5) K/uL Baso # (Auto) (0-0.2) K/uL Immature Gran # (Auto) (0.00-0.02) K/uL PT (9.0-12.0) Seconds INR (0.9-1.1) ABG pH (7.35-7.45) ABG pCO2 (35-46) mmHg ABG pO2 (80-95) mmHg ABG HCO3 (19-24) mmol/L ABG O2 Saturation (90-95) % ABG Base Excess (-9-1.8) mEq/L Camilo Test (Pos) Barometric Pressure mm/Hg Oxygen Given Sodium (136-145) mmol/L Potassium (3.5-5.1) mmol/L Chloride (98-107) mmol/L Carbon Dioxide (21-32) mmol/L Anion Gap (3-11) BUN (7-18) mg/dl Creatinine (0.6-1.2) mg/dl Est Cr Clr Drug Dosing Est GFR ( Amer) Est GFR (Non-Af Amer) BUN/Creatinine Ratio (10-20) Glucose (70-99) mg/dl POC Glucose 212 H (70-99) mg/dl Lactate (0.4-2.0) mmol/L Calcium (8.5-10.1) mg/dl Magnesium (1.8-2.4) mg/dl Total Bilirubin (0.2-1) mg/dl Direct Bilirubin (0-0.2) mg/dl AST (15-37) U/L ALT (12-78) U/L Alkaline Phosphatase (45-117) U/L Ammonia (11-32) umol/L Troponin I (0-0.045) ng/ml Total Protein (6.4-8.2) gm/dl Albumin (3.4-5.0) gm/dl Lipase (73-393) U/L Procalcitonin 1.53 H (0-0.5) ng/ml TSH (0.300-4.500) uIu/ml Urine Color Urine Appearance (Clear) Urine pH (4.5-7.5) Ur Specific [place] (1.000-1.030) Urine Protein (Negative) Urine Glucose (UA) (Negative) Urine Ketones (Negative) Urine Blood (Negative) Urine Nitrite (Negative) Urine Bilirubin (Negative) Urine Urobilinogen (Negative) Ur Leukocyte Esterase (Negative) Urine WBC (Auto) (0-5) /hpf Urine RBC (Auto) (0-4) /hpf U Hyaline Cast (Auto) (0-5) /lpf U Epithel Cells (Auto) (0-5) /lpf Urine Bacteria (Auto) (Negative) Nasal Screen MRSA (PCR) (Negative) Urine Opiates Screen (Neg) Ur Methadone, Qual (Neg) Urine Barbiturates (Neg) Ur Phencyclidine (PCP) (Neg) U Amphetamin/Meth Scrn (Neg) MDMA (Ecstasy) Screen (Neg) U Benzodiazepines Scrn (Neg) Ur Cocaine Metabolite (Neg) U Marijuana (THC) Screen (Neg) Ethyl Alcohol mg/dL (0-3) mg/dl COVID-19 Eval Order Covid19 IDNow [facility] SARS-CoV-2, RNA, NAAT (NEGATIVE) 01/20/21 01/20/21 01/20/21 Range/Units 01:10 01:19 01:19 WBC (4.8-10.8) K/uL RBC (4.2-5.4) M/uL Hgb (12.0-16.0) g/dL Hct (37-47) % MCV (80-100) fL MCH (25-34) pg MCHC (32-36) g/dL RDW Std Deviation (36.4-46.3) fL RDW Coeff of Opal (11.5-14.5) % Plt Count (130-400) K/uL MPV (7.4-10.4) fL Immature Gran % (Auto) % Neut % (Auto) % Lymph % (Auto) % [place] % (Auto) % Eos % (Auto) % Baso % (Auto) % Neut # (Auto) (1.4-6.5) K/uL Lymph # (Auto) (1.2-3.4) K/uL [place] # (Auto) (0.11-0.59) K/uL Eos # (Auto) (0-0.5) K/uL Baso # (Auto) (0-0.2) K/uL Immature Gran # (Auto) (0.00-0.02) K/uL PT (9.0-12.0) Seconds INR (0.9-1.1) ABG pH (7.35-7.45) ABG pCO2 (35-46) mmHg ABG pO2 (80-95) mmHg ABG HCO3 (19-24) mmol/L ABG O2 Saturation (90-95) % ABG Base Excess (-9-1.8) mEq/L Camilo Test (Pos) Barometric Pressure mm/Hg Oxygen Given Sodium (136-145) mmol/L Potassium (3.5-5.1) mmol/L Chloride (98-107) mmol/L Carbon Dioxide (21-32) mmol/L Anion Gap (3-11) BUN (7-18) mg/dl Creatinine (0.6-1.2) mg/dl Est Cr Clr Drug Dosing Est GFR ( Amer) Est GFR (Non-Af Amer) BUN/Creatinine Ratio (10-20) Glucose (70-99) mg/dl POC Glucose (70-99) mg/dl Lactate (0.4-2.0) mmol/L Calcium (8.5-10.1) mg/dl Magnesium (1.8-2.4) mg/dl Total Bilirubin (0.2-1) mg/dl Direct Bilirubin (0-0.2) mg/dl AST (15-37) U/L ALT (12-78) U/L Alkaline Phosphatase (45-117) U/L Ammonia < 10.0 L (11-32) umol/L Troponin I (0-0.045) ng/ml Total Protein (6.4-8.2) gm/dl Albumin (3.4-5.0) gm/dl Lipase (73-393) U/L Procalcitonin (0-0.5) ng/ml TSH (0.300-4.500) uIu/ml Urine Color Urine Appearance (Clear) Urine pH (4.5-7.5) Ur Specific [place] (1.000-1.030) Urine Protein (Negative) Urine Glucose (UA) (Negative) Urine Ketones (Negative) Urine Blood (Negative) Urine Nitrite (Negative) Urine Bilirubin (Negative) Urine Urobilinogen (Negative) Ur Leukocyte Esterase (Negative) Urine WBC (Auto) (0-5) /hpf Urine RBC (Auto) (0-4) /hpf U Hyaline Cast (Auto) (0-5) /lpf U Epithel Cells (Auto) (0-5) /lpf Urine Bacteria (Auto) (Negative) Nasal Screen MRSA (PCR) (Negative) Urine Opiates Screen (Neg) Ur Methadone, Qual (Neg) Urine Barbiturates (Neg) Ur Phencyclidine (PCP) (Neg) U Amphetamin/Meth Scrn (Neg) MDMA (Ecstasy) Screen (Neg) U Benzodiazepines Scrn (Neg) Ur Cocaine Metabolite (Neg) U Marijuana (THC) Screen (Neg) Ethyl Alcohol mg/dL < 3.0 (0-3) mg/dl COVID-19 Eval Order SARS-CoV-2, RNA, NAAT NEGATIVE (NEGATIVE) 01/20/21 01/20/21 01/20/21 Range/Units 01:21 02:20 02:20 WBC (4.8-10.8) K/uL RBC (4.2-5.4) M/uL Hgb (12.0-16.0) g/dL Hct (37-47) % MCV (80-100) fL MCH (25-34) pg MCHC (32-36) g/dL RDW Std Deviation (36.4-46.3) fL RDW Coeff of Opal (11.5-14.5) % Plt Count (130-400) K/uL MPV (7.4-10.4) fL Immature Gran % (Auto) % Neut % (Auto) % Lymph % (Auto) % [place] % (Auto) % Eos % (Auto) % Baso % (Auto) % Neut # (Auto) (1.4-6.5) K/uL Lymph # (Auto) (1.2-3.4) K/uL [place] # (Auto) (0.11-0.59) K/uL Eos # (Auto) (0-0.5) K/uL Baso # (Auto) (0-0.2) K/uL Immature Gran # (Auto) (0.00-0.02) K/uL PT (9.0-12.0) Seconds INR (0.9-1.1) ABG pH (7.35-7.45) ABG pCO2 (35-46) mmHg ABG pO2 (80-95) mmHg ABG HCO3 (19-24) mmol/L ABG O2 Saturation (90-95) % ABG Base Excess (-9-1.8) mEq/L Camilo Test (Pos) Barometric Pressure mm/Hg Oxygen Given Sodium (136-145) mmol/L Potassium (3.5-5.1) mmol/L Chloride (98-107) mmol/L Carbon Dioxide (21-32) mmol/L Anion Gap (3-11) BUN (7-18) mg/dl Creatinine (0.6-1.2) mg/dl Est Cr Clr Drug Dosing Est GFR ( Amer) Est GFR (Non-Af Amer) BUN/Creatinine Ratio (10-20) Glucose (70-99) mg/dl POC Glucose (70-99) mg/dl Lactate 3.5 H* (0.4-2.0) mmol/L Calcium (8.5-10.1) mg/dl Magnesium (1.8-2.4) mg/dl Total Bilirubin (0.2-1) mg/dl Direct Bilirubin (0-0.2) mg/dl AST (15-37) U/L ALT (12-78) U/L Alkaline Phosphatase (45-117) U/L Ammonia (11-32) umol/L Troponin I (0-0.045) ng/ml Total Protein (6.4-8.2) gm/dl Albumin (3.4-5.0) gm/dl Lipase (73-393) U/L Procalcitonin (0-0.5) ng/ml TSH (0.300-4.500) uIu/ml Urine Color Dark Yellow Urine Appearance Clear (Clear) Urine pH 7.5 (4.5-7.5) Ur Specific [place] 1.020 (1.000-1.030) Urine Protein Negative (Negative) Urine Glucose (UA) Negative (Negative) Urine Ketones Negative (Negative) Urine Blood Negative (Negative) Urine Nitrite Negative (Negative) Urine Bilirubin Negative (Negative) Urine Urobilinogen Negative (Negative) Ur Leukocyte Esterase Trace H (Negative) Urine WBC (Auto) 1-5 (0-5) /hpf Urine RBC (Auto) 0-4 (0-4) /hpf U Hyaline Cast (Auto) 1-5 (0-5) /lpf U Epithel Cells (Auto) 10-20 H (0-5) /lpf Urine Bacteria (Auto) Negative (Negative) Nasal Screen MRSA (PCR) (Negative) Urine Opiates Screen Neg (Neg) Ur Methadone, Qual Neg (Neg) Urine Barbiturates Pos H (Neg) Ur Phencyclidine (PCP) Neg (Neg) U Amphetamin/Meth Scrn Neg (Neg) MDMA (Ecstasy) Screen Neg (Neg) U Benzodiazepines Scrn Pos H (Neg) Ur Cocaine Metabolite Neg (Neg) U Marijuana (THC) Screen Pos H (Neg) Ethyl Alcohol mg/dL (0-3) mg/dl COVID-19 Eval Order SARS-CoV-2, RNA, NAAT (NEGATIVE) 01/20/21 01/20/21 01/20/21 Range/Units 03:24 03:26 04:26 WBC (4.8-10.8) K/uL RBC (4.2-5.4) M/uL Hgb (12.0-16.0) g/dL Hct (37-47) % MCV (80-100) fL MCH (25-34) pg MCHC (32-36) g/dL RDW Std Deviation (36.4-46.3) fL RDW Coeff of Opal (11.5-14.5) % Plt Count (130-400) K/uL MPV (7.4-10.4) fL Immature Gran % (Auto) % Neut % (Auto) % Lymph % (Auto) % [place] % (Auto) % Eos % (Auto) % Baso % (Auto) % Neut # (Auto) (1.4-6.5) K/uL Lymph # (Auto) (1.2-3.4) K/uL [place] # (Auto) (0.11-0.59) K/uL Eos # (Auto) (0-0.5) K/uL Baso # (Auto) (0-0.2) K/uL Immature Gran # (Auto) (0.00-0.02) K/uL PT (9.0-12.0) Seconds INR (0.9-1.1) ABG pH 7.45 (7.35-7.45) ABG pCO2 47 H (35-46) mmHg ABG pO2 57 L (80-95) mmHg ABG HCO3 32 H (19-24) mmol/L ABG O2 Saturation 90.8 (90-95) % ABG Base Excess 6.7 H (-9-1.8) mEq/L [place] Test Pos (Pos) Barometric Pressure 744.6 mm/Hg Oxygen Given 3L Sodium (136-145) mmol/L Potassium (3.5-5.1) mmol/L Chloride (98-107) mmol/L Carbon Dioxide (21-32) mmol/L Anion Gap (3-11) BUN (7-18) mg/dl Creatinine (0.6-1.2) mg/dl Est Cr Clr Drug Dosing Est GFR ( Amer) Est GFR (Non-Af Amer) BUN/Creatinine Ratio (10-20) Glucose (70-99) mg/dl POC Glucose (70-99) mg/dl Lactate 1.4 (0.4-2.0) mmol/L Calcium (8.5-10.1) mg/dl Magnesium (1.8-2.4) mg/dl Total Bilirubin (0.2-1) mg/dl Direct Bilirubin (0-0.2) mg/dl AST (15-37) U/L ALT (12-78) U/L Alkaline Phosphatase (45-117) U/L Ammonia (11-32) umol/L Troponin I (0-0.045) ng/ml Total Protein (6.4-8.2) gm/dl Albumin (3.4-5.0) gm/dl Lipase (73-393) U/L Procalcitonin (0-0.5) ng/ml TSH (0.300-4.500) uIu/ml Urine Color Urine Appearance (Clear) Urine pH (4.5-7.5) Ur Specific [place] (1.000-1.030) Urine Protein (Negative) Urine Glucose (UA) (Negative) Urine Ketones (Negative) Urine Blood (Negative) Urine Nitrite (Negative) Urine Bilirubin (Negative) Urine Urobilinogen (Negative) Ur Leukocyte Esterase (Negative) Urine WBC (Auto) (0-5) /hpf Urine RBC (Auto) (0-4) /hpf U Hyaline Cast (Auto) (0-5) /lpf U Epithel Cells (Auto) (0-5) /lpf Urine Bacteria (Auto) (Negative) Nasal Screen MRSA (PCR) Negative (Negative) Urine Opiates Screen (Neg) Ur Methadone, Qual (Neg) Urine Barbiturates (Neg) Ur Phencyclidine (PCP) (Neg) U Amphetamin/Meth Scrn (Neg) MDMA (Ecstasy) Screen (Neg) U Benzodiazepines Scrn (Neg) Ur Cocaine Metabolite (Neg) U Marijuana (THC) Screen (Neg) Ethyl Alcohol mg/dL (0-3) mg/dl COVID-19 Eval Order SARS-CoV-2, RNA, NAAT (NEGATIVE) Administered Medications Levothyroxine Sodium (Levothyroxine Sodium 137 Mcg Tablet) 137 mcg PO DAILYBB [facility] Stop: 02/19/21 06:29 Last Admin: 01/20/21 06:41 Dose: Not Given Documented by: [id number] Discontinued Medications Piperacillin Sod/Tazobactam Sod (Zosyn) 4.5 gm in 120 mls @ 240 mls/hr IV NOW ONE Stop: 01/20/21 02:37 Last Infusion: 01/20/21 03:27 Dose: 0 mls/hr Documented by: [id number] Admin: 01/20/21 02:43 Dose: 240 mls/hr Documented by: [id number] Vancomycin HCl 1,250 mg/ (Sodium Chloride) 525 mls @ 200 mls/hr IV NOW ONE Stop: 01/20/21 04:45 Last Infusion: 01/20/21 05:57 Dose: 0 mls/hr Documented by: [id number] Infusion: 01/20/21 04:20 Dose: 200 mls/hr Documented by: [id number] Admin: 01/20/21 03:33 Dose: 200 mls/hr Documented by: [id number] Sodium Chloride (Nss 1000ml) 1,000 mls @ 999 mls/hr IV .Q1H1M ONE Stop: 01/20/21 03:08 Last Infusion: 01/20/21 03:30 Dose: 0 mls/hr Documented by: [id number] Admin: 01/20/21 02:42 Dose: 999 mls/hr Documented by: [id number] Sodium Chloride (Nss 1000ml) 1,000 mls @ 999 mls/hr IV .Q1H1M ONE Stop: 01/20/21 03:12 Last Infusion: 01/20/21 05:58 Dose: 0 mls/hr Documented by: [id number] Admin: 01/20/21 03:33 Dose: 999 mls/hr Documented by: [id number] Discharge Plan Visit Data Chief Complaint: Altered Mental Status Stated Complaint: ALTERED MENTAL STATUS ED Provider: Noel Abraham Discharge Problem: AMS (altered mental status), Lactic acidosis, Leukocytosis Patient Disposition: Admitted As Inpatient Discharge Instructions Interventions: ED Discharge Assessment Last Done: 01/20/21 06:35 Discharge Problem: AMS (altered mental status) Qualifiers: Altered mental status type: unspecified Qualified Code(s): R41.82 - Altered mental status, unspecified Leukocytosis Qualifiers: Leukocytosis type: unspecified Qualified Code(s): D72.829 - Elevated white blood cell count, unspecified
[2021-01-20 01:15] LABS: Basophils # (auto) 0.01 K/uL (0-0.2); Basophils % (auto) 0.1 %; Hemoglobin 15.1 g/dL (12.0-16.0); Immature Granulocytes # (auto) 0.04 K/uL (0.00-0.02); Immature Granulocytes % (auto) 0.2 %; Lymphocytes # (auto) 0.96 K/uL (1.2-3.4); Lymphocytes % (auto) 5.5 %; Mean Corpuscular Hemoglobin 32.8 pg (25-34); Mean Corpuscular Hgb Conc 34.3 g/dL (32-36); Mean Corpuscular Volume 95.7 fL (80-100); Mean Platelet Volume 9.7 fL (7.4-10.4); Monocytes # (auto) 0.62 K/uL (0.11-0.59); Monocytes % (auto) 3.6 %; Neutrophils # (auto) 15.81 K/uL (1.4-6.5); Neutrophils % (auto) 90.6 %; Platelet Count 338 K/uL (130-400); RDW Coefficient of Variation 13.2 % (11.5-14.5); RDW Standard Deviation 46.1 fL (36.4-46.3); White Blood Count 17.44 K/uL (4.8-10.8)
[2021-01-20 01:25] LABS: Alanine Aminotransferase 41 U/L (12-78); Albumin Level 4.1 gm/dl (3.4-5.0); Aspartate Aminotransferase 32 U/L (15-37); BUN Creatinine Ratio 11.7 (10-20); Bilirubin Direct 0.1 mg/dl (0-0.2); Blood Urea Nitrogen 13 mg/dl (7-18); Calcium 9.8 mg/dl (8.5-10.1); Carbon Dioxide 31 mmol/L (21-32); Chloride 95 mmol/L (98-107); Est GFR (African American) 58.6; Est GFR (Non-African American) 50.5; Glucose 179 mg/dl (70-99); Lipase 76 U/L (73-393); Magnesium 4.5 mg/dl (1.8-2.4); Potassium 3.9 mmol/L (3.5-5.1); Sodium 133 mmol/L (136-145)
[2021-01-20 01:30] LABS: Prothrombin Time 9.8 Seconds (9.0-12.0)
[2021-01-20 01:36] LABS: Alkaline Phosphatase 106 U/L (45-117); Bilirubin,Total 0.4 mg/dl (0.2-1); Troponin I < 0.015 ng/ml (0-0.045)
[2021-01-20] MEDS ORDERED: SODIUM CHLORIDE 0.9% 1000ML 1,000 ML IV ONE ×2 (02:08→02:12)
[2021-01-20] MEDS ORDERED: PIPERACILL/TAZOBAC CONSULT ACTIVE PRN (02:08)
[2021-01-20] MEDS ORDERED: PIPERACILLIN/TAZOBACTAM 4.5 GM/120 ML BAG IV ONE (02:08)
[2021-01-20] MEDS ORDERED: VANCOMYCIN HCL 1,250 MG in SODIUM CHLORIDE 0.9% 500 ML IV ONE (02:08)
[2021-01-20] MEDS ORDERED: VANCOMYCIN CONSULT ACTIVE PRN (02:08)
[2021-01-20 02:35] LABS: Appearance Urine Clear (Clear); Bacteria Urine Automated Negative (Negative); Bilirubin Urine Negative (Negative); Blood Urine Negative (Negative); Color Urine Dark Yellow; Glucose Urine UA Negative (Negative); Ketones Urine Negative (Negative); Leukocyte Esterase Urine Trace (Negative); Nitrite Urine Negative (Negative); Protein Urine Negative (Negative); RBC Urine Automated 0-4 /hpf (0-4); Urobilinogen Urine Negative (Negative); pH Urine 7.5 (4.5-7.5)
[2021-01-20 03:08] LABS: Amphetamines+Metham, Urine Neg (Neg); Barbiturates, Urine Pos (Neg); Benzodiazepine, Urine Pos (Neg); Cocaine, Urine Neg (Neg); MDMA (Ecstacy), Urine Neg (Neg); Methadone, Urine Neg (Neg); Opiate, Urine Neg (Neg); Phencyclidine, Urine Neg (Neg)
[2021-01-20 03:45] LABS: Base Excess ABG 6.7 mEq/L (-9-1.8); HCO3 ABG 32 mmol/L (19-24); Oxygen Saturation ABG 90.8 % (90-95); PCO2 ABG 47 mmHg (35-46); PO2 ABG 57 mmHg (80-95); pH ABG 7.45 (7.35-7.45)
[2021-01-20 03:49] LABS: Allen Test Pos (Pos)
--- NOTE | 2021-01-20 04:00 | History & Physical Report ---
Date of Service January 20, 2021 Assessment & Plan (1) Altered mental status: Luana Meek is a 75-year-old female with past medical history significant for COPD, delayed sleep phase syndrome, coronary artery disease, GERD, multidrug-resistant stenotrophomonas infection, and status migrainosus; who presented to the ER with her earlier this evening following concern for continued decreased ability to communicate and increasing sedation throughout the day. Altered mental status: -Uncertain etiology of altered mental status, likely multifactorial given the fact of increased white blood cell count/lactate on admission in addition to recent addition of antibiotics that potentially increase serum concentrations of benzos/barbiturates -In theory recent addition of amoxicillin could have increased serum concentrations of home benzos/barbiturates -Hold home clorazepate, gabapentin, Fioricet, and cimetidine; stopped amoxicillin, holding azithromycin -CT head in ED unimpressive for acute change -ABG demonstrating mild hypoxemia -TSH 1.62 -Ammonia <10 -Mild hyponatremia (NA 133), hypomagnesemia (mag 4.5) -BUN 13, creatinine 1.08 -MRI brain ordered (given sudden onset changes of mental status with no clear signs/symptoms indicating etiology, TIA/stroke possible however unlikely given neuro exam) -NPO with sips and medications until improvement in mental status/lethargy COPD: -History of stenotrophomonas infections that were multidrug-resistant, most recent respiratory sputum culture demonstrated Pseudomonas sensitive to Zosyn -At home was on amoxicillin (started this week), and had been taking azithromycin every other day, most recent course of steroids was in November 2020 -ABG with CO2 of 47, O2 57, HCO3 32 -Stopped amoxicillin and holding azithromycin -CXR in ED relatively unimpressive for signs of overt infection -On oxygen supplementation (nasal cannula 3 L) at baseline all the time -Continue oxygen supplementation with goal range of 88-92% -Continue home inhaler regimen without change -COVID-19 negative (completed COVID-19 vaccination series greater than 2 weeks ago) Infection?: -Lactic acid on admission of 3.5, with downtrend to 1.4 following administration of fluids -Uncertain etiology, patient with high risk for systemic infection given m ultidrug-resistant organisms in her past -Urinalysis unimpressive, CXR relatively unimpressive for signs of overt infection -WBC 17.44, pro-Kelechi 1.53 -Continue Zosyn given multidrug-resistant stenotrophomonas history -Nasal MRSA pending Disorder delayed sleep phase cycle: -Patient on clorazepate at home (mainly taking every day) -Given altered mental status will hold at this time -Given long-term use Ativan 1 mg IV q4h as needed for withdrawal symptom Migraine without aura: -Patient on Fioricet at home (reportedly taking daily) -Given altered mental status continue to hold at this time Diet: NPO CODE STATUS: Conditional code (desires no intubation, but accepting of alternative airways, no mechanical ventilation) (2) COPD, group D, by GOLD 2017 classification: (3) Delayed sleep phase syndrome: (4) CAD (coronary artery disease): (5) Anxiety and depression: (6) Migraine without aura: (7) CHF (congestive heart failure): History of Present Illness Chief Complaint: Altered mental status Primary Care Provider: Krystal Marsh MD Luana Meek is a 75-year-old female with past medical history significant for COPD, delayed sleep phase syndrome, coronary artery disease, GERD, multidrug- resistant stenotrophomonas infection, and status migrainosus; who presented to the ER with her earlier this evening following concern for continued decreased ability to communicate and increasing sedation throughout the day. states that this started earlier yesterday morning (01/19) and initially he thought nothing of it, he initially just thought it was that she was more tired than normal. Indicates that on a regular basis it is quite common for her to go to bed about 1:30 PM, and sleep until probably 5:30 AM if not otherwise disrupted or encouraged into other activities. Throughout the day noticed that she was becoming increasingly more confused, and increasingly more tremulous, and unable to perform some of the limited basic daily functions that she does independently normally. Typically he has to provide some assistance to her daily care, however today this was significantly increased and seem to increase throughout the day, however she was seemingly resistant to coming to the hospital until he demanded that she go following this continuing to worsen to the point where she was almost unresponsive to his attempted stimuli. denies any other recent changes at this time, other than earlier this week she was started on amoxicillin in addition to her every other day azithromycin for her COPD, this was done by her [facility] nurse that comes intermittently. States that she is never previously had similar kind of episodes, nor had episodes where she had tremors or confusion. She does not drink alcohol, does not utilize tobacco (quit in 2003), does utilize medical marijuana for her migraines. On presentation in the ED, patient was initially seemingly obtunded and minimally responsive, however this was fluctuating throughout her ED course. Initial laboratory work demonstrated white blood cell count 17.44, lactate of 3.5, urinalysis was unimpressive; urine tox demonstrated positive for benzos, barbiturates, marijuana; negative ammonia; negative TSH; pro-Kelechi 1.53; blood cultures were drawn at this time and she was started on Zosyn given her history of multidrug-resistant pulmonary infections (stenotrophomonas). On my presentation to the room, patient was continue to being lethargic; patient stated that she looks approximately like this throughout the day, but did have more tremors. Allergies Allergy/AdvReac Type Severity Reaction Status Date / Time Sulfa (Sulfonamide Allergy Intermediate Hives Verified 01/20/21 02:35 Antibiotics) cortisone Allergy Unknown RASH FOR 3 Verified 01/20/21 02:35 MONTHS levofloxacin Allergy Unknown RASH Verified 01/20/21 02:35 nortriptyline Allergy Unknown RASH Verified 01/20/21 02:35 hydrocortisone Allergy Unknown Verified 01/20/21 02:35 [From Cortizone-10] Home Medications Medication Instructions Recorded Confirmed Type Probiotic 3 mmu cells PO DAILY 01/04/19 01/20/21 History acetaminophen [Tylenol Extra 1,000 mg PO HS 01/04/19 01/20/21 History Strength] coQ10 (ubiquinol) 200 mg PO QPM 01/04/19 01/20/21 History nitroglycerin [Nitrostat] 0.4 mg SUBLINGUAL UD PRN 01/04/19 01/20/21 History pravastatin 20 mg PO QPM 01/04/19 01/20/21 History simethicone [Gas Relief Ultra 180 mg PO QPM 01/04/19 01/20/21 History Strength] zinc 50 mg PO AMHS 01/04/19 01/20/21 History ipratropium bromide 42 mcg (0.06 2 sprays INTNAS Q8H PRN #30 ml 09/16/19 01/20/21 Rx %) nasal spray levothyroxine 137 mcg tablet 137 mcg PO DAILY #90 tab 11/04/19 01/20/21 Rx spironolactone 25 mg tablet 25 mg PO BID #180 tab 04/16/20 01/20/21 Rx oxybutynin chloride 5 mg tablet 5 mg PO QID #360 tab 04/23/20 01/20/21 Rx lysine 500 mg tablet 500 mg PO BID tab 05/22/20 01/20/21 History ezetimibe 10 mg tablet 10 mg PO QPM #90 tab 06/11/20 01/20/21 Rx albuterol sulfate 90 mcg/actuation 2 puff INHALATION QID PRN #54 gm 07/04/20 01/20/21 Rx aerosol inhaler Excedrin Migraine 1 tab PO BID PRN 07/22/20 01/20/21 History Medical Marijuana 0 dose PO UD 07/22/20 01/20/21 History Porter Milk of Magnesia See Rx Instructions .ROUTE .COMPLEX 07/22/20 01/20/21 History cranberry extract 500 mg PO DAILY 07/22/20 01/20/21 History fluticasone propionate [Flonase 2 spray INTRANASAL QPM 07/22/20 01/20/21 History Allergy Relief] guaifenesin [Mucinex] 300 mg PO TID 07/22/20 01/20/21 History ipratropium bromide 2.5 ml INHALATION Q4 PRN 07/22/20 01/20/21 History metoclopramide HCl 5 mg PO AC 07/22/20 01/20/21 History multivitamin [Multiple Vitamins] 1 tab PO DAILY 07/22/20 01/20/21 History simethicone 125 mg PO QAM 07/22/20 01/20/21 History lansoprazole 30 mg capsule,delayed 30 mg PO BID #180 cap 07/30/20 01/20/21 Rx release cimetidine 300 mg tablet 300 mg PO HS #90 tab 08/21/20 01/20/21 Rx gabapentin 600 mg tablet 600 mg PO QID #120 tab 08/28/20 01/20/21 Rx clorazepate dipotassium 3.75 mg 3.75 mg PO UD PRN #90 tab 08/29/20 01/20/21 Rx tablet methocarbamol 750 mg tablet 750 mg PO .COMPLEX 90 Days #270 tab 08/30/20 01/20/21 Rx potassium chloride 10 mEq See Rx Instructions PO BID #450 cap 09/03/20 01/20/21 Rx capsule,extended release albuterol sulfate 2.5 mg INHALATION Q4 PRN #540 ml 09/04/20 01/20/21 Rx nystatin 100,000 unit/mL oral 500,000 unit PO QID #200 ml 09/25/20 01/20/21 Rx suspension hpcpxegsqw-rlooteb-vhbvipon 50 1 cap PO BID PRN #60 cap 10/10/20 01/20/21 Rx mg-325 mg-40 mg capsule sumatriptan succinate 100 mg tablet 100 mg PO BID PRN 30 Days #12 tab 10/10/20 01/20/21 Rx MDD 2 tiotropium bromide 18 mcg capsule 1 cap INHALATION QAM #30 inh 10/23/20 01/20/21 Rx with inhalation device azithromycin 500 mg tablet 500 mg PO 3XWK #12 tab 10/29/20 01/20/21 Rx furosemide 40 mg tablet 80 mg PO QAM #180 tab 10/30/20 01/20/21 Rx amoxicillin 875 mg PO BID 01/20/21 01/20/21 History ascorbate calcium (vitamin C) 250 mg PO BID 01/20/21 01/20/21 History [Joanne-C] aspirin [Aspirin Low Dose] 81 mg PO QPM 01/20/21 01/20/21 History budesonide-formoterol 2 puff INHALATION TID 01/20/21 01/20/21 History escitalopram oxalate 20 mg PO DAILY 01/20/21 01/20/21 History Past Med/Surg History Medical History (Updated 01/20/21 @ 04:55 by Joey No MD) Anxiety and depression Back pain Cronin esophagus CHF (congestive heart failure) Chronic rhinitis Chronic sinusitis COPD (chronic obstructive pulmonary disease) COPD, group D, by GOLD 2017 classification Coronary artery disease Cough with sputum Delayed sleep phase syndrome Depression Emphysema lung GERD (gastroesophageal reflux disease) Hearing loss 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 Hypercholesterolemia Hypothyroidism Lung nodule Lung nodule Migraine without aura Surgical History History of bladder surgery History of breast augmentation History of cholecystectomy History of hemorrhoidectomy History of tonsillectomy Family History Unknown Lung cancer Liver cancer Colon cancer Father Liver cancer Mother Hypertension Other Family history non-contributory Social History Smoking Status: Former smoker Age Quit Using Tobacco: 60; packs per day: 2; Years Smoked: 40; Second Hand Exposure: No; Hx Alcohol Use: No Hx Substance Use: No Preferred Language: Wolof Communication Ability: Effective 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: No Beliefs That Will Affect Care: None marital status: Current Living Situation: Spouse Feels Safe at Home: Yes Safety Concerns: Feels Safe At This Time Assistive Devices: Oxygen - Continuous Review of Systems Review of Systems: Unobtainable due to reduced consciousness Physical Exam Constitutional: well developed, well nourished, + altered mental status and + lethargic Eyes: PERRL, conjunctivae normal, anicteric sclerae ENMT: external ear and nose normal, oropharynx normal Respiratory: normal respiratory effort; no respiratory distress and no labored breathing Auscultation: + wheezes (Whole field bilaterally); no crackles, no rales and no rhonchi Cardiovascular: Rate/Rhythm: regular rhythm and + tachycardic Heart Sounds: + murmur (Systolic ejection murmur best heard over PILAR w/ radiation to carotids) Vessels: normal peripheral pulses; no JVD Extremities: no calf tenderness and no edema Gastrointestinal (Abdomen): normal bowel sounds, soft, nontender, no hepatosplenomegaly Musculoskeletal: Extremities: + abnormal strength (3/5 b/l upper and lower extrem) Skin: no rashes, warm and dry Neurologic: CN's II-XI intact bilaterally, deep tendon reflexes 2+ bilaterally, moves all extremities, awake and + confused; no focal motor deficits Psychiatric: Orientation: oriented to person, oriented to place and oriented to time; + not alert Lymphatic: no cervical or axillary lymphadenopathy Results & Data Results & Data ([facility]) Vital Signs (Past 12 Hours) Vital Signs Temp Pulse Resp BP Pulse Ox 01/20/21 03:45 105 H 14 164/72 H 99 01/20/21 03:44 89 L 01/20/21 03:43 89 L 01/20/21 03:31 112 H 17 01/20/21 03:30 108 H 17 159/67 H 94 01/20/21 03:16 106 H 12 01/20/21 03:15 106 H 16 165/69 H 97 01/20/21 03:01 101 H 15 98 01/20/21 03:00 103 H 13 162/67 H 98 01/20/21 02:46 102 H 15 01/20/21 02:45 103 H 16 148/76 H 98 01/20/21 02:31 103 H 15 97 01/20/21 02:30 105 H 14 140/87 96 01/20/21 02:15 103 H 16 135/70 100 01/20/21 02:00 103 H 15 126/67 99 01/20/21 01:59 104 H 18 152/76 H 98 01/20/21 01:30 101 H 16 161/61 H 98 01/20/21 01:22 100 H 15 160/67 H 98 01/20/21 01:15 98 H 15 99 01/20/21 00:50 106 H 19 170/71 H 96 01/20/21 00:37 37.5 C 103 H 18 170/71 H 96 Laboratory Results 01/20/21 01/20/21 01/20/21 Range/Units 04:26 03:26 03:24 WBC (4.8-10.8) K/uL RBC (4.2-5.4) M/uL Hgb (12.0-16.0) g/dL Hct (37-47) % MCV (80-100) fL MCH (25-34) pg MCHC (32-36) g/dL RDW Std Deviation (36.4-46.3) fL RDW Coeff of Opal (11.5-14.5) % Plt Count (130-400) K/uL MPV (7.4-10.4) fL Immature Gran % (Auto) % Neut % (Auto) % Lymph % (Auto) % [place] % (Auto) % Eos % (Auto) % Baso % (Auto) % Neut # (Auto) (1.4-6.5) K/uL Lymph # (Auto) (1.2-3.4) K/uL [place] # (Auto) (0.11-0.59) K/uL Eos # (Auto) (0-0.5) K/uL Baso # (Auto) (0-0.2) K/uL Immature Gran # (Auto) (0.00-0.02) K/uL PT (9.0-12.0) Seconds INR (0.9-1.1) ABG pH 7.45 (7.35-7.45) ABG pCO2 47 H (35-46) mmHg ABG pO2 57 L (80-95) mmHg ABG HCO3 32 H (19-24) mmol/L ABG O2 Saturation 90.8 (90-95) % ABG Base Excess 6.7 H (-9-1.8) mEq/L Camilo Test Pos (Pos) Barometric Pressure 744.6 mm/Hg Oxygen Given 3L Sodium (136-145) mmol/L Potassium (3.5-5.1) mmol/L Chloride (98-107) mmol/L Carbon Dioxide (21-32) mmol/L Anion Gap (3-11) BUN (7-18) mg/dl Creatinine (0.6-1.2) mg/dl Est Cr Clr Drug Dosing Est GFR ( Amer) Est GFR (Non-Af Amer) BUN/Creatinine Ratio (10-20) Glucose (70-99) mg/dl POC Glucose (70-99) mg/dl Lactate 1.4 (0.4-2.0) mmol/L Calcium (8.5-10.1) mg/dl Magnesium (1.8-2.4) mg/dl Total Bilirubin (0.2-1) mg/dl Direct Bilirubin (0-0.2) mg/dl AST (15-37) U/L ALT (12-78) U/L Alkaline Phosphatase (45-117) U/L Ammonia (11-32) umol/L Troponin I (0-0.045) ng/ml Total Protein (6.4-8.2) gm/dl Albumin (3.4-5.0) gm/dl Lipase (73-393) U/L Procalcitonin (0-0.5) ng/ml TSH (0.300-4.500) uIu/ml Urine Color Urine Appearance (Clear) Urine pH (4.5-7.5) Ur Specific Alexander (1.000-1.030) Urine Protein (Negative) Urine Glucose (UA) (Negative) Urine Ketones (Negative) Urine Blood (Negative) Urine Nitrite (Negative) Urine Bilirubin (Negative) Urine Urobilinogen (Negative) Ur Leukocyte Esterase (Negative) Urine WBC (Auto) (0-5) /hpf Urine RBC (Auto) (0-4) /hpf U Hyaline Cast (Auto) (0-5) /lpf U Epithel Cells (Auto) (0-5) /lpf Urine Bacteria (Auto) (Negative) Nasal Screen MRSA (PCR) Pending Urine Butalbital Urine Opiates Screen (Neg) Ur Methadone, Qual (Neg) Urine Barbiturates (Neg) Ur Phencyclidine (PCP) (Neg) U Amphetamin/Meth Scrn (Neg) MDMA (Ecstasy) Screen (Neg) Urine Amobarbital Urine Pentobarbital Urine Phenobarbital Urine Secobarbital U OH-Alprazolam Confrm U Benzodiazepines Scrn (Neg) 7-Amino Clonazepam Ur Nordiazepam Confirm U OH-ethylflurazepam U Lorazepam Cnf GC/MS U Oxazepam Confm GC/MS Ur Temazepam Confirm U OH-Triazolam Confirm U OH-Midazolam Confirm Ur Cocaine Metabolite (Neg) U Marijuana (THC) Screen (Neg) U Marijuana THC Carboxy Drug Screen Comment Ethyl Alcohol mg/dL (0-3) mg/dl COVID-19 Eval Order SARS-CoV-2, RNA, NAAT (NEGATIVE) 01/20/21 01/20/21 01/20/21 Range/Units 02:20 02:20 02:20 WBC (4.8-10.8) K/uL RBC (4.2-5.4) M/uL Hgb (12.0-16.0) g/dL Hct (37-47) % MCV (80-100) fL MCH (25-34) pg MCHC (32-36) g/dL RDW Std Deviation (36.4-46.3) fL RDW Coeff of Opal (11.5-14.5) % Plt Count (130-400) K/uL MPV (7.4-10.4) fL Immature Gran % (Auto) % Neut % (Auto) % Lymph % (Auto) % [place] % (Auto) % Eos % (Auto) % Baso % (Auto) % Neut # (Auto) (1.4-6.5) K/uL Lymph # (Auto) (1.2-3.4) K/uL [place] # (Auto) (0.11-0.59) K/uL Eos # (Auto) (0-0.5) K/uL Baso # (Auto) (0-0.2) K/uL Immature Gran # (Auto) (0.00-0.02) K/uL PT (9.0-12.0) Seconds INR (0.9-1.1) ABG pH (7.35-7.45) ABG pCO2 (35-46) mmHg ABG pO2 (80-95) mmHg ABG HCO3 (19-24) mmol/L ABG O2 Saturation (90-95) % ABG Base Excess (-9-1.8) mEq/L Camilo Test (Pos) Barometric Pressure mm/Hg Oxygen Given Sodium (136-145) mmol/L Potassium (3.5-5.1) mmol/L Chloride (98-107) mmol/L Carbon Dioxide (21-32) mmol/L Anion Gap (3-11) BUN (7-18) mg/dl Creatinine (0.6-1.2) mg/dl Est Cr Clr Drug Dosing Est GFR ( Amer) Est GFR (Non-Af Amer) BUN/Creatinine Ratio (10-20) Glucose (70-99) mg/dl POC Glucose (70-99) mg/dl Lactate (0.4-2.0) mmol/L Calcium (8.5-10.1) mg/dl Magnesium (1.8-2.4) mg/dl Total Bilirubin (0.2-1) mg/dl Direct Bilirubin (0-0.2) mg/dl AST (15-37) U/L ALT (12-78) U/L Alkaline Phosphatase (45-117) U/L Ammonia (11-32) umol/L Troponin I (0-0.045) ng/ml Total Protein (6.4-8.2) gm/dl Albumin (3.4-5.0) gm/dl Lipase (73-393) U/L Procalcitonin (0-0.5) ng/ml TSH (0.300-4.500) uIu/ml Urine Color Dark Yellow Urine Appearance Clear (Clear) Urine pH 7.5 (4.5-7.5) Ur Specific Alexander 1.020 (1.000-1.030) Urine Protein Negative (Negative) Urine Glucose (UA) Negative (Negative) Urine Ketones Negative (Negative) Urine Blood Negative (Negative) Urine Nitrite Negative (Negative) Urine Bilirubin Negative (Negative) Urine Urobilinogen Negative (Negative) Ur Leukocyte Esterase Trace H (Negative) Urine WBC (Auto) 1-5 (0-5) /hpf Urine RBC (Auto) 0-4 (0-4) /hpf U Hyaline Cast (Auto) 1-5 (0-5) /lpf U Epithel Cells (Auto) 10-20 H (0-5) /lpf Urine Bacteria (Auto) Negative (Negative) Nasal Screen MRSA (PCR) Urine Butalbital Pending Urine Opiates Screen Neg (Neg) Ur Methadone, Qual Neg (Neg) Urine Barbiturates Pos H (Neg) Ur Phencyclidine (PCP) Neg (Neg) U Amphetamin/Meth Scrn Neg (Neg) MDMA (Ecstasy) Screen Neg (Neg) Urine Amobarbital Pending Urine Pentobarbital Pending Urine Phenobarbital Pending Urine Secobarbital Pending U OH-Alprazolam Confrm Pending U Benzodiazepines Scrn Pos H (Neg) 7-Amino Clonazepam Pending Ur Nordiazepam Confirm Pending U OH-ethylflurazepam Pending U Lorazepam Cnf GC/MS Pending U Oxazepam Confm GC/MS Pending Ur Temazepam Confirm Pending U OH-Triazolam Confirm Pending U OH-Midazolam Confirm Pending Ur Cocaine Metabolite Neg (Neg) U Marijuana (THC) Screen Pos H (Neg) U Marijuana THC Carboxy Pending Drug Screen Comment Pending Ethyl Alcohol mg/dL (0-3) mg/dl COVID-19 Eval Order SARS-CoV-2, RNA, NAAT (NEGATIVE) 01/20/21 01/20/21 01/20/21 Range/Units 01:21 01:19 01:19 WBC (4.8-10.8) K/uL RBC (4.2-5.4) M/uL Hgb (12.0-16.0) g/dL Hct (37-47) % MCV (80-100) fL MCH (25-34) pg MCHC (32-36) g/dL RDW Std Deviation (36.4-46.3) fL RDW Coeff of Opal (11.5-14.5) % Plt Count (130-400) K/uL MPV (7.4-10.4) fL Immature Gran % (Auto) % Neut % (Auto) % Lymph % (Auto) % [place] % (Auto) % Eos % (Auto) % Baso % (Auto) % Neut # (Auto) (1.4-6.5) K/uL Lymph # (Auto) (1.2-3.4) K/uL [place] # (Auto) (0.11-0.59) K/uL Eos # (Auto) (0-0.5) K/uL Baso # (Auto) (0-0.2) K/uL Immature Gran # (Auto) (0.00-0.02) K/uL PT (9.0-12.0) Seconds INR (0.9-1.1) ABG pH (7.35-7.45) ABG pCO2 (35-46) mmHg ABG pO2 (80-95) mmHg ABG HCO3 (19-24) mmol/L ABG O2 Saturation (90-95) % ABG Base Excess (-9-1.8) mEq/L Camilo Test (Pos) Barometric Pressure mm/Hg Oxygen Given Sodium (136-145) mmol/L Potassium (3.5-5.1) mmol/L Chloride (98-107) mmol/L Carbon Dioxide (21-32) mmol/L Anion Gap (3-11) BUN (7-18) mg/dl Creatinine (0.6-1.2) mg/dl Est Cr Clr Drug Dosing Est GFR ( Amer) Est GFR (Non-Af Amer) BUN/Creatinine Ratio (10-20) Glucose (70-99) mg/dl POC Glucose (70-99) mg/dl Lactate 3.5 H* (0.4-2.0) mmol/L Calcium (8.5-10.1) mg/dl Magnesium (1.8-2.4) mg/dl Total Bilirubin (0.2-1) mg/dl Direct Bilirubin (0-0.2) mg/dl AST (15-37) U/L ALT (12-78) U/L Alkaline Phosphatase (45-117) U/L Ammonia < 10.0 L (11-32) umol/L Troponin I (0-0.045) ng/ml Total Protein (6.4-8.2) gm/dl Albumin (3.4-5.0) gm/dl Lipase (73-393) U/L Procalcitonin (0-0.5) ng/ml TSH (0.300-4.500) uIu/ml Urine Color Urine Appearance (Clear) Urine pH (4.5-7.5) Ur Specific Alexander (1.000-1.030) Urine Protein (Negative) Urine Glucose (UA) (Negative) Urine Ketones (Negative) Urine Blood (Negative) Urine Nitrite (Negative) Urine Bilirubin (Negative) Urine Urobilinogen (Negative) Ur Leukocyte Esterase (Negative) Urine WBC (Auto) (0-5) /hpf Urine RBC (Auto) (0-4) /hpf U Hyaline Cast (Auto) (0-5) /lpf U Epithel Cells (Auto) (0-5) /lpf Urine Bacteria (Auto) (Negative) Nasal Screen MRSA (PCR) Urine Butalbital Urine Opiates Screen (Neg) Ur Methadone, Qual (Neg) Urine Barbiturates (Neg) Ur Phencyclidine (PCP) (Neg) U Amphetamin/Meth Scrn (Neg) MDMA (Ecstasy) Screen (Neg) Urine Amobarbital Urine Pentobarbital Urine Phenobarbital Urine Secobarbital U OH-Alprazolam Confrm U Benzodiazepines Scrn (Neg) 7-Amino Clonazepam Ur Nordiazepam Confirm U OH-ethylflurazepam U Lorazepam Cnf GC/MS U Oxazepam Confm GC/MS Ur Temazepam Confirm U OH-Triazolam Confirm U OH-Midazolam Confirm Ur Cocaine Metabolite (Neg) U Marijuana (THC) Screen (Neg) U Marijuana THC Carboxy Drug Screen Comment Ethyl Alcohol mg/dL < 3.0 (0-3) mg/dl COVID-19 Eval Order SARS-CoV-2, RNA, NAAT (NEGATIVE) 01/20/21 01/20/21 01/20/21 Range/Units 01:10 01:10 00:58 WBC (4.8-10.8) K/uL RBC (4.2-5.4) M/uL Hgb (12.0-16.0) g/dL Hct (37-47) % MCV (80-100) fL MCH (25-34) pg MCHC (32-36) g/dL RDW Std Deviation (36.4-46.3) fL RDW Coeff of Opal (11.5-14.5) % Plt Count (130-400) K/uL MPV (7.4-10.4) fL Immature Gran % (Auto) % Neut % (Auto) % Lymph % (Auto) % [place] % (Auto) % Eos % (Auto) % Baso % (Auto) % Neut # (Auto) (1.4-6.5) K/uL Lymph # (Auto) (1.2-3.4) K/uL [place] # (Auto) (0.11-0.59) K/uL Eos # (Auto) (0-0.5) K/uL Baso # (Auto) (0-0.2) K/uL Immature Gran # (Auto) (0.00-0.02) K/uL PT (9.0-12.0) Seconds INR (0.9-1.1) ABG pH (7.35-7.45) ABG pCO2 (35-46) mmHg ABG pO2 (80-95) mmHg ABG HCO3 (19-24) mmol/L ABG O2 Saturation (90-95) % ABG Base Excess (-9-1.8) mEq/L Camilo Test (Pos) Barometric Pressure mm/Hg Oxygen Given Sodium (136-145) mmol/L Potassium (3.5-5.1) mmol/L Chloride (98-107) mmol/L Carbon Dioxide (21-32) mmol/L Anion Gap (3-11) BUN (7-18) mg/dl Creatinine (0.6-1.2) mg/dl Est Cr Clr Drug Dosing Est GFR ( Amer) Est GFR (Non-Af Amer) BUN/Creatinine Ratio (10-20) Glucose (70-99) mg/dl POC Glucose 212 H (70-99) mg/dl Lactate (0.4-2.0) mmol/L Calcium (8.5-10.1) mg/dl Magnesium (1.8-2.4) mg/dl Total Bilirubin (0.2-1) mg/dl Direct Bilirubin (0-0.2) mg/dl AST (15-37) U/L ALT (12-78) U/L Alkaline Phosphatase (45-117) U/L Ammonia (11-32) umol/L Troponin I (0-0.045) ng/ml Total Protein (6.4-8.2) gm/dl Albumin (3.4-5.0) gm/dl Lipase (73-393) U/L Procalcitonin (0-0.5) ng/ml TSH (0.300-4.500) uIu/ml Urine Color Urine Appearance (Clear) Urine pH (4.5-7.5) Ur Specific Alexander (1.000-1.030) Urine Protein (Negative) Urine Glucose (UA) (Negative) Urine Ketones (Negative) Urine Blood (Negative) Urine Nitrite (Negative) Urine Bilirubin (Negative) Urine Urobilinogen (Negative) Ur Leukocyte Esterase (Negative) Urine WBC (Auto) (0-5) /hpf Urine RBC (Auto) (0-4) /hpf U Hyaline Cast (Auto) (0-5) /lpf U Epithel Cells (Auto) (0-5) /lpf Urine Bacteria (Auto) (Negative) Nasal Screen MRSA (PCR) Urine Butalbital Urine Opiates Screen (Neg) Ur Methadone, Qual (Neg) Urine Barbiturates (Neg) Ur Phencyclidine (PCP) (Neg) U Amphetamin/Meth Scrn (Neg) MDMA (Ecstasy) Screen (Neg) Urine Amobarbital Urine Pentobarbital Urine Phenobarbital Urine Secobarbital U OH-Alprazolam Confrm U Benzodiazepines Scrn (Neg) 7-Amino Clonazepam Ur Nordiazepam Confirm U OH-ethylflurazepam U Lorazepam Cnf GC/MS U Oxazepam Confm GC/MS Ur Temazepam Confirm U OH-Triazolam Confirm U OH-Midazolam Confirm Ur Cocaine Metabolite (Neg) U Marijuana (THC) Screen (Neg) U Marijuana THC Carboxy Drug Screen Comment Ethyl Alcohol mg/dL (0-3) mg/dl COVID-19 [facility]-2, RNA, NAAT NEGATIVE (NEGATIVE) 01/20/21 01/20/21 01/20/21 Range/Units 00:33 00:33 00:33 WBC (4.8-10.8) K/uL RBC (4.2-5.4) M/uL Hgb (12.0-16.0) g/dL Hct (37-47) % MCV (80-100) fL MCH (25-34) pg MCHC (32-36) g/dL RDW Std Deviation (36.4-46.3) fL RDW Coeff of Opal (11.5-14.5) % Plt Count (130-400) K/uL MPV (7.4-10.4) fL Immature Gran % (Auto) % Neut % (Auto) % Lymph % (Auto) % [place] % (Auto) % Eos % (Auto) % Baso % (Auto) % Neut # (Auto) (1.4-6.5) K/uL Lymph # (Auto) (1.2-3.4) K/uL [place] # (Auto) (0.11-0.59) K/uL Eos # (Auto) (0-0.5) K/uL Baso # (Auto) (0-0.2) K/uL Immature Gran # (Auto) (0.00-0.02) K/uL PT 9.8 (9.0-12.0) Seconds INR 1.0 (0.9-1.1) ABG pH (7.35-7.45) ABG pCO2 (35-46) mmHg ABG pO2 (80-95) mmHg ABG HCO3 (19-24) mmol/L ABG O2 Saturation (90-95) % ABG Base Excess (-9-1.8) mEq/L Camilo Test (Pos) Barometric Pressure mm/Hg Oxygen Given Sodium 133 L (136-145) mmol/L Potassium 3.9 (3.5-5.1) mmol/L Chloride 95 L (98-107) mmol/L Carbon Dioxide 31 (21-32) mmol/L Anion Gap 7.0 (3-11) BUN 13 (7-18) mg/dl Creatinine 1.08 (0.6-1.2) mg/dl Est Cr Clr Drug Dosing Not Reportable Est GFR ( Amer) 58.6 Est GFR (Non-Af Amer) 50.5 BUN/Creatinine Ratio 11.7 (10-20) Glucose 179 H (70-99) mg/dl POC Glucose (70-99) mg/dl Lactate (0.4-2.0) mmol/L Calcium 9.8 (8.5-10.1) mg/dl Magnesium 4.5 H (1.8-2.4) mg/dl Total Bilirubin 0.4 (0.2-1) mg/dl Direct Bilirubin 0.1 (0-0.2) mg/dl AST 32 (15-37) U/L ALT 41 (12-78) U/L Alkaline Phosphatase 106 (45-117) U/L Ammonia (11-32) umol/L Troponin I < 0.015 (0-0.045) ng/ml Total Protein 7.0 (6.4-8.2) gm/dl Albumin 4.1 (3.4-5.0) gm/dl Lipase 76 (73-393) U/L Procalcitonin 1.53 H (0-0.5) ng/ml TSH 1.620 (0.300-4.500) uIu/ml Urine Color Urine Appearance (Clear) Urine pH (4.5-7.5) Ur Specific Alexander (1.000-1.030) Urine Protein (Negative) Urine Glucose (UA) (Negative) Urine Ketones (Negative) Urine Blood (Negative) Urine Nitrite (Negative) Urine Bilirubin (Negative) Urine Urobilinogen (Negative) Ur Leukocyte Esterase (Negative) Urine WBC (Auto) (0-5) /hpf Urine RBC (Auto) (0-4) /hpf U Hyaline Cast (Auto) (0-5) /lpf U Epithel Cells (Auto) (0-5) /lpf Urine Bacteria (Auto) (Negative) Nasal Screen MRSA (PCR) Urine Butalbital Urine Opiates Screen (Neg) Ur Methadone, Qual (Neg) Urine Barbiturates (Neg) Ur Phencyclidine (PCP) (Neg) U Amphetamin/Meth Scrn (Neg) MDMA (Ecstasy) Screen (Neg) Urine Amobarbital Urine Pentobarbital Urine Phenobarbital Urine Secobarbital U OH-Alprazolam Confrm U Benzodiazepines Scrn (Neg) 7-Amino Clonazepam Ur Nordiazepam Confirm U OH-ethylflurazepam U Lorazepam Cnf GC/MS U Oxazepam Confm GC/MS Ur Temazepam Confirm U OH-Triazolam Confirm U OH-Midazolam Confirm Ur Cocaine Metabolite (Neg) U Marijuana (THC) Screen (Neg) U Marijuana THC Carboxy Drug Screen Comment Ethyl Alcohol mg/dL (0-3) mg/dl COVID-19 Eval Order SARS-CoV-2, RNA, NAAT (NEGATIVE) 01/20/21 Range/Units 00:33 WBC 17.44 H (4.8-10.8) K/uL RBC 4.60 (4.2-5.4) M/uL Hgb 15.1 (12.0-16.0) g/dL Hct 44.0 (37-47) % MCV 95.7 (80-100) fL MCH 32.8 (25-34) pg MCHC 34.3 (32-36) g/dL RDW Std Deviation 46.1 (36.4-46.3) fL RDW Coeff of Opal 13.2 (11.5-14.5) % Plt Count 338 (130-400) K/uL MPV 9.7 (7.4-10.4) fL Immature Gran % (Auto) 0.2 % Neut % (Auto) 90.6 % Lymph % (Auto) 5.5 % [place] % (Auto) 3.6 % Eos % (Auto) 0.0 % Baso % (Auto) 0.1 % Neut # (Auto) 15.81 H (1.4-6.5) K/uL Lymph # (Auto) 0.96 L (1.2-3.4) K/uL [place] # (Auto) 0.62 H (0.11-0.59) K/uL Eos # (Auto) 0.00 (0-0.5) K/uL Baso # (Auto) 0.01 (0-0.2) K/uL Immature Gran # (Auto) 0.04 H (0.00-0.02) K/uL PT (9.0-12.0) Seconds INR (0.9-1.1) ABG pH (7.35-7.45) ABG pCO2 (35-46) mmHg ABG pO2 (80-95) mmHg ABG HCO3 (19-24) mmol/L ABG O2 Saturation (90-95) % ABG Base Excess (-9-1.8) mEq/L Camilo Test (Pos) Barometric Pressure mm/Hg Oxygen Given Sodium (136-145) mmol/L Potassium (3.5-5.1) mmol/L Chloride (98-107) mmol/L Carbon Dioxide (21-32) mmol/L Anion Gap (3-11) BUN (7-18) mg/dl Creatinine (0.6-1.2) mg/dl Est Cr Clr Drug Dosing Est GFR ( Amer) Est GFR (Non-Af Amer) BUN/Creatinine Ratio (10-20) Glucose (70-99) mg/dl POC Glucose (70-99) mg/dl Lactate (0.4-2.0) mmol/L Calcium (8.5-10.1) mg/dl Magnesium (1.8-2.4) mg/dl Total Bilirubin (0.2-1) mg/dl Direct Bilirubin (0-0.2) mg/dl AST (15-37) U/L ALT (12-78) U/L Alkaline Phosphatase (45-117) U/L Ammonia (11-32) umol/L Troponin I (0-0.045) ng/ml Total Protein (6.4-8.2) gm/dl Albumin (3.4-5.0) gm/dl Lipase (73-393) U/L Procalcitonin (0-0.5) ng/ml TSH (0.300-4.500) uIu/ml Urine Color Urine Appearance (Clear) Urine pH (4.5-7.5) Ur Specific Alexander (1.000-1.030) Urine Protein (Negative) Urine Glucose (UA) (Negative) Urine Ketones (Negative) Urine Blood (Negative) Urine Nitrite (Negative) Urine Bilirubin (Negative) Urine Urobilinogen (Negative) Ur Leukocyte Esterase (Negative) Urine WBC (Auto) (0-5) /hpf Urine RBC (Auto) (0-4) /hpf U Hyaline Cast (Auto) (0-5) /lpf U Epithel Cells (Auto) (0-5) /lpf Urine Bacteria (Auto) (Negative) Nasal Screen MRSA (PCR) Urine Butalbital Urine Opiates Screen (Neg) Ur Methadone, Qual (Neg) Urine Barbiturates (Neg) Ur Phencyclidine (PCP) (Neg) U Amphetamin/Meth Scrn (Neg) MDMA (Ecstasy) Screen (Neg) Urine Amobarbital Urine Pentobarbital Urine Phenobarbital Urine Secobarbital U OH-Alprazolam Confrm U Benzodiazepines Scrn (Neg) 7-Amino Clonazepam Ur Nordiazepam Confirm U OH-ethylflurazepam U Lorazepam Cnf GC/MS U Oxazepam Confm GC/MS Ur Temazepam Confirm U OH-Triazolam Confirm U OH-Midazolam Confirm Ur Cocaine Metabolite (Neg) U Marijuana (THC) Screen (Neg) U Marijuana THC Carboxy Drug Screen Comment Ethyl Alcohol mg/dL (0-3) mg/dl COVID-19 Eval Order SARS-CoV-2, RNA, NAAT (NEGATIVE) Supervising Physician Co-Signing Physician Notes Patient seen and examined, chart reviewed, case discussed with Dr. No and I agree with his assessment and plan as documented above. Briefly, patient is a 75yo C female presenting with lethargy and AMS. Patient is on a lot of potentially sedating medications. Newly added Amoxicillin. ?medication effects, ?decreased clearance. Patient on Cimetidine as well as other [id number] processed medications On exam she is somnolent, arousable and will follow commands then drift back to sleep Dry MM +S1/S2, regular, no m/r/g Lungs CTA Abd - +BS, soft, NT/ND Ext - No edema Neuro - exam limited, somnolent, no gross deficits Suspect medication effects, possibly underlying infection Patient seems to be overly tired at baseline - sometimes sleeping 18 hours/day -Hold sedating agents cautiously...monitor for evidence of withdrawal -Would consider discontinuing Cimetidine permanently -Would consider decrease dosing vs discontinuation of Gabapentin, Methocarbamol, Clorazepate -Remainder of plan as above Resident Activity Tracking Resident Involvement: Resident Care Provided Care Provided: Adult Hospital Medicine (1) Migraine without aura Intractability: not intractable Status migrainosus presence: without status migrainosus Qualified Code(s): G43.009 - Migraine without aura, not intractable, without status migrainosus (2) CHF (congestive heart failure) Heart failure chronicity: chronic Heart failure type: systolic Qualified Code(s): I50.22 - Chronic systolic (congestive) heart failure
--- NOTE | 2021-01-20 04:37 | Billing Data ---
Date of Service January 20, 2021 Coding Level of Care Code 55229 Initial Inpt Care Lvl 3
[2021-01-20] MEDS ORDERED: IPRATROPIUM BROMIDE NEB SOLN 0.02% 2.5 ML VIAL INH PRN (05:56)
[2021-01-20] MEDS ORDERED: CLORAZEPATE DIPOTASSIUM 3.75 MG TAB PO PRN (05:56)
[2021-01-20] MEDS ORDERED: SUMAtriptan succinate 100 MG TAB PO PRN (05:56)
[2021-01-20] MEDS ORDERED: NITROGLYCERIN SL 0.4 MG/TAB TAB SL PRN (05:56)
[2021-01-20] MEDS ORDERED: LORazepam 1 MG/2 ML VIAL IV PRN (05:56)
[2021-01-20] MEDS ORDERED: ALBUTEROL 0.083% NEBU SOLN 3 ML VIAL INH PRN (05:56)
--- NOTE | 2021-01-20 06:35 | Billing Data ---
Date of Service January 20, 2021 Coding Level of Care Code 33633 Initial Inpt Care Lvl 3
[2021-01-20] MEDS: LEVOTHYROXINE SODIUM 137 MCG TABLET PO SCH (06:41)
--- NOTE | 2021-01-20 07:48 | CT Scan Report ---
CT head/brain wo con CLINICAL HISTORY: Acute change in mental status. Confusion. COMPARISON STUDY: MRI dated 09/18/2011 TECHNIQUE: Axial CT of the brain is performed from the vertex to the skull base. IV contrast was not administered for this examination. A dose lowering technique was utilized adhering to the principles of ALARA. CT DOSE: 614.27 mGy.cm FINDINGS: No intra or extra-axial mass lesions are visualized. There is no CT evidence of acute cortical infarc tion. There is no evidence of midline shift. There is no acute hemorrhage. No calvarial fractures ar e visualized. There are patchy white matter hypodensities likely on a small vessel basis. There is no evidence of pathologic ventricular dilatation. There is no evidence of acute sinusitis IMPRESSION: No acute intracranial findings ACT 112: Negative or not required by law. Electronically signed by: Prosper Huynh M.D. 01/20/2021 7:47 AM
[2021-01-20] MEDS ORDERED: ACETAMINOPHEN 1,000 MG/100 ML VIAL IV PRN (08:11)
[2021-01-20 08:31] LABS: Basophils # (auto) 0.01 K/uL (0-0.2); Basophils % (auto) 0.1 %; Eosinophils # (auto) 0.01 K/uL (0-0.5); Eosinophils % (auto) 0.1 %; Hematocrit (blood only) 37.6 % (37-47); Immature Granulocytes # (auto) 0.02 K/uL (0.00-0.02); Immature Granulocytes % (auto) 0.1 %; Lymphocytes # (auto) 1.15 K/uL (1.2-3.4); Lymphocytes % (auto) 8.4 %; Mean Corpuscular Hemoglobin 32.4 pg (25-34); Mean Corpuscular Hgb Conc 34.6 g/dL (32-36); Mean Corpuscular Volume 93.8 fL (80-100); Mean Platelet Volume 9.1 fL (7.4-10.4); Monocytes # (auto) 1.49 K/uL (0.11-0.59); Monocytes % (auto) 10.9 %; Neutrophils # (auto) 10.95 K/uL (1.4-6.5); Neutrophils % (auto) 80.4 %; Platelet Count 269 K/uL (130-400); RDW Coefficient of Variation 13.3 % (11.5-14.5); RDW Standard Deviation 45.7 fL (36.4-46.3); Red Blood Count 4.01 M/uL (4.2-5.4); White Blood Count 13.63 K/uL (4.8-10.8)
--- NOTE | 2021-01-20 08:46 | XRay Report ---
XR chest 1V portable CLINICAL HISTORY: Acute change in mental status COMPARISON STUDY: No previous studies for comparison. FINDINGS: The heart is the upper limits of normal in size. The patient is hyperinflated. There are bi lateral calcified breast implants. There is no lobar consolidation. Basilar opacities are felt to rep resent summation with calcified costochondral cartilage.[ IMPRESSION: Emphysema. No acute findings. ACT 112: Negative or not required by law. Electronically signed by: Prosper Huynh M.D. 01/20/2021 8:45 AM
[2021-01-20 08:55] LABS: Albumin Globulin Ratio 1.2 (0.9-2); Albumin Level 3.2 gm/dl (3.4-5.0); BUN Creatinine Ratio 14.2 (10-20); Bilirubin,Total 0.4 mg/dl (0.2-1); Calcium 8.6 mg/dl (8.5-10.1); Creatinine Clr Calc Pharmacy 68.3 ml/min; Est GFR (African American) 101.4; Est GFR (Non-African American) 87.5; Globulin 2.6 gm/dl (2.5-4.0); Potassium 3.9 mmol/L (3.5-5.1); Total Protein 5.8 gm/dl (6.4-8.2)
[2021-01-20] MEDS ORDERED: OXYBUTYNIN CHLORIDE 5 MG TAB PO SCH (09:00)
[2021-01-20] MEDS: THIAMINE HCL 100 MG in SYRINGE 9 ML IV SCH (09:02)
[2021-01-20] MEDS: PIPERACILLIN/TAZOBACTAM 3.375 GM in DEXTROSE 5% 100 ML IV SCH ×3 (09:03→23:06)
[2021-01-20] MEDS: METOCLOPRAMIDE HCL 5 MG TABLET PO SCH ×3 (09:04→17:02)
[2021-01-20] MEDS: UMECLIDINIUM BROMIDE 62.5MCG/BLISTER 7 PUFFS/INHALER INH SCH (09:05)
[2021-01-20] MEDS: SPIRONOLACTONE 25 MG TAB PO SCH ×2 (09:05→17:02)
[2021-01-20] MEDS: guaiFENesin 600 MG TABCR PO SCH ×3 (09:06→20:55)
[2021-01-20] MEDS: FLUTICASONE/VILANTEROL 200/25MCG 14 PUFFS/INHALER INH SCH (09:06)
[2021-01-20] MEDS: ESCITALOPRAM OXALATE 20 MG TAB PO SCH (09:07)
[2021-01-20] MEDS: GABAPENTIN 600 MG TAB PO SCH ×4 (09:07→20:55)
[2021-01-20] MEDS: FUROSEMIDE 80 MG TAB PO SCH (09:08)
[2021-01-20] MEDS: METHOCARBAMOL 750 MG TABLET PO SCH (09:08)
[2021-01-20] MEDS ORDERED: CALCIUM GLUCONATE 10% 1,000 MG in SODIUM CHLORIDE 0.9% 50 ML IV ONE (09:55)
[2021-01-20] MEDS ORDERED: GADOBUTROL 65ML VIAL IV ONE (10:15)
--- NOTE | 2021-01-20 10:35 | Electrocardiogram Report ---
Test Reason : Blood Pressure : / mmHG Vent. Rate : 096 BPM Atrial Rate : 096 BPM P-R Int : 124 ms QRS Dur : 074 ms QT Int : 360 ms P-R-T Axes : 084 071 094 degrees QTc Int : 454 ms Normal sinus rhythm Right atrial enlargement Nonspecific ST and T wave abnormality Abnormal ECG When compared with ECG of 24-JUL-2020 06:51, No significant change was found Confirmed by Yuri Coleman ([id number]) on 01/20/2021 10:34:36 AM Referred By: REFERRED SELF Confirmed By:Yuri Coleman
--- NOTE | 2021-01-20 10:51 | Magnetic Resonance Report ---
MRI OF THE BRAIN WITHOUT AND WITH IV CONTRAST CLINICAL HISTORY: Acute change in mental status, confusion. COMPARISON STUDY: Head CT dated 01/20/2021, MRI the brain dated 09/18/2011 TECHNIQUE: MRI of the brain was performed from the vertex to the skull base utilizing various T1 and T2 weighted sequences. Following the IV administration of 6 mL of Gadavist contrast, additional enhan freedom images were obtained. FINDINGS: Sagittal T1, axial diffusion, proton density and T2 weighted axial, coronal FLAIR, and pre and post a xial T1-weighted images were acquired. These were supplemented with post gadolinium coronal T1 weight ed images. Axial diffusion-weighted images reveal no evidence of acute or subacute infarction. There is no evidence of ventricular dilatation. Proton density T2-weighted and FLAIR images reveal moderate foci of increased T2 signal within the wh ite matter, likely on a small vessel basis. There are no abnormal flow voids. There is a 6 mm dural based extra-axial enhancing lesion within the right occipital region, likely re presenting a tiny meningioma. IMPRESSION: 1. 6 mm dural based extra-axial enhancing lesion within the right occipital lobe, consistent with a s mall meningioma 2. No evidence of acute or subacute infarction 3. Moderate foci of increased T2 signal within the white matter likely on a small vessel ischemic bas is ACT 112: Negative or not required by law. Electronically signed by: Prsoper Huynh M.D. 01/20/2021 10:50 AM
[2021-01-20] MEDS: FOLIC ACID 1 MG in SYRINGE 9.8 ML IV SCH (10:58)
[2021-01-20] MEDS: CYANOCOBALAMIN 500 MCG TABLET (VITAMIN B-12) PO SCH (11:02)
[2021-01-20] MEDS: ACETAMINOPHEN 325 MG TAB PO PRN (18:09)
[2021-01-20] MEDS: ASPIRIN 81 MG ECTAB PO SCH (20:55)
[2021-01-20] MEDS: PRAVASTATIN SOD 20 MG TAB PO SCH (20:56)
[2021-01-20] MEDS: ACETAMINOPHEN 500 MG TAB PO SCH (20:56)
[2021-01-20] MEDS: EZETIMIBE 10 MG TABLET PO SCH (20:57)
[2021-01-21] MEDS ORDERED: SUMAtriptan succinate 100 MG TAB PO STA (02:58)
[2021-01-21] MEDS: LEVOTHYROXINE SODIUM 137 MCG TABLET PO SCH (06:22)
[2021-01-21] MEDS: METOCLOPRAMIDE HCL 5 MG TABLET PO SCH ×3 (06:30→17:18)
[2021-01-21 06:53] LABS: Basophils # (auto) 0.02 K/uL (0-0.2); Basophils % (auto) 0.2 %; Eosinophils # (auto) 0.11 K/uL (0-0.5); Eosinophils % (auto) 0.9 %; Hematocrit (blood only) 38.1 % (37-47); Hemoglobin 12.9 g/dL (12.0-16.0); Immature Granulocytes # (auto) 0.03 K/uL (0.00-0.02); Immature Granulocytes % (auto) 0.2 %; Lymphocytes # (auto) 1.76 K/uL (1.2-3.4); Lymphocytes % (auto) 13.9 %; Mean Corpuscular Hemoglobin 32.2 pg (25-34); Mean Corpuscular Hgb Conc 33.9 g/dL (32-36); Mean Platelet Volume 9.2 fL (7.4-10.4); Monocytes # (auto) 0.76 K/uL (0.11-0.59); Neutrophils # (auto) 9.96 K/uL (1.4-6.5); Neutrophils % (auto) 78.8 %; Platelet Count 227 K/uL (130-400); RDW Standard Deviation 45.8 fL (36.4-46.3); Red Blood Count 4.01 M/uL (4.2-5.4); White Blood Count 12.64 K/uL (4.8-10.8)
[2021-01-21 07:07] LABS: Estimated Average Glucose 128 mg/dl; Hemoglobin A1C 6.1 % (4.5-5.6)
[2021-01-21 07:35] LABS: BUN Creatinine Ratio 13.1 (10-20); Bilirubin,Total 0.5 mg/dl (0.2-1); Calcium 8.5 mg/dl (8.5-10.1); Creatinine Clr Calc Pharmacy 77.9 ml/min; Est GFR (African American) 105.8; Est GFR (Non-African American) 91.3; Globulin 2.9 gm/dl (2.5-4.0); Magnesium 2.3 mg/dl (1.8-2.4); Phosphorus 3.7 mg/dl (2.5-4.9); Potassium 3.2 mmol/L (3.5-5.1); Total Protein 5.9 gm/dl (6.4-8.2)
[2021-01-21] MEDS ORDERED: POTASSIUM CHLORIDE CRTAB 20 MEQ TABCR PO STA (07:42)
[2021-01-21] MEDS: AZITHROMYCIN 250 MG TAB PO SCH (07:58)
[2021-01-21] MEDS: GABAPENTIN 600 MG TAB PO SCH ×4 (07:58→20:59)
[2021-01-21] MEDS: guaiFENesin 600 MG TABCR PO SCH ×3 (07:58→20:58)
[2021-01-21] MEDS: CYANOCOBALAMIN 500 MCG TABLET (VITAMIN B-12) PO SCH (07:59)
[2021-01-21] MEDS: SPIRONOLACTONE 25 MG TAB PO SCH ×2 (07:59→17:18)
[2021-01-21] MEDS: METHOCARBAMOL 750 MG TABLET PO SCH (08:00)
[2021-01-21] MEDS: ESCITALOPRAM OXALATE 20 MG TAB PO SCH (08:00)
[2021-01-21] MEDS: FUROSEMIDE 80 MG TAB PO SCH (08:00)
[2021-01-21] MEDS: FLUTICASONE/VILANTEROL 200/25MCG 14 PUFFS/INHALER INH SCH (08:01)
[2021-01-21] MEDS: UMECLIDINIUM BROMIDE 62.5MCG/BLISTER 7 PUFFS/INHALER INH SCH (08:02)
[2021-01-21] MEDS: PIPERACILLIN/TAZOBACTAM 3.375 GM in DEXTROSE 5% 100 ML IV SCH ×3 (08:02→23:40)
[2021-01-21] MEDS: THIAMINE HCL 100 MG in SYRINGE 9 ML IV SCH (08:03)
[2021-01-21] MEDS: FOLIC ACID 1 MG in SYRINGE 9.8 ML IV SCH (08:03)
--- NOTE | 2021-01-21 08:57 | CT Scan Report ---
CT chest diagnostic wo con CLINICAL HISTORY: Abnormal chest x-ray. Shortness of breath. Possible pneumonia. COMPARISON STUDY: Chest x-ray dated 01/20/2021, CT scan dated 07/22/2020 CT DOSE: 249.14 mGy.cm TECHNIQUE: CT of the thorax was performed from the thoracic inlet to the lung bases. Images are revi ewed in the axial, sagittal, and coronal planes. IV contrast was not administered for this examinatio n. A dose lowering technique was utilized adhering to the principles of ALARA. FINDINGS: Thyroid: Imaged portions of the thyroid gland are normal in appearance. Thoracic aorta: The thoracic aorta is normal in course and caliber, noting standard 3 vessel arch kamaljit salina. Heart: The heart is normal in size. There are coronary artery calcifications. There is no pericardial effusion. Lungs and pleural spaces: There is respiratory motion artifact. There is severe pulmonary emphysema. There are stable biapical opacities, likely representing apical scarring. There is stable right middl e lobe atelectasis/scarring. There is no acute parenchymal consolidation to indicate a pneumonia. The re are no pleural effusions. There is a stable 8 mm right apical pulmonary nodule Mediastinum: There is no evidence of pathologic mediastinal lymphadenopathy. Danay: There is no evidence of pathologic hilar adenopathy given the limitations of a noncontrast stud y. Axilla: There is no evidence of pathologic axillary lymphadenopathy Upper abdomen: Partially visualized upper abdominal viscera is within normal limits. Skeletal structures: There are bilateral calcified breast implants. There is a stable 17 mm nodular f ocus abutting the posterior lateral aspect of the right breast implant. IMPRESSION: 1. Severe pulmonary emphysema 2. Stable 8 mm right upper lobe pulmonary nodule 3. Stable right middle lobe and biapical scarring. 4. There are no areas of parenchymal consolidation to indicate an acute pneumonia. ACT 112: Negative or not required by law. Electronically signed by: Prosper Huynh M.D. 01/21/2021 8:56 AM
[2021-01-21] MEDS: ASPIRIN 81 MG ECTAB PO SCH (20:58)
[2021-01-21] MEDS: ACETAMINOPHEN 500 MG TAB PO SCH (20:58)
[2021-01-21] MEDS: PRAVASTATIN SOD 20 MG TAB PO SCH (20:58)
[2021-01-21] MEDS: EZETIMIBE 10 MG TABLET PO SCH (20:59)
[2021-01-22] MEDS: LEVOTHYROXINE SODIUM 137 MCG TABLET PO SCH (06:06)
[2021-01-22] MEDS ORDERED: SUMAtriptan succinate 100 MG TAB PO STA (06:31)
[2021-01-22 07:15] LABS: Basophils # (auto) 0.04 K/uL (0-0.2); Basophils % (auto) 0.4 %; Eosinophils # (auto) 0.51 K/uL (0-0.5); Eosinophils % (auto) 5.6 %; Hematocrit (blood only) 35.4 % (37-47); Immature Granulocytes # (auto) 0.01 K/uL (0.00-0.02); Immature Granulocytes % (auto) 0.1 %; Lymphocytes # (auto) 1.47 K/uL (1.2-3.4); Lymphocytes % (auto) 16.1 %; Mean Corpuscular Hemoglobin 32.3 pg (25-34); Mean Corpuscular Hgb Conc 33.9 g/dL (32-36); Mean Corpuscular Volume 95.4 fL (80-100); Mean Platelet Volume 9.3 fL (7.4-10.4); Monocytes # (auto) 0.68 K/uL (0.11-0.59); Monocytes % (auto) 7.4 %; Neutrophils # (auto) 6.43 K/uL (1.4-6.5); Neutrophils % (auto) 70.4 %; Platelet Count 224 K/uL (130-400); RDW Coefficient of Variation 12.7 % (11.5-14.5); RDW Standard Deviation 44.2 fL (36.4-46.3); Red Blood Count 3.71 M/uL (4.2-5.4); White Blood Count 9.14 K/uL (4.8-10.8)
--- NOTE | 2021-01-22 07:31 | Hospitalist Progress Note ---
Date of Service January 21, 2021 (late entry) Assessment & Plan (1) Metabolic encephalopathy: Possible drug-induced encephalopathy Possible sepsis POA (2) COPD, group D, by GOLD 2017 classification: (3) Delayed sleep phase syndrome: (4) CAD (coronary artery disease): (5) Anxiety and depression: (6) Migraine without aura: (7) CHF (congestive heart failure): Luana Meek is a 75-year-old female with COPD, delayed sleep phase syndrome, CAD, GERD, multidrug-resistant stenotrophomonas infection, and status migrainosus; who presented to the ER with her d/t concern for continued decreased ability to communicate and increasing sedation throughout the day. Patient is on a lot of potentially sedating medications. Newly added Amoxicillin. ?medication effects, ?decreased clearance. Patient on Cimetidine as well as other [id number] processed medications After admission, patient was feeling better, alert and oriented and answering questions appropriately. Reported constipation, and taking a lot of stool softeners, containing magnesium. She was hypermagnesemic, magnesium level 4.5. Received calcium gluconate, and repeated magnesium Altered mental status: -Uncertain etiology of altered mental status, likely multifactorial given the fact of increased white blood cell count/lactate on admission in addition to recent addition of antibiotics that potentially increase serum concentrations of benzos/barbiturates -In theory recent addition of amoxicillin could have increased serum concentrations of home benzos/barbiturates -Hold home clorazepate, gabapentin, Fioricet, and cimetidine; stopped amoxicillin, holding azithromycin -CT head in ED negative for acute process -ABG demonstrating mild hypoxemia -TSH 1.62 -Ammonia <10 -Mild hyponatremia (NA 133), hypermagnesemia (mag 4.5) -BUN 13, creatinine 1.08 -MRI brain ordered (given sudden onset changes of mental status with no clear signs/symptoms indicating etiology, TIA/stroke possible however unlikely given neuro exam), negative for acute stroke -NPO initially, now advanced diet Suspect medication effects, possibly underlying infection Patient seems to be overly tired at baseline - sometimes sleeping 18 hours/day -Hold sedating agents cautiously...monitor for evidence of withdrawal -Would consider discontinuing Cimetidine permanently -Would consider decrease dosing vs discontinuation of Gabapentin, Methocarbamol, Clorazepate -Remainder of plan as above COPD, group D Chronic respiratory failure -History of stenotrophomonas infections that were multidrug-resistant, most recent respiratory sputum culture demonstrated Pseudomonas sensitive to Zosyn -At home was on amoxicillin (started this week), and had been taking azithromycin every other day, most recent course of steroids was in November 2020 -ABG with CO2 of 47, O2 57, HCO3 32 -Stopped amoxicillin and holding azithromycin -CXR in ED relatively unimpressive for signs of overt infection -On oxygen supplementation (nasal cannula 3 L) at baseline all the time -Continue oxygen supplementation with goal range of 88-92% -Continue home inhaler regimen without change -COVID-19 negative (completed COVID-19 vaccination series greater than 2 weeks ago) Infection?: -Lactic acid on admission of 3.5, with downtrend to 1.4 following administration of fluids -Uncertain etiology, patient with high risk for systemic infection given multidrug-resistant organisms in her past -Urinalysis unimpressive, CXR relatively unimpressive for signs of overt infection -WBC 17.44K now down to 13K, pro-Kelechi 1.53 -Continue Zosyn given multidrug-resistant stenotrophomonas history CT chest ordered to further evaluate Blood cultx - pending Sputum cultx ordered Repeat procalcitonin -Nasal MRSA pending Disorder delayed sleep phase cycle: -Patient on clorazepate at home (mainly taking every day) -Given altered mental status on admission will hold at this time -Given long-term use Ativan 1 mg IV q4h as needed for withdrawal symptom Migraine without aura: -Patient on Fioricet at home (reportedly taking daily) -Given altered mental status continue to hold at this time Diet: advance diet CODE STATUS: Conditional code (desires no intubation, but accepting of alternative airways, no mechanical ventilation) (2) COPD, group D, by GOLD 2017 classification: (3) Delayed sleep phase syndrome: (4) CAD (coronary artery disease): (5) Anxiety and depression: (6) Migraine without aura: (7) CHF (congestive heart failure): Admission and Anticipated Discharge Date Admission Date: January 20, 2021 Subjective Patient seen in follow-up of altered mental status Patient sitting up in bed, in no acute distress, she is alert and oriented and answering questions appropriately She does feel tired Denies fevers or chills, chest pain or shortness of breath She is using her chronic oxygen Reports having sputum production previously, yellow color, now it seems to be more clear No abdominal pain, nausea or vomiting Review of Systems Review of Systems: All systems reviewed & are unremarkable except as noted in HPI & below Constitutional: + fatigue; no fever and no chills Respiratory: no cough and no dyspnea Cardiovascular: no chest pain and no palpitations Gastrointestinal: no abdominal pain, no nausea and no vomiting Physical Exam Physical Exam: Constitutional: well developed, well nourished, alert and oriented, answering questions appropriately Eyes: PERRL, EOMI, conjunctivae normal, anicteric sclerae ENMT: external ear and nose normal, oropharynx normal Respiratory: normal respiratory effort; no respiratory distress and no labored breathing Auscultation: + mild wheezes; no crackles, no rales and no rhonchi Cardiovascular: Rate/Rhythm: rrr , no murmur noted, normal peripheral pulses; no JVD Extremities: no calf tenderness and no LE edema Gastrointestinal (Abdomen): normal bowel sounds, soft, nontender Musculoskeletal: moves extremities, no LE edema Skin: no rashes, warm and dry Neurologic: Alert and oriented, answering questions appropriately, no facial asymmetry, speech fluent, moves all extremities Psychiatric: Orientation: euthymic effect Results & Data Results & Data ([facility]) Vital Signs (Past 12 Hours) Vital Signs Temp Pulse Pulse Resp BP Pulse Ox 01/21/21 23:41 36.6 C 81 20 161/74 H 95 01/21/21 20:19 76 18 94/60 L 99 01/21/21 20:10 83 01/21/21 19:37 36.7 C 86 18 166/74 H 96 Laboratory Results Labs reviewed Medications Administered Current Inpatient Medications Acetaminophen (Acetaminophen 500 Mg Tab) 500 mg PO HS MARCUS Stop: 02/19/21 20:59 Last Admin: 01/21/21 20:58 Dose: 500 mg Documented by: Acetaminophen (Acetaminophen 325 Mg Tab) 650 mg PO Q4H PRN PRN Reason: Pain Stop: 02/19/21 17:12 Last Admin: 01/20/21 18:09 Dose: 650 mg Documented by: Albuterol (Albuterol 0.083% Nebu Soln 3 Ml Vial) 2.5 mg INH Q4 PRN PRN Reason: Shortness Of Breath Or Wheezing Stop: 02/19/21 05:55 Aspirin (Aspirin 81 Mg Ectab) 81 mg PO QPM MARCUS Stop: 02/19/21 20:59 Last Admin: 01/21/21 20:58 Dose: 81 mg Documented by: Azithromycin (Azithromycin 250 Mg Tab) 500 mg PO MoWeFr@[id number] MARCUS Stop: 01/28/21 08:59 Last Admin: 01/21/21 07:58 Dose: 500 mg Documented by: Clorazepate Dipotassium (Clorazepate Dipotassium 3.75 Mg Tab) 3.75 - 7.5 mg PO HS PRN PRN Reason: Sleep Stop: 02/19/21 05:55 Cyanocobalamin (Cyanocobalamin 500 Mcg Tablet (Vitamin B-12)) 1,000 mcg PO QAM MARCUS Stop: 02/19/21 09:59 Last Admin: 01/21/21 07:59 Dose: 1,000 mcg Documented by: Ezetimibe (Ezetimibe 10 Mg Tablet) 10 mg PO QPM MARCUS Stop: 02/19/21 20:59 Last Admin: 01/21/21 20:59 Dose: 10 mg Documented by: Escitalopram Oxalate (Escitalopram Oxalate 20 Mg Tab) 20 mg PO DAILY MARCUS Stop: 02/19/21 08:59 Last Admin: 01/21/21 08:00 Dose: 20 mg Documented by: Fluticasone/Vilanterol (Fluticasone/Vilanterol 200/25mcg 14 Puffs/Inhaler) 1 puffs INH DAILY MARCUS Stop: 02/19/21 08:59 Last Admin: 01/21/21 08:01 Dose: 1 puffs Documented by: Furosemide (Furosemide 80 Mg Tab) 80 mg PO QAM MARCUS Stop: 02/19/21 08:59 Last Admin: 01/21/21 08:00 Dose: 80 mg Documented by: Gabapentin (Gabapentin 600 Mg Tab) 600 mg PO QID MARCUS Stop: 02/19/21 08:59 Last Admin: 01/21/21 20:59 Dose: 600 mg Documented by: Guaifenesin (Guaifenesin 600 Mg Tabcr) 300 mg PO TID MARCUS Stop: 02/19/21 08:59 Last Admin: 01/21/21 20:58 Dose: 300 mg Documented by: Lorazepam (Ativan) 1 mg in 2 mls @ 2 mls/min IV Q4H PRN PRN Reason: benzo withdrawal symptoms Stop: 02/19/21 05:55 Piperacillin Sod/Tazobactam (Sod 3.375 gm/ Dextrose) 115 mls @ 28.75 mls/hr IV Q8H [facility]; Protocol Stop: 01/22/21 07:59 Last Infusion: 01/22/21 03:45 Dose: Infused Documented by: Acetaminophen (Ofirmev) 1,000 mg in 100 mls @ 400 mls/hr IV Q8H PRN PRN Reason: Pain or Fever Stop: 01/23/21 08:10 Thiamine HCl 100 mg/ Syringe 10 mls @ 2 mls/min IV [facility] Stop: 02/19/21 08:59 Last Admin: 01/21/21 08:03 Dose: 2 mls/min Documented by: Folic Acid 1 mg/ Syringe 10 mls @ 5 [facility] [place] Stop: 02/19/21 09:59 Last Admin: 01/21/21 08:03 Dose: 5 mls/min Documented by: Ipratropium [place] (Ipratropium [place] Neb Soln 0.02% 2.5 Ml Vial) 0.5 mg INH Q4 PRN PRN Reason: Shortness Of Breath Or Wheezing Stop: 02/19/21 05:55 Levothyroxine Sodium (Levothyroxine Sodium 137 Mcg Tablet) [facility] Stop: 02/19/21 06:29 Last Admin: 01/22/21 06:06 Dose: 137 mcg Documented by: Methocarbamol (Methocarbamol 750 Mg Tablet) 750 [facility] [place] Stop: 02/19/21 08:59 Last Admin: 01/21/21 08:00 Dose: 750 mg Documented by: Metoclopramide HCl (Metoclopramide Hcl 5 Mg Tablet) 5 mg PO [facility] Stop: 02/19/21 07:29 Last Admin: 01/21/21 17:18 Dose: 5 mg Documented by: Miscellaneous Information (Piperacill/Tazobac Consult Active) 1 ea N/A UD PRN PRN Reason: Consult Stop: 02/19/21 02:07 Nitroglycerin (Nitroglycerin Sl 0.4 Mg/Tab Tab) 0.4 mg SL UD PRN PRN Reason: Chest Pain Stop: 02/19/21 05:55 Pravastatin Sodium (Pravastatin Sod 20 Mg Tab) 20 mg PO QPM [facility] Stop: 02/19/21 20:59 Last Admin: 01/21/21 20:58 Dose: 20 mg Documented by: Spironolactone (Spironolactone 25 Mg Tab) 25 mg PO [id number] [facility] Stop: 02/19/21 08:59 Last Admin: 01/21/21 17:18 Dose: 25 mg Documented by: Umeclidinium [place] (Umeclidinium [place] 62.5mcg/Blister 7 Puffs/Inhaler) 1 puffs INH QAM [facility] Stop: 02/19/21 08:59 Last Admin: 01/21/21 08:02 Dose: 1 puffs Documented by:
[2021-01-22 07:47] LABS: Albumin Level 2.8 gm/dl (3.4-5.0); BUN Creatinine Ratio 6.5 (10-20); Calcium 8.4 mg/dl (8.5-10.1); Creatinine Clr Calc Pharmacy 82.2 ml/min; Est GFR (African American) 107.7; Magnesium 1.8 mg/dl (1.8-2.4); Potassium 2.8 mmol/L (3.5-5.1)
[2021-01-22 07:51] LABS: Bilirubin,Total 0.3 mg/dl (0.2-1); Globulin 2.8 gm/dl (2.5-4.0); Phosphorus 3.1 mg/dl (2.5-4.9); Total Protein 5.6 gm/dl (6.4-8.2)
[2021-01-22] MEDS ORDERED: POTASSIUM CHLORIDE CRTAB 20 MEQ TABCR PO STA (07:55)
--- NOTE | 2021-01-22 08:04 | Hospitalist Progress Note ---
Date of Service January 22, 2021 Assessment & Plan (1) Metabolic encephalopathy: Possible drug-induced encephalopathy Possible sepsis POA (2) COPD, group D, by GOLD 2017 classification: (3) Delayed sleep phase syndrome: (4) CAD (coronary artery disease): (5) Anxiety and depression: (6) Migraine without aura: (7) CHF (congestive heart failure): Luana Meek is a 75-year-old female with COPD, delayed sleep phase syndrome, CAD, GERD, multidrug-resistant stenotrophomonas infection, and status migrainosus; who presented to the ER with her d/t concern for continued decreased ability to communicate and increasing sedation throughout the day. Patient is on a lot of potentially sedating medications. Newly added Amoxicillin. ?medication effects, ?decreased clearance. Patient on Cimetidine as well as other [id number] processed medications After admission, patient was feeling better, alert and oriented and answering questions appropriately. Reported constipation, and taking a lot of stool softeners, containing magnesium. She was hypermagnesemic, magnesium level 4.5. Received calcium gluconate, and repeated magnesium Altered mental status: -Uncertain etiology of altered mental status, likely multifactorial given the fact of increased white blood cell count/lactate on admission in addition to recent addition of antibiotics that potentially increase serum concentrations of benzos/barbiturates -In theory recent addition of amoxicillin could have increased serum concentrations of home benzos/barbiturates -Urine positive for barbiturates, benzos, marijuana -Held home clorazepate, gabapentin, Fioricet, and cimetidine on admission , stopped amoxicillin, holding azithromycin - clorazepate prn, likely stop cimetidine on dc, poss. decrease dose of other medications -CT head in ED negative for acute process -ABG demonstrating mild hypoxemia -TSH 1.62 -Ammonia <10 -Mild hyponatremia (NA 133), hypermagnesemia (Mag 4.5) -BUN 13, creatinine 1.08 -MRI brain ordered (given sudden onset changes of mental status with no clear signs/symptoms indicating etiology, TIA/stroke possible however unlikely given neuro exam), negative for acute stroke -For hypermagnesemia, received calcium gluconate, repeat mag normalized Suspect medication effects, possibly underlying infection Patient seems to be overly tired at baseline - sometimes sleeping 18 hours/day -Hold sedating agents cautiously...monitor for evidence of withdrawal -Would consider discontinuing Cimetidine permanently -Would consider decrease dosing vs discontinuation of Gabapentin, Methocarbamol, Clorazepate -Remainder of plan as above COPD, group D Chronic respiratory failure -History of stenotrophomonas infections that were multidrug-resistant, most recent respiratory sputum culture demonstrated Pseudomonas sensitive to Zosyn -At home was on amoxicillin (started this week), and had been taking azithromycin every other day, most recent course of steroids was in November 2020 -ABG with CO2 of 47, O2 57, HCO3 32 -Stopped amoxicillin and holding azithromycin -CXR in ED relatively unimpressive for signs of overt infection -On oxygen supplementation (nasal cannula 3 L) at baseline all the time -Continue oxygen supplementation with goal range of 88-92% -Continue home inhaler regimen without change -COVID-19 negative (completed COVID-19 vaccination series greater than 2 weeks ago) Infection/ pneumonia: -Lactic acid on admission of 3.5, with downtrend to 1.4 following administration of fluids -patient with high risk for systemic infection given multidrug-resistant organisms in her past -Urinalysis unimpressive, CXR relatively unimpressive for signs of overt infection -WBC 17.44K now down to 13K, pro-Kelechi 1.53 -Continue Zosyn given multidrug-resistant stenotrophomonas history -Blood cell count and procalcitonin has been trending down, and patient's mental status is much improved, therefore there was underlying infection that is being treated CT chest ordered to further evaluate - Severe pulmonary emphysema. Stable 8 mm right upper lobe pulmonary nodule. Stable right middle lobe and biapical scarring. There are no areas of parenchymal consolidation to indicate an acute pneumonia. She was on antibiotic, Augmentin since January 14, as outpatient, therefore likely already partially treated Per patient she has been having white sputum, which now is more clear/white opaque -Given the patient's status worsened on amoxicillin, will continue Zosyn for now, discussed with pharmacy as patient has allergy to fluoroquinolones, there is no good p.o. option for the patient -Guaifenesin, flutter valve, incentive spirometer, also anticipate close follow- up with PCP after DC Blood cultx - pending Sputum cultx ordered Repeat procalcitonin - trending down -Nasal MRSA pending Disorder delayed sleep phase cycle: -Patient on clorazepate at home (mainly taking every day) -Given altered mental status on admission held initially, now ordered prn -Given long-term use Ativan 1 mg IV q4h as needed for withdrawal symptom Migraine without aura: -Patient on Fioricet at home (reportedly taking daily) -Given altered mental status continue to hold at this time Diet: advance diet CODE STATUS: Conditional code (desires no intubation, but accepting of alternative airways, no mechanical ventilation) (2) COPD, group D, by GOLD 2017 classification: (3) Delayed sleep phase syndrome: (4) CAD (coronary artery disease): (5) Anxiety and depression: (6) Migraine without aura: (7) CHF (congestive heart failure): Admission and Anticipated Discharge Date Admission Date: January 20, 2021 Subjective Patient seen in follow-up of altered mental status Patient sitting up in bed, in no acute distress, she is alert and oriented and answering questions appropriately She does feel tired Denies fevers or chills, chest pain or shortness of breath She is using her chronic oxygen Reports having sputum production previously, yellow color, now it seems to be more clear/ white opaque No abdominal pain, nausea or vomiting Review of Systems Review of Systems: All systems reviewed & are unremarkable except as noted in HPI & below Constitutional: + fatigue; no fever and no chills Respiratory: + cough (improved) and + dyspnea (improved) Cardiovascular: no chest pain and no palpitations Gastrointestinal: no abdominal pain, no nausea and no vomiting Physical Exam Physical Exam: Constitutional: well developed, well nourished, alert and oriented, answering questions appropriately Eyes: PERRL, EOMI, conjunctivae normal, anicteric sclerae ENMT: external ear and nose normal, oropharynx normal Respiratory: normal respiratory effort; somewhat diminished breath sounds, Auscultation: + mild wheezes; no crackles, no rales and no rhonchi Cardiovascular: Rate/Rhythm: rrr , no murmur noted, normal peripheral pulses; no JVD Extremities: no calf tenderness and no LE edema Gastrointestinal (Abdomen): normal bowel sounds, soft, nontender Musculoskeletal: moves extremities, no LE edema Skin: no rashes, warm and dry Neurologic: Alert and oriented, answering questions appropriately, no facial asymmetry, speech fluent, moves all extremities Psychiatric: Orientation: euthymic effect Results & Data Results & Data ([facility]) Vital Signs (Past 12 Hours) Vital Signs Temp Pulse Pulse Resp BP Pulse Ox 01/22/21 07:00 36.7 C 81 16 177/84 H 99 01/22/21 04:34 163/65 H 01/22/21 04:00 36.7 C 81 20 174/76 H 97 01/22/21 01:07 77 01/21/21 23:41 36.6 C 81 20 161/74 H 95 01/21/21 20:19 76 18 94/60 L 99 01/21/21 20:10 83 Laboratory Results 01/22/21 01/22/21 01/22/21 Range/Units 06:25 06:25 06:25 WBC 9.14 (4.8-10.8) K/uL RBC 3.71 L (4.2-5.4) M/uL Hgb 12.0 (12.0-16.0) g/dL Hct 35.4 L (37-47) % MCV 95.4 (80-100) fL MCH 32.3 (25-34) pg MCHC 33.9 (32-36) g/dL RDW Std Deviation 44.2 (36.4-46.3) fL RDW Coeff of Opal 12.7 (11.5-14.5) % Plt Count 224 (130-400) K/uL MPV 9.3 (7.4-10.4) fL Immature Gran % (Auto) 0.1 % Neut % (Auto) 70.4 % Lymph % (Auto) 16.1 % Wirt % (Auto) 7.4 % Eos % (Auto) 5.6 % Baso % (Auto) 0.4 % Neut # (Auto) 6.43 (1.4-6.5) K/uL Lymph # (Auto) 1.47 (1.2-3.4) K/uL Wirt # (Auto) 0.68 H (0.11-0.59) K/uL Eos # (Auto) 0.51 H (0-0.5) K/uL Baso # (Auto) 0.04 (0-0.2) K/uL Immature Gran # (Auto) 0.01 (0.00-0.02) K/uL Sodium 136 (136-145) mmol/L Potassium 2.8 L (3.5-5.1) mmol/L Chloride 98 (98-107) mmol/L Carbon Dioxide 32 (21-32) mmol/L Anion Gap 6.0 (3-11) BUN 4 L (7-18) mg/dl Creatinine 0.54 L (0.6-1.2) mg/dl Est Cr Clr Drug Dosing 82.2 ml/min Est GFR ( Amer) 107.7 Est GFR (Non-Af Amer) 93.0 BUN/Creatinine Ratio 6.5 L (10-20) Glucose 88 (70-99) mg/dl Calcium 8.4 L (8.5-10.1) mg/dl Phosphorus 3.1 (2.5-4.9) mg/dl Magnesium 1.8 (1.8-2.4) mg/dl Total Bilirubin 0.3 (0.2-1) mg/dl AST 22 (15-37) U/L ALT 23 (12-78) U/L Alkaline Phosphatase 88 (45-117) U/L Total Protein 5.6 L (6.4-8.2) gm/dl Albumin 2.8 L (3.4-5.0) gm/dl Globulin 2.8 (2.5-4.0) gm/dl Albumin/Globulin Ratio 1.0 (0.9-2) Procalcitonin 0.39 (0-0.5) ng/ml Urine Butalbital Urine Amobarbital Urine Pentobarbital Urine Phenobarbital Urine Secobarbital U OH-Alprazolam Confrm 7-Amino Clonazepam Ur Nordiazepam Confirm U OH-ethylflurazepam U Lorazepam Cnf GC/MS U Oxazepam Confm GC/MS Ur Temazepam Confirm U OH-Triazolam Confirm U OH-Midazolam Confirm U Marijuana THC Carboxy Drug Screen Comment 01/20/21 Range/Units 02:20 WBC (4.8-10.8) K/uL RBC (4.2-5.4) M/uL Hgb (12.0-16.0) g/dL Hct (37-47) % MCV (80-100) fL MCH (25-34) pg MCHC (32-36) g/dL RDW Std Deviation (36.4-46.3) fL RDW Coeff of Opal (11.5-14.5) % Plt Count (130-400) K/uL MPV (7.4-10.4) fL Immature Gran % (Auto) % Neut % (Auto) % Lymph % (Auto) % Wirt % (Auto) % Eos % (Auto) % Baso % (Auto) % Neut # (Auto) (1.4-6.5) K/uL Lymph # (Auto) (1.2-3.4) K/uL Wirt # (Auto) (0.11-0.59) K/uL Eos # (Auto) (0-0.5) K/uL Baso # (Auto) (0-0.2) K/uL Immature Gran # (Auto) (0.00-0.02) K/uL Sodium (136-145) mmol/L Potassium (3.5-5.1) mmol/L Chloride (98-107) mmol/L Carbon Dioxide (21-32) mmol/L Anion Gap (3-11) BUN (7-18) mg/dl Creatinine (0.6-1.2) mg/dl Est Cr Clr Drug Dosing ml/min Est GFR ( Amer) Est GFR (Non-Af Amer) BUN/Creatinine Ratio (10-20) Glucose (70-99) mg/dl Calcium (8.5-10.1) mg/dl Phosphorus (2.5-4.9) mg/dl Magnesium (1.8-2.4) mg/dl Total Bilirubin (0.2-1) mg/dl AST (15-37) U/L ALT (12-78) U/L Alkaline Phosphatase (45-117) U/L Total Protein (6.4-8.2) gm/dl Albumin (3.4-5.0) gm/dl Globulin (2.5-4.0) gm/dl Albumin/Globulin Ratio (0.9-2) Procalcitonin (0-0.5) ng/ml Urine Butalbital Cancelled Urine Amobarbital Cancelled Urine Pentobarbital Cancelled Urine Phenobarbital Cancelled Urine Secobarbital Cancelled U OH-Alprazolam Confrm Cancelled 7-Amino Clonazepam Cancelled Ur Nordiazepam Confirm Cancelled U OH-ethylflurazepam Cancelled U Lorazepam Cnf GC/MS Cancelled U Oxazepam Confm GC/MS Cancelled Ur Temazepam Confirm Cancelled U OH-Triazolam Confirm Cancelled U OH-Midazolam Confirm Cancelled U Marijuana THC Carboxy Cancelled Drug Screen Comment Cancelled Medications Administered Current Inpatient Medications Acetaminophen (Acetaminophen 500 Mg Tab) 500 mg PO HS MARCUS Stop: 02/19/21 20:59 Last Admin: 01/21/21 20:58 Dose: 500 mg Documented by: Acetaminophen (Acetaminophen 325 Mg Tab) 650 mg PO Q4H PRN PRN Reason: Pain Stop: 02/19/21 17:12 Last Admin: 01/20/21 18:09 Dose: 650 mg Documented by: Albuterol (Albuterol 0.083% Nebu Soln 3 Ml Vial) 2.5 mg INH Q4 PRN PRN Reason: Shortness Of Breath Or Wheezing Stop: 02/19/21 05:55 Aspirin (Aspirin 81 Mg Ectab) 81 mg PO QPM MARCUS Stop: 02/19/21 20:59 Last Admin: 01/21/21 20:58 Dose: 81 mg Documented by: Azithromycin (Azithromycin 250 Mg Tab) 500 mg PO MoWeFr@[id number] MARCUS Stop: 01/28/21 08:59 Last Admin: 01/21/21 07:58 Dose: 500 mg Documented by: Clorazepate Dipotassium (Clorazepate Dipotassium 3.75 Mg Tab) 3.75 - 7.5 mg PO HS PRN PRN Reason: Sleep Stop: 02/19/21 05:55 Cyanocobalamin (Cyanocobalamin 500 Mcg Tablet (Vitamin B-12)) 1,000 mcg PO QAM MARCUS Stop: 02/19/21 09:59 Last Admin: 01/22/21 08:31 Dose: 1,000 mcg Documented by: Ezetimibe (Ezetimibe 10 Mg Tablet) 10 mg PO QPM MARCUS Stop: 02/19/21 20:59 Last Admin: 01/21/21 20:59 Dose: 10 mg Documented by: Escitalopram Oxalate (Escitalopram Oxalate 20 Mg Tab) 20 mg PO DAILY MARCUS Stop: 02/19/21 08:59 Last Admin: 01/22/21 08:29 Dose: 20 mg Documented by: Fluticasone/Vilanterol (Fluticasone/Vilanterol 200/25mcg 14 Puffs/Inhaler) 1 puffs INH DAILY MARCUS Stop: 02/19/21 08:59 Last Admin: 01/22/21 08:31 Dose: 1 puffs Documented by: Furosemide (Furosemide 80 Mg Tab) 80 mg PO QAM [facility] Stop: 02/19/21 08:59 Last Admin: 01/22/21 08:29 Dose: 80 mg Documented by: Gabapentin (Gabapentin 600 Mg Tab) 600 mg PO QID [facility] Stop: 02/19/21 08:59 Last Admin: 01/22/21 13:53 Dose: 600 mg Documented by: Guaifenesin (Guaifenesin 600 Mg Tabcr) 300 mg PO TID [facility] Stop: 02/19/21 08:59 Last Admin: 01/22/21 08:29 Dose: 300 mg Documented by: Lorazepam (Ativan) 1 mg in 2 mls @ 2 mls/min IV Q4H PRN PRN Reason: benzo withdrawal symptoms Stop: 02/19/21 05:55 Piperacillin Sod/Tazobactam (Sod 3.375 gm/ Dextrose) 115 mls @ 28.75 mls/hr IV Q8H [facility]; Protocol Stop: 01/24/21 23:59 Last Admin: 01/22/21 09:39 Dose: 28.8 mls/hr Documented by: Acetaminophen (Ofirmev) 1,000 mg in 100 mls @ 400 mls/hr IV Q8H PRN PRN Reason: Pain or Fever Stop: 01/23/21 08:10 Thiamine HCl 100 mg/ Syringe 10 mls @ 2 mls/min IV [facility] Stop: 02/19/21 08:59 Last Admin: 01/22/21 08:30 Dose: 2 mls/min Documented by: Folic Acid 1 mg/ Syringe 10 mls @ 5 mls[facility] Stop: 02/19/21 09:59 Last Admin: 01/22/21 08:31 Dose: 5 mls/min Documented by: Ipratropium Butler (Ipratropium Butler Neb Soln 0.02% 2.5 Ml Vial) 0.5 mg INH Q4 PRN PRN Reason: Shortness Of Breath Or Wheezing Stop: 02/19/21 05:55 Levothyroxine Sodium (Levothyroxine Sodium 137 Mcg Tablet) 137 mcg PO DAILYBB [facility] Stop: 02/19/21 06:29 Last Admin: 01/22/21 06:06 Dose: 137 mcg Documented by: Methocarbamol (Methocarbamol 750 Mg Tablet) 750 mg PO QAM MACRUS Stop: 02/19/21 08:59 Last Admin: 01/22/21 08:30 Dose: 750 mg Documented by: Metoclopramide HCl (Metoclopramide Hcl 5 Mg Tablet) 5 mg PO AC [facility] Stop: 02/19/21 07:29 Last Admin: 01/22/21 11:33 Dose: 5 mg Documented by: Miscellaneous Information (Piperacill/Tazobac Consult Active) 1 ea N/A UD PRN PRN Reason: Consult Stop: 02/19/21 02:07 Nitroglycerin (Nitroglycerin Sl 0.4 Mg/Tab Tab) 0.4 mg SL UD PRN PRN Reason: Chest Pain Stop: 02/19/21 05:55 Potassium Chloride (Potassium Chloride Crtab 20 Meq Tabcr) 40 meq PO ONE ONE Stop: 01/22/21 14:01 Last Admin: 01/22/21 13:54 Dose: 40 meq Documented by: Pravastatin Sodium (Pravastatin Sod 20 Mg Tab) 20 mg PO QPM MARCUS Stop: 02/19/21 20:59 Last Admin: 01/21/21 20:58 Dose: 20 mg Documented by: Spironolactone (Spironolactone 25 Mg Tab) 25 mg PO [id number] [facility] Stop: 02/19/21 08:59 Last Admin: 01/22/21 08:28 Dose: 25 mg Documented by: Umeclidinium Butler (Umeclidinium Butler 62.5mcg/Blister 7 Puffs/Inhaler) 1 puffs INH QAM MARCUS Stop: 02/19/21 08:59 Last Admin: 01/22/21 08:28 Dose: 1 puffs Documented by:
[2021-01-22] MEDS: METOCLOPRAMIDE HCL 5 MG TABLET PO SCH ×3 (08:27→16:14)
[2021-01-22] MEDS: SPIRONOLACTONE 25 MG TAB PO SCH ×2 (08:28→16:47)
[2021-01-22] MEDS: UMECLIDINIUM BROMIDE 62.5MCG/BLISTER 7 PUFFS/INHALER INH SCH (08:28)
[2021-01-22] MEDS: FUROSEMIDE 80 MG TAB PO SCH (08:29)
[2021-01-22] MEDS: guaiFENesin 600 MG TABCR PO SCH ×3 (08:29→20:01)
[2021-01-22] MEDS: ESCITALOPRAM OXALATE 20 MG TAB PO SCH (08:29)
[2021-01-22] MEDS: GABAPENTIN 600 MG TAB PO SCH ×4 (08:30→20:01)
[2021-01-22] MEDS: METHOCARBAMOL 750 MG TABLET PO SCH (08:30)
[2021-01-22] MEDS: THIAMINE HCL 100 MG in SYRINGE 9 ML IV SCH (08:30)
[2021-01-22] MEDS: FLUTICASONE/VILANTEROL 200/25MCG 14 PUFFS/INHALER INH SCH (08:31)
[2021-01-22] MEDS: CYANOCOBALAMIN 500 MCG TABLET (VITAMIN B-12) PO SCH (08:31)
[2021-01-22] MEDS: FOLIC ACID 1 MG in SYRINGE 9.8 ML IV SCH (08:31)
[2021-01-22] MEDS: PIPERACILLIN/TAZOBACTAM 3.375 GM in DEXTROSE 5% 100 ML IV SCH ×2 (09:39→16:15)
[2021-01-22] MEDS ORDERED: OXYBUTYNIN CHLORIDE 5 MG TAB PO STA (11:46)
[2021-01-22] MEDS ORDERED: POTASSIUM CHLORIDE CRTAB 20 MEQ TABCR PO ONE (14:00)
[2021-01-22] MEDS: EZETIMIBE 10 MG TABLET PO SCH (20:00)
[2021-01-22] MEDS: PRAVASTATIN SOD 20 MG TAB PO SCH (20:00)
[2021-01-22] MEDS: OXYBUTYNIN CHLORIDE 5 MG TAB PO SCH (20:01)
[2021-01-22] MEDS: ASPIRIN 81 MG ECTAB PO SCH (20:01)
[2021-01-22] MEDS: ACETAMINOPHEN 500 MG TAB PO SCH (20:01)
[2021-01-22] MEDS: ACETAMINOPHEN 325 MG TAB PO PRN (22:39)
[2021-01-23] MEDS: PIPERACILLIN/TAZOBACTAM 3.375 GM in DEXTROSE 5% 100 ML IV SCH ×3 (02:02→16:11)
[2021-01-23] MEDS: LEVOTHYROXINE SODIUM 137 MCG TABLET PO SCH (06:14)
[2021-01-23 06:29] LABS: Hematocrit (blood only) 35.6 % (37-47); Hemoglobin 12.5 g/dL (12.0-16.0); Mean Corpuscular Hemoglobin 32.6 pg (25-34); Mean Corpuscular Hgb Conc 35.1 g/dL (32-36); Platelet Count 260 K/uL (130-400); RDW Coefficient of Variation 12.5 % (11.5-14.5); RDW Standard Deviation 42.6 fL (36.4-46.3); Red Blood Count 3.83 M/uL (4.2-5.4); White Blood Count 6.88 K/uL (4.8-10.8)
[2021-01-23 06:58] LABS: BUN Creatinine Ratio 7.4 (10-20); Calcium 8.4 mg/dl (8.5-10.1); Creatinine Clr Calc Pharmacy 83.8 ml/min; Est GFR (African American) 108.4; Est GFR (Non-African American) 93.5; Magnesium 1.9 mg/dl (1.8-2.4); Potassium 3.2 mmol/L (3.5-5.1)
[2021-01-23] MEDS: FOLIC ACID 1 MG in SYRINGE 9.8 ML IV SCH (08:23)
[2021-01-23] MEDS: FLUTICASONE/VILANTEROL 200/25MCG 14 PUFFS/INHALER INH SCH (08:23)
[2021-01-23] MEDS: OXYBUTYNIN CHLORIDE 5 MG TAB PO SCH ×3 (08:23→20:03)
[2021-01-23] MEDS: METOCLOPRAMIDE HCL 5 MG TABLET PO SCH ×3 (08:23→16:11)
[2021-01-23] MEDS: SPIRONOLACTONE 25 MG TAB PO SCH ×2 (08:23→16:11)
[2021-01-23] MEDS: UMECLIDINIUM BROMIDE 62.5MCG/BLISTER 7 PUFFS/INHALER INH SCH (08:24)
[2021-01-23] MEDS: ESCITALOPRAM OXALATE 20 MG TAB PO SCH (08:24)
[2021-01-23] MEDS: FUROSEMIDE 80 MG TAB PO SCH (08:24)
[2021-01-23] MEDS: guaiFENesin 600 MG TABCR PO SCH ×3 (08:24→20:04)
[2021-01-23] MEDS: METHOCARBAMOL 750 MG TABLET PO SCH (08:25)
[2021-01-23] MEDS: GABAPENTIN 600 MG TAB PO SCH ×4 (08:25→20:03)
[2021-01-23] MEDS: AZITHROMYCIN 250 MG TAB PO SCH (08:26)
[2021-01-23] MEDS: THIAMINE HCL 100 MG in SYRINGE 9 ML IV SCH (08:26)
[2021-01-23] MEDS: CYANOCOBALAMIN 500 MCG TABLET (VITAMIN B-12) PO SCH (08:26)
[2021-01-23] MEDS: ACETAMINOPHEN 325 MG TAB PO PRN (08:35)
[2021-01-23] MEDS ORDERED: POTASSIUM CHLORIDE CRTAB 20 MEQ TABCR PO ONE (09:35)
--- NOTE | 2021-01-23 16:55 | Hospitalist Progress Note ---
Date of Service January 23, 2021 Assessment & Plan (1) Metabolic encephalopathy: Patient is a 75 yr female with H/O COPD, delayed sleep phase syndrome, CAD, GERD, multidrug-resistant stenotrophomonas infection, and status migrainosus; who presented to the ER with her d/t concern for continued decreased ability to communicate and increasing sedation throughout the day. Acute metabolic encephalopathy Likely multifactorial secondary to medications, possible infection, Hypoxemia Possible sepsis/Bronchitis/Atypical Pneumonia :POA -MRI Brain:6 mm dural based extra-axial enhancing lesion within the right occipital lobe, consistent with a small meningioma. No evidence of acute or subacute infarction. Moderate foci of increased T2 signal within the white matter likely on a small vessel ischemic basis -CT Chest:Severe pulmonary emphysema. Stable 8 mm right upper lobe pulmonary nodule. Stable right middle lobe and biapical scarring. There are no areas of parenchymal consolidation to indicate an acute pneumonia. -Toxicology screen positive for benzos, marijuana, barbiturates -Normal ammonia levels -Hypoxemia noted on ABG -UA not suggestive of UTI -Blood Culture: Negative to date -Sputum culture moderate normal lidia -Lactic acid levels normalized -Avoid excessive sedating hypnotics -Plan to discontinue clorazepate, Methocarbamol, Cimetidine upon discharge -Continue to hold gabapentin for now -Monitor for withdrawal -Continue empiric Zosyn -Mental status back to baseline Hypomagnesemia Avoid missing supplements Received calcium gluconate Monitor electrolytes Hypokalemia Likely secondary to diuretics Replace electrolytes as needed Monitor COPD Chronic respiratory failure H/O Stenotrophomonas infections that were multidrug-resistant Recently started on amoxicillin On Azithromycin every other day chronically Continue supplemental oxygen as needed Continue empiric antibiotics Continue home inhalers H/O chronic systolic heart failure Continue home diuretics Monitor volume status Disorder delayed sleep phase cycle: On clorazepate at home Follow up as outpatient Migraine without aura: Fioricet PRN CODE STATUS: Conditional code (No intubation, but accepting of alternative airways, no mechanical ventilation) Admission and Anticipated Discharge Date Admission Date: January 20, 2021 Subjective Patient is seen and examined at bedside States having headache earlier today which is improved Reports chronic intermittent cough Denies chest pain, dyspnea, dizziness, nausea, abdominal pain Mental status at baseline Offers no other complaints Review of Systems Review of Systems: All systems reviewed & are unremarkable except as noted in HPI & below Physical Exam Physical Exam: Physical Exam: Vitals signs as noted above General Appearance:Thin, Frail, no apparent distress Head: normocephalic, Atraumatic Eyes: normal inspection, EOMI Neck: supple, Trachea midline Respiratory/Chest: Decreased breath sounds, CTA, No accessory muscle use Cardiovascular: S1, S2, No murmur Abdomen/GI:Soft, Non tender, Bowel sounds present Extremities/Musculoskelatal:normal inspection, no edema Neurologic/Psych:AAOX3, grossly no focal neurological deficits Skin: normal color, warm Results & Data Results & Data ([facility]) Vital Signs (Past 12 Hours) Vital Signs Temp Pulse Pulse Resp BP BP Pulse Ox 01/23/21 15:42 36.6 C 90 18 113/73 100 01/23/21 11:16 36.4 C L 96 H 16 159/74 H 97 01/23/21 07:31 36.6 C 75 16 160/68 H 99 01/23/21 07:07 73 Laboratory Results Short CBC 01/23/21 Range/Units 06:06 WBC 6.88 (4.8-10.8) K/uL Hgb 12.5 (12.0-16.0) g/dL Hct 35.6 L (37-47) % Plt Count 260 (130-400) K/uL BMP 01/23/21 06:06 Sodium 136 Potassium 3.2 L Chloride 100 Carbon Dioxide 31 BUN 4 L Creatinine 0.53 L Glucose 98 Calcium 8.4 L
[2021-01-23] MEDS ORDERED: ALUMINUM/MAGNESIUM/SIMETH (MAALOX MAX) 30 ML UDC PO PRN (17:51)
[2021-01-23] MEDS ORDERED: CALCIUM CARBONATE 500 MG CHEWABLE TAB PO PRN (17:51)
[2021-01-23] MEDS: ASPIRIN 81 MG ECTAB PO SCH (20:03)
[2021-01-23] MEDS: PRAVASTATIN SOD 20 MG TAB PO SCH (20:03)
[2021-01-23] MEDS: ACETAMINOPHEN 500 MG TAB PO SCH (20:03)
[2021-01-23] MEDS: EZETIMIBE 10 MG TABLET PO SCH (20:03)
[2021-01-23] MEDS: POTASSIUM CHLORIDE 10 MEQ TABCR PO SCH (20:04)
[2021-01-24] MEDS: PIPERACILLIN/TAZOBACTAM 3.375 GM in DEXTROSE 5% 100 ML IV SCH ×2 (00:40→08:54)
[2021-01-24] MEDS: LEVOTHYROXINE SODIUM 137 MCG TABLET PO SCH (04:41)
[2021-01-24 08:00] LABS: BUN Creatinine Ratio 8.9 (10-20); Calcium 8.7 mg/dl (8.5-10.1); Creatinine Clr Calc Pharmacy 67.6 ml/min; Est GFR (African American) 101.9; Est GFR (Non-African American) 87.9; Potassium 3.5 mmol/L (3.5-5.1)
[2021-01-24] MEDS: FLUTICASONE/VILANTEROL 200/25MCG 14 PUFFS/INHALER INH SCH (08:32)
[2021-01-24] MEDS: UMECLIDINIUM BROMIDE 62.5MCG/BLISTER 7 PUFFS/INHALER INH SCH (08:33)
[2021-01-24] MEDS: METOCLOPRAMIDE HCL 5 MG TABLET PO SCH ×2 (08:34→11:38)
[2021-01-24] MEDS: SPIRONOLACTONE 25 MG TAB PO SCH (08:34)
[2021-01-24] MEDS: OXYBUTYNIN CHLORIDE 5 MG TAB PO SCH ×2 (08:35→13:55)
[2021-01-24] MEDS: FOLIC ACID 1 MG in SYRINGE 9.8 ML IV SCH (08:36)
[2021-01-24] MEDS: POTASSIUM CHLORIDE 10 MEQ TABCR PO SCH (08:36)
[2021-01-24] MEDS: ESCITALOPRAM OXALATE 20 MG TAB PO SCH (08:37)
[2021-01-24] MEDS: FUROSEMIDE 80 MG TAB PO SCH (08:37)
[2021-01-24] MEDS: guaiFENesin 600 MG TABCR PO SCH ×2 (08:38→13:54)
[2021-01-24] MEDS: CYANOCOBALAMIN 500 MCG TABLET (VITAMIN B-12) PO SCH (08:39)
[2021-01-24] MEDS: GABAPENTIN 600 MG TAB PO SCH ×2 (08:39→13:55)
[2021-01-24] MEDS: THIAMINE HCL 100 MG in SYRINGE 9 ML IV SCH (08:39)
[2021-01-24] MEDS: METHOCARBAMOL 750 MG TABLET PO SCH (08:39)
[2021-01-24] MEDS: ACETAMINOPHEN 325 MG TAB PO PRN (09:09)
--- NOTE | 2021-01-24 12:18 | Hospitalist Progress Note ---
Date of Service January 24, 2021 Assessment & Plan (1) Metabolic encephalopathy: Patient is a 75 yr female with H/O COPD, delayed sleep phase syndrome, CAD, GERD, multidrug-resistant stenotrophomonas infection, and status migrainosus; who presented to the ER with her d/t concern for continued decreased ability to communicate and increasing sedation throughout the day. Acute metabolic encephalopathy Likely multifactorial secondary to medications, possible infection, Hypoxemia Possible sepsis/Bronchitis/Atypical Pneumonia :POA -MRI Brain:6 mm dural based extra-axial enhancing lesion within the right occipital lobe, consistent with a small meningioma. No evidence of acute or subacute infarction. Moderate foci of increased T2 signal within the white matter likely on a small vessel ischemic basis -CT Chest:Severe pulmonary emphysema. Stable 8 mm right upper lobe pulmonary nodule. Stable right middle lobe and biapical scarring. There are no areas of parenchymal consolidation to indicate an acute pneumonia. -Toxicology screen positive for benzos, marijuana, barbiturates -Normal ammonia levels -Hypoxemia noted on ABG -UA not suggestive of UTI -Blood Culture: Negative to date -Sputum culture moderate normal lidia -Lactic acid levels normalized -Avoid excessive sedating hypnotics -Plan to discontinue clorazepate, Methocarbamol, Cimetidine upon discharge -Continue to hold gabapentin for now -Monitor for withdrawal -Continue empiric Zosyn>> Will transition to Augmentin -Mental status back to baseline Hypomagnesemia Avoid missing supplements Received calcium gluconate Monitor electrolytes Resolved Hypokalemia Likely secondary to diuretics Replace electrolytes as needed Monitor COPD Chronic respiratory failure H/O Stenotrophomonas infections that were multidrug-resistant Recently started on amoxicillin prior to admission On Azithromycin every other day chronically Continue supplemental oxygen as needed Continue empiric antibiotics Continue home inhalers H/O chronic systolic heart failure Continue home diuretics Monitor volume status Disorder delayed sleep phase cycle: On clorazepate at home Follow up as outpatient Will discontinue clorazepate upon discharge Migraine without aura: Fioricet PRN CODE STATUS: Conditional code (No intubation, but accepting of alternative airways, no mechanical ventilation) Admission and Anticipated Discharge Date Admission Date: January 20, 2021 Subjective Patient is seen and examined at bedside States feeling better today No new complaints chronic intermittent cough Denies chest pain, dyspnea, dizziness, nausea, abdominal pain Plan to discharge home today Review of Systems Review of Systems: All systems reviewed & are unremarkable except as noted in HPI & below Physical Exam Physical Exam: Physical Exam: Vitals signs as noted above General Appearance:Thin, Frail, no apparent distress Head: normocephalic, Atraumatic Eyes: normal inspection, EOMI Neck: supple, Trachea midline Respiratory/Chest: Decreased breath sounds, CTA, No accessory muscle use Cardiovascular: S1, S2, No murmur Abdomen/GI:Soft, Non tender, Bowel sounds present Extremities/Musculoskelatal:normal inspection, no edema Neurologic/Psych:AAOX3, grossly no focal neurological deficits Skin: normal color, warm Results & Data Results & Data ([facility]) Vital Signs (Past 12 Hours) Vital Signs Temp Pulse Pulse Resp BP Pulse Ox 01/24/21 11:08 36.6 C 94 H 16 120/79 97 01/24/21 07:37 36.5 C 88 16 127/71 100 01/24/21 07:30 86 01/24/21 04:34 36.6 C 87 16 133/63 99 Laboratory Results BMP 01/24/21 07:00 Sodium 136 Potassium 3.5 Chloride 98 Carbon Dioxide 32 BUN 6 L Creatinine 0.64 Glucose 94 Calcium 8.7
--- NOTE | 2021-01-24 12:40 | Discharge Summary ---
Date of Service January 24, 2021 Admission HPI Per Admitting Provider Luana Meek is a 75-year-old female with past medical history significant for COPD, delayed sleep phase syndrome, coronary artery disease, GERD, multidrug- resistant stenotrophomonas infection, and status migrainosus; who presented to the ER with her earlier this evening following concern for continued decreased ability to communicate and increasing sedation throughout the day. states that this started earlier yesterday morning (01/19) and initially he thought nothing of it, he initially just thought it was that she was more tired than normal. Indicates that on a regular basis it is quite common for her to go to bed about 1:30 PM, and sleep until probably 5:30 AM if not otherwise disrupted or encouraged into other activities. Throughout the day noticed that she was becoming increasingly more confused, and increasingly more tremulous, and unable to perform some of the limited basic daily functions that she does independently normally. Typically he has to provide some assistance to her daily care, however today this was significantly increased and seem to increase throughout the day, however she was seemingly resistant to coming to the hospital until he demanded that she go following this continuing to worsen to the point where she was almost unresponsive to his attempted stimuli. denies any other recent changes at this time, other than earlier this week she was started on amoxicillin in addition to her every other day azithromycin for her COPD, this was done by her [facility] nurse that comes intermittently. States that she is never previously had similar kind of episodes, nor had episodes where she had tremors or confusion. She does not drink alcohol, does not utilize tobacco (quit in 2003), does utilize medical marijuana for her migraines. On presentation in the ED, patient was initially seemingly obtunded and minimally responsive, however this was fluctuating throughout her ED course. Initial laboratory work demonstrated white blood cell count 17.44, lactate of 3.5, urinalysis was unimpressive; urine tox demonstrated positive for benzos, barbiturates, marijuana; negative ammonia; negative TSH; pro-Kelechi 1.53; blood cultures were drawn at this time and she was started on Zosyn given her history of multidrug-resistant pulmonary infections (stenotrophomonas). On my presentation to the room, patient was continue to being lethargic; patient stated that she looks approximately like this throughout the day, but did have more tremors. Admission Exam Per Admitting Provider Physical Exam Constitutional: well developed, well nourished, + altered mental status and + lethargic Eyes: PERRL, conjunctivae normal, anicteric sclerae ENMT: external ear and nose normal, oropharynx normal Respiratory: normal respiratory effort; no respiratory distress and no labored breathing Auscultation: + wheezes (Whole field bilaterally); no crackles, no rales and no rhonchi Cardiovascular: Rate/Rhythm: regular rhythm and + tachycardic Heart Sounds: + murmur (Systolic ejection murmur best heard over PILAR w/ radiation to carotids) Vessels: normal peripheral pulses; no JVD Extremities: no calf tenderness and no edema Gastrointestinal (Abdomen): normal bowel sounds, soft, nontender, no hepatosplenomegaly Musculoskeletal: Extremities: + abnormal strength (3/5 b/l upper and lower extrem) Skin: no rashes, warm and dry Neurologic: CN's II-XI intact bilaterally, deep tendon reflexes 2+ bilaterally, moves all extremities, awake and + confused; no focal motor deficits Psychiatric: Orientation: oriented to person, oriented to place and oriented to time; + not alert Lymphatic: no cervical or axillary lymphadenopathy Principal Diagnosis Acute metabolic encephalopathy--Likely due to Polypharmacy Possible atypical pneumonia, bronchitis Hypermagnesemia Discharge Data Allergies Allergy/AdvReac Type Severity Reaction Status Date / Time Sulfa (Sulfonamide Allergy Intermediate Hives Verified 01/20/21 02:35 Antibiotics) cortisone Allergy Unknown RASH FOR 3 Verified 01/20/21 02:35 MONTHS levofloxacin Allergy Unknown RASH Verified 01/20/21 02:35 nortriptyline Allergy Unknown RASH Verified 01/20/21 02:35 hydrocortisone Allergy Unknown Verified 01/20/21 02:35 [From Cortizone-10] Consultations 01/20/21 02:12 ED Decision to Admit Stat Procedures Performed MRI Brain:6 mm dural based extra-axial enhancing lesion within the right occipital lobe, consistent with a small meningioma. No evidence of acute or subacute infarction. Moderate foci of increased T2 signal within the white matter likely on a small vessel ischemic basis CT Chest:Severe pulmonary emphysema. Stable 8 mm right upper lobe pulmonary nodule. Stable right middle lobe and biapical scarring. There are no areas of parenchymal consolidation to indicate an acute pneumonia. Ordered Studies 01/20/21 01:00 CT head/brain wo con Urgent 01/20/21 05:56 MR brain wo/w con Routine 01/21/21 07:43 CT chest diagnostic wo con Routine Hospital Course (1) Metabolic encephalopathy: Patient is a 75 yr female with H/O COPD, delayed sleep phase syndrome, CAD, GERD, multidrug-resistant stenotrophomonas infection, and status migrainosus; who presented to the ER with her d/t concern for continued decreased ability to communicate and increasing sedation throughout the day. Acute metabolic encephalopathy Likely multifactorial secondary to medications (Polypharmacy), possible infection, Hypoxemia Possible sepsis/Bronchitis/Atypical Pneumonia :POA -MRI Brain:6 mm dural based extra-axial enhancing lesion within the right occipital lobe, consistent with a small meningioma. No evidence of acute or subacute infarction. Moderate foci of increased T2 signal within the white matter likely on a small vessel ischemic basis -CT Chest:Severe pulmonary emphysema. Stable 8 mm right upper lobe pulmonary nodule. Stable right middle lobe and biapical scarring. There are no areas of parenchymal consolidation to indicate an acute pneumonia. -Toxicology screen positive for benzos, marijuana, barbiturates -Normal ammonia levels -Hypoxemia noted on ABG -UA not suggestive of UTI -Blood Culture: Negative to date -Sputum culture moderate normal lidia -Lactic acid levels normalized -Avoid excessive sedating hypnotics -Plan to discontinue clorazepate, Cimetidine upon discharge -Decrease gabapentin from 600mg QID to 300mg QID -Decrease methocarbamol 750 mg twice daily to daily. -Monitor for withdrawal -Continue empiric Zosyn>> Will transition to Augmentin -Mental status back to baseline Hypermagnesemia Avoid magnesium supplements Received calcium gluconate Monitor electrolytes Resolved Hypokalemia Likely secondary to diuretics Replace electrolytes as needed Monitor COPD Chronic respiratory failure H/O Stenotrophomonas infections that were multidrug-resistant Recently started on amoxicillin prior to admission On Azithromycin every other day chronically Continue supplemental oxygen as needed Continue empiric antibiotics Continue home inhalers H/O chronic systolic heart failure Continue home diuretics Monitor volume status Disorder delayed sleep phase cycle: On clorazepate at home Follow up as outpatient Will discontinue clorazepate upon discharge Migraine without aura: Fioricet PRN CODE STATUS: Conditional code (No intubation, but accepting of alternative airways, no mechanical ventilation) Total Time Total Time Spent Total Time Spent (In Minutes): 45 minutes Total Time Includes: Examination of the Patient, Discharge Planning, Medication Reconciliation, Communication With Other Providers and Other Discharge Plan Discharge Items Patient Disposition: Home - Home Health Services Reason For Visit: ALTERED MENTAL STATUS Discharge Diagnosis: Acute metabolic encephalopathy Possible atypical pneumonia, bronchitis Hypermagnesemia Activity: Per Instructions section Exercise/Sports: Gradually increase as tolerated Non-emergency contact: Primary Care Provider Call non-emergency contact if: you have any medication questions, your symptoms worsen, your pain is concerning for you and you have a fever Follow-up/Referrals: Krystal Marsh MD [Primary Care Provider] - (Date & Time 01/29/2021 11:20 AM Provider Krystal Marsh MD Department General Internal Medicine [facility] ) Diet: Regular Addtl Attending Provider Instructions: Follow-up with your primary care physician Dr. Krystal Marsh on 01/29/2021 11:20 AM Discuss with your physician for further adjustment of your medications to minimize excess sedation. Complete antibiotic course Augmentin as prescribed. Your final blood cultures are pending at the time of discharge. Follow-up with your physician for results. Seek immediate medical attention if your symptoms reoccur or worsen Pending Studies at Discharge: Yes Studies:: Blood cultures Stand-Alone Forms: My [employer], Smoking Cessation Medications and DC Order Prescriptions: New amoxicillin-pot clavulanate [Augmentin] 875-125 mg tablet 1 tab PO BID Qty: 6 RF: 0 gabapentin 300 mg capsule 300 mg PO QID 30 Days Qty: 120 RF: 0 Continued ipratropium bromide 42 mcg (0.06 %) spray,non-aerosol 2 sprays INTNAS Q8H PRN (Reason: runny nose) Qty: 30 RF: 5 levothyroxine [Synthroid] 137 mcg tablet 137 mcg PO DAILY Qty: 90 RF: 3 spironolactone [Aldactone] 25 mg tablet 25 mg PO BID Qty: 180 RF: 3 oxybutynin chloride 5 mg tablet 5 mg PO QID Qty: 360 RF: 3 ezetimibe [Zetia] 10 mg tablet 10 mg PO QPM Qty: 90 RF: 3 albuterol sulfate [Ventolin HFA] 90 mcg/actuation HFA aerosol inhaler 2 puff Inhalation QID PRN (Reason: Shortness Of Breath Or Wheezing) Qty: 54 RF: 1 lansoprazole 30 mg capsule,delayed release(DR/EC) 30 mg PO BID Qty: 180 RF: 3 potassium chloride 10 mEq capsule, extended release See Rx Instructions PO BID Qty: 450 RF: 3 albuterol sulfate 2.5 mg /3 mL (0.083 %) solution for nebulization 2.5 mg inhalation Q4 PRN (Reason: Shortness Of Breath Or Wheezing) Qty: 540 RF: 1 nystatin 100,000 unit/mL suspension 500,000 unit PO QID Qty: 200 RF: 0 Spiriva with HandiHaler 18 mcg capsule, w/inhalation device 1 cap inhalation QAM Qty: 30 RF: 5 azithromycin 500 mg tablet 500 mg PO 3XWK Qty: 12 RF: 1 furosemide [Lasix] 40 mg tablet 80 mg PO QAM Qty: 180 RF: 3 lysine [L-Lysine] 500 mg tablet 500 mg PO BID RF: 0 ebetyefopj-gluzbzp-nqcvcgjt 50-325-40 mg capsule 1 cap PO BID PRN (Reason: Headache) Qty: 60 RF: 3 sumatriptan succinate [Imitrex] 100 mg tablet 100 mg PO BID MDD 2 PRN (Reason: migraine headache) 30 Days Qty: 12 RF: 5 simethicone [Gas Relief Ultra Strength] 180 mg Capsule 180 mg PO QPM RF: 0 acetaminophen [Tylenol Extra Strength] 500 mg Tablet 1,000 mg PO HS RF: 0 pravastatin 10 mg Tablet 20 mg PO QPM RF: 0 nitroglycerin [Nitrostat] 0.4 mg Tablet, Sublingual 0.4 mg Sublingual UD PRN (Reason: Chest Pain) RF: 0 zinc 50 mg Tablet 50 mg PO AMHS RF: 0 coQ10 (ubiquinol) 200 mg Capsule 200 mg PO QPM RF: 0 Probiotic 3 billion cell Capsule 3 mmu cells PO DAILY RF: 0 metoclopramide HCl 5 mg tablet 5 mg PO AC RF: 0 ipratropium bromide 0.02 % solution 2.5 ml inhalation Q4 PRN (Reason: Shortness Of Breath Or Wheezing) RF: 0 fluticasone propionate [Flonase Allergy Relief] 50 mcg/actuation spray,suspension 2 spray INTRANASAL QPM RF: 0 Medical Marijuana 0 dose PO UD RF: 0 cranberry extract 500 mg Tablet 500 mg PO DAILY RF: 0 Excedrin Migraine 250-250-65 mg Tablet 1 tab PO BID PRN (Reason: Headache) RF: 0 simethicone 125 mg Tablet 125 mg PO QAM RF: 0 multivitamin [Multiple Vitamins] Tablet 1 tab PO DAILY RF: 0 Porter Milk of Magnesia 311 mg Tablet,Chewable See Rx Instructions .ROUTE .COMPLEX RF: 0 ascorbate calcium (vitamin C) 500 mg Tablet 250 mg PO BID RF: 0 aspirin [Aspirin Low Dose] 81 mg Tablet,Delayed Release (Dr/Ec) 81 mg PO QPM RF: 0 escitalopram oxalate 20 mg tablet 20 mg PO DAILY RF: 0 budesonide-formoterol 160-4.5 mcg/actuation HFA aerosol inhaler 2 puff INHALATION TID RF: 0 Changed methocarbamol 750 mg tablet 750 mg PO DAILY 90 Days Qty: 270 RF: 1 Discontinued cimetidine 300 mg tablet 300 mg PO HS Qty: 90 RF: 1 gabapentin 600 mg tablet 600 mg PO QID Qty: 120 RF: 0 clorazepate dipotassium 3.75 mg tablet 3.75 mg PO UD PRN (Reason: Sleep) Qty: 90 RF: 1 guaifenesin [Mucinex] 600 mg Tablet Extended Release 12hr 300 mg PO TID RF: 0 amoxicillin 875 mg tablet 875 mg PO BID RF: 0 Discharge Orders: Discharge Order (Routine); Ordered 01/24/21 Ordered By: Hany Montero/Other Patient Handouts: A1C Admission Data Admit Date/Time: 01/20/21 04:27 Attending Provider: Hany Golden Admit Provider: Joey No Primary Care Provider: Krystal Marsh Other Providers: Yuly Jay Other Interventions: Discharge Summary Assessment (RN) Last Done: 01/24/21 13:35
== END 2021-01-24 15:28 | disposition home health service (06) | DRG 871 ==
LOC: ED 00:37 → SUATTDRO 04:27 → 2W 04:27

== ENCOUNTER 2021-03-26 22:48 | Inpatient (IN) ==
[2021-03-26 23:36] LABS: Basophils # (auto) 0.04 K/uL (0-0.2); Basophils % (auto) 0.7 %; Eosinophils # (auto) 0.33 K/uL (0-0.5); Eosinophils % (auto) 5.6 %; Hematocrit (blood only) 39.6 % (37-47); Hemoglobin 13.3 g/dL (12.0-16.0); Immature Granulocytes # (auto) 0.01 K/uL (0.00-0.02); Immature Granulocytes % (auto) 0.2 %; Lymphocytes # (auto) 1.67 K/uL (1.2-3.4); Lymphocytes % (auto) 28.5 %; Mean Corpuscular Hgb Conc 33.6 g/dL (32-36); Mean Corpuscular Volume 95.2 fL (80-100); Mean Platelet Volume 9.5 fL (7.4-10.4); Monocytes # (auto) 0.75 K/uL (0.11-0.59); Monocytes % (auto) 12.8 %; Neutrophils # (auto) 3.06 K/uL (1.4-6.5); Neutrophils % (auto) 52.2 %; Platelet Count 264 K/uL (130-400); RDW Coefficient of Variation 12.7 % (11.5-14.5); RDW Standard Deviation 44.3 fL (36.4-46.3); Red Blood Count 4.16 M/uL (4.2-5.4); White Blood Count 5.86 K/uL (4.8-10.8)
[2021-03-26 23:49] LABS: Partial Thromboplastin Ratio 0.9; Partial Thromboplastin Time 24.8 Seconds (21.0-31.0); Prothrombin Time 9.7 Seconds (9.0-12.0)
[2021-03-26 23:57] LABS: Albumin Level 3.9 gm/dl (3.4-5.0); BUN Creatinine Ratio 16.2 (10-20); Calcium 8.8 mg/dl (8.5-10.1); Creatinine Clr Calc Pharmacy 69.2 ml/min; Est GFR (African American) 104.6 ml/min; Est GFR (Non-African American) 90.3 ml/min; Magnesium 2.6 mg/dl (1.8-2.4); Potassium 3.8 mmol/L (3.5-5.1)
[2021-03-27 00:02] LABS: Albumin Globulin Ratio 1.3 (0.9-2); Bilirubin,Total 0.2 mg/dl (0.2-1); Globulin 2.9 gm/dl (2.5-4.0); Total Protein 6.8 gm/dl (6.4-8.2); Troponin I 0.022 ng/ml (0-0.045)
[2021-03-27] MEDS ORDERED: methylPREDNISolone 125 MG/2 ML VIAL IV STA (00:48)
[2021-03-27] MEDS ORDERED: ALBUT/IPRATROP 3MG/0.5MG NEB 3 ML VIAL NEB STA (00:48)
[2021-03-27] MEDS ORDERED: cefTRIAXone SODIUM 1,000 MG/50 ML BAG IV STA (02:05)
[2021-03-27] MEDS ORDERED: amLODIPine BESYLATE 5 MG TAB PO ONE (02:34)
[2021-03-27] MEDS ORDERED: LACTATED RINGER'S 1,000 ML IV ONE (03:31)
--- NOTE | 2021-03-27 03:31 | History & Physical Report ---
Date of Service March 27, 2021 Assessment & Plan (1) Respiratory failure, acute and chronic: Secondary to COPD exacerbation secondary to possible aspiration pneumonia Possible esophageal dysfunction given patient description of choking symptoms Hypertension, elevated secondary to illness Possible chronic BP elevation given LVH on CT hx CAD as per records chronic migraine, at baseline hypothyroidism, euthyroid as of TSH from last month anxiety/mood disorder, at baseline past tobacco abuse Medical telemetry Supplemental O2 Baseline ABG Unasyn followed by Augmentin course for possible aspiration pneumonia Prednisone course, nebs RTC Aspiration precautions, swallow eval Pulmonary consult if without improvement Initiate lisinopril if with persistent BP elevation DVT prophylaxis per Lovenox subcu Full code Text document was generated using [employer] voice recognition software. It may contain grammatical or spelling errors. Kindly contact undersigned for clarification of any documentation item in question. History of Present Illness Chief Complaint: Cough, shortness of breath Primary Care Provider: Krystal Marsh MD History obtained from patient, family, and records. Medical history significant for chronic respiratory failure secondary to COPD on home O2, CAD status post stent, chronic migraine, hypothyroidism, anxiety/mood disorder, past tobacco abuse. Last confinement December 2020 for metabolic encephalopathy secondary to polypharmacy. Few days history of junky cough symptoms with achy substernal pain with worsening shortness of breath. No known recent COVID-19 contacts. Admits to choking//coughing symptoms if she is not careful with swallowing. No fever, no chills. Patient brought by to the ER. Patient received Ceftriaxone, Solu-Medrol, neb treatment for COPD exacerbation. Patient currently feeling much better. 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 Allergies Allergy/AdvReac Type Severity Reaction Status Date / Time Sulfa (Sulfonamide Allergy Intermediate Hives Verified 03/27/21 03:07 Antibiotics) cortisone Allergy Unknown RASH FOR 3 Verified 03/27/21 03:07 MONTHS levofloxacin Allergy Unknown RASH Verified 03/27/21 03:07 nortriptyline Allergy Unknown RASH Verified 03/27/21 03:07 hydrocortisone Allergy Unknown Verified 03/27/21 03:07 [From Cortizone-10] Home Medications Medication Instructions Recorded Confirmed Type Probiotic 3 mmu cells PO DAILY 01/04/19 03/27/21 History acetaminophen [Tylenol Extra 1,000 mg PO HS 01/04/19 03/27/21 History Strength] coQ10 (ubiquinol) 200 mg PO QPM 01/04/19 03/27/21 History nitroglycerin [Nitrostat] 0.4 mg SUBLINGUAL UD PRN 01/04/19 03/27/21 History pravastatin 20 mg PO QPM 01/04/19 03/27/21 History simethicone [Gas Relief Ultra 180 mg PO QPM 01/04/19 03/27/21 History Strength] ipratropium bromide 42 mcg (0.06 2 sprays INTNAS Q8H PRN #30 ml 09/16/19 03/27/21 Rx %) nasal spray levothyroxine 137 mcg tablet 137 mcg PO DAILY #90 tab 11/04/19 03/27/21 Rx spironolactone 25 mg tablet 25 mg PO BID #180 tab 04/16/20 03/27/21 Rx oxybutynin chloride 5 mg tablet 5 mg PO QID #360 tab 04/23/20 03/27/21 Rx ezetimibe 10 mg tablet 10 mg PO QPM #90 tab 06/11/20 03/27/21 Rx albuterol sulfate 90 mcg/actuation 2 puff INHALATION QID PRN #54 gm 07/04/20 03/27/21 Rx aerosol inhaler Excedrin Migraine 1 tab PO BID PRN 07/22/20 03/27/21 History Medical Marijuana 0 dose PO UD 07/22/20 03/27/21 History Porter Milk of Magnesia See Rx Instructions .ROUTE .COMPLEX 07/22/20 03/27/21 History cranberry extract 500 mg PO DAILY 07/22/20 03/27/21 History ipratropium bromide 2.5 ml INHALATION Q4 PRN 07/22/20 03/27/21 History metoclopramide HCl 5 mg PO AC 07/22/20 03/27/21 History multivitamin [Multiple Vitamins] 1 tab PO DAILY 07/22/20 03/27/21 History simethicone 125 mg PO QAM 07/22/20 03/27/21 History lansoprazole 30 mg capsule,delayed 30 mg PO BID #180 cap 07/30/20 03/27/21 Rx release potassium chloride 10 mEq See Rx Instructions PO BID #450 cap 09/03/20 03/27/21 Rx capsule,extended release albuterol sulfate 2.5 mg INHALATION Q4 PRN #540 ml 09/04/20 03/27/21 Rx nystatin 100,000 unit/mL oral 500,000 unit PO QID #200 ml 09/25/20 03/27/21 Rx suspension sumatriptan succinate 100 mg tablet 100 mg PO BID PRN 30 Days #12 tab 10/10/20 03/27/21 Rx MDD 2 tiotropium bromide 18 mcg capsule 1 cap INHALATION QAM #30 inh 10/23/20 03/27/21 Rx with inhalation device azithromycin 500 mg tablet 500 mg PO 3XWK #12 tab 10/29/20 03/27/21 Rx furosemide 40 mg tablet 80 mg PO QAM #180 tab 10/30/20 03/27/21 Rx ascorbate calcium (vitamin C) 250 mg PO BID 01/20/21 03/27/21 History aspirin [Aspirin Low Dose] 81 mg PO QPM 01/20/21 03/27/21 History escitalopram oxalate 20 mg PO DAILY 01/20/21 03/27/21 History qiqrbsjnsl-dhefvqo-tklewguy 50 1 cap PO BID PRN #60 cap 03/14/21 03/27/21 Rx mg-325 mg-40 mg capsule 303 Muscle Relaxer 2 tab PO HS 03/27/21 03/27/21 History budesonide-formoterol 2 puff INHALATION BID 03/27/21 03/27/21 History clorazepate dipotassium [Tranxene 3.75 mg PO HS PRN 03/27/21 03/27/21 History T-Tab] gabapentin 300 mg PO QID 03/27/21 03/27/21 History methocarbamol 750 mg PO QAM 03/27/21 03/27/21 History Past Med/Surg History Medical History (Updated 03/27/21 @ 07:11 by Lisseth Li DO) Anxiety and depression Back pain Cronin esophagus CHF (congestive heart failure) Chronic rhinitis Chronic sinusitis COPD (chronic obstructive pulmonary disease) COPD, group D, by GOLD 2017 classification Coronary artery disease Cough with sputum Delayed sleep phase syndrome Depression Emphysema lung GERD (gastroesophageal reflux disease) Hearing loss 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 Hypercholesterolemia Hypothyroidism Lung nodule Lung nodule Migraine without aura Surgical History History of bladder surgery History of breast augmentation History of cholecystectomy History of hemorrhoidectomy History of tonsillectomy Family History Unknown Lung cancer Liver cancer Colon cancer Father Liver cancer Mother Hypertension Other Family history non-contributory Social History Smoking Status: Former smoker Tobacco Type: Cigarettes Age Quit Using Tobacco: 60; packs per day: 2; Years Smoked: 40; Second Hand Exposure: No; Do You Dip or Chew Tobacco: No; Hx Alcohol Use: No Hx Substance Use: No Preferred Language: Mauritanian Communication Ability: Effective Hotel Dining Room Cashier Required: No Beliefs That Will Affect Care: None marital status: Current Living Situation: Spouse Other Information That Helps Us Care for You: No Feels Safe at Home: Yes Safety Concerns: Feels Safe At This Time Assistive Devices: Oxygen - Continuous Review of Systems Review of Systems: As per HPI, all 10 systems reviewed, all other ROS negative Physical Exam Physical Exam: GENERAL: Pleasant, minimal respiratory distress SKIN: Normal color, warm HEENT: [place] palpebral conjunctivae, no ptosis, dry buccal mucosa, nasal cannula in place NECK : Supple, no tenderness CHEST : Decreased breath sounds, expiratory wheezes, no tenderness HEART : RRR, no obvious murmurs ABDOMEN: no distention, nontender EXTREMITIES : No LE swelling/tenderness, no other conspicuous deformities noted NEUROLOGIC : Coherent, no facial asymmetry, no other gross focality Results & Data Results & Data ([facility]) Vital Signs (Past 12 Hours) Vital Signs Temp Pulse Pulse Pulse Resp BP BP 03/27/21 02:53 92 H 18 157/83 H 03/27/21 02:06 97 H 18 183/88 H 03/27/21 01:15 97 H 18 03/27/21 01:05 18 03/27/21 00:03 03/26/21 22:55 36.8 C 101 H 18 132/89 Pulse Ox 03/27/21 02:53 100 03/27/21 02:06 99 03/27/21 01:15 100 03/27/21 01:05 96 03/27/21 00:03 98 03/26/21 22:55 99 Laboratory Results Laboratory Results WBC 5.86 K/uL (4.8-10.8) 03/26/21 22:55 RBC 4.16 M/uL (4.2-5.4) L 03/26/21 22:55 Hgb 13.3 g/dL (12.0-16.0) 03/26/21 22:55 Hct 39.6 % (37-47) 03/26/21 22:55 MCV 95.2 fL (80-100) 03/26/21 22:55 MCH 32.0 pg (25-34) 03/26/21 22:55 MCHC 33.6 g/dL (32-36) 03/26/21 22:55 RDW Std Deviation 44.3 fL (36.4-46.3) 03/26/21 22:55 RDW Coeff of Opal 12.7 % (11.5-14.5) 03/26/21 22:55 Plt Count 264 K/uL (130-400) 03/26/21 22:55 MPV 9.5 fL (7.4-10.4) 03/26/21 22:55 Immature Gran % (Auto) 0.2 % 03/26/21 22:55 Neut % (Auto) 52.2 % 03/26/21 22:55 Lymph % (Auto) 28.5 % 03/26/21 22:55 [place] % (Auto) 12.8 % 03/26/21 22:55 Eos % (Auto) 5.6 % 03/26/21 22:55 Baso % (Auto) 0.7 % 03/26/21 22:55 Neut # (Auto) 3.06 K/uL (1.4-6.5) 03/26/21 22:55 Lymph # (Auto) 1.67 K/uL (1.2-3.4) 03/26/21 22:55 [place] # (Auto) 0.75 K/uL (0.11-0.59) H 03/26/21 22:55 Eos # (Auto) 0.33 K/uL (0-0.5) 03/26/21 22:55 Baso # (Auto) 0.04 K/uL (0-0.2) 03/26/21 22:55 Immature Gran # (Auto) 0.01 K/uL (0.00-0.02) 03/26/21 22:55 PT 9.7 Seconds (9.0-12.0) 03/26/21 22:55 INR 1.0 (0.9-1.1) 03/26/21 22:55 APTT 24.8 Seconds (21.0-31.0) 03/26/21 22:55 PTT Ratio 0.9 03/26/21 22:55 Sodium 138 mmol/L (136-145) 03/26/21 22:55 Potassium 3.8 mmol/L (3.5-5.1) 03/26/21 22:55 Chloride 103 mmol/L (98-107) 03/26/21 22:55 Carbon Dioxide 28 mmol/L (21-32) 03/26/21 22:55 Anion Gap 7.0 (3-11) 03/26/21 22:55 BUN 9 mg/dl (7-18) 03/26/21 22:55 Creatinine 0.59 mg/dl (0.6-1.2) L 03/26/21 22:55 Est Cr Clr Drug Dosing 69.2 ml/min 03/26/21 22:55 Est GFR ( Amer) 104.6 ml/min 03/26/21 22:55 Est GFR (Non-Af Amer) 90.3 ml/min 03/26/21 22:55 BUN/Creatinine Ratio 16.2 (10-20) 03/26/21 22:55 Glucose 87 mg/dl (70-99) 03/26/21 22:55 Calcium 8.8 mg/dl (8.5-10.1) 03/26/21 22:55 Magnesium 2.6 mg/dl (1.8-2.4) H 03/26/21 22:55 Total Bilirubin 0.2 mg/dl (0.2-1) 03/26/21 22:55 AST 23 U/L (15-37) 03/26/21 22:55 ALT 23 U/L (12-78) 03/26/21 22:55 Alkaline Phosphatase 91 U/L (45-117) 03/26/21 22:55 Troponin I 0.022 ng/ml (0-0.045) 03/26/21 22:55 Total Protein 6.8 gm/dl (6.4-8.2) 03/26/21 22:55 Albumin 3.9 gm/dl (3.4-5.0) 03/26/21 22:55 Globulin 2.9 gm/dl (2.5-4.0) 03/26/21 22:55 Albumin/Globulin Ratio 1.3 (0.9-2) 03/26/21 22:55 COVID-19 Eval Order Covid19 at [facility] 03/27/21 02:[address] chest initial read: Heart is not enlarged. Severe coronary calcification present. Possible LVH. No pericardial effusion. Severe emphysema both lungs greatest in upper lobes bilaterally with areas of linear scarring. Mild bronchial plugging right lower lobe and right middle lobe. No definite acute focal airspace infiltrate is identified. No pneumothorax or pleural effusion. EKG as per my interpretation rate 95, NSR, normal axis, no ischemia
[2021-03-27] MEDS ORDERED: AMPICILLIN/SULBACTAM SOD 3,000 MG in 0.9 % SODIUM CHLORIDE 100 ML IV STA (03:43)
[2021-03-27] MEDS ORDERED: OPTIRAY 350 500ml IV ONE (04:00)
--- NOTE | 2021-03-27 04:03 | Emergency Department Note ---
Impression & Plan COPD with acute exacerbation, Chest tightness ED Provider Note NAME: PANFILO MAN AGE: 75 SEX: F ARRIVES VIA: Ambulance INFORMANT: Patient, her ED PROVIDER(S): Lisseth Li DO CHIEF COMPLAINT: Chest tightness and shortness of breath PLAN: Disposition: Admitted to the [facility] service Condition: Stable MEDICAL DECISION MAKING: This is a 75-year-old female patient who presents to the emergency department with chest tightness and shortness of breath. She has a history of COPD with previous exacerbations and episodes of pneumonia. The patient developed chest tightness around 6 PM this evening and noticed that her breathing was worsening despite using her nebulizer treatment at home. EMS was called and she was transported here. She received IV Solu-Medrol and additional nebulizer treatment. The patient thought she was feeling better but when she got up to the bathroom here in the emergency department, she became extremely short of breath. Chest x-ray shows questionable new bilateral lower lobe opacities. She was treated with IV Rocephin. As for the chest tightness, the patient's first troponin was negative and EKG showed no ST segment elevation or signs of ischemia. [facility] for [facility] management. Triage Nursing notes reviewed and agree with them. Additional history obtained from who is at the bedside Prior medical records reviewed Vital Signs: reviewed and remarkable for hypertension Differential diagnosis: Pneumonia, pneumothorax, COPD exacerbation, bronchitis ER treatment provided: IV Solu-Medrol IV Rocephin Diagnostics interpreted by me: ECG: Normal sinus rhythm at a rate of [address] segment elevation or signs of ischemia. There is no ectopy. Cardiac Monitoring: Normal sinus rhythm at a rate of 90 Laboratory studies: See below Imaging studies: As per my interpretation Portable chest x-ray: Emphysematous changes with questionable bilateral lower lobe opacities compared to chest x-ray from December 2020. HPI: 75/F arrives for evaluation of chest tightness and shortness of breath. Patient has a history of COPD and is normally on 3 L of O2. Around 6 PM this evening, the patient developed some chest tightness and increasing shortness of breath. She had increased her supplemental oxygen and switched over to bottled oxygen from her oxygen concentrator. Patient had increasing shortness of breath while trying to use a nebulizer treatment. She thought she might feel better if she went to sit down in the bathroom but her symptoms got worse. The patient typically has a rescue kit on hand from [facility] but did not have that medication at home. The patient has received both of her Covid vaccinations. ROS: See above HPI for pertinent positives & negatives. A total of 10 systems reviewed and were otherwise negative. PAST MEDICAL HISTORY:See Below PAST SURGICAL HISTORY:See Below FAMILY HISTORY:See Below SOCIAL HISTORY:See Below HOME MEDICATIONS:See list ALLERGIES:See list VITALS:See Below PHYSICAL EXAMINATION: HEENT: Head - normocephalic and atraumatic Pupils are equal, round, and reactive to light. Extraocular eye muscles are intact, and sclera are anicteric. Nose - moist nasal mucosa without discharge. Mouth - moist buccal mucosa. Oropharynx is nonerythematous and there is no tonsillar exudate or edema noted. Neck: Supple; no cervical lymphadenopathy or JVD Heart: Regular rate and rhythm. There is a normal S1 and S2 with no murmurs, clicks, or gallops appreciated. Lungs: Diminished breath sounds at both bases with expiratory wheezes throughout. Abdomen: Soft, completely nontender, nondistended, with good bowel sounds. There are no palpable pulsatile masses or hepatosplenomegaly. There is no guard ing, rigidity, or rebound noted. Extremities: No evidence of cyanosis, clubbing, or edema. There are easily palpable peripheral pulses. Skin: warm and dry with good turgor and no rashes. ED COURSE: Times/Reassessments: 0035: The patient was evaluated in room C6. A complete history and physical was performed. An order was placed for continuous cardiac monitoring. The patient was in a normal sinus rhythm at a rate of 90. A twelve-lead EKG was obtained. A portable chest x-ray was performed. Patient was given a DuoNeb treatment. She was given 125 mg of IV Solu-Medrol. The patient was given a gram of Rocephin IV. Patient explained that she got up to use the bathroom and by the time she got back to the bed here in the emergency department, she was extremely short of breath. [facility] for further management. 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 Hypercholesterolemia Hypothyroidism Lung nodule Lung nodule Migraine without aura Surgical History History of bladder surgery History of breast augmentation History of cholecystectomy History of hemorrhoidectomy History of tonsillectomy Family History Unknown Lung cancer Liver cancer Colon cancer Father Liver cancer Mother Hypertension Other Family history non-contributory Social History Smoking Status: Former smoker Tobacco Type: Cigarettes Age Quit Using Tobacco: 60; packs per day: 2; Years Smoked: 40; Second Hand Exposure: No; Do You Dip or Chew Tobacco: No; Hx Alcohol Use: No Hx Substance Use: No Preferred Language: Tristanian Communication Ability: Effective 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 Beliefs That Will Affect Care: None marital status: Current Living Situation: Spouse Other Information That Helps Us Care for You: No Feels Safe at Home: Yes Safety Concerns: Feels Safe At This Time Assistive Devices: Oxygen - Continuous Allergies Allergies Allergy/AdvReac Type Severity Reaction Status Date / Time Sulfa (Sulfonamide Allergy Intermediate Hives Verified 03/27/21 03:07 Antibiotics) cortisone Allergy Unknown RASH FOR 3 Verified 03/27/21 03:07 MONTHS levofloxacin Allergy Unknown RASH Verified 03/27/21 03:07 nortriptyline Allergy Unknown RASH Verified 03/27/21 03:07 hydrocortisone Allergy Unknown Verified 03/27/21 03:07 [From Cortizone-10] Home Meds Home Medications Medication Instructions Recorded Confirmed Probiotic 3 mmu cells PO DAILY 01/04/19 03/27/21 acetaminophen [Tylenol Extra 1,000 mg PO HS 01/04/19 03/27/21 Strength] coQ10 (ubiquinol) 200 mg PO QPM 01/04/19 03/27/21 nitroglycerin [Nitrostat] 0.4 mg SUBLINGUAL UD PRN 01/04/19 03/27/21 pravastatin 20 mg PO QPM 01/04/19 03/27/21 simethicone [Gas Relief Ultra 180 mg PO QPM 01/04/19 03/27/21 Strength] Excedrin Migraine 1 tab PO BID PRN 07/22/20 03/27/21 Medical Marijuana 0 dose PO UD 07/22/20 03/27/21 Porter Milk of Magnesia See Rx Instructions .ROUTE .COMPLEX 07/22/20 03/27/21 cranberry extract 500 mg PO DAILY 07/22/20 03/27/21 ipratropium bromide 2.5 ml INHALATION Q4 PRN 07/22/20 03/27/21 metoclopramide HCl 5 mg PO AC 07/22/20 03/27/21 multivitamin [Multiple Vitamins] 1 tab PO DAILY 07/22/20 03/27/21 simethicone 125 mg PO QAM 07/22/20 03/27/21 ascorbate calcium (vitamin C) 250 mg PO BID 01/20/21 03/27/21 aspirin [Aspirin Low Dose] 81 mg PO QPM 01/20/21 03/27/21 escitalopram oxalate 20 mg PO DAILY 01/20/21 03/27/21 303 Muscle Relaxer 2 tab PO HS 03/27/21 03/27/21 budesonide-formoterol 2 puff INHALATION BID 03/27/21 03/27/21 clorazepate dipotassium [Tranxene 3.75 mg PO HS PRN 03/27/21 03/27/21 T-Tab] gabapentin 300 mg PO QID 03/27/21 03/27/21 methocarbamol 750 mg PO QAM 03/27/21 03/27/21 Previous Rx's Medication Instructions Recorded ipratropium bromide 42 mcg (0.06 2 sprays INTNAS Q8H PRN #30 ml 09/16/19 %) nasal spray levothyroxine 137 mcg tablet 137 mcg PO DAILY #90 tab 11/04/19 spironolactone 25 mg tablet 25 mg PO BID #180 tab 04/16/20 oxybutynin chloride 5 mg tablet 5 mg PO QID #360 tab 04/23/20 ezetimibe 10 mg tablet 10 mg PO QPM #90 tab 06/11/20 albuterol sulfate 90 mcg/actuation 2 puff INHALATION QID PRN #54 gm 07/04/20 aerosol inhaler lansoprazole 30 mg capsule,delayed 30 mg PO BID #180 cap 07/30/20 release potassium chloride 10 mEq See Rx Instructions PO BID #450 cap 09/03/20 capsule,extended release albuterol sulfate 2.5 mg INHALATION Q4 PRN #540 ml 09/04/20 nystatin 100,000 unit/mL oral 500,000 unit PO QID #200 ml 09/25/20 suspension sumatriptan succinate 100 mg tablet 100 mg PO BID PRN 30 Days #12 tab 10/10/20 MDD 2 tiotropium bromide 18 mcg capsule 1 cap INHALATION QAM #30 inh 10/23/20 with inhalation device azithromycin 500 mg tablet 500 mg PO 3XWK #12 tab 10/29/20 furosemide 40 mg tablet 80 mg PO QAM #180 tab 10/30/20 oqlmpvcofm-dkwhguk-dqhuvfsn 50 1 cap PO BID PRN #60 cap 03/14/21 mg-325 mg-40 mg capsule Results & Data (ED) Vital Signs Vital Signs - 24 hr 03/26/21 22:55 03/26/21 23:40 03/27/21 00:01 Temperature 36.8 C Temperature Source Oral Pulse Rate 101 H 97 H Pulse Rate [Apical] Pulse Rate [Right Radial] Pulse Rate from SpO2 Sensor 97 H Pulse Rhythm Regular Pulse Rhythm [Apical] Pulse Strength Normal Pulse Strength [Apical] Respiratory Rate 18 16 Respiratory Effort / Characteristics Non-Labored Spontaneous Spontaneous SOB on Exertion Respiratory Depth Normal Normal Respiratory Pattern Regular Blood Pressure 132/89 Blood Pressure [Right Arm] Blood Pressure Mean 103 Blood Pressure Mean [Right Arm] Blood Pressure Position Lying Blood Pressure Position [Right Arm] Pulse Oximetry 99 99 Oxygen Delivery Method Nasal Cannula Nasal Cannula Oxygen Flow Rate 2 3 Sepsis Recent Fever Within 48 Hours No Sepsis New/Unexplained Change in Mental Status No Sepsis Action Taken by Nursing No Action Required 03/27/21 00:03 03/27/21 01:05 03/27/21 01:15 Temperature Temperature Source Pulse Rate Pulse Rate [Apical] Pulse Rate [Right Radial] 97 H Pulse Rate from SpO2 Sensor Pulse Rhythm Pulse Rhythm [Apical] Pulse Strength Pulse Strength [Apical] Respiratory Rate 18 18 Respiratory Effort / Characteristics Spontaneous SOB on Exertion Non-Labored Spontaneous Respiratory Depth Respiratory Pattern Blood Pressure Blood Pressure [Right Arm] Blood Pressure Mean Blood Pressure Mean [Right Arm] Blood Pressure Position Blood Pressure Position [Right Arm] Pulse Oximetry 98 96 100 Oxygen Delivery Method Nasal Cannula Nasal Cannula Nasal Cannula Oxygen Flow Rate 2 3 4 Sepsis Recent Fever Within 48 Hours Sepsis New/Unexplained Change in Mental Status Sepsis Action Taken by Nursing 03/27/21 01:56 03/27/21 02:04 03/27/21 02:06 Temperature Temperature Source Pulse Rate 107 H Pulse Rate [Apical] 97 H Pulse Rate [Right Radial] Pulse Rate from SpO2 Sensor 98 H 103 H Pulse Rhythm Pulse Rhythm [Apical] Regular Pulse Strength Pulse Strength [Apical] Normal Respiratory Rate 17 33 H 18 Respiratory Effort / Characteristics Non-Labored Spontaneous Respiratory Depth Normal Respiratory Pattern Regular Blood Pressure 157/79 H 183/88 H Blood Pressure [Right Arm] 183/88 H Blood Pressure Mean 105 119 Blood Pressure Mean [Right Arm] 119 Blood Pressure Position Blood Pressure Position [Right Arm] Lying Pulse Oximetry 100 99 99 Oxygen Delivery Method Nasal Cannula Nasal Cannula Oxygen Flow Rate 3 3 Sepsis Recent Fever Within 48 Hours Sepsis New/Unexplained Change in Mental Status Sepsis Action Taken by Nursing 03/27/21 02:30 03/27/21 02:53 03/27/21 03:00 Temperature Temperature Source Pulse Rate 98 H 97 H Pulse Rate [Apical] 92 H Pulse Rate [Right Radial] Pulse Rate from SpO2 Sensor 98 H 97 H Pulse Rhythm Pulse Rhythm [Apical] Regular Pulse Strength Pulse Strength [Apical] Normal Respiratory Rate 15 18 22 Respiratory Effort / Characteristics Non-Labored Spontaneous Respiratory Depth Normal Respiratory Pattern Blood Pressure 157/83 H 146/95 H Blood Pressure [Right Arm] 157/83 H Blood Pressure Mean 107 112 Blood Pressure Mean [Right Arm] 107 Blood Pressure Position Blood Pressure Position [Right Arm] Lying Pulse Oximetry 99 100 99 Oxygen Delivery Method Nasal Cannula Nasal Cannula Nasal Cannula Oxygen Flow Rate 3 3 3 Sepsis Recent Fever Within 48 Hours Sepsis New/Unexplained Change in Mental Status Sepsis Action Taken by Nursing 03/27/21 03:32 Temperature Temperature Source Pulse Rate 93 H Pulse Rate [Apical] Pulse Rate [Right Radial] Pulse Rate from SpO2 Sensor 92 H Pulse Rhythm Pulse Rhythm [Apical] Pulse Strength Pulse Strength [Apical] Respiratory Rate 18 Respiratory Effort / Characteristics Respiratory Depth Respiratory Pattern Blood Pressure 147/89 H Blood Pressure [Right Arm] Blood Pressure Mean 108 Blood Pressure Mean [Right Arm] Blood Pressure Position Blood Pressure Position [Right Arm] Pulse Oximetry 97 Oxygen Delivery Method Nasal Cannula Oxygen Flow Rate 3 Sepsis Recent Fever Within 48 Hours Sepsis New/Unexplained Change in Mental Status Sepsis Action Taken by Nursing Laboratory Data Result diagrams: 03/26/21 22:55 03/26/21 22:55 Lab Results 03/26/21 03/26/21 03/26/21 Range/Units 22:55 22:55 22:55 WBC 5.86 (4.8-10.8) K/uL RBC 4.16 L (4.2-5.4) M/uL Hgb 13.3 (12.0-16.0) g/dL Hct 39.6 (37-47) % MCV 95.2 (80-100) fL MCH 32.0 (25-34) pg MCHC 33.6 (32-36) g/dL RDW Std Deviation 44.3 (36.4-46.3) fL RDW Coeff of Opal 12.7 (11.5-14.5) % Plt Count 264 (130-400) K/uL MPV 9.5 (7.4-10.4) fL Immature Gran % (Auto) 0.2 % Neut % (Auto) 52.2 % Lymph % (Auto) 28.5 % [place] % (Auto) 12.8 % Eos % (Auto) 5.6 % Baso % (Auto) 0.7 % Neut # (Auto) 3.06 (1.4-6.5) K/uL Lymph # (Auto) 1.67 (1.2-3.4) K/uL [place] # (Auto) 0.75 H (0.11-0.59) K/uL Eos # (Auto) 0.33 (0-0.5) K/uL Baso # (Auto) 0.04 (0-0.2) K/uL Immature Gran # (Auto) 0.01 (0.00-0.02) K/uL PT 9.7 (9.0-12.0) Seconds INR 1.0 (0.9-1.1) APTT 24.8 (21.0-31.0) Seconds PTT Ratio 0.9 Sodium 138 (136-145) mmol/L Potassium 3.8 (3.5-5.1) mmol/L Chloride 103 (98-107) mmol/L Carbon Dioxide 28 (21-32) mmol/L Anion Gap 7.0 (3-11) BUN 9 (7-18) mg/dl Creatinine 0.59 L (0.6-1.2) mg/dl Est Cr Clr Drug Dosing 69.2 ml/min Est GFR ( Amer) 104.6 ml/min Est GFR (Non-Af Amer) 90.3 ml/min BUN/Creatinine Ratio 16.2 (10-20) Glucose 87 (70-99) mg/dl Calcium 8.8 (8.5-10.1) mg/dl Magnesium 2.6 H (1.8-2.4) mg/dl Total Bilirubin 0.2 (0.2-1) mg/dl AST 23 (15-37) U/L ALT 23 (12-78) U/L Alkaline Phosphatase 91 (45-117) U/L Troponin I 0.022 (0-0.045) ng/ml Total Protein 6.8 (6.4-8.2) gm/dl Albumin 3.9 (3.4-5.0) gm/dl Globulin 2.9 (2.5-4.0) gm/dl Albumin/Globulin Ratio 1.3 (0.9-2) COVID-19 Eval Order SARS-CoV-2 (PCR) (Negative) 03/27/21 03/27/21 Range/Units 02:33 02:33 WBC (4.8-10.8) K/uL RBC (4.2-5.4) M/uL Hgb (12.0-16.0) g/dL Hct (37-47) % MCV (80-100) fL MCH (25-34) pg MCHC (32-36) g/dL RDW Std Deviation (36.4-46.3) fL RDW Coeff of Opal (11.5-14.5) % Plt Count (130-400) K/uL MPV (7.4-10.4) fL Immature Gran % (Auto) % Neut % (Auto) % Lymph % (Auto) % [place] % (Auto) % Eos % (Auto) % Baso % (Auto) % Neut # (Auto) (1.4-6.5) K/uL Lymph # (Auto) (1.2-3.4) K/uL [place] # (Auto) (0.11-0.59) K/uL Eos # (Auto) (0-0.5) K/uL Baso # (Auto) (0-0.2) K/uL Immature Gran # (Auto) (0.00-0.02) K/uL PT (9.0-12.0) Seconds INR (0.9-1.1) APTT (21.0-31.0) Seconds PTT Ratio Sodium (136-145) mmol/L Potassium (3.5-5.1) mmol/L Chloride (98-107) mmol/L Carbon Dioxide (21-32) mmol/L Anion Gap (3-11) BUN (7-18) mg/dl Creatinine (0.6-1.2) mg/dl Est Cr Clr Drug Dosing ml/min Est GFR ( Amer) ml/min Est GFR (Non-Af Amer) ml/min BUN/Creatinine Ratio (10-20) Glucose (70-99) mg/dl Calcium (8.5-10.1) mg/dl Magnesium (1.8-2.4) mg/dl Total Bilirubin (0.2-1) mg/dl AST (15-37) U/L ALT (12-78) U/L Alkaline Phosphatase (45-117) U/L Troponin I (0-0.045) ng/ml Total Protein (6.4-8.2) gm/dl Albumin (3.4-5.0) gm/dl Globulin (2.5-4.0) gm/dl Albumin/Globulin Ratio (0.9-2) COVID-19 Eval Order Covid19 at [facility] SARS-CoV-2 (PCR) NEGATIVE (Negative) Administered Medications Lactated Ringer's (Lr) 1,000 mls @ 40 mls/hr IV .Q24H ONE Stop: 03/28/21 03:30 Last Admin: 03/27/21 04:07 Dose: 40 mls/hr Documented by: [id number] Discontinued Medications Albuterol (Albut/Ipratrop 3mg/0.5mg Neb 3 Ml Vial) 3 ml NEB NOW STA Stop: 03/27/21 00:49 Last Admin: 03/27/21 01:15 Dose: 3 ml Documented by: [id number] Amlodipine Besylate (Amlodipine Besylate 5 Mg Tab) 2.5 mg PO NOW ONE Stop: 03/27/21 02:35 Last Admin: 03/27/21 02:55 Dose: Not Given Documented by: [id number] Ceftriaxone Sodium (Rocephin) 1,000 mg in 50 mls @ 100 mls/hr IV NOW STA Stop: 03/27/21 02:34 Last Infusion: 03/27/21 03:02 Dose: 0 mls/hr Documented by: [id number] Admin: 03/27/21 02:32 Dose: 100 mls/hr Documented by: [id number] Ampicillin Sodium/Sulbactam Sodium 3,000 mg/ Sodium Chloride 108 mls @ 200 mls/hr IV NOW STA Stop: 03/27/21 04:15 Last Infusion: 03/27/21 04:48 Dose: 0 mls/hr Documented by: [id number] Admin: 03/27/21 04:07 Dose: 200 mls/hr Documented by: [id number] Ioversol (Optiray 350 500ml) 125 ml IV ONCE ONE Stop: 03/27/21 04:01 Last Admin: 03/27/21 04:00 Dose: 108 ml Documented by: [id number] Methylprednisolone (Methylprednisolone 125 Mg/2 Ml Vial) 125 mg IV NOW STA Stop: 03/27/21 00:49 Last Admin: 03/27/21 01:11 Dose: 125 mg Documented by: [id number] Discharge Plan Visit Data Chief Complaint: Shortness of Breath/Dyspnea Stated Complaint: SOB ED Provider: Lisseth Li Discharge Problem: COPD with acute exacerbation, Chest tightness Patient Disposition: Admitted As Inpatient Discharge Instructions Interventions: ED Discharge Assessment Last Done: 03/27/21 05:39
[2021-03-27] MEDS ORDERED: POLYETHYLENE (MIRALAX) 17 GM PACK PO PRN (06:37)
[2021-03-27] MEDS ORDERED: traMADol HCL 50 MG TABLET PO PRN (06:37)
[2021-03-27] MEDS ORDERED: PROMETHAZINE HCL 6.25 MG in SODIUM CHLORIDE 0.9% 50 ML IV PRN (06:37)
[2021-03-27] MEDS ORDERED: XOPENEX/ATROVENT 1.25mg/0.5MG NEB COMBO NEB SCH (07:00)
[2021-03-27] MEDS ORDERED: POLYETHYLENE (MIRALAX) 17 GM PACK PO ONE (07:00)
[2021-03-27] MEDS: IPRATROPIUM BROMIDE NEB SOLN 0.02% 2.5 ML VIAL INH SCH ×3 (07:19→20:01)
[2021-03-27] MEDS: LEVALBUTEROL 1.25MG/0.5ML NEB INH SCH ×3 (07:19→20:01)
[2021-03-27 07:39] LABS: Base Excess ABG 1.7 mEq/L (-9-1.8); HCO3 ABG 26 mmol/L (19-24); Oxygen Saturation ABG 96.2 % (90-95); PCO2 ABG 42 mmHg (35-46); PO2 ABG 81 mmHg (80-95); pH ABG 7.42 (7.35-7.45)
[2021-03-27 07:44] LABS: Allen Test Pos (Pos)
[2021-03-27 07:51] LABS: Basophils # (auto) 0.01 K/uL (0-0.2); Basophils % (auto) 0.2 %; Eosinophils # (auto) 0.01 K/uL (0-0.5); Eosinophils % (auto) 0.2 %; Hematocrit (blood only) 41.1 % (37-47); Hemoglobin 13.8 g/dL (12.0-16.0); Immature Granulocytes # (auto) 0.01 K/uL (0.00-0.02); Immature Granulocytes % (auto) 0.2 %; Mean Corpuscular Hemoglobin 31.4 pg (25-34); Mean Corpuscular Hgb Conc 33.6 g/dL (32-36); Mean Corpuscular Volume 93.4 fL (80-100); Mean Platelet Volume 9.3 fL (7.4-10.4); Monocytes # (auto) 0.06 K/uL (0.11-0.59); Neutrophils # (auto) 5.64 K/uL (1.4-6.5); Neutrophils % (auto) 90.4 %; Platelet Count 219 K/uL (130-400); RDW Coefficient of Variation 12.4 % (11.5-14.5); RDW Standard Deviation 42.1 fL (36.4-46.3); White Blood Count 6.23 K/uL (4.8-10.8)
[2021-03-27 08:03] LABS: Partial Thromboplastin Time 25.7 Seconds (21.0-31.0)
[2021-03-27 08:10] LABS: BUN Creatinine Ratio 19.6 (10-20); Calcium 9.2 mg/dl (8.5-10.1); Creatinine Clr Calc Pharmacy 72.9 ml/min; Est GFR (African American) 106.5 ml/min; Est GFR (Non-African American) 91.9 ml/min; Potassium 3.6 mmol/L (3.5-5.1)
[2021-03-27 08:27] LABS: Troponin I 0.175 ng/ml (0-0.045)
--- NOTE | 2021-03-27 08:37 | CT Scan Report ---
CT ANGIOGRAM OF THE CHEST CLINICAL HISTORY: Chest tightness. COMPARISON STUDY: Chest CT scans dated 01/21/2021 and 04/08/2018. TECHNIQUE: Following the IV administration of 108 cc of Optiray 350, CT angiogram of the chest was pe rformed from the upper abdomen to the thoracic inlet utilizing the pulmonary embolus protocol. Images are reviewed in the axial, sagittal, and coronal planes. 3-D MIPS images are created and assessed. I V contrast was administered without complication. A dose lowering technique was utilized adhering to the principles of ALARA. CT DOSE: 274.58 mGy.cm FINDINGS: Thyroid: Atrophic. Thoracic aorta: There is advanced atherosclerotic calcification of the thoracic aorta, which is julissa l in caliber and demonstrates standard 3-vessel arch anatomy. No dissection is seen. Pulmonary vasculature: The pulmonary trunk is normal in caliber. There are no filling defects identif ied in main, lobar, or segmental pulmonary branches to suggest pulmonary embolus. Heart: The heart is normal in size and without pericardial effusion. The coronary arteries are densel y calcified. Lungs and pleural spaces: Advanced emphysematous change is similar to previous. There is no airspace consolidation typical for pneumonia or pleural effusion. The trachea and central airways are clear. D iffuse peribronchial thickening is noted with foci of mucus plugging in the lower lobe airways. Foci of scarring/atelectasis are seen throughout both lungs. A 7 mm right upper lobe nodular density on im age #265 and an 11 mm scarlike density at the right apex on image #288 are unchanged. Mediastinum: There is no mediastinal lymphadenopathy. Danay: Clear. Axillae: There is no axillary lymphadenopathy. Upper abdomen: Cholecystectomy clips are noted. There is a small hiatal hernia. Partially visualized upper abdominal viscera is within normal limits. Skeletal structures: The skeletal structures are osteopenic. Minimal compression deformities are note d in the thoracolumbar spine. No lytic or blastic bony lesions are seen. Soft tissues: There are peripherally calcified breast implants. A 1.9 cm hyperdense focus of nodulari ty is again seen above the right implant. IMPRESSION: 1. There is no evidence of pulmonary embolus in the main, lobar, or segmental pulmonary arteries. 2. There is no airspace consolidation or pleural effusion. 3. Advanced emphysema. 4. Mild diffuse peribronchial thickening suggests bronchitis/reactive airway disease and there is int raluminal secretions/mucous plugging in the lower lobe airways. 5. Nodular/scarlike densities in the right upper lobe are similar to prior studies. Continued attenti on at follow-up is recommended. 6. Additional findings as above. ACT 112: Negative or not required by law. Electronically signed by: Chinmay Briscoe M.D. 03/27/2021 8:36 AM
[2021-03-27] MEDS ORDERED: CONSULT PHARMACY SCH (09:00)
[2021-03-27] MEDS ORDERED: NON-FORMULARY MEDICATION (Cranberry Extract 500 mg Tablet) PO SCH (09:00)
[2021-03-27] MEDS ORDERED: BUDESONIDE/FORMOTEROL FUMARATE 160/4.5 60 PUFFS/INHALER INH SCH (09:00)
[2021-03-27] MEDS: ADVANCED PROBIOTIC 1250 MG CAPSULE PO SCH (09:10)
[2021-03-27] MEDS: DOCUSATE SODIUM/SENNA 50/8.6MG TAB PO SCH (09:11)
[2021-03-27] MEDS: GABAPENTIN 300 MG CAP PO SCH ×4 (09:11→20:20)
[2021-03-27] MEDS: PANTOprazole 40 MG TAB PO SCH ×2 (09:11→20:27)
[2021-03-27] MEDS: MULTIVITAMIN TAB PO SCH (09:11)
[2021-03-27] MEDS: AMOXICILLIN/CLAVULANATE 875 MG TAB PO SCH ×2 (09:12→19:01)
[2021-03-27] MEDS: LEVOTHYROXINE SODIUM 137 MCG TABLET PO SCH (09:12)
[2021-03-27] MEDS: ENOXAPARIN INJ 30 MG/0.3 ML SYR SQ SCH (09:12)
[2021-03-27] MEDS: lisinopril 2.5 MG TAB PO SCH (09:12)
[2021-03-27] MEDS: ESCITALOPRAM OXALATE 20 MG TAB PO SCH (09:12)
--- NOTE | 2021-03-27 10:01 | XRay Report ---
SINGLE VIEW CHEST CLINICAL HISTORY: Dyspnea. FINDINGS: An AP, portable, upright chest radiograph is compared to study dated 01/21/2021. Correlation is made with chest CT dated 07/22/2020. The heart is top normal for projection noting atherosclerotic calcification of the thoracic aorta. The pulmonary vasculature is noncongested. Enlargement of the c entral pulmonary arteries suggests pulmonary artery hypertension. Advanced emphysema is noted. Chroni c interstitial thickening and nodularity is similar to previous. There is no evidence of superimposed airspace consolidation or large pleural effusion. A nodular density at the right apex is unchanged. No pneumothorax is seen. The skeletal structures are osteopenic. The bony thorax is grossly intact. I ncreased density at the lung bases is related to overlying calcified breast implants. IMPRESSION: 1. Advanced emphysema and chronic parenchymal changes as above. This is similar to prior studies. 2. No airspace consolidation or large pleural effusion is identified. ACT 112: Negative or not required by law. Electronically signed by: Chinmay Briscoe M.D. 03/27/2021 10:00 AM
[2021-03-27] MEDS: METOCLOPRAMIDE HCL 5 MG TABLET PO SCH ×4 (10:48→18:11)
[2021-03-27] MEDS: FORMOTEROL FUMARATE INH SCH ×3 (10:49→20:20)
[2021-03-27] MEDS: BUDESONIDE INH SCH ×3 (10:49→20:20)
--- NOTE | 2021-03-27 13:41 | Electrocardiogram Report ---
Test Reason : Blood Pressure : / mmHG Vent. Rate : 096 BPM Atrial Rate : 096 BPM P-R Int : 126 ms QRS Dur : 080 ms QT Int : 388 ms P-R-T Axes : 085 079 100 degrees QTc Int : 490 ms Normal sinus rhythm Biatrial enlargement Nonspecific ST abnormality Prolonged QT Abnormal ECG When compared with ECG of 20-JAN-2021 00:55, Nonspecific T wave abnormality, improved in Lateral leads Confirmed by Micky Willams ([id number]) on 03/27/2021 1:41:16 PM Referred By: REFERRED SELF Confirmed By:Micky Willams
--- NOTE | 2021-03-27 14:13 | Fluoroscopy Report ---
FL video swallow HISTORY: r/o aspiration TECHNIQUE: Video fluoroscopic evaluation of swallowing was performed in the AP and lateral projection s by the speech pathology staff. The patient is fed nectar-thick and thin liquid barium, a barium coa erika wafer, and barium pudding. FLUOROSCOPY TIME: 2.2 minutes. NUMBER OF FLUOROSCOPY IMAGES: 0 COMPARISON STUDY: None. FINDINGS: When swallowing thin liquid barium, there was penetration but no evidence of aspiration. Th ere is no aspiration or penetration when swallowing nectar thick liquids, pudding, or cracker with pa daryn. IMPRESSION: 1. Penetration when swallowing thin liquids. No aspiration identified. 2. Please see the speech pathologist report for detailed findings and recommendations. ACT 112: Negative or not required by law. Electronically signed by: Prosper Huynh M.D. 03/27/2021 2:11 PM
--- NOTE | 2021-03-27 16:32 | Hospitalist Progress Note ---
Date of Service March 27, 2021 Assessment & Plan (1) Respiratory failure, acute and chronic: Secondary to COPD exacerbation secondary to possible aspiration pneumonia Possible esophageal dysfunction given patient description of choking symptoms Has been on steroid and nebulized bronchodilator Unasyn for possible aspiration pneumonia Clinically much better today Appreciate speech evaluation and will have barium swallow this afternoon We will continue current nebulized bronchodilator and other medication for COPD exacerbation Hypertension, elevated secondary to illness Possible chronic BP elevation given LVH on CT History of CAD as per records Chronic migraine, at baseline Hypothyroidism, euthyroid as of TSH from last month Anxiety/mood disorder, at baseline Past tobacco abuse DVT prophylaxis per Lovenox subcu Full code Admission and Anticipated Discharge Date Admission Date: March 27, 2021 Subjective 03/27/2021 The patient was seen and examined in medical telemetry unit She complains to be hungry and wants to eat She feels lot better regarding her shortness of breath She will have barium swallow sometime this afternoon Review of Systems Review of Systems: All systems reviewed and are unremarkable except as noted below Respiratory: + cough and + dyspnea on exertion Gastrointestinal: no abdominal pain, no nausea and no vomiting Physical Exam Physical Exam: Lying in bed comfortably Constitutional: well developed and well nourished; not ill appearing Eyes: PERRL, conjunctivae normal, anicteric sclerae ENMT: external ear and nose normal, oropharynx normal Neck: trachea midline, no thyromegaly Respiratory: no respiratory distress Auscultation: + diminished lung sounds and + crackles (Bibasilar crackles) Cardiovascular: Rate/Rhythm: regular rate and regular rhythm Heart Sounds: no murmur Extremities: no edema Gastrointestinal (Abdomen): Inspection/Auscultation: normal bowel sounds; abdomen not distended Percussion/Palpation: abdomen soft; abdomen nontender Neurologic: Alert, awake and oriented x3. Generally weak Lymphatic: no cervical or axillary lymphadenopathy Results & Data Results & Data ([facility]) Vital Signs (Past 12 Hours) Vital Signs Temp Pulse Pulse Resp BP BP Pulse Ox 03/27/21 15:00 36.8 C 91 H 20 132/72 99 03/27/21 14:20 92 H 03/27/21 11:18 36.8 C 98 H 18 155/74 H 95 03/27/21 08:01 36.7 C 92 H 18 137/74 99 03/27/21 07:24 94 H 16 96 03/27/21 07:00 95 H 03/27/21 06:37 36.8 C 93 H 20 164/80 H 93 03/27/21 05:31 96 H 16 151/81 H 96 03/27/21 05:00 90 14 143/73 H 97 03/27/21 04:30 92 H 14 139/76 99 Laboratory Results Short CBC 03/26/21 03/27/21 Range/Units 22:55 07:36 WBC 5.86 6.23 (4.8-10.8) K/uL Hgb 13.3 13.8 (12.0-16.0) g/dL Hct 39.6 41.1 (37-47) % Plt Count 264 219 (130-400) K/uL BMP 03/26/21 03/27/21 22:55 07:36 Sodium 138 134 L Potassium 3.8 3.6 Chloride 103 101 Carbon Dioxide 28 28 BUN 9 11 Creatinine 0.59 L 0.56 L Glucose 87 149 H Calcium 8.8 9.2 Cardiac Enzymes 03/26/21 03/27/21 Range/Units 22:55 07:36 Troponin I 0.022 0.175 H* (0-0.045) ng/ml Liver Function 03/26/21 Range/Units 22:55 Total Bilirubin 0.2 (0.2-1) mg/dl AST 23 (15-37) U/L ALT 23 (12-78) U/L Alkaline Phosphatase 91 (45-117) U/L Albumin 3.9 (3.4-5.0) gm/dl Medications Administered Current Inpatient Medications Acetaminophen (Acetaminophen 325 Mg Tab) 650 mg PO Q4H PRN PRN Reason: Pain or Fever Stop: 04/26/21 06:36 Amoxicillin/Clavulanate Potassium (Amoxicillin/Clavulanate 875 Mg Tab) 1 tab PO BIDM [facility] Stop: 04/03/21 07:59 Last Admin: 03/27/21 09:12 Dose: 1 tab Documented by: Aspirin (Aspirin 81 Mg Ectab) 81 mg PO QPM [facility] Stop: 04/26/21 20:59 Budesonide/Formoterol Fumarate (Pt Own Med - Budesonide/Formoterol Fumarate 160/4.5 60 Puffs/Inhaler) 2 puffs INH TID [facility] Stop: 04/26/21 09:59 Last Admin: 03/27/21 10:49 Dose: Not Given Documented by: Ezetimibe (Ezetimibe 10 Mg Tablet) 10 mg PO QPM [facility] Stop: 04/26/21 20:59 Enoxaparin Sodium (Enoxaparin Inj 30 Mg/0.3 Ml Syr) 30 mg SQ QAM [facility] Stop: 04/26/21 08:59 Last Admin: 03/27/21 09:12 Dose: 30 mg Documented by: Escitalopram Oxalate (Escitalopram Oxalate 20 Mg Tab) 20 mg PO DAILY [facility] Stop: 04/26/21 08:59 Last Admin: 03/27/21 09:12 Dose: 20 mg Documented by: Gabapentin (Gabapentin 300 Mg Cap) 300 mg PO QID [facility] Stop: 04/26/21 08:59 Last Admin: 03/27/21 13:00 Dose: Not Given Documented by: Lactated Ringer's (Lr) 1,000 mls @ 40 mls/hr IV .Q24H ONE Stop: 03/28/21 03:30 Last Admin: 03/27/21 04:07 Dose: 40 mls/hr Documented by: Promethazine HCl 6.25 mg/ (Sodium Chloride) 50.25 mls @ 201 mls/hr IV Q6H PRN PRN Reason: Nausea And Vomiting Stop: 04/26/21 06:36 Ipratropium [place] (Ipratropium [place] Neb Soln 0.02% 2.5 Ml Vial) 0.5 mg INH Q6R [facility] Stop: 04/26/21 06:59 Last Admin: 03/27/21 15:44 Dose: Not Given Documented by: Lactobacillus Acidoph/Casei/Rhamnos (Advanced Probiotic 1250 Mg Capsule) 2 cap PO DAILY [facility] Stop: 04/26/21 08:59 Last Admin: 03/27/21 09:10 Dose: 2 cap Documented by: Levalbuterol HCl (Levalbuterol 1.25mg/0.5ml Neb) 1.25 mg INH Q6R [facility] Stop: 04/26/21 06:59 Last Admin: 03/27/21 15:44 Dose: Not Given Documented by: Levothyroxine Sodium (Levothyroxine Sodium 137 Mcg Tablet) 137 mcg PO DAILYBB [facility] Stop: 04/26/21 06:59 Last Admin: 03/27/21 09:12 Dose: 137 mcg Documented by: Lisinopril (Lisinopril 2.5 Mg Tab) 2.5 mg PO QAM [facility] Stop: 04/26/21 06:59 Last Admin: 03/27/21 09:12 Dose: 2.5 mg Documented by: Metoclopramide HCl (Metoclopramide Hcl 5 Mg Tablet) 5 mg PO AC [facility] Stop: 04/26/21 07:29 Last Admin: 03/27/21 10:50 Dose: 5 mg Documented by: Multivitamins (Multivitamin Tab) 1 tab PO DAILY [facility] Stop: 04/26/21 08:59 Last Admin: 03/27/21 09:11 Dose: 1 tab Documented by: Pantoprazole Sodium (Pantoprazole 40 Mg Tab) 40 mg PO BID [facility] Stop: 04/26/21 08:59 Last Admin: 03/27/21 09:11 Dose: 40 mg Documented by: Polyethylene Glycol (Polyethylene (Miralax) 17 Gm Pack) 17 gm PO DAILY PRN PRN Reason: Constipation Stop: 04/26/21 06:36 Pravastatin Sodium (Pravastatin Sod 20 Mg Tab) 20 mg PO QPM [facility] Stop: 04/26/21 20:59 Prednisone (Prednisone 20 Mg Tab) 40 mg PO DAILY [facility] Stop: 04/01/21 08:59 Senna/Docusate Sodium (Docusate Sodium/Senna 50/8.6mg Tab) 1 tab PO QAM [facility] Stop: 04/26/21 06:36 Last Admin: 03/27/21 09:11 Dose: 1 tab Documented by: Tramadol HCl (Tramadol Hcl 50 Mg Tablet) 25 - 50 mg PO Q4H PRN PRN Reason: Pain Stop: 04/26/21 06:36
[2021-03-27] MEDS: ACETAMINOPHEN 325 MG TAB PO PRN (20:20)
[2021-03-27] MEDS: PRAVASTATIN SOD 20 MG TAB PO SCH (20:27)
[2021-03-27] MEDS: EZETIMIBE 10 MG TABLET PO SCH (20:27)
[2021-03-27] MEDS: ASPIRIN 81 MG ECTAB PO SCH (20:28)
[2021-03-28] MEDS: IPRATROPIUM BROMIDE NEB SOLN 0.02% 2.5 ML VIAL INH SCH ×4 (01:10→19:53)
[2021-03-28] MEDS: LEVALBUTEROL 1.25MG/0.5ML NEB INH SCH ×4 (01:11→19:53)
[2021-03-28] MEDS: LEVOTHYROXINE SODIUM 137 MCG TABLET PO SCH (06:24)
[2021-03-28 06:57] LABS: Basophils # (auto) 0.04 K/uL (0-0.2); Basophils % (auto) 0.6 %; Eosinophils # (auto) 0.29 K/uL (0-0.5); Eosinophils % (auto) 4.3 %; Hematocrit (blood only) 41.3 % (37-47); Hemoglobin 13.8 g/dL (12.0-16.0); Immature Granulocytes # (auto) 0.01 K/uL (0.00-0.02); Immature Granulocytes % (auto) 0.1 %; Lymphocytes # (auto) 1.42 K/uL (1.2-3.4); Lymphocytes % (auto) 20.9 %; Mean Corpuscular Hemoglobin 32.2 pg (25-34); Mean Corpuscular Hgb Conc 33.4 g/dL (32-36); Mean Corpuscular Volume 96.3 fL (80-100); Mean Platelet Volume 9.3 fL (7.4-10.4); Monocytes # (auto) 0.64 K/uL (0.11-0.59); Monocytes % (auto) 9.4 %; Neutrophils # (auto) 4.38 K/uL (1.4-6.5); Neutrophils % (auto) 64.7 %; Platelet Count 254 K/uL (130-400); RDW Coefficient of Variation 12.6 % (11.5-14.5); Red Blood Count 4.29 M/uL (4.2-5.4); White Blood Count 6.78 K/uL (4.8-10.8)
[2021-03-28 07:27] LABS: Creatinine Clr Calc Pharmacy 75.6 ml/min; Est GFR (African American) 107.7 ml/min; Magnesium 2.3 mg/dl (1.8-2.4); Potassium 3.3 mmol/L (3.5-5.1)
[2021-03-28] MEDS: BUDESONIDE INH SCH ×3 (07:49→20:57)
[2021-03-28] MEDS: FORMOTEROL FUMARATE INH SCH ×3 (07:49→20:57)
[2021-03-28] MEDS: AMOXICILLIN/CLAVULANATE 875 MG TAB PO SCH ×2 (07:49→16:54)
[2021-03-28] MEDS: ESCITALOPRAM OXALATE 20 MG TAB PO SCH (07:50)
[2021-03-28] MEDS: lisinopril 2.5 MG TAB PO SCH (07:50)
[2021-03-28] MEDS: ADVANCED PROBIOTIC 1250 MG CAPSULE PO SCH (07:50)
[2021-03-28] MEDS: DOCUSATE SODIUM/SENNA 50/8.6MG TAB PO SCH (07:50)
[2021-03-28] MEDS: MULTIVITAMIN TAB PO SCH (07:50)
[2021-03-28] MEDS: GABAPENTIN 300 MG CAP PO SCH ×4 (07:50→19:40)
[2021-03-28] MEDS: predniSONE 20 MG TAB PO SCH (07:51)
[2021-03-28] MEDS ORDERED: POTASSIUM CHLORIDE CRTAB 20 MEQ TABCR PO STA (09:19)
[2021-03-28] MEDS: METOCLOPRAMIDE HCL 5 MG TABLET PO SCH ×3 (09:20→16:53)
[2021-03-28] MEDS: PANTOprazole 40 MG TAB PO SCH ×2 (10:31→19:44)
[2021-03-28] MEDS: ENOXAPARIN INJ 30 MG/0.3 ML SYR SQ SCH (10:31)
[2021-03-28] MEDS ORDERED: ALBUTEROL HFA 8 GM INHALER INH PRN (11:27)
[2021-03-28] MEDS ORDERED: MAGNESIUM HYDROXIDE SUSP 30 ML UDC PO ONE (11:29)
[2021-03-28] MEDS ORDERED: Nursing to Pharmacy Communication SCH (12:15)
--- NOTE | 2021-03-28 17:20 | Hospitalist Progress Note ---
Date of Service March 28, 2021 Assessment & Plan (1) Respiratory failure, acute and chronic: Secondary to COPD exacerbation secondary to possible aspiration pneumonia Possible esophageal dysfunction given patient description of choking symptoms Has been on steroid and nebulized bronchodilator Unasyn for possible aspiration pneumonia Clinically much better today Appreciate speech evaluation and will have barium swallow this afternoon We will continue current nebulized bronchodilator and other medication for COPD exacerbation Clinically worse today and cannot go home today We will get PT and OT evaluation and continue with current medications Hypertension, elevated secondary to illness Possible chronic BP elevation given LVH on CT History of CAD as per records Chronic migraine, at baseline -we will continue with outpatient doses of Imitrex Hypothyroidism, euthyroid as of TSH from last month Anxiety/mood disorder, at baseline Past tobacco abuse DVT prophylaxis per Lovenox subcu Full code Admission and Anticipated Discharge Date Admission Date: March 27, 2021 Subjective 03/27/2021 The patient was seen and examined in medical telemetry unit She complains to be hungry and wants to eat She feels lot better regarding her shortness of breath She will have barium swallow sometime this afternoon 03/28/2021 The patient was seen and examined in medical floor She has been complaining of allergic symptoms with increasing shortness of breath She has cough but denies any chest pain, no abdominal pain, nausea and or vomiting Review of Systems Review of Systems: All systems reviewed and are unremarkable except as noted below Respiratory: + cough and + dyspnea on exertion Physical Exam Physical Exam: Sitting on a chair with moderate shortness of breath at rest Constitutional: well developed, well nourished and + thin; not ill appearing Eyes: PERRL, conjunctivae normal, anicteric sclerae ENMT: external ear and nose normal, oropharynx normal Neck: trachea midline, no thyromegaly Respiratory: + respiratory distress (Mild to moderate shortness of breath at rest) Auscultation: + diminished lung sounds and + crackles (Bibasilar crackles) Cardiovascular: Rate/Rhythm: regular rate and regular rhythm Heart Sounds: no murmur Extremities: no edema Gastrointestinal (Abdomen): Inspection/Auscultation: normal bowel sounds; a bdomen not distended Percussion/Palpation: abdomen soft; abdomen nontender Musculoskeletal: No acute arthritis in any joint Neurologic: Alert, awake and oriented x3 Psychiatric: A+Ox3, euthymic affect Lymphatic: no cervical or axillary lymphadenopathy Results & Data Results & Data ([facility]) Vital Signs (Past 12 Hours) Vital Signs Temp Pulse Pulse Pulse Pulse Resp BP 03/28/21 16:00 36.5 C 96 H 18 117/70 03/28/21 15:22 106 H 03/28/21 12:11 104 H 20 03/28/21 10:59 36.9 C 94 H 03/28/21 07:16 98 H 20 03/28/21 07:03 36.8 C 100 H 145/68 H 03/28/21 06:20 91 H BP Pulse Ox 03/28/21 16:00 96 03/28/21 15:22 03/28/21 12:11 96 03/28/21 10:59 128/64 95 03/28/21 07:16 98 03/28/21 07:03 95 03/28/21 06:20 Laboratory Results Short CBC 03/28/21 Range/Units 06:46 WBC 6.78 (4.8-10.8) K/uL Hgb 13.8 (12.0-16.0) g/dL Hct 41.3 (37-47) % Plt Count 254 (130-400) K/uL BMP 03/28/21 06:46 Sodium 140 Potassium 3.3 L Chloride 105 Carbon Dioxide 30 BUN 7 Creatinine 0.54 L Glucose 109 H Calcium 9.0 Medications Administered Current Inpatient Medications Acetaminophen (Acetaminophen 325 Mg Tab) 650 mg PO Q4H PRN PRN Reason: Pain or Fever Stop: 04/26/21 06:36 Last Admin: 03/27/21 20:20 Dose: 650 mg Documented by: Albuterol (Albuterol Hfa 8 Gm Inhaler) 2 puffs INH QIDR PRN PRN Reason: Shortness Of Breath Or Wheezin Stop: 04/27/21 11:26 Amoxicillin/Clavulanate Potassium (Amoxicillin/Clavulanate 875 Mg Tab) 1 tab PO BIDM [facility] Stop: 04/03/21 07:59 Last Admin: 03/28/21 16:54 Dose: 1 tab Documented by: Aspirin (Aspirin 81 Mg Ectab) 81 mg PO QPM [facility] Stop: 04/26/21 20:59 Last Admin: 03/27/21 20:28 Dose: 81 mg Documented by: Budesonide/Formoterol Fumarate (Pt Own Med - Budesonide/Formoterol Fumarate 160/4.5 60 Puffs/Inhaler) 2 puffs INH TID [facility] Stop: 04/26/21 09:59 Last Admin: 03/28/21 14:50 Dose: 2 puffs Documented by: Ezetimibe (Ezetimibe 10 Mg Tablet) 10 mg PO QPM [facility] Stop: 04/26/21 20:59 Last Admin: 03/27/21 20:27 Dose: 10 mg Documented by: Enoxaparin Sodium (Enoxaparin Inj 30 Mg/0.3 Ml Syr) 30 mg SQ QAM [facility] Stop: 04/26/21 08:59 Last Admin: 03/28/21 10:31 Dose: 30 mg Documented by: Escitalopram Oxalate (Escitalopram Oxalate 20 Mg Tab) 20 mg PO DAILY [facility] Stop: 04/26/21 08:59 Last Admin: 03/28/21 07:50 Dose: 20 mg Documented by: Gabapentin (Gabapentin 300 Mg Cap) 300 mg PO QID [facility] Stop: 04/26/21 08:59 Last Admin: 03/28/21 16:54 Dose: 300 mg Documented by: Promethazine HCl 6.25 mg/ (Sodium Chloride) 50.25 mls @ 201 mls/hr IV Q6H PRN PRN Reason: Nausea And Vomiting Stop: 04/26/21 06:36 Ipratropium [place] (Ipratropium [place] Neb Soln 0.02% 2.5 Ml Vial) 0.5 mg INH Q6R [facility] Stop: 04/26/21 06:59 Last Admin: 03/28/21 12:11 Dose: 0.5 mg Documented by: Lactobacillus Acidoph/Casei/Rhamnos (Advanced Probiotic 1250 Mg Capsule) 2 cap PO DAILY [facility] Stop: 04/26/21 08:59 Last Admin: 03/28/21 07:50 Dose: 2 cap Documented by: Levalbuterol HCl (Levalbuterol 1.25mg/0.5ml Neb) 1.25 mg INH Q6R [facility] Stop: 04/26/21 06:59 Last Admin: 03/28/21 12:11 Dose: 1.25 mg Documented by: Levothyroxine Sodium (Levothyroxine Sodium 137 Mcg Tablet) 137 mcg PO DAILYBB [facility] Stop: 04/26/21 06:59 Last Admin: 03/28/21 06:24 Dose: 137 mcg Documented by: Lisinopril (Lisinopril 2.5 Mg Tab) 2.5 mg PO QAM [facility] Stop: 04/26/21 06:59 Last Admin: 03/28/21 07:50 Dose: 2.5 mg Documented by: Metoclopramide HCl (Metoclopramide Hcl 5 Mg Tablet) 5 mg PO AC [facility] Stop: 04/26/21 07:29 Last Admin: 03/28/21 16:53 Dose: 5 mg Documented by: Multivitamins (Multivitamin Tab) 1 tab PO DAILY [facility] Stop: 04/26/21 08:59 Last Admin: 03/28/21 07:50 Dose: 1 tab Documented by: Pantoprazole Sodium (Pantoprazole 40 Mg Tab) 40 mg PO BID [facility] Stop: 04/26/21 08:59 Last Admin: 03/28/21 10:31 Dose: 40 mg Documented by: Polyethylene Glycol (Polyethylene (Miralax) 17 Gm Pack) 17 gm PO DAILY PRN PRN Reason: Constipation Stop: 04/26/21 06:36 Pravastatin Sodium (Pravastatin Sod 20 Mg Tab) 20 mg PO QPM [facility] Stop: 04/26/21 20:59 Last Admin: 03/27/21 20:27 Dose: 20 mg Documented by: Prednisone (Prednisone 20 Mg Tab) 40 mg PO DAILY [facility] Stop: 04/01/21 08:59 Last Admin: 03/28/21 07:51 Dose: 40 mg Documented by: Senna/Docusate Sodium (Docusate Sodium/Senna 50/8.6mg Tab) 1 tab PO QAM [facility] Stop: 04/26/21 06:36 Last Admin: 03/28/21 07:50 Dose: 1 tab Documented by: Sumatriptan Succinate (Sumatriptan Succinate 100 Mg Tab) 100 mg PO BID PRN PRN Reason: migraine headache Stop: 04/27/21 11:26 Tramadol HCl (Tramadol Hcl 50 Mg Tablet) 25 - 50 mg PO Q4H PRN PRN Reason: Pain Stop: 04/26/21 06:36
[2021-03-28] MEDS: EZETIMIBE 10 MG TABLET PO SCH (19:40)
[2021-03-28] MEDS: ASPIRIN 81 MG ECTAB PO SCH (19:40)
[2021-03-28] MEDS: PRAVASTATIN SOD 20 MG TAB PO SCH (19:43)
[2021-03-29] MEDS: IPRATROPIUM BROMIDE NEB SOLN 0.02% 2.5 ML VIAL INH SCH ×4 (00:08→19:45)
[2021-03-29] MEDS: LEVALBUTEROL 1.25MG/0.5ML NEB INH SCH ×4 (00:08→19:45)
[2021-03-29] MEDS: LEVOTHYROXINE SODIUM 137 MCG TABLET PO SCH (06:09)
[2021-03-29 06:35] LABS: BUN Creatinine Ratio 9.4 (10-20); Calcium 8.7 mg/dl (8.5-10.1); Creatinine Clr Calc Pharmacy 72.9 ml/min; Est GFR (African American) 106.5 ml/min; Est GFR (Non-African American) 91.9 ml/min; Magnesium 2.7 mg/dl (1.8-2.4); Potassium 3.5 mmol/L (3.5-5.1)
[2021-03-29] MEDS: PANTOprazole 40 MG TAB PO SCH ×2 (07:52→21:00)
[2021-03-29] MEDS: GABAPENTIN 300 MG CAP PO SCH ×4 (07:52→21:00)
[2021-03-29] MEDS: ESCITALOPRAM OXALATE 20 MG TAB PO SCH (07:52)
[2021-03-29] MEDS: MULTIVITAMIN TAB PO SCH (07:53)
[2021-03-29] MEDS: lisinopril 2.5 MG TAB PO SCH (07:53)
[2021-03-29] MEDS: AMOXICILLIN/CLAVULANATE 875 MG TAB PO SCH ×2 (07:53→16:28)
[2021-03-29] MEDS: DOCUSATE SODIUM/SENNA 50/8.6MG TAB PO SCH (07:53)
[2021-03-29] MEDS: ADVANCED PROBIOTIC 1250 MG CAPSULE PO SCH (07:53)
[2021-03-29] MEDS: predniSONE 20 MG TAB PO SCH (07:54)
[2021-03-29] MEDS: METOCLOPRAMIDE HCL 5 MG TABLET PO SCH ×3 (07:54→16:27)
[2021-03-29] MEDS: FORMOTEROL FUMARATE INH SCH ×3 (07:55→21:57)
[2021-03-29] MEDS: BUDESONIDE INH SCH ×3 (07:55→21:57)
[2021-03-29] MEDS: ENOXAPARIN INJ 30 MG/0.3 ML SYR SQ SCH (07:55)
[2021-03-29] MEDS: SUMAtriptan succinate 100 MG TAB PO PRN (11:26)
[2021-03-29] MEDS: DICLOFENAC SOD 1% GEL 100 GM TUBE EXT SCH ×2 (13:21→20:59)
--- NOTE | 2021-03-29 16:28 | Hospitalist Progress Note ---
Date of Service March 29, 2021 Assessment & Plan (1) Respiratory failure, acute and chronic: Secondary to COPD exacerbation secondary to possible aspiration pneumonia Possible esophageal dysfunction given patient description of choking symptoms Has been on steroid and nebulized bronchodilator Unasyn for possible aspiration pneumonia Clinically much better today Appreciate speech evaluation and will have barium swallow this afternoon We will continue current nebulized bronchodilator and other medication for COPD exacerbation Clinically worse today and cannot go home today We will get PT and OT evaluation and continue with current medications Hypertension, elevated secondary to illness Possible chronic BP elevation given LVH on CT History of CAD as per records Chronic migraine, at baseline -we will continue with outpatient doses of Imitrex Hypothyroidism, euthyroid as of TSH from last month Anxiety/mood disorder, at baseline Past tobacco abuse DVT prophylaxis per Lovenox subcu Full code Admission and Anticipated Discharge Date Admission Date: March 27, 2021 Subjective 03/27/2021 The patient was seen and examined in medical telemetry unit She complains to be hungry and wants to eat She feels lot better regarding her shortness of breath She will have barium swallow sometime this afternoon 03/28/2021 The patient was seen and examined in medical floor She has been complaining of allergic symptoms with increasing shortness of breath She has cough but denies any chest pain, no abdominal pain, nausea and or vomiting 03/29/2021 The patient was seen and examined in medical floor She has not been feeling much better Complains of pain in the legs and also still has shortness of breath Denies any fever and/or chills Review of Systems Review of Systems: All systems reviewed and are unremarkable except as noted below Respiratory: + cough and + dyspnea on exertion Physical Exam Physical Exam: Sitting on a chair with moderate shortness of breath at rest Constitutional: well developed, well nourished and + thin; not ill appearing Eyes: PERRL, conjunctivae normal, anicteric sclerae ENMT: external ear and nose normal, oropharynx normal Neck: trachea midline, no thyromegaly Respiratory: + respiratory distress (Mild to moderate shortness of breath at rest) Auscultation: + diminished lung sounds, + crackles (Bibasilar crackles) and + wheezes Cardiovascular: Rate/Rhythm: regular rate and regular rhythm Heart Sounds: no murmur Extremities: no edema Gastrointestinal (Abdomen): Inspection/Auscultation: normal bowel sounds; abdomen not distended Percussion/Palpation: abdomen soft; abdomen nontender Musculoskeletal: No acute arthritis in any joint Neurologic: Alert awake and oriented x3. No focal sensory and motor deficit appreciated Psychiatric: A+Ox3, euthymic affect Lymphatic: no cervical or axillary lymphadenopathy Results & Data Results & Data ([facility]) Vital Signs (Past 12 Hours) Vital Signs Temp Pulse Pulse Pulse Resp BP Pulse Ox 03/29/21 14:35 03/29/21 13:08 102 H 16 98 03/29/21 11:43 36.6 C 104 H 18 147/78 H 96 03/29/21 09:00 03/29/21 08:00 103 H 03/29/21 07:29 36.5 C 99 H 18 134/67 100 03/29/21 06:32 97 H 15 98 Pulse Ox Pulse Ox Pulse Ox 03/29/21 14:35 94 95 03/29/21 13:08 03/29/21 11:43 03/29/21 09:00 96 03/29/21 08:00 03/29/21 07:29 03/29/21 06:32 Laboratory Results [facility] 03/29/21 05:20 Sodium 140 Potassium 3.5 Chloride 105 Carbon Dioxide 30 BUN 5 L Creatinine 0.56 L Glucose 104 H Calcium 8.7 Medications Administered Current Inpatient Medications Acetaminophen (Acetaminophen 325 Mg Tab) 650 mg PO Q4H PRN PRN Reason: Pain or Fever Stop: 04/26/21 06:36 Last Admin: 03/27/21 20:20 Dose: 650 mg Documented by: Albuterol (Albuterol Hfa 8 Gm Inhaler) 2 puffs INH QIDR PRN PRN Reason: Shortness Of Breath Or Wheezin Stop: 04/27/21 11:26 Amoxicillin/Clavulanate Potassium (Amoxicillin/Clavulanate 875 Mg Tab) 1 tab PO BIDM [facility] Stop: 04/03/21 07:59 Last Admin: 03/29/21 07:53 Dose: 1 tab Documented by: Aspirin (Aspirin 81 Mg Ectab) 81 mg PO QPM [facility] Stop: 04/26/21 20:59 Last Admin: 03/28/21 19:40 Dose: 81 mg Documented by: Budesonide/Formoterol Fumarate (Pt Own Med - Budesonide/Formoterol Fumarate 160/4.5 60 Puffs/Inhaler) 2 puffs INH TID [facility] Stop: 04/26/21 09:59 Last Admin: 03/29/21 13:23 Dose: 2 puffs Documented by: Diclofenac Sodium (Diclofenac Sod 1% Gel 100 Gm Tube) 4 gm EXT BID [facility] Stop: 04/28/21 11:29 Last Admin: 03/29/21 13:21 Dose: 4 gm Documented by: Ezetimibe (Ezetimibe 10 Mg Tablet) 10 mg PO QPM [facility] Stop: 04/26/21 20:59 Last Admin: 03/28/21 19:40 Dose: 10 mg Documented by: Enoxaparin Sodium (Enoxaparin Inj 30 Mg/0.3 Ml Syr) 30 mg SQ QAM [facility] Stop: 04/26/21 08:59 Last Admin: 03/29/21 07:55 Dose: 30 mg Documented by: Escitalopram Oxalate (Escitalopram Oxalate 20 Mg Tab) 20 mg PO DAILY [facility] Stop: 04/26/21 08:59 Last Admin: 03/29/21 07:52 Dose: 20 mg Documented by: Gabapentin (Gabapentin 300 Mg Cap) 300 mg PO QID [facility] Stop: 04/26/21 08:59 Last Admin: 03/29/21 13:23 Dose: 300 mg Documented by: Promethazine HCl 6.25 mg/ (Sodium Chloride) 50.25 mls @ 201 mls/hr IV Q6H PRN PRN Reason: Nausea And Vomiting Stop: 04/26/21 06:36 Ipratropium [place] (Ipratropium [place] Neb Soln 0.02% 2.5 Ml Vial) 0.5 mg INH Q6R [facility] Stop: 04/26/21 06:59 Last Admin: 03/29/21 13:07 Dose: 0.5 mg Documented by: Lactobacillus Acidoph/Casei/Rhamnos (Advanced Probiotic 1250 Mg Capsule) 2 cap PO DAILY [facility] Stop: 04/26/21 08:59 Last Admin: 03/29/21 07:53 Dose: 2 cap Documented by: Levalbuterol HCl (Levalbuterol 1.25mg/0.5ml Neb) 1.25 mg INH Q6R [facility] Stop: 04/26/21 06:59 Last Admin: 03/29/21 13:07 Dose: 1.25 mg Documented by: Levothyroxine Sodium (Levothyroxine Sodium 137 Mcg Tablet) 137 mcg PO DAILYBB [facility] Stop: 04/26/21 06:59 Last Admin: 03/29/21 06:09 Dose: 137 mcg Documented by: Lisinopril (Lisinopril 2.5 Mg Tab) 2.5 mg PO QAM [facility] Stop: 04/26/21 06:59 Last Admin: 03/29/21 07:53 Dose: 2.5 mg Documented by: Metoclopramide HCl (Metoclopramide Hcl 5 Mg Tablet) 5 mg PO AC [facility] Stop: 04/26/21 07:29 Last Admin: 03/29/21 11:26 Dose: 5 mg Documented by: Multivitamins (Multivitamin Tab) 1 tab PO DAILY [facility] Stop: 04/26/21 08:59 Last Admin: 03/29/21 07:53 Dose: 1 tab Documented by: Pantoprazole Sodium (Pantoprazole 40 Mg Tab) 40 mg PO BID [facility] Stop: 04/26/21 08:59 Last Admin: 03/29/21 07:52 Dose: 40 mg Documented by: Polyethylene Glycol (Polyethylene (Miralax) 17 Gm Pack) 17 gm PO DAILY PRN PRN Reason: Constipation Stop: 04/26/21 06:36 Pravastatin Sodium (Pravastatin Sod 20 Mg Tab) 20 mg PO QPM [facility] Stop: 04/26/21 20:59 Last Admin: 03/28/21 19:43 Dose: 20 mg Documented by: Prednisone (Prednisone 20 Mg Tab) 40 mg PO DAILY [facility] Stop: 04/01/21 08:59 Last Admin: 03/29/21 07:54 Dose: 40 mg Documented by: Senna/Docusate Sodium (Docusate Sodium/Senna 50/8.6mg Tab) 1 tab PO QAM [facility] Stop: 04/26/21 06:36 Last Admin: 03/29/21 07:53 Dose: 1 tab Documented by: Sumatriptan Succinate (Sumatriptan Succinate 100 Mg Tab) 100 mg PO BID PRN PRN Reason: migraine headache Stop: 04/27/21 11:26 Last Admin: 03/29/21 11:26 Dose: 100 mg Documented by: Tramadol HCl (Tramadol Hcl 50 Mg Tablet) 25 - 50 mg PO Q4H PRN PRN Reason: Pain Stop: 04/26/21 06:36
[2021-03-29] MEDS: ASPIRIN 81 MG ECTAB PO SCH (20:59)
[2021-03-29] MEDS: EZETIMIBE 10 MG TABLET PO SCH (20:59)
[2021-03-29] MEDS: PRAVASTATIN SOD 20 MG TAB PO SCH (21:00)
[2021-03-29] MEDS: ACETAMINOPHEN 325 MG TAB PO PRN (21:57)
[2021-03-29] MEDS ORDERED: MAGNESIUM HYDROXIDE SUSP 30 ML UDC PO PRN (22:08)
[2021-03-29] MEDS ORDERED: OXYBUTYNIN CHLORIDE XL 5 MG TABCR PO SCH (23:20)
[2021-03-30] MEDS: IPRATROPIUM BROMIDE NEB SOLN 0.02% 2.5 ML VIAL INH SCH ×3 (00:54→13:19)
[2021-03-30] MEDS: LEVALBUTEROL 1.25MG/0.5ML NEB INH SCH ×3 (00:54→13:19)
[2021-03-30] MEDS: LEVOTHYROXINE SODIUM 137 MCG TABLET PO SCH (06:19)
[2021-03-30] MEDS: METOCLOPRAMIDE HCL 5 MG TABLET PO SCH ×2 (08:26→11:39)
[2021-03-30] MEDS: AMOXICILLIN/CLAVULANATE 875 MG TAB PO SCH (08:26)
[2021-03-30] MEDS: BUDESONIDE INH SCH (08:27)
[2021-03-30] MEDS: DICLOFENAC SOD 1% GEL 100 GM TUBE EXT SCH (08:27)
[2021-03-30] MEDS: FORMOTEROL FUMARATE INH SCH (08:27)
[2021-03-30] MEDS: DOCUSATE SODIUM/SENNA 50/8.6MG TAB PO SCH (08:28)
[2021-03-30] MEDS: GABAPENTIN 300 MG CAP PO SCH ×2 (08:28→12:39)
[2021-03-30] MEDS: ESCITALOPRAM OXALATE 20 MG TAB PO SCH (08:28)
[2021-03-30] MEDS: ENOXAPARIN INJ 30 MG/0.3 ML SYR SQ SCH (08:29)
[2021-03-30] MEDS: ADVANCED PROBIOTIC 1250 MG CAPSULE PO SCH (08:29)
[2021-03-30] MEDS: PANTOprazole 40 MG TAB PO SCH (08:30)
[2021-03-30] MEDS: MULTIVITAMIN TAB PO SCH (08:30)
[2021-03-30] MEDS: lisinopril 2.5 MG TAB PO SCH (08:30)
[2021-03-30] MEDS: predniSONE 20 MG TAB PO SCH (08:30)
[2021-03-30] MEDS ORDERED: lisinopril 2.5 MG TAB PO ONE (09:30)
[2021-03-30] MEDS: SUMAtriptan succinate 100 MG TAB PO PRN (10:11)
--- NOTE | 2021-03-30 11:11 | Hospitalist Progress Note ---
Date of Service March 30, 2021 Assessment & Plan (1) Respiratory failure, acute and chronic: Secondary to COPD exacerbation secondary to possible aspiration pneumonia Possible esophageal dysfunction given patient description of choking symptoms Has been on steroid and nebulized bronchodilator Unasyn for possible aspiration pneumonia Clinically much better today Appreciate speech evaluation and will have barium swallow this afternoon We will continue current nebulized bronchodilator and other medication for COPD exacerbation Has been feeling much better today Ambulating in the room without any difficulties We will have PT evaluation before discharging home this afternoon Hypertension, elevated secondary to illness Possible chronic BP elevation given LVH on CT Increase the medication to improve blood pressure History of CAD as per records Chronic migraine, at baseline -we will continue with outpatient doses of Imitrex Hypothyroidism, euthyroid as of TSH from last month Anxiety/mood disorder, at baseline Past tobacco abuse DVT prophylaxis per Lovenox subcu Full code Be discharged home this afternoon Admission and Anticipated Discharge Date Admission Date: March 27, 2021 Subjective 03/27/2021 The patient was seen and examined in medical telemetry unit She complains to be hungry and wants to eat She feels lot better regarding her shortness of breath She will have barium swallow sometime this afternoon 03/28/2021 The patient was seen and examined in medical floor She has been complaining of allergic symptoms with increasing shortness of breath She has cough but denies any chest pain, no abdominal pain, nausea and or vomiting 03/29/2021 The patient was seen and examined in medical floor She has not been feeling much better Complains of pain in the legs and also still has shortness of breath Denies any fever and/or chills 03/30/2021 The patient was seen and examined in medical floor She has been feeling much better today She has been ambulating in the room without much difficulties Denies any fever and/or chills and wants to go home today Review of Systems Review of Systems: All systems reviewed and are unremarkable except as noted below Respiratory: + dyspnea on exertion; no cough Physical Exam Physical Exam: Lying in bed without any acute distress Constitutional: well developed, well nourished and + thin; not ill appearing Eyes: PERRL, conjunctivae normal, anicteric sclerae ENMT: external ear and nose normal, oropharynx normal Neck: trachea midline, no thyromegaly Respiratory: + respiratory distress (Mild to moderate shortness of breath at rest) Auscultation: + diminished lung sounds; no crackles (Bibasilar crackles) and no wheezes Cardiovascular: Rate/Rhythm: regular rate and regular rhythm Heart Sounds: no murmur Extremities: no edema Gastrointestinal (Abdomen): Inspection/Auscultation: normal bowel sounds; abdomen not distended Percussion/Palpation: abdomen soft; abdomen nontender Musculoskeletal: No acute arthritis in any joint Neurologic: Alert, awake and oriented x3. No focal sensory and motor deficit appreciated Psychiatric: A+Ox3, euthymic affect Lymphatic: no cervical or axillary lymphadenopathy Results & Data Results & Data ([facility]) Vital Signs (Past 12 Hours) Vital Signs Temp Pulse Pulse Resp BP Pulse Ox 03/30/21 08:04 37 C 110 H 18 188/85 H 98 03/30/21 07:44 94 H 03/30/21 07:32 100 H 16 97 03/30/21 03:52 37 C 96 H 16 141/66 H 99 03/30/21 00:57 109 H 18 97 03/30/21 00:00 113 H 03/29/21 23:36 36.4 C L 108 H 18 161/79 H 100 Medications Administered Current Inpatient Medications Acetaminophen (Acetaminophen 325 Mg Tab) 650 mg PO Q4H PRN PRN Reason: Pain or Fever Stop: 04/26/21 06:36 Last Admin: 03/29/21 21:57 Dose: 650 mg Documented by: Albuterol (Albuterol Hfa 8 Gm Inhaler) 2 puffs INH QIDR PRN PRN Reason: Shortness Of Breath Or Wheezin Stop: 04/27/21 11:26 Amoxicillin/Clavulanate Potassium (Amoxicillin/Clavulanate 875 Mg Tab) 1 tab PO BIDM [facility] Stop: 04/03/21 07:59 Last Admin: 03/30/21 08:26 Dose: 1 tab Documented by: Aspirin (Aspirin 81 Mg Ectab) 81 mg PO QPM [facility] Stop: 04/26/21 20:59 Last Admin: 03/29/21 20:59 Dose: 81 mg Documented by: Budesonide/Formoterol Fumarate (Pt Own Med - Budesonide/Formoterol Fumarate 160/4.5 60 Puffs/Inhaler) 2 puffs INH TID [facility] Stop: 04/26/21 09:59 Last Admin: 03/30/21 08:27 Dose: 2 puffs Documented by: Diclofenac Sodium (Diclofenac Sod 1% Gel 100 Gm Tube) 4 gm EXT BID MARCUS Stop: 04/28/21 11:29 Last Admin: 03/30/21 08:27 Dose: 4 gm Documented by: Ezetimibe (Ezetimibe 10 Mg Tablet) 10 mg PO QPM [facility]US Stop: 04/26/21 20:59 Last Admin: 03/29/21 20:59 Dose: 10 mg Documented by: Enoxaparin Sodium (Enoxaparin Inj 30 Mg/0.3 Ml Syr) 30 mg SQ QAM MARCUS Stop: 04/26/21 08:59 Last Admin: 03/30/21 08:29 Dose: 30 mg Documented by: Escitalopram Oxalate (Escitalopram Oxalate 20 Mg Tab) 20 mg PO DAILY M[facility]US Stop: 04/26/21 08:59 Last Admin: 03/30/21 08:28 Dose: 20 mg Documented by: Gabapentin (Gabapentin 300 Mg Cap) 300 mg PO QID [facility] Stop: 04/26/21 08:59 Last Admin: 03/30/21 08:28 Dose: 300 mg Documented by: Promethazine HCl 6.25 mg/ (Sodium Chloride) 50.25 mls @ 201 mls/hr IV Q6H PRN PRN Reason: Nausea And Vomiting Stop: 04/26/21 06:36 Ipratropium [place] (Ipratropium [place] Neb Soln 0.02% 2.5 Ml Vial) 0.5 mg INH Q6R [facility] Stop: 04/26/21 06:59 Last Admin: 03/30/21 07:16 Dose: 0.5 mg Documented by: Lactobacillus Acidoph/Casei/Rhamnos (Advanced Probiotic 1250 Mg Capsule) 2 cap PO DAILY MARCUS Stop: 04/26/21 08:59 Last Admin: 03/30/21 08:29 Dose: 2 cap Documented by: Levalbuterol HCl (Levalbuterol 1.25mg/0.5ml Neb) 1.25 mg INH Q6R [facility] Stop: 04/26/21 06:59 Last Admin: 03/30/21 07:16 Dose: 1.25 mg Documented by: Levothyroxine Sodium (Levothyroxine Sodium 137 Mcg Tablet) 137 mcg PO DAILYBB [facility] Stop: 04/26/21 06:59 Last Admin: 03/30/21 06:19 Dose: 137 mcg Documented by: Lisinopril (Lisinopril 5 Mg Tab) 5 mg PO QAM M[facility]US Stop: 04/30/21 08:59 Magnesium Hydroxide (Magnesium Hydroxide Susp 30 Ml Udc) 30 ml PO BID PRN PRN Reason: Constipation Stop: 04/28/21 22:07 Last Admin: 03/29/21 22:44 Dose: 30 ml Documented by: Metoclopramide HCl (Metoclopramide Hcl 5 Mg Tablet) 5 mg PO AC [facility] Stop: 04/26/21 07:29 Last Admin: 03/30/21 08:26 Dose: 5 mg Documented by: Multivitamins (Multivitamin Tab) 1 tab PO DAILY MARCUS Stop: 04/26/21 08:59 Last Admin: 03/30/21 08:30 Dose: 1 tab Documented by: Oxybutynin Chloride (Oxybutynin Chloride 5 Mg Tab) 5 mg PO QID M[facility] Stop: 04/29/21 12:59 Last Admin: 03/30/21 10:13 Dose: 5 mg Documented by: Pantoprazole Sodium (Pantoprazole 40 Mg Tab) 40 mg PO BID MARCUS Stop: 04/26/21 08:59 Last Admin: 03/30/21 08:30 Dose: 40 mg Documented by: Polyethylene Glycol (Polyethylene (Miralax) 17 Gm Pack) 17 gm PO DAILY PRN PRN Reason: Constipation Stop: 04/26/21 06:36 Pravastatin Sodium (Pravastatin Sod 20 Mg Tab) 20 mg PO QPM M[facility]US Stop: 04/26/21 20:59 Last Admin: 03/29/21 21:00 Dose: 20 mg Documented by: Prednisone (Prednisone 20 Mg Tab) 40 mg PO DAILY MARCUS Stop: 04/01/21 08:59 Last Admin: 03/30/21 08:30 Dose: 40 mg Documented by: Senna/Docusate Sodium (Docusate Sodium/Senna 50/8.6mg Tab) 1 tab PO QAM M[facility]US Stop: 04/26/21 06:36 Last Admin: 03/30/21 08:28 Dose: 1 tab Documented by: Sumatriptan Succinate (Sumatriptan Succinate 100 Mg Tab) 100 mg PO BID PRN PRN Reason: migraine headache Stop: 04/27/21 11:26 Last Admin: 03/30/21 10:11 Dose: 100 mg Documented by: Tramadol HCl (Tramadol Hcl 50 Mg Tablet) 25 - 50 mg PO Q4H PRN PRN Reason: Pain Stop: 04/26/21 06:36
[2021-03-30] MEDS ORDERED: OXYBUTYNIN CHLORIDE 5 MG TAB PO SCH (13:00)
--- NOTE | 2021-03-31 08:31 | Discharge Summary ---
Date of Service March 31, 2021 Admission HPI Per Admitting Provider History obtained from patient, family, and records. Medical history significant for chronic respiratory failure secondary to COPD on home O2, CAD status post stent, chronic migraine, hypothyroidism, anxiety/mood disorder, past tobacco abuse. Last confinement December 2020 for metabolic encephalopathy secondary to polypharmacy. Few days history of junky cough symptoms with achy substernal pain with worsening shortness of breath. No known recent COVID-19 contacts. Admits to choking//coughing symptoms if she is not careful with swallowing. No fever, no chills. Patient brought by to the ER. Patient received Ceftriaxone, Solu-Medrol, neb treatment for COPD exacerbation. Patient currently feeling much better. 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 Admission Exam Per Admitting Provider Physical Exam: GENERAL: Pleasant, minimal respiratory distress SKIN: Normal color, warm HEENT: [place] palpebral conjunctivae, no ptosis, dry buccal mucosa, nasal cannula in place NECK : Supple, no tenderness CHEST : Decreased breath sounds, expiratory wheezes, no tenderness HEART : RRR, no obvious murmurs ABDOMEN: no distention, nontender EXTREMITIES : No LE swelling/tenderness, no other conspicuous deformities noted NEUROLOGIC : Coherent, no facial asymmetry, no other gross focality Principal Diagnosis Respiratory failure acute and chronic, COPD exacerbation, possible aspiration pneumonia, hypertension, migraine Discharge Exam Constitutional well developed, well nourished and + thin; not ill appearing Eyes PERRL, conjunctivae normal, anicteric sclerae ENMT external ear and nose normal, oropharynx normal Neck trachea midline, no thyromegaly Respiratory + respiratory distress (Mild to moderate shortness of breath at rest) Auscultation: + diminished lung sounds; no crackles (Bibasilar crackles) and no wheezes Cardiovascular Rate/Rhythm: regular rate and regular rhythm Heart Sounds: no murmur Extremities: no edema Gastrointestinal (Abdomen) Inspection/Auscultation: normal bowel sounds; abdomen not distended Percussion/Palpation: abdomen soft; abdomen nontender Psychiatric A+Ox3, euthymic affect Lymphatic no cervical or axillary lymphadenopathy Discharge Data Allergies Allergy/AdvReac Type Severity Reaction Status Date / Time Sulfa (Sulfonamide Allergy Intermediate Hives Verified 03/27/21 03:07 Antibiotics) cortisone Allergy Unknown RASH FOR 3 Verified 03/27/21 03:07 MONTHS levofloxacin Allergy Unknown RASH Verified 03/27/21 03:07 nortriptyline Allergy Unknown RASH Verified 03/27/21 03:07 hydrocortisone Allergy Unknown Verified 03/27/21 03:07 [From Cortizone-10] Consultations 03/27/21 02:14 ED Decision to Admit Stat Ordered Studies 03/27/21 03:32 CT angio chest PE protocol Urgent 03/27/21 13:30 FL video swallow Routine Hospital Course (1) Respiratory failure, acute and chronic: Secondary to COPD exacerbation secondary to possible aspiration pneumonia Possible esophageal dysfunction given patient description of choking symptoms Has been on steroid and nebulized bronchodilator Unasyn for possible aspiration pneumonia Clinically much better today Appreciate speech evaluation and will have barium swallow this afternoon We will continue current nebulized bronchodilator and other medication for COPD exacerbation Has been feeling much better today Ambulating in the room without any difficulties We will have PT evaluation before discharging home this afternoon Hypertension, elevated secondary to illness Possible chronic BP elevation given LVH on CT Increase the medication to improve blood pressure History of CAD as per records Chronic migraine, at baseline -we will continue with outpatient doses of Imitrex Hypothyroidism, euthyroid as of TSH from last month Anxiety/mood disorder, at baseline Past tobacco abuse DVT prophylaxis per Lovenox subcu Full code Be discharged home this afternoon Total Time Total Time Spent Total Time Spent (In Minutes): 35 minutes Total Time Includes: Examination of the Patient, Discharge Planning, Medication Reconciliation and Communication With Other Providers Discharge Plan Discharge Items Patient Disposition: Home - Self-Care Reason For Visit: COPD EXACERBATION Discharge Diagnosis: Respiratory failure acute and chronic, COPD exacerbation, possible aspiration pneumonia, hypertension, migraine Condition on Discharge: Good Activity: Resume your previous activity Non-emergency contact: Primary Care Provider Call non-emergency contact if: you have any medication questions and your symptoms worsen Follow-up/Referrals: Krystal Marsh MD [Primary Care Provider] - (Date & Time 04/04/2021 11:20 AM Provider Krystal Marsh MD Department General Internal Medicine [facility] ) Diet: Heart Healthy and Low Sodium (2gm) Addtl Attending Provider Instructions: Please take precaution to avoid falls Take your rescue inhalers and nebulizer as advised Finish the course of antibiotic and prednisone Pending Studies at Discharge: No Stand-Alone Forms: My [facility], Smoking Cessation Medications and DC Order Prescriptions: New amoxicillin-pot clavulanate [Augmentin] 875-125 mg Tablet 1 tab PO BIDM Qty: 6 RF: 0 lisinopril [Zestril] 5 mg Tablet 5 mg PO QAM Qty: 30 RF: 0 diclofenac sodium [Voltaren] 1 % Gel 4 g EXT BID Qty: 50 RF: 0 prednisone 10 mg tablet 10 mg PO UD Qty: 18 RF: 0 Continued ipratropium bromide 42 mcg (0.06 %) spray,non-aerosol 2 sprays INTNAS Q8H PRN (Reason: runny nose) Qty: 30 RF: 5 levothyroxine [Synthroid] 137 mcg tablet 137 mcg PO DAILY Qty: 90 RF: 3 spironolactone [Aldactone] 25 mg tablet 25 mg PO BID Qty: 180 RF: 3 oxybutynin chloride 5 mg tablet 5 mg PO QID Qty: 360 RF: 3 ezetimibe [Zetia] 10 mg tablet 10 mg PO QPM Qty: 90 RF: 3 lansoprazole 30 mg capsule,delayed release(DR/EC) 30 mg PO BID Qty: 180 RF: 3 potassium chloride 10 mEq capsule, extended release See Rx Instructions PO BID Qty: 450 RF: 3 albuterol sulfate 2.5 mg /3 mL (0.083 %) solution for nebulization 2.5 mg inhalation Q4 PRN (Reason: Shortness Of Breath Or Wheezing) Qty: 540 RF: 1 nystatin 100,000 unit/mL suspension 500,000 unit PO QID Qty: 200 RF: 0 Spiriva with HandiHaler 18 mcg capsule, w/inhalation device 1 cap inhalation QAM Qty: 30 RF: 5 azithromycin 500 mg tablet 500 mg PO 3XWK Qty: 12 RF: 1 furosemide [Lasix] 40 mg tablet 80 mg PO QAM Qty: 180 RF: 3 uihzoishvr-mwaugcc-tiulddsg 50-325-40 mg capsule 1 cap PO BID PRN (Reason: Headache) Qty: 60 RF: 0 sumatriptan succinate [Imitrex] 100 mg tablet 100 mg PO BID MDD 2 PRN (Reason: migraine headache) 30 Days Qty: 12 RF: 5 simethicone [Gas Relief Ultra Strength] 180 mg Capsule 180 mg PO QPM RF: 0 acetaminophen [Tylenol Extra Strength] 500 mg Tablet 1,000 mg PO HS RF: 0 pravastatin 10 mg Tablet 20 mg PO QPM RF: 0 nitroglycerin [Nitrostat] 0.4 mg Tablet, Sublingual 0.4 mg Sublingual UD PRN (Reason: Chest Pain) RF: 0 coQ10 (ubiquinol) 200 mg Capsule 200 mg PO QPM RF: 0 Probiotic 3 billion cell Capsule 3 mmu cells PO DAILY RF: 0 metoclopramide HCl 5 mg tablet 5 mg PO AC RF: 0 ipratropium bromide 0.02 % solution 2.5 ml inhalation Q4 PRN (Reason: Shortness Of Breath Or Wheezing) RF: 0 Medical Marijuana 0 dose PO UD RF: 0 cranberry extract 500 mg Tablet 500 mg PO DAILY RF: 0 Excedrin Migraine 250-250-65 mg Tablet 1 tab PO BID PRN (Reason: Headache) RF: 0 simethicone 125 mg Tablet 125 mg PO QAM RF: 0 multivitamin [Multiple Vitamins] Tablet 1 tab PO DAILY RF: 0 [place] Milk of Magnesia 311 mg Tablet,Chewable See Rx Instructions .ROUTE .COMPLEX RF: 0 ascorbate calcium (vitamin C) 500 mg Tablet 250 mg PO BID RF: 0 aspirin [Aspirin Low Dose] 81 mg Tablet,Delayed Release (Dr/Ec) 81 mg PO QPM RF: 0 escitalopram oxalate 20 mg tablet 20 mg PO DAILY RF: 0 methocarbamol 750 mg tablet 750 mg PO QAM RF: 0 budesonide-formoterol 160-4.5 mcg/actuation HFA aerosol inhaler 2 puff INHALATION BID RF: 0 gabapentin 300 mg Capsule 300 mg PO QID RF: 0 clorazepate dipotassium 3.75 mg Tablet 3.75 mg PO HS PRN (Reason: Sleep) RF: 0 303 Muscle Relaxer 2 tab PO HS RF: 0 albuterol sulfate [Ventolin HFA] 90 mcg/actuation HFA aerosol inhaler 2 puff Inhalation QID PRN (Reason: Shortness Of Breath Or Wheezing) Qty: 54 RF: 1 Discharge Orders: Discharge Order (Routine); Ordered 03/30/21 Ordered By: Earnest Montero/Other Patient Handouts: COPD Using Inhalers, What Is COPD?, Shortness of Breath Maximizing ... Admission Data Admit Date/Time: 03/27/21 03:49 Attending Provider: Earnest De Dios Admit Provider: Hawk Costello Primary Care Provider: Krystal Marsh Other Providers: Hawk Costello Other Interventions: Discharge Summary Assessment (RN) Last Done: 03/30/21 11:30
[2021-03-31] MEDS ORDERED: lisinopril 5 MG TAB PO SCH (09:00)
--- NOTE | 2021-04-09 10:36 | Coding Query ---
CODING QUERY To promote full compliance with coding requirements relating to patient care, provider participation is requested in all cases of medical donation professional uncertainty. Please assist us with the question(s) below: Coding Question(s): Patient was diagnosed with acute and chronic respiratory failure. Please give more specific details below. Physician's Response(s): ACUTE AND CHRONIC RESPIRATORY FAILURE WITH: ( + ) Hypoxia ( ) Hypercapnia ( ) Hypoxia and Hypercapnia ( ) Other, please specify ( ) Unable to determine Thank you Xiomy Zazueta Oxygen Saturation was 89 % on admission. Principal Diagnosis: "that condition established after study, to be chiefly responsible for occasioning the admission of the patient to the hospital for care." Co-Existing Principal Diagnosis: "when two or more diagnoses equally meet the criteria for principal diagnosis as determined by the circumstances of admission, diagnostic work up, and/or therapy provided, and the Alphabetic Index, Tabular List, or another coding guideline does not provide sequencing direction, any one of the diagnoses may be sequenced first." "When the physician has documented what appears to be a current diagnosis in the body of the record, but has not included the diagnosis in the final diagnostic statement, the physician should be asked whether the diagnosis should be added." (Source Coding Clinic 2 QTR90. p3-4) SPEEDY
== END 2021-03-30 13:55 | disposition home health service (06) | DRG 190 ==
LOC: ED 22:48 → 2W 03-27 03:49

== ENCOUNTER 2021-05-25 22:20 | Inpatient (IN) ==
[2021-05-25] MEDS ORDERED: ALBUT/IPRATROP 3MG/0.5MG NEB 3 ML VIAL INH STA (22:32)
[2021-05-25] MEDS ORDERED: methylPREDNISolone 125 MG/2 ML VIAL IV STA (22:32)
[2021-05-25 22:57] LABS: Basophils # (auto) 0.02 K/uL (0-0.2); Basophils % (auto) 0.2 %; Eosinophils # (auto) 0.12 K/uL (0-0.5); Eosinophils % (auto) 1.5 %; Hematocrit (blood only) 38.6 % (37-47); Hemoglobin 13.3 g/dL (12.0-16.0); Immature Granulocytes # (auto) 0.01 K/uL (0.00-0.02); Immature Granulocytes % (auto) 0.1 %; Lymphocytes # (auto) 1.05 K/uL (1.2-3.4); Mean Corpuscular Hemoglobin 31.9 pg (25-34); Mean Corpuscular Hgb Conc 34.5 g/dL (32-36); Mean Corpuscular Volume 92.6 fL (80-100); Mean Platelet Volume 9.1 fL (7.4-10.4); Monocytes # (auto) 0.97 K/uL (0.11-0.59); Neutrophils # (auto) 5.93 K/uL (1.4-6.5); Neutrophils % (auto) 73.2 %; Platelet Count 272 K/uL (130-400); RDW Coefficient of Variation 12.7 % (11.5-14.5); Red Blood Count 4.17 M/uL (4.2-5.4)
[2021-05-25 23:07] LABS: INR 1.1 (0.9-1.1); Partial Thromboplastin Ratio 1.1; Partial Thromboplastin Time 28.2 Seconds (21.0-31.0); Prothrombin Time 10.8 Seconds (9.0-12.0)
[2021-05-25 23:17] LABS: Alanine Aminotransferase 32 U/L (12-78); Albumin Level 3.7 gm/dl (3.4-5.0); Aspartate Aminotransferase 24 U/L (15-37); BUN Creatinine Ratio 14.4 (10-20); Blood Urea Nitrogen 6 mg/dl (7-18); Calcium 9.4 mg/dl (8.5-10.1); Carbon Dioxide 30 mmol/L (21-32); Chloride 95 mmol/L (98-107); Creatinine Clr Calc Pharmacy 102.1 ml/min; Est GFR (African American) 118.9 ml/min; Est GFR (Non-African American) 102.6 ml/min; Glucose 102 mg/dl (70-99); Magnesium 2.2 mg/dl (1.8-2.4); Potassium 3.4 mmol/L (3.5-5.1); Sodium 132 mmol/L (136-145)
[2021-05-25 23:22] LABS: Albumin Globulin Ratio 1.3 (0.9-2); Alkaline Phosphatase 108 U/L (45-117); Bilirubin,Total 0.3 mg/dl (0.2-1); Globulin 2.9 gm/dl (2.5-4.0); NT Pro B Type Natriuretic Pept 846 pg/ml (0-900); Total Protein 6.6 gm/dl (6.4-8.2); Troponin I < 0.015 ng/ml (0-0.045)
[2021-05-25 23:39] LABS: Appearance Urine Clear (Clear); Bacteria Urine Automated Negative (Negative); Bilirubin Urine Negative (Negative); Blood Urine Trace (Negative); Color Urine Yellow; Glucose Urine UA Negative (Negative); Ketones Urine 2+ (Negative); Leukocyte Esterase Urine Negative (Negative); Nitrite Urine Negative (Negative); Protein Urine Negative (Negative); RBC Urine Automated 0-4 /hpf (0-4); Specific Gravity Urine 1.012 (1.000-1.030); Urobilinogen Urine Negative (Negative)
--- NOTE | 2021-05-25 23:48 | Emergency Department Note ---
History of Present Illness General Chief complaint: Cough Stated complaint: COUGH Time Seen by Provider: 05/25/21 22:22 History of Present Illness Maximum Pain Intensity: 4 This 75-year-old COPD on 4 L chronically presents to the ER complaining of worsening shortness of breath productive cough and feeling weak with chest pain for the past few days Location: Generalized Quality: Weak Severity: Moderate Duration: Past few days Timing: Started few days ago Context: Breathing got worse and patient came back Modifying factors: better with oxygen; worse with activity Patient feels like she is having another COPD exacerbation. Patient denies fevers, abdominal pain, vomiting, diarrhea. She has received the Covid vaccine. Home Medications Medication Instructions Recorded Confirmed Type acetaminophen 500 mg tablet 1,000 mg PO HS 01/04/19 05/25/21 History (Tylenol Extra Strength) coQ10 (ubiquinol) 200 mg capsule 200 mg PO QPM 01/04/19 05/25/21 History lactobacillus combination no.4 3 3 mmu cells PO DAILY 01/04/19 05/25/21 History billion cell capsule (Probiotic) nitroglycerin 0.4 mg sublingual 0.4 mg SUBLINGUAL UD PRN 01/04/19 05/25/21 History tablet (Nitrostat) simethicone 180 mg capsule (Gas 180 mg PO QPM 01/04/19 05/25/21 History Relief Ultra Strength) ipratropium bromide 42 mcg (0.06 2 sprays INTNAS Q8H PRN #30 ml 09/16/19 05/25/21 Rx %) nasal spray levothyroxine 137 mcg tablet 137 mcg PO DAILY #90 tab 11/04/19 05/25/21 Rx (Synthroid) spironolactone 25 mg tablet 25 mg PO BID #180 tab 04/16/20 05/25/21 Rx (Aldactone) oxybutynin chloride 5 mg tablet 5 mg PO QID #360 tab 04/23/20 05/25/21 Rx Medical Marijuana 0 dose PO UD 07/22/20 05/25/21 History avvnvri-fiafejsmcvblb-jqnlintd 250 1 tab PO BID PRN 07/22/20 05/25/21 History mg-250 mg-65 mg tablet (Excedrin Migraine) ipratropium bromide 0.02 % 2.5 ml INHALATION Q4 PRN 07/22/20 05/25/21 History solution for inhalation magnesium hydroxide 311 mg See Rx Instructions .ROUTE .COMPLEX 07/22/20 05/25/21 History chewable tablet (Porter Milk of Magnesia) metoclopramide HCl 5 mg tablet 5 mg PO AC 07/22/20 05/25/21 History multivitamin (Multiple Vitamins) 1 tab PO DAILY 07/22/20 05/25/21 History simethicone 125 mg tablet 125 mg PO QAM 07/22/20 05/25/21 History lansoprazole 30 mg capsule,delayed 30 mg PO BID #180 cap 07/30/20 05/25/21 Rx release albuterol sulfate 2.5 mg INHALATION Q4 PRN #540 ml 09/04/20 05/25/21 Rx nystatin 100,000 unit/mL oral 500,000 unit PO QID #200 ml 09/25/20 05/25/21 Rx suspension sumatriptan succinate 100 mg 100 mg PO BID PRN 30 Days #12 tab 10/10/20 05/25/21 Rx tablet (Imitrex) MDD 2 tiotropium bromide 18 mcg capsule 1 cap INHALATION QAM #30 inh 10/23/20 05/25/21 Rx with inhalation device (Spiriva with HandiHaler) azithromycin 500 mg tablet 500 mg PO 3XWK #12 tab 10/29/20 05/25/21 Rx furosemide 40 mg tablet (Lasix) 80 mg PO QAM #180 tab 10/30/20 05/25/21 Rx ascorbate calcium (vitamin C) 500 250 mg PO BID 01/20/21 05/25/21 History mg tablet aspirin 81 mg tablet,delayed 81 mg PO QPM 01/20/21 05/25/21 History release (Aspirin Low Dose) escitalopram oxalate 20 mg tablet 20 mg PO DAILY 01/20/21 05/25/21 History 303 Muscle Relaxer 2 tab PO HS 03/27/21 05/25/21 History budesonide-formoterol HFA 160 2 puff INHALATION BID 03/27/21 05/25/21 History mcg-4.5 mcg/actuation aerosol inhaler gabapentin 300 mg capsule 300 mg PO QID 03/27/21 05/25/21 History methocarbamol 750 mg tablet 750 mg PO QAM 03/27/21 05/25/21 History albuterol sulfate 90 mcg/actuation 2 puff INHALATION QID PRN #54 gm 03/30/21 05/25/21 Rx aerosol inhaler (Ventolin HFA) eptinezumab-jjmr 100 mg/mL 100 mg IV .COMPLEX #1 ml 04/22/21 05/25/21 Rx intravenous solution (Vyepti) wyvhaskben-tbpkfct-opqoxbto 50 1 cap PO BID PRN #60 cap 05/13/21 05/25/21 Rx mg-325 mg-40 mg capsule benzonatate 100 mg capsule 100 mg PO TID PRN 05/25/21 05/25/21 History diclofenac sodium 1 % topical gel 4 g TOPICAL DIRECTED PRN 05/25/21 05/25/21 History guaifenesin 600 mg tablet, 600 mg PO BID 05/25/21 05/25/21 History extended release 12 hr (Mucinex) polyethylene glycol 3350 17 17 g PO DAILY 05/25/21 05/25/21 History gram/dose oral powder (Miralax) sennosides 8.6 mg tablet (senna) 8.6 mg PO DAILY 05/25/21 05/25/21 History trazodone 50 mg tablet 25 - 50 mg PO HS 05/25/21 05/25/21 History Allergies Allergy/AdvReac Type Severity Reaction Status Date / Time cortisone Allergy Intermediate RASH FOR 3 Verified 05/25/21 23:13 MONTHS levofloxacin Allergy Intermediate RASH Verified 05/25/21 23:13 nortriptyline Allergy Intermediate RASH Verified 05/25/21 23:13 Sulfa (Sulfonamide Allergy Intermediate Hives Verified 05/25/21 23:13 Antibiotics) hydrocortisone Allergy Unknown Unknown Verified 05/25/21 23:13 [From Cortizone-10] Past Med/Surg History Medical History Anxiety and depression Back pain Cronin esophagus CHF (congestive heart failure) Chronic rhinitis Chronic sinusitis COPD (chronic obstructive pulmonary disease) COPD, group D, by GOLD 2017 classification Coronary artery disease Cough with sputum Delayed sleep phase syndrome Depression Emphysema lung GERD (gastroesophageal reflux disease) Hearing loss 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 Hypercholesterolemia Hypothyroidism Lung nodule Lung nodule Migraine without aura Surgical History History of bladder surgery History of breast augmentation History of cholecystectomy History of hemorrhoidectomy History of tonsillectomy Family History Unknown Lung cancer Liver cancer Colon cancer Father Liver cancer Mother Hypertension Other Family history non-contributory Social History Smoking Status: Unknown if ever smoked Tobacco Type: Cigarettes Age Quit Using Tobacco: 60; packs per day: 2; Years Smoked: 40; Second Hand Exposure: No; Hx Alcohol Use: No Hx Substance Use: No Preferred Language: Comoran Communication Ability: Effective Civil Structural Engineer Required: No Beliefs That Will Affect Care: None marital status: Current Living Situation: Spouse Feels Safe at Home: Yes Assistive Devices: Glasses and Oxygen - Continuous Review of Systems A total of 10 systems reviewed and were otherwise negative Physical Exam Vital Signs Vital Signs - 24 hr 05/25/21 22:26 05/25/21 22:27 05/25/21 22:31 Temperature 36.6 C Temperature Source Oral Pulse Rate 91 H 93 H 94 H Pulse Rate [Apical] Pulse Rate from SpO2 Sensor 93 H 96 H Pulse Rhythm Regular Respiratory Rate 24 17 18 Respiratory Effort / Characteristics Non-Labored Spontaneous Respiratory Depth Normal Respiratory Pattern Regular Blood Pressure 188/112 H 188/131 H 188/112 H Blood Pressure Mean 137 150 137 Blood Pressure Position Lying Pulse Oximetry 98 98 99 Oxygen Delivery Method Nasal Cannula Oxygen Flow Rate 4 Sepsis Recent Fever Within 48 Hours No Sepsis New/Unexplained Change in Mental Status No Sepsis Action Taken by Nursing No Action Required 05/25/21 22:51 05/25/21 23:00 05/25/21 23:17 Temperature Temperature Source Pulse Rate 92 H Pulse Rate [Apical] 89 Pulse Rate from SpO2 Sensor 93 H Pulse Rhythm Respiratory Rate 16 18 Respiratory Effort / Characteristics Non-Labored Spontaneous Non-Labored Spontaneous Respiratory Depth Respiratory Pattern Blood Pressure 200/90 H Blood Pressure Mean 126 Blood Pressure Position Pulse Oximetry 99 100 Oxygen Delivery Method Nasal Cannula Nasal Cannula Oxygen Flow Rate 4 4 Sepsis Recent Fever Within 48 Hours Sepsis New/Unexplained Change in Mental Status Sepsis Action Taken by Nursing 05/25/21 23:30 Temperature Temperature Source Pulse Rate 90 Pulse Rate [Apical] Pulse Rate from SpO2 Sensor 92 H Pulse Rhythm Respiratory Rate 13 Respiratory Effort / Characteristics Respiratory Depth Respiratory Pattern Blood Pressure 194/94 H Blood Pressure Mean 127 Blood Pressure Position Pulse Oximetry 100 Oxygen Delivery Method Oxygen Flow Rate Sepsis Recent Fever Within 48 Hours Sepsis New/Unexplained Change in Mental Status Sepsis Action Taken by Nursing PHYSICAL EXAM: Vital Signs: Reviewed Nurse's notes. GENERAL: Pleasant elderly female coughing working to breathe, Alert, oriented and coherent. The patient is able to speak in complete sentences. NECK: Supple, non-tender. CHEST: Symme trical expansion. + retractions + accessory muscle use. HEART: Regular rate and normal heart sounds LUNGS: Breath sounds equal but significantly diminished in intensity on both sides. Bilateral wheezes heard but no rales or pleuritic rub. SKIN: The skin was without rashes, erythema, edema, or bruising. There is no tenting of the skin. Capillary reflex less than 2 seconds. HEAD: Normocephalic atraumatic. EARS: External auditory canals clear, tympanic membranes pearly chavez without erythema or effusion bilaterally. EYES: Pupils equal round and reactive to light and accommodation. Conjunctivae without injection, sclerae without icterus. Extraocular movements intact. NOSE: Patent, turbinates without inflammation or discharge. No sinus tenderness. MOUTH: Mucous membranes moist. Pharynx without erythema or exudate. Uvula midline. Airway patent. Tongue does not deviate. ABDOMEN: Positive bowel sounds x 4. Normal tympanic percussion. Soft, nontender, without masses or organomegaly. Akers sign negative. No guarding or rebound tenderness. MUSCULOSKELETAL: No muscle atrophy, erythema, or edema noted. NEURO: Patient was alert and oriented to person place and time. Normal sensation to light and sharp touch. No focal neurological deficits. Course Administered Medications Discontinued Medications Albuterol (Albut/Ipratrop 3mg/0.5mg Neb 3 Ml Vial) 3 ml INH NOW STA Stop: 05/25/21 22:33 Last Admin: 05/25/21 22:49 Dose: 3 ml Documented by: [id number] Doxycycline Hyclate (Doxycycline Hyclate 100 Mg Cap) 100 mg PO NOW STA Stop: 05/25/21 23:54 Last Admin: 05/26/21 00:05 Dose: 100 mg Documented by: [id number] Methylprednisolone (Methylprednisolone 125 Mg/2 Ml Vial) 125 mg IV NOW STA Stop: 05/25/21 22:33 Last Admin: 05/25/21 23:03 Dose: 125 mg Documented by: [id number] Medical Decision Making Medical Records Attestation: I reviewed the patient's medical records. Home Medications Current Medication List: was personally reviewed by me Laboratory Data Attestation: I reviewed the patient's lab results. Result diagrams: 05/25/21 Unknown 05/25/21 Unknown Lab Results 05/25/21 05/25/21 05/25/21 Range/Units 23:30 Unknown Unknown WBC 8.10 (4.8-10.8) K/uL RBC 4.17 L (4.2-5.4) M/uL Hgb 13.3 (12.0-16.0) g/dL Hct 38.6 (37-47) % MCV 92.6 (80-100) fL MCH 31.9 (25-34) pg MCHC 34.5 (32-36) g/dL RDW Std Deviation 43.0 (36.4-46.3) fL RDW Coeff of Opal 12.7 (11.5-14.5) % Plt Count 272 (130-400) K/uL MPV 9.1 (7.4-10.4) fL Immature Gran % (Auto) 0.1 % Neut % (Auto) 73.2 % Lymph % (Auto) 13.0 % Weber % (Auto) 12.0 % Eos % (Auto) 1.5 % Baso % (Auto) 0.2 % Neut # (Auto) 5.93 (1.4-6.5) K/uL Lymph # (Auto) 1.05 L (1.2-3.4) K/uL Weber # (Auto) 0.97 H (0.11-0.59) K/uL Eos # (Auto) 0.12 (0-0.5) K/uL Baso # (Auto) 0.02 (0-0.2) K/uL Immature Gran # (Auto) 0.01 (0.00-0.02) K/uL PT 10.8 (9.0-12.0) Seconds INR 1.1 (0.9-1.1) APTT 28.2 (21.0-31.0) Seconds PTT Ratio 1.1 Sodium (136-145) mmol/L Potassium (3.5-5.1) mmol/L Chloride (98-107) mmol/L Carbon Dioxide (21-32) mmol/L Anion Gap (3-11) BUN (7-18) mg/dl Creatinine (0.6-1.2) mg/dl Est Cr Clr Drug Dosing ml/min Est GFR ( Amer) ml/min Est GFR (Non-Af Amer) ml/min BUN/Creatinine Ratio (10-20) Glucose (70-99) mg/dl Calcium (8.5-10.1) mg/dl Magnesium (1.8-2.4) mg/dl Total Bilirubin (0.2-1) mg/dl AST (15-37) U/L ALT (12-78) U/L Alkaline Phosphatase (45-117) U/L Troponin I (0-0.045) ng/ml NT-Pro-B Natriuret Pep (0-900) pg/ml Total Protein (6.4-8.2) gm/dl Albumin (3.4-5.0) gm/dl Globulin (2.5-4.0) gm/dl Albumin/Globulin Ratio (0.9-2) Urine Color Yellow Urine Appearance Clear (Clear) Urine pH 8.0 H (4.5-7.5) Ur Specific [place] 1.012 (1.000-1.030) Urine Protein Negative (Negative) Urine Glucose (UA) Negative (Negative) Urine Ketones 2+ H (Negative) Urine Blood Trace H (Negative) Urine Nitrite Negative (Negative) Urine Bilirubin Negative (Negative) Urine Urobilinogen Negative (Negative) Ur Leukocyte Esterase Negative (Negative) Urine WBC (Auto) 1-5 (0-5) /hpf Urine RBC (Auto) 0-4 (0-4) /hpf U Hyaline Cast (Auto) 1-5 (0-5) /lpf U Epithel Cells (Auto) 10-20 H (0-5) /lpf Urine Bacteria (Auto) Negative (Negative) COVID-19 Eval Order SARS-CoV-2 (PCR) (Negative) 05/25/21 05/25/21 05/25/21 Range/Units Unknown Unknown Unknown WBC (4.8-10.8) K/uL RBC (4.2-5.4) M/uL Hgb (12.0-16.0) g/dL Hct (37-47) % MCV (80-100) fL MCH (25-34) pg MCHC (32-36) g/dL RDW Std Deviation (36.4-46.3) fL RDW Coeff of Opal (11.5-14.5) % Plt Count (130-400) K/uL MPV (7.4-10.4) fL Immature Gran % (Auto) % Neut % (Auto) % Lymph % (Auto) % Weber % (Auto) % Eos % (Auto) % Baso % (Auto) % Neut # (Auto) (1.4-6.5) K/uL Lymph # (Auto) (1.2-3.4) K/uL Weber # (Auto) (0.11-0.59) K/uL Eos # (Auto) (0-0.5) K/uL Baso # (Auto) (0-0.2) K/uL Immature Gran # (Auto) (0.00-0.02) K/uL PT (9.0-12.0) Seconds INR (0.9-1.1) APTT (21.0-31.0) Seconds PTT Ratio Sodium 132 L (136-145) mmol/L Potassium 3.4 L (3.5-5.1) mmol/L Chloride 95 L (98-107) mmol/L Carbon Dioxide 30 (21-32) mmol/L Anion Gap 7.0 (3-11) BUN 6 L (7-18) mg/dl Creatinine 0.40 L (0.6-1.2) mg/dl Est Cr Clr Drug Dosing 102.1 ml/min Est GFR ( Amer) 118.9 ml/min Est GFR (Non-Af Amer) 102.6 ml/min BUN/Creatinine Ratio 14.4 (10-20) Glucose 102 H (70-99) mg/dl Calcium 9.4 (8.5-10.1) mg/dl Magnesium 2.2 (1.8-2.4) mg/dl Total Bilirubin 0.3 (0.2-1) mg/dl AST 24 (15-37) U/L ALT 32 (12-78) U/L Alkaline Phosphatase 108 (45-117) U/L Troponin I < 0.015 (0-0.045) ng/ml NT-Pro-B Natriuret Pep 846 (0-900) pg/ml Total Protein 6.6 (6.4-8.2) gm/dl Albumin 3.7 (3.4-5.0) gm/dl Globulin 2.9 (2.5-4.0) gm/dl Albumin/Globulin Ratio 1.3 (0.9-2) Urine Color Urine Appearance (Clear) Urine pH (4.5-7.5) Ur Specific [place] (1.000-1.030) Urine Protein (Negative) Urine Glucose (UA) (Negative) Urine Ketones (Negative) Urine Blood (Negative) Urine Nitrite (Negative) Urine Bilirubin (Negative) Urine Urobilinogen (Negative) Ur Leukocyte Esterase (Negative) Urine WBC (Auto) (0-5) /hpf Urine RBC (Auto) (0-4) /hpf U Hyaline Cast (Auto) (0-5) /lpf U Epithel Cells (Auto) (0-5) /lpf Urine Bacteria (Auto) (Negative) COVID-19 Eval Order Covid19 at [facility] SARS-CoV-2 (PCR) NEGATIVE (Negative) Imaging Data Attestation: I personally reviewed and interpreted this imaging study as follows: MDM Narrative Prior records/ancillary studies reviewed. Triage Nursing notes reviewed. Additional history obtained from the nursing The patient's history was concerning for respiratory difficulties. Differential diagnosis: Etiologies such as infections, reactive airway disease, pneumonia, pneumothorax, COPD, CHF, cardiac ischemia, pulmonary embolism, musculoskeletal, gastrointestinal, as well as others were entertained. Physical examination: As above. ER treatment provided: An order was placed for continuous cardiac monitoring. The monitor shows a rate of 60-1 10 with a sinus rhythm. Solu-Medrol, DuoNeb, doxy On reassessment the patient felt better. Diagnostic interpretation by me: The electrocardiogram was ordered for chest pain EKG: Normal sinus, normal intervals, ST depression in the lateral leads unchanged from prior, rate of 92. Impression normal sinus rhythm with persistent ST depression unchanged interpreted by self I think arrhythmia is unlikely. EKG shows normal sinus rhythm with no interval abnormalities such as QT prolongation or WPW. There are no findings to suggest Brugada syndrome. Cardiac monitoring in the emergency department reveals no tachycardic or bradycardic dysrhythmia. Hypertrophic cardiomyopathy was considered but there are no clear historical elements pointing toward this. EKG is not suggestive. The QRS voltage is not extremely large and there are no suggestive Q waves. The labs revealed no leukocytosis, negative troponin, negative Covid Imaging studies: Chest x-ray with no acute consolidation, pneumothorax or free air from interpretation Consultation: A consultation was placed with the hospitalist. The case was discussed and diagnostics were reviewed. The patient was evaluated in the ER for further treatment. This appears to be consistent with COPD exacerbation. Patient feels quite short of breath. She would like to be admitted. Medicine was consulted. She was given steroids nebulizers and doxycycline. Patient will be evaluated by the hospitalist. By the evaluation outlined above emergent etiologies such as CHF, cardiac ischemia, pulmonary embolism, reactive airway disease, pneumonia, pneumothorax, musculoskeletal, serious bacterial infections, as well as others were deemed relatively unlikely. The pt informed about the findings as listed above. All questions were answered and pleased with the treatment. Impression & Plan COPD exacerbation Discharge Plan Visit Data Chief Complaint: Cough Stated Complaint: COUGH ED Provider: Jas Love ED Midlevel Provider: Siobhan Pavon Discharge Problem: COPD exacerbation Patient Disposition: Admitted As Inpatient Condition: Fair Forms Stand Alone Forms: [facility] [employer] Prescriptions Prescriptions: No Action ipratropium bromide 42 mcg (0.06 %) spray,non-aerosol 2 sprays INTNAS Q8H PRN (Reason: runny nose) Qty: 30 RF: 5 levothyroxine [Synthroid] 137 mcg tablet 137 mcg PO DAILY Qty: 90 RF: 3 spironolactone [Aldactone] 25 mg tablet 25 mg PO BID Qty: 180 RF: 3 oxybutynin chloride 5 mg tablet 5 mg PO QID Qty: 360 RF: 3 lansoprazole 30 mg capsule,delayed release(DR/EC) 30 mg PO BID Qty: 180 RF: 3 albuterol sulfate 2.5 mg /3 mL (0.083 %) solution for nebulization 2.5 mg inhalation Q4 PRN (Reason: Shortness Of Breath Or Wheezing) Qty: 540 RF: 1 nystatin 100,000 unit/mL suspension 500,000 unit PO QID Qty: 200 RF: 0 Spiriva with HandiHaler 18 mcg capsule, w/inhalation device 1 cap inhalation QAM Qty: 30 RF: 5 azithromycin 500 mg tablet 500 mg PO 3XWK Qty: 12 RF: 1 furosemide [Lasix] 40 mg tablet 80 mg PO QAM Qty: 180 RF: 3 qbryhvbogt-nrbrhyu-icbqxfmk 50-325-40 mg capsule 1 cap PO BID PRN (Reason: Headache) Qty: 60 RF: 0 sumatriptan succinate [Imitrex] 100 mg tablet 100 mg PO BID MDD 2 PRN (Reason: migraine headache) 30 Days Qty: 12 RF: 5 Vyepti 100 mg/mL solution 100 mg IV .COMPLEX Qty: 1 RF: 3 simethicone [Gas Relief Ultra Strength] 180 mg Capsule 180 mg PO QPM RF: 0 acetaminophen [Tylenol Extra Strength] 500 mg Tablet 1,000 mg PO HS RF: 0 nitroglycerin [Nitrostat] 0.4 mg Tablet, Sublingual 0.4 mg Sublingual UD PRN (Reason: Chest Pain) RF: 0 coQ10 (ubiquinol) 200 mg Capsule 200 mg PO QPM RF: 0 Probiotic 3 billion cell Capsule 3 mmu cells PO DAILY RF: 0 metoclopramide HCl 5 mg tablet 5 mg PO AC RF: 0 ipratropium bromide 0.02 % solution 2.5 ml inhalation Q4 PRN (Reason: Shortness Of Breath Or Wheezing) RF: 0 Medical Marijuana 0 dose PO UD RF: 0 Excedrin Migraine 250-250-65 mg Tablet 1 tab PO BID PRN (Reason: Headache) RF: 0 simethicone 125 mg Tablet 125 mg PO QAM RF: 0 multivitamin [Multiple Vitamins] Tablet 1 tab PO DAILY RF: 0 Porter Milk of Magnesia 311 mg Tablet,Chewable See Rx Instructions .ROUTE .COMPLEX RF: 0 ascorbate calcium (vitamin C) 500 mg Tablet 250 mg PO BID RF: 0 aspirin [Aspirin Low Dose] 81 mg Tablet,Delayed Release (Dr/Ec) 81 mg PO QPM RF: 0 escitalopram oxalate 20 mg tablet 20 mg PO DAILY RF: 0 sennosides [senna] 8.6 mg Tablet 8.6 mg PO DAILY RF: 0 trazodone 50 mg tablet 25 - 50 mg PO HS RF: 0 benzonatate 100 mg capsule 100 mg PO TID PRN (Reason: Cough) RF: 0 polyethylene glycol 3350 [Miralax] 17 gram/dose Powder 17 g PO DAILY RF: 0 diclofenac sodium [Voltaren] 1 % Gel 4 g TOPICAL DIRECTED PRN (Reason: Pain) RF: 0 guaifenesin [Mucinex] 600 mg Tablet Extended Release 12hr 600 mg PO BID RF: 0 methocarbamol 750 mg tablet 750 mg PO QAM RF: 0 budesonide-formoterol 160-4.5 mcg/actuation HFA aerosol inhaler 2 puff INHALATION BID RF: 0 gabapentin 300 mg Capsule 300 mg PO QID RF: 0 303 Muscle Relaxer 2 tab PO HS RF: 0 albuterol sulfate [Ventolin HFA] 90 mcg/actuation HFA aerosol inhaler 2 puff Inhalation QID PRN (Reason: Shortness Of Breath Or Wheezing) Qty: 54 RF: 1 Referrals Referrals: Krystal Marsh MD [Primary Care Provider] -
[2021-05-25] MEDS ORDERED: DOXYCYCLINE HYCLATE 100 MG CAP PO STA (23:53)
[2021-05-26] MEDS ORDERED: hydrALAZINE HCL 20 MG/ML VIAL IV ONE (00:59)
--- NOTE | 2021-05-26 01:03 | Emergency Department Note ---
ED Visit Note The patient was seen and examined with Kera Pavon PA-C. I agree with the history, physical and findings. Please see the note for disposition and details. Significant history of COPD. Patient will be admitted by the [facility] Hospitalist service. .
[2021-05-26] MEDS ORDERED: CONSULT PHARMACY STA (01:04)
[2021-05-26] MEDS ORDERED: ALBUT/IPRATROP 3MG/0.5MG NEB 3 ML VIAL NEB STA ×2 (01:48→02:33)
[2021-05-26] MEDS ORDERED: POTASSIUM CHLORIDE 20 MEQ/15 ML UDC PO STA (01:56)
[2021-05-26] MEDS ORDERED: ACETAMINOPHEN 325 MG TAB PO STA (02:04)
--- NOTE | 2021-05-26 02:52 | History and Physical Report ---
DATE OF ADMISSION: ____ CHIEF COMPLAINT: Cough and shortness of breath. HISTORY OF PRESENT ILLNESS: A 75-year-old female with past medical history significant for hypothyroidism, hypercholesterolemia, chronic respiratory failure on home oxygen, COPD, history of pneumonia, history of CAD, history of chronic systolic CHF, hypertension, bilateral carotid stenosis, history of atherosclerosis of the bilateral legs, history of Cronin's esophagus, protein calorie malnutrition, history of bilateral occipital neuralgia, history of chronic migraines, anemia, generalized anxiety disorder, primary insomnia, major depression, who lives at home with her . As per the , the patient is managed at home with palliative care. Last Thursday, she fell in the bathroom. Since then she has been complaining of some left lower back pain and she is able to ambulate, but since last evening she is using walker and her is helping her. She is also having more cough than usual. She is bringing up now greenish phlegm and also instead of 3 liters, she is using 4 liters oxygen at home, so that is the reason she came to the hospital. Denies any fevers. No chest pain, no nausea, no abdominal pain. Appetite is not great. Swallows okay. No headache, no blurred visions, no earache, no runny nose, no sore throat. Currently, no nausea, normal bowel and bladder movements. Resting comfortably, saturating okay on 4 liters. ALLERGIES: CORTISONE, BACTRIM and LEVAQUIN. PAST MEDICAL HISTORY: As mentioned above. PAST SURGICAL HISTORY: Cardiac stent placement, colonoscopy with biopsy, tummy tuck surgery, EGDs, EGD with biopsy, bilateral breast implant, removal of pelvic structure, remote tonsillectomy, cholecystectomy, cataract surgery. MEDICATIONS: The patient is on Tylenol 1000 mg p.o. at bedtime, albuterol 2.5 mg inhalation q. 4 hours p.r.n., albuterol 2 puffs inhalation q.i.d. p.r.n., ascorbic acid 250 mg p.o. b.i.d., aspirin 81 mg p.o. daily, azithromycin 500 mg 3 times a week, benzoate 100 mg p.o. t.i.d. p.r.n., budesonide formoterol 2 puffs inhalation b.i.d., [id number] 1 capsule p.o. b.i.d. p.r.n., Voltaren 4 g topical p.r.n., Lexapro 20 mg p.o. daily, Excedrin Migraine 1 tablet p.o. b.i.d. p.r.n., Lasix 80 mg p.o. a.m., Gabapentin 300 mg p.o. b.i.d., Mucinex 600 mg p.o. b.i.d., ipratropium bromide ____ by inhalation q. 4 hours p.r.n., ipratropium bromide nasal spray p.r.n., lansoprazole 30 mg p.o. b.i.d., levothyroxine 137 mcg p.o. daily, methocarbamol 750 mg p.o. a.m., Reglan 5 mg p.o. a.c., multivitamins one tablet p.o. daily, nitroglycerin 0.4 mg sublingual p.r.n., oxybutynin 5 mg p.o. b.i.d., milk of magnesia as needed, MiraLax 17 g p.o. daily, probiotic p.o. daily, senna 8.6 mg p.o. daily, simethicone 125 mg p.o. a.m., simethicone 180 mg p.o. p.m., spironolactone 25 mg p.o. b.i.d., sumatriptan 100 mg p.o. t.i.d. p.r.n., Spiriva 1 capsule inhalation a.m., trazodone 25 mg to 50 mg p.o. at bedtime. FAMILY HISTORY: Significant for daughter has asthma, father has colon cancer, mother had stroke, daughter with diabetes and hyperlipidemia. SOCIAL HISTORY: , former smoker, quit in 2003. No alcohol use. No drug use. REVIEW OF SYMPTOMS: As per HPI. Rest of the review of systems is negative. PHYSICAL EXAMINATION: GENERAL: The patient is alert and oriented, hard of hearing. VITAL SIGNS: Temperature 36.6, pulse 90, respiratory rate 13, blood pressure 194/94, oxygen 100% on 4 liters. HEENT: Pupils equal, round and reactive to light. Oral mucosa moist. NECK: No neck masses, No jvd. CVS: S1 and S2 heard, regular rate and rhythm No murmurs RS: CTA b/l, Mild b/l wheezing Abd: Soft Bowel sounds present, non tender, no distension OPERATIONAL REVIEW SERGEANT: Non focal Ext No edema, No erythema Labs: wbc 8.1, hb 13.3, hct 38.6, platelets 272, Pt 10.8, Inr 1.1,Aptt 28.2 sodium 132, Potassium 3.4,chloride 95 bicarb 30, Bun 6, Creatinine 0.4, glucose 102, calcium 9.4, magnesium 2.2, total Bilirubin 0.3, AST 24, ALT 32, Alk Phos 108, troponin <0.015, BNP 846. Covid Negative. CXR unremarkable EKG NSR with rate of 92. No significant change. a/p Acute on chronic respiratory failure copd ex pneumonia? iv solumedrol 40mg td nebs atc and prn follow ct chest follow sputum cx empirically on zosyn(hx of pseudomonas) and doxycycline monitor in med/tele Hx of CAd on aspirin Hx of systolic chf continue home diuretics monitor potassium if needed added supplements no recent echo- will follow echo. Hypothyroidism on synthyroid GErd on lansoprazole hx of migraines Home meds DVt px hep sub q Disposition Monitor in med/tele pt/ot prior to discharge social service to help with discharge planning code status DNR/DNI as per discussion with patient and Currently managed by palliative care and my home [facility] as per Job ID: [id number] [facility]
[2021-05-26] MEDS ORDERED: NITROGLYCERIN SL 0.4 MG/TAB TAB SL PRN (04:05)
[2021-05-26] MEDS ORDERED: ALBUTEROL HFA 8 GM INHALER INH PRN (04:05)
[2021-05-26] MEDS ORDERED: POLYETHYLENE (MIRALAX) 17 GM PACK PO PRN (04:05)
[2021-05-26] MEDS ORDERED: ALBUTEROL 0.083% NEBU SOLN 3 ML VIAL INH PRN (04:05)
[2021-05-26] MEDS ORDERED: ONDANSETRON INJ 2 MG/ML 2 ML VIAL IV PRN (04:05)
[2021-05-26] MEDS ORDERED: IPRATROPIUM BROMIDE NEB SOLN 0.02% 2.5 ML VIAL INH PRN (04:05)
[2021-05-26] MEDS ORDERED: BENZONATATE 100 MG CAPSULE PO PRN (04:05)
[2021-05-26] MEDS ORDERED: IPRATROPIUM BROMIDE NASAL SPRAY 0.06% 15ML NAE PRN (04:05)
[2021-05-26] MEDS ORDERED: CEFEPIME CONSULT ACTIVE PRN (04:47)
[2021-05-26] MEDS: hydrALAZINE HCL 20 MG/ML VIAL IV PRN ×2 (04:48→11:22)
[2021-05-26] MEDS ORDERED: PIPERACILL/TAZOBAC CONSULT ACTIVE PRN (05:27)
[2021-05-26] MEDS ORDERED: PIPERACILLIN/TAZOBACTAM 3.375 GM in DEXTROSE 5% 100 ML IV ONE (05:30)
[2021-05-26] MEDS: LEVOTHYROXINE SODIUM 137 MCG TABLET PO SCH (05:45)
[2021-05-26] MEDS ORDERED: CEFEPIME 2,000 MG in SYRINGE 0 ML IV SCH (06:00)
[2021-05-26] MEDS: ALBUT/IPRATROP 3MG/0.5MG NEB 3 ML VIAL NEB SCH ×4 (07:00→19:21)
[2021-05-26 07:58] LABS: Hematocrit (blood only) 41.5 % (37-47); Hemoglobin 14.4 g/dL (12.0-16.0); Immature Granulocytes # (auto) 0.02 K/uL (0.00-0.02); Immature Granulocytes % (auto) 0.3 %; Lymphocytes # (auto) 0.44 K/uL (1.2-3.4); Lymphocytes % (auto) 7.2 %; Mean Corpuscular Hemoglobin 31.4 pg (25-34); Mean Corpuscular Hgb Conc 34.7 g/dL (32-36); Mean Corpuscular Volume 90.4 fL (80-100); Mean Platelet Volume 9.1 fL (7.4-10.4); Monocytes % (auto) 1.6 %; Neutrophils # (auto) 5.59 K/uL (1.4-6.5); Neutrophils % (auto) 90.9 %; Platelet Count 301 K/uL (130-400); RDW Coefficient of Variation 12.9 % (11.5-14.5); RDW Standard Deviation 42.4 fL (36.4-46.3); Red Blood Count 4.59 M/uL (4.2-5.4); White Blood Count 6.15 K/uL (4.8-10.8)
[2021-05-26 08:08] LABS: BUN Creatinine Ratio 17.2 (10-20); Calcium 9.2 mg/dl (8.5-10.1); Creatinine Clr Calc Pharmacy 98.4 ml/min; Est GFR (Non-African American) 101.8 ml/min; Magnesium 2.1 mg/dl (1.8-2.4); Potassium 3.6 mmol/L (3.5-5.1)
--- NOTE | 2021-05-26 08:26 | XRay Report ---
XR chest 1V portable CLINICAL HISTORY: Shortness of breath. COMPARISON STUDY: Chest radiograph March 26, 2021. Chest CT March 27, 2021. FINDINGS: Bilateral breast implants are incidentally noted. Emphysema is present. Cardiac size is nor mal. Mediastinal contours are normal. There is no pneumothorax or pleural effusion. No consolidation is identified. There is no evidence for pulmonary edema. Suspected right apical scarring is unchanged . IMPRESSION: No acute cardiopulmonary findings. Emphysema. No change in appearance of the chest. ACT 112: Negative or not required by law. Electronically signed by: Michele Jackson M.D. 05/26/2021 8:25 AM
[2021-05-26] MEDS: OXYBUTYNIN CHLORIDE 5 MG TAB PO SCH ×4 (09:26→21:48)
[2021-05-26] MEDS: FUROSEMIDE 80 MG TAB PO SCH (09:27)
[2021-05-26] MEDS: SPIRONOLACTONE 25 MG TAB PO SCH ×2 (09:27→21:46)
[2021-05-26] MEDS: LANSOPRAZOLE 30 MG SOLTAB PO SCH ×2 (09:27→21:56)
[2021-05-26] MEDS: METOCLOPRAMIDE HCL 5 MG TABLET PO SCH ×3 (09:28→16:31)
[2021-05-26] MEDS: ESCITALOPRAM OXALATE 20 MG TAB PO SCH (09:28)
[2021-05-26] MEDS: MULTIVITAMIN TAB PO SCH (09:28)
[2021-05-26] MEDS: GABAPENTIN 300 MG CAP PO SCH ×4 (09:28→21:46)
[2021-05-26] MEDS: METHOCARBAMOL 750 MG TABLET PO SCH (09:29)
[2021-05-26] MEDS: guaiFENesin 600 MG TABCR PO SCH ×2 (09:29→21:46)
[2021-05-26] MEDS: SUMAtriptan succinate 100 MG TAB PO PRN (09:29)
[2021-05-26] MEDS: ASCORBIC ACID 500 MG TAB PO SCH ×2 (09:29→21:47)
[2021-05-26] MEDS: SENNA 8.6 MG TAB PO SCH (09:29)
[2021-05-26] MEDS: methylPREDNISolone 40 MG in SYRINGE 0 ML IV SCH ×3 (09:32→21:42)
[2021-05-26] MEDS: HEPARIN SOD 5,000 UNIT/0.5 ML VIAL SQ SCH ×2 (09:32→21:58)
[2021-05-26] MEDS: FLUTICASONE/VILANTEROL 100/25MCG 14 PUFFS/INHALER INH SCH (09:33)
[2021-05-26] MEDS: UMECLIDINIUM BROMIDE 62.5MCG/BLISTER 7 PUFFS/INHALER INH SCH (09:34)
[2021-05-26] MEDS: LACTOBACILLUS ACIDOPHILUS 1 GM PACK PO SCH (09:35)
[2021-05-26] MEDS: POLYETHYLENE (MIRALAX) 17 GM PACK PO SCH (09:35)
[2021-05-26] MEDS: SIMETHICONE 80 MG CHEW PO SCH (09:37)
[2021-05-26] MEDS ORDERED: PIPERACILLIN/TAZOBACTAM 3.375 GM in DEXTROSE 5% 100 ML IV SCH (10:00)
--- NOTE | 2021-05-26 11:53 | Electrocardiogram Report ---
Test Reason : Blood Pressure : / mmHG Vent. Rate : 092 BPM Atrial Rate : 092 BPM P-R Int : 140 ms QRS Dur : 074 ms QT Int : 386 ms P-R-T Axes : 085 084 090 degrees QTc Int : 477 ms Normal sinus rhythm Right atrial enlargement Nonspecific ST abnormality Abnormal ECG When compared with ECG of 26-MAR-2021 23:43, No significant change was found Confirmed by Yuri Coleman ([id number]) on 05/26/2021 11:53:34 AM Referred By: REFERRED SELF Confirmed By:Yuri Coleman
[2021-05-26] MEDS ORDERED: DOXYCYCLINE HYCLATE 100 MG in DEXTROSE 5% 100 ML IV SCH (12:00)
--- NOTE | 2021-05-26 12:12 | Communication Note ---
Date of Service: May 26, 2021 She is a 75-year-old female significant past medical history of chronic respiratory failure on home oxygen and COPD and other comorbid conditions as mentioned in history and physical was under the care of hospice at home. She was having cough and more shortness of breath and requiring more oxygen and was sent into emergency room for evaluation and admission. Chest x-ray did not show pneumonia but did show emphysema and she may have acute bronchitis and was started with intravenous Zosyn and doxycycline. She remains very weak and lethargic and her labs are unremarkable except sodium of 128. Her blood pressure was noted to be high at 170/74. She has been waiting for CT of the head and CT of the abdomen and pelvis. The full progress note will be done tomorrow. Dr Donald De Dios
[2021-05-26] MEDS: ACETAMINOPHEN 325 MG TAB PO PRN ×2 (12:49→17:22)
[2021-05-26] MEDS: DICLOFENAC SOD 1% GEL 100 GM TUBE EXT PRN (13:17)
[2021-05-26] MEDS ORDERED: amLODIPine BESYLATE 5 MG TAB PO ONE (14:39)
[2021-05-26] MEDS ORDERED: NITROGLYCERIN 2% OINTMENT 30GM TUBE EXT ONE (14:41)
[2021-05-26] MEDS ORDERED: SIMETHICONE 80 MG CHEW PO SCH (16:30)
[2021-05-26] MEDS ORDERED: ASPIRIN 81 MG ECTAB PO SCH (21:00)
[2021-05-26] MEDS ORDERED: ACETAMINOPHEN 500 MG TAB PO SCH (21:00)
[2021-05-26] MEDS ORDERED: NON-FORMULARY MEDICATION (Coq10 (Ubiquinol) 200 mg Capsule) PO SCH (21:00)
[2021-05-26] MEDS ORDERED: traZODone HCL 50 MG TAB PO PRN (21:00)
[2021-05-27] MEDS ORDERED: GABAPENTIN 300 MG CAP PO PRN (01:47)
[2021-05-27] MEDS: DICLOFENAC SOD 1% GEL 100 GM TUBE EXT PRN ×2 (01:50→11:43)
[2021-05-27] MEDS: LEVOTHYROXINE SODIUM 137 MCG TABLET PO SCH (06:05)
[2021-05-27 06:11] LABS: Hematocrit (blood only) 36.6 % (37-47); Hemoglobin 12.7 g/dL (12.0-16.0); Immature Granulocytes # (auto) 0.02 K/uL (0.00-0.02); Immature Granulocytes % (auto) 0.2 %; Lymphocytes # (auto) 0.83 K/uL (1.2-3.4); Lymphocytes % (auto) 8.5 %; Mean Corpuscular Hemoglobin 31.2 pg (25-34); Mean Corpuscular Hgb Conc 34.7 g/dL (32-36); Mean Corpuscular Volume 89.9 fL (80-100); Monocytes # (auto) 0.92 K/uL (0.11-0.59); Monocytes % (auto) 9.4 %; Neutrophils # (auto) 8.04 K/uL (1.4-6.5); Neutrophils % (auto) 81.9 %; Platelet Count 290 K/uL (130-400); RDW Standard Deviation 42.4 fL (36.4-46.3); Red Blood Count 4.07 M/uL (4.2-5.4); White Blood Count 9.81 K/uL (4.8-10.8)
[2021-05-27 06:45] LABS: Albumin Level 3.4 gm/dl (3.4-5.0); Calcium 8.5 mg/dl (8.5-10.1); Creatinine Clr Calc Pharmacy 86.2 ml/min; Est GFR (African American) 112.8 ml/min; Est GFR (Non-African American) 97.3 ml/min; Magnesium 1.9 mg/dl (1.8-2.4); Potassium 3.4 mmol/L (3.5-5.1)
[2021-05-27 06:48] LABS: Albumin Globulin Ratio 1.3 (0.9-2); Bilirubin,Total 0.4 mg/dl (0.2-1); Globulin 2.6 gm/dl (2.5-4.0); Phosphorus 3.2 mg/dl (2.5-4.9)
[2021-05-27] MEDS: ALBUT/IPRATROP 3MG/0.5MG NEB 3 ML VIAL NEB SCH ×2 (07:03→11:29)
[2021-05-27] MEDS: METHOCARBAMOL 750 MG TABLET PO SCH (08:35)
[2021-05-27] MEDS: MULTIVITAMIN TAB PO SCH (08:35)
[2021-05-27] MEDS: FUROSEMIDE 80 MG TAB PO SCH (08:36)
[2021-05-27] MEDS: SIMETHICONE 80 MG CHEW PO SCH (08:36)
[2021-05-27] MEDS: guaiFENesin 600 MG TABCR PO SCH (08:36)
[2021-05-27] MEDS: ESCITALOPRAM OXALATE 20 MG TAB PO SCH (08:36)
[2021-05-27] MEDS: METOCLOPRAMIDE HCL 5 MG TABLET PO SCH ×2 (08:37→12:22)
[2021-05-27] MEDS: LANSOPRAZOLE 30 MG SOLTAB PO SCH (08:37)
[2021-05-27] MEDS: OXYBUTYNIN CHLORIDE 5 MG TAB PO SCH ×2 (08:37→12:22)
[2021-05-27] MEDS: SPIRONOLACTONE 25 MG TAB PO SCH (08:37)
[2021-05-27] MEDS: SENNA 8.6 MG TAB PO SCH (08:38)
[2021-05-27] MEDS: ASCORBIC ACID 500 MG TAB PO SCH (08:38)
[2021-05-27] MEDS: FLUTICASONE/VILANTEROL 100/25MCG 14 PUFFS/INHALER INH SCH (08:39)
[2021-05-27] MEDS: GABAPENTIN 300 MG CAP PO SCH ×2 (08:39→13:57)
[2021-05-27] MEDS: UMECLIDINIUM BROMIDE 62.5MCG/BLISTER 7 PUFFS/INHALER INH SCH (08:39)
[2021-05-27] MEDS: methylPREDNISolone 40 MG in SYRINGE 0 ML IV SCH ×2 (08:39→13:57)
[2021-05-27] MEDS: POLYETHYLENE (MIRALAX) 17 GM PACK PO SCH (08:39)
[2021-05-27] MEDS: HEPARIN SOD 5,000 UNIT/0.5 ML VIAL SQ SCH (08:40)
[2021-05-27] MEDS: LACTOBACILLUS ACIDOPHILUS 1 GM PACK PO SCH (08:41)
[2021-05-27] MEDS ORDERED: amLODIPine BESYLATE 5 MG TAB PO SCH (09:00)
[2021-05-27] MEDS: SUMAtriptan succinate 100 MG TAB PO PRN (09:32)
[2021-05-27 11:14] VITALS: TEMP 98.2
[2021-05-27 11:30] VITALS: O2SAT 96
--- NOTE | 2021-05-27 11:47 | Hospitalist Progress Note ---
Date of Service May 27, 2021 Assessment & Plan (1) Respiratory failure, acute and chronic: Plan: History of chronic respiratory failure on 3 L of nasal cannula oxygen at home She was admitted with increasing shortness of breath and decreasing saturation and required more than 4 L of oxygen to maintain saturation She is back to her baseline today and wants to go home Denies any shortness of breath at rest (2) COPD with acute exacerbation: Plan: Has been receiving prednisone Did not want to take any antibiotic for possible bronchitis She will be given prednisone for a short course (3) CHF (congestive heart failure): Plan: Does not have any fluid overload We will continue her usual diuretics (4) CAD (coronary artery disease): Plan: No acute cardiac symptoms (5) Hypertension: Plan: Blood pressure is reasonably controlled Plan: The patient wants to go home with home hospice and the actually wanted to take her home even yesterday with home hospice She was on palliative care at home before Be discharged home this afternoon with home search engine optimization manager is working on it Admission and Anticipated Discharge Date Admission Date: May 26, 2021 Subjective 05/27/2021 The patient was seen and examined in medical telemetry unit She has severe COPD on home oxygen with palliative care and was admitted with increasing shortness of breath and desaturation She does not have any pneumonia and/or serious infection and does not want to have any more antibiotic She has been feeling a lot better this morning and wants to go home with hospice care at home Discussed with her who wanted to take her home even yesterday with hospice care Review of Systems Review of Systems: Is reviewed and are unremarkable except as noted below Physical Exam Physical Exam: Lying in bed comfortably Constitutional: + thin; not ill appearing Eyes: PERRL, conjunctivae normal, anicteric sclerae ENMT: external ear and nose normal, oropharynx normal Neck: trachea midline, no thyromegaly Respiratory: + respiratory distress; no cough Auscultation: + diminished lung sounds; no crackles and no wheezes Cardiovascular: Rate/Rhythm: regular rate and regular rhythm Heart Sounds: normal S1 and normal S2 Gastrointestinal (Abdomen): normal bowel sounds, soft, nontender, no hepatosplenomegaly Musculoskeletal: No acute arthritis in any joint Neurologic: Alert, awake and oriented x3. Generally very weak and lethargic Lymphatic: no cervical or axillary lymphadenopathy Results & Data Results & Data ([facility]) Vital Signs (Past 12 Hours) Vital Signs Temp Pulse Pulse Resp BP Pulse Ox 05/27/21 11:35 92 H 05/27/21 11:30 110 H 18 96 05/27/21 11:00 36.8 C 98 H 16 145/76 H 98 05/27/21 07:03 103 H 18 98 05/27/21 07:00 37.0 C 104 H 18 130/60 97 05/27/21 04:00 36.8 C 103 H 18 152/72 H 95 05/26/21 23:43 108 H Laboratory Results Short CBC 05/27/21 Range/Units 05:59 WBC 9.81 (4.8-10.8) K/uL Hgb 12.7 (12.0-16.0) g/dL Hct 36.6 L (37-47) % Plt Count 290 (130-400) K/uL BMP 05/27/21 05:59 Sodium 129 L Potassium 3.4 L Chloride 93 L Carbon Dioxide 32 BUN 9 Creatinine 0.47 L Glucose 128 H Calcium 8.5 Liver Function 05/27/21 Range/Units 05:59 Total Bilirubin 0.4 (0.2-1) mg/dl AST 21 (15-37) U/L ALT 30 (12-78) U/L Alkaline Phosphatase 96 (45-117) U/L Albumin 3.4 (3.4-5.0) gm/dl Medications Administered Current Inpatient Medications Acetaminophen (Acetaminophen 325 Mg Tab) 650 mg PO Q4H PRN PRN Reason: Pain or Fever Stop: 06/25/21 04:04 Last Admin: 05/26/21 17:22 Dose: 650 mg Documented by: Acetaminophen (Acetaminophen 500 Mg Tab) 1,000 mg PO HS [facility] Stop: 06/25/21 20:59 Last Admin: 05/26/21 21:47 Dose: 1,000 mg Documented by: Albuterol (Albuterol Hfa 8 Gm Inhaler) 2 puffs INH QIDR PRN PRN Reason: Shortness Of Breath Or Wheezin Stop: 06/25/21 04:04 Albuterol (Albuterol 0.083% Nebu Soln 3 Ml Vial) 2.5 mg INH Q4R PRN PRN Reason: Shortness Of Breath Or Wheezing Stop: 06/25/21 04:04 Albuterol (Albut/Ipratrop 3mg/0.5mg Neb 3 Ml Vial) 3 ml NEB QIDR [facility] Stop: 06/25/21 06:59 Last Admin: 05/27/21 11:29 Dose: 3 ml Documented by: Amlodipine Besylate (Amlodipine Besylate 5 Mg Tab) 5 mg PO QAM [facility] Stop: 06/26/21 08:59 Last Admin: 05/27/21 08:38 Dose: 5 mg Documented by: Ascorbic Acid (Ascorbic Acid 500 Mg Tab) 250 mg PO BID [facility] Stop: 06/25/21 08:59 Last Admin: 05/27/21 08:38 Dose: 250 mg Documented by: Aspirin (Aspirin 81 Mg Ectab) 81 mg PO QPM [facility] Stop: 06/25/21 20:59 Last Admin: 05/26/21 21:46 Dose: 81 mg Documented by: Benzonatate (Benzonatate 100 Mg Capsule) 100 mg PO TID PRN PRN Reason: Cough Stop: 06/25/21 04:04 Diclofenac Sodium (Diclofenac Sod 1% Gel 100 Gm Tube) 4 gm EXT BID PRN PRN Reason: LOWER LEG PAIN Stop: 06/25/21 04:04 Last Admin: 05/27/21 01:50 Dose: 4 gm Documented by: Escitalopram Oxalate (Escitalopram Oxalate 20 Mg Tab) 20 mg PO DAILY [facility] Stop: 06/25/21 08:59 Last Admin: 05/27/21 08:36 Dose: 20 mg Documented by: Fluticasone/Vilanterol (Fluticasone/Vilanterol 100/25mcg 14 Puffs/Inhaler) 1 puffs INH DAILY [facility]; Protocol Stop: 06/25/21 08:59 Last Admin: 05/27/21 08:39 Dose: 1 puffs Documented by: Furosemide (Furosemide 80 Mg Tab) 80 mg PO QAM [facility] Stop: 06/25/21 08:59 Last Admin: 05/27/21 08:36 Dose: 80 mg Documented by: Gabapentin (Gabapentin 300 Mg Cap) 300 mg PO QID [facility] Stop: 06/25/21 08:59 Last Admin: 05/27/21 08:39 Dose: 300 mg Documented by: Gabapentin (Gabapentin 300 Mg Cap) 300 mg PO HS PRN PRN Reason: neuropathy pain Stop: 06/26/21 20:59 Last Admin: 05/27/21 02:01 Dose: 300 mg Documented by: Guaifenesin (Guaifenesin 600 Mg Tabcr) 600 mg PO BID M[facility]US Stop: 06/25/21 08:59 Last Admin: 05/27/21 08:36 Dose: 600 mg Documented by: Heparin Sodium (Porcine) (Heparin Sod 5,000 Unit/0.5 Ml Vial) 5,000 units SQ Q12 [facility] Stop: 06/25/21 08:59 Last Admin: 05/27/21 08:40 Dose: 5,000 units Documented by: Hydralazine HCl (Hydralazine Hcl 20 Mg/Ml Vial) 7.5 mg IV Q6H PRN PRN Reason: Hypertension Stop: 06/25/21 04:04 Last Admin: 05/26/21 11:22 Dose: 7.5 mg Documented by: Methylprednisolone 40 mg/ (Syringe) 0.64 mls @ 1.5 mls/min IV TID [facility]US Stop: 06/25/21 08:59 Last Admin: 05/27/21 08:39 Dose: 1.5 mls/min Documented by: Ipratropium [place] (Ipratropium [place] Nasal [place] 0.06% 15ml) 2 sprays EMMETT Q8H PRN PRN Reason: runny nose Stop: 06/25/21 04:04 Ipratropium [place] (Ipratropium [place] Neb Soln 0.02% 2.5 Ml Vial) 0.5 mg INH Q4R PRN PRN Reason: Shortness Of Breath Or Wheezin Stop: 06/25/21 04:04 Lactobacillus Acidophilus (Lactobacillus Acidophilus 1 Gm Pack) 1 gm PO DAILY [facility] Stop: 06/25/21 08:59 Last Admin: 05/27/21 08:41 Dose: Not Given Documented by: Lansoprazole (Lansoprazole 30 Mg Soltab) 30 mg PO BID M[facility]US Stop: 06/25/21 08:59 Last Admin: 05/27/21 08:37 Dose: 30 mg Documented by: Levothyroxine Sodium (Levothyroxine Sodium 137 Mcg Tablet) 137 mcg PO DAILYBB [facility] Stop: 06/25/21 06:29 Last Admin: 05/27/21 06:05 Dose: 137 mcg Documented by: Methocarbamol (Methocarbamol 750 Mg Tablet) 750 mg PO QAM [facility] Stop: 06/25/21 08:59 Last Admin: 05/27/21 08:35 Dose: 750 mg Documented by: Metoclopramide HCl (Metoclopramide Hcl 5 Mg Tablet) 5 mg PO AC [facility] Stop: 06/25/21 07:29 Last Admin: 05/27/21 08:37 Dose: 5 mg Documented by: Miscellaneous (*Excedrin*Order Awaiting Action) 1 ea N/A QS [facility] Stop: 06/25/21 07:59 Last Admin: 05/27/21 07:19 Dose: Not Given Documented by: Multivitamins (Multivitamin Tab) 1 tab PO DAILY [facility] Stop: 06/25/21 08:59 Last Admin: 05/27/21 08:35 Dose: 1 tab Documented by: Nitroglycerin (Nitroglycerin Sl 0.4 Mg/Tab Tab) 0.4 mg SL UD PRN PRN Reason: Chest Pain Stop: 06/25/21 04:04 Ondansetron HCl (Ondansetron Inj 2 Mg/Ml 2 Ml Vial) 4 mg IV Q6H PRN PRN Reason: Nausea Stop: 06/25/21 04:04 Oxybutynin Chloride (Oxybutynin Chloride 5 Mg Tab) 5 mg PO QID [facility] Stop: 06/25/21 08:59 Last Admin: 05/27/21 08:37 Dose: 5 mg Documented by: Polyethylene Glycol (Polyethylene (Miralax) 17 Gm Pack) 17 gm PO DAILY PRN PRN Reason: Constipation Stop: 06/25/21 04:04 Polyethylene Glycol (Polyethylene (Miralax) 17 Gm Pack) 17 gm PO DAILY [facility] Stop: 06/25/21 08:59 Last Admin: 05/27/21 08:39 Dose: Not Given Documented by: Sennosides (Senna 8.6 Mg Tab) 8.6 mg PO DAILY [facility] Stop: 06/25/21 08:59 Last Admin: 05/27/21 08:38 Dose: 8.6 mg Documented by: Simethicone (Simethicone 80 Mg Chew) 160 mg PO QDD [facility] Stop: 06/25/21 16:29 Last Admin: 05/26/21 16:33 Dose: 160 mg Documented by: Simethicone (Simethicone 80 Mg Chew) 80 mg PO QAM [facility] Stop: 06/25/21 08:59 Last Admin: 05/27/21 08:36 Dose: 80 mg Documented by: Spironolactone (Spironolactone 25 Mg Tab) 25 mg PO BID [facility] Stop: 06/25/21 08:59 Last Admin: 05/27/21 08:37 Dose: 25 mg Documented by: Sumatriptan Succinate (Sumatriptan Succinate 100 Mg Tab) 100 mg PO BID PRN PRN Reason: migraine headache Stop: 06/25/21 04:04 Last Admin: 05/27/21 09:32 Dose: 100 mg Documented by: Trazodone HCl (Trazodone Hcl 50 Mg Tab) 25 - 50 mg PO HS PRN PRN Reason: Sleep Stop: 06/25/21 20:59 Umeclidinium [place] (Umeclidinium [place] 62.5mcg/Blister 7 Puffs/Inhaler) 1 puffs INH DAILY [facility]; Protocol Stop: 06/25/21 08:59 Last Admin: 05/27/21 08:39 Dose: 1 puffs Documented by: (1) CHF (congestive heart failure) Heart failure type: systolic Heart failure chronicity: chronic Qualified Code(s): I50.22 - Chronic systolic (congestive) heart failure
[2021-05-27 13:30] VITALS: BP 145/74; PULSE 110
[2021-05-27] MEDS ORDERED: ALBUT/IPRATROP 3MG/0.5MG NEB 3 ML VIAL NEB PRN (14:25)
--- NOTE | 2021-05-27 17:33 | Discharge Summary ---
Date of Service May 27, 2021 Admission HPI Per Admitting Provider CHIEF COMPLAINT: Cough and shortness of breath. HISTORY OF PRESENT ILLNESS: A 75-year-old female with past medical history significant for hypothyroidism, hypercholesterolemia, chronic respiratory failure on home oxygen, COPD, history of pneumonia, history of CAD, history of chronic systolic CHF, hypertension, bilateral carotid stenosis, history of atherosclerosis of the bilateral legs, history of Cronin's esophagus, protein calorie malnutrition, history of bilateral occipital neuralgia, history of chronic migraines, anemia, generalized anxiety disorder, primary insomnia, major depression, who lives at home with her . As per the , the patient is managed at home with palliative care. Last Thursday, she fell in the bathroom. Since then she has been complaining of some left lower back pain and she is able to ambulate, but since last evening she is using walker and her is helping her. She is also having more cough than usual. She is bringing up now greenish phlegm and also instead of 3 liters, she is using 4 liters oxygen at home, so that is the reason she came to the hospital. Denies any fevers. No chest pain, no nausea, no abdominal pain. Appetite is not great. Swallows okay. No headache, no blurred visions, no earache, no runny nose, no sore throat. Currently, no nausea, normal bowel and bladder movements. Resting comfortably, saturating okay on 4 liters. Admission Exam Per Admitting Provider GENERAL: The patient is alert and oriented, hard of hearing. VITAL SIGNS: Temperature 36.6, pulse 90, respiratory rate 13, blood pressure 194/94, oxygen 100% on 4 liters. HEENT: Pupils equal, round and reactive to light. Oral mucosa moist. NECK: No neck masses, No jvd. CVS: S1 and S2 heard, regular rate and rhythm No murmurs RS: CTA b/l, Mild b/l wheezing Abd: Soft Bowel sounds present, non tender, no distension [employer] ATTENDANTS SUPERVISOR: Non focal Ext No edema, No erythema Principal Diagnosis End-stage COPD, respiratory failure on home oxygen, chronic CHF, hypertension, CAD Discharge Exam Constitutional + thin; not ill appearing Eyes PERRL, conjunctivae normal, anicteric sclerae ENMT external ear and nose normal, oropharynx normal Neck trachea midline, no thyromegaly Respiratory + respiratory distress; no cough Auscultation: + diminished lung sounds; no crackles and no wheezes Cardiovascular Rate/Rhythm: regular rate and regular rhythm Heart Sounds: normal S1 and normal S2 Gastrointestinal (Abdomen) normal bowel sounds, soft, nontender, no hepatosplenomegaly Lymphatic no cervical or axillary lymphadenopathy Discharge Data Allergies Allergy/AdvReac Type Severity Reaction Status Date / Time cortisone Allergy Intermediate RASH FOR 3 Verified 05/25/21 23:13 MONTHS levofloxacin Allergy Intermediate RASH Verified 05/25/21 23:13 nortriptyline Allergy Intermediate RASH Verified 05/25/21 23:13 Sulfa (Sulfonamide Allergy Intermediate Hives Verified 05/25/21 23:13 Antibiotics) hydrocortisone Allergy Unknown Unknown Verified 05/25/21 23:13 [From Cortizone-10] Consultations 05/25/21 23:41 ED Decision to Admit Stat Hospital Course (1) Respiratory failure, acute and chronic: History of chronic respiratory failure on 3 L of nasal cannula oxygen at home She was admitted with increasing shortness of breath and decreasing saturation and required more than 4 L of oxygen to maintain saturation She is back to her baseline today and wants to go home Denies any shortness of breath at rest (2) COPD with acute exacerbation: Has been receiving prednisone Did not want to take any antibiotic for possible bronchitis She will be given prednisone for a short course (3) CHF (congestive heart failure): Does not have any fluid overload We will continue her usual diuretics (4) CAD (coronary artery disease): No acute cardiac symptoms (5) Hypertension: Blood pressure is reasonably controlled The patient wants to go home with home hospice and the actually wanted to take her home even yesterday with home hospice She was on palliative care at home before Be discharged home this afternoon with home director hospice operations is working on it Total Time Total Time Spent Total Time Spent (In Minutes): 45 minutes Discharge Plan Discharge Items Patient Disposition: Hospice - Home Reason For Visit: COUGH, SOB Discharge Diagnosis: End-stage COPD, respiratory failure on home oxygen, chronic CHF, hypertension, CAD Condition on Discharge: Fair Activity: As commented below Activity Comment: Requires assistance with ADL S Non-emergency contact: Primary Care Provider Call non-emergency contact if: you have any medication questions and your symptoms worsen Follow-up/Referrals: Krystal Marsh MD [Primary Care Provider] - (Date & Time 05/31/2021 11:00 AM Provider Faviola Terry MD Department Appointment with the PCP will depend on hospice care General Internal Medicine [facility] ) Diet: Regular Diet Texture: Easy to Chew Addtl Attending Provider Instructions: Please take precautions to avoid fall Continue oxygen as directed Pending Studies at Discharge: No Stand-Alone Forms: My [facility] Medications and DC Order Prescriptions: New amlodipine [Norvasc] 5 mg Tablet 5 mg PO QAM Qty: 30 RF: 0 prednisone 10 mg tablet 10 mg PO DAILY Qty: 30 RF: 0 Continued ipratropium bromide 42 mcg (0.06 %) spray,non-aerosol 2 sprays INTNAS Q8H PRN (Reason: runny nose) Qty: 30 RF: 5 levothyroxine [Synthroid] 137 mcg tablet 137 mcg PO DAILY Qty: 90 RF: 3 spironolactone [Aldactone] 25 mg tablet 25 mg PO BID Qty: 180 RF: 3 oxybutynin chloride 5 mg tablet 5 mg PO QID Qty: 360 RF: 3 lansoprazole 30 mg capsule,delayed release(DR/EC) 30 mg PO BID Qty: 180 RF: 3 albuterol sulfate 2.5 mg /3 mL (0.083 %) solution for nebulization 2.5 mg inhalation Q4 PRN (Reason: Shortness Of Breath Or Wheezing) Qty: 540 RF: 1 nystatin 100,000 unit/mL suspension 500,000 unit PO QID Qty: 200 RF: 0 Spiriva with HandiHaler 18 mcg capsule, w/inhalation device 1 cap inhalation QAM Qty: 30 RF: 5 azithromycin 500 mg tablet 500 mg PO 3XWK Qty: 12 RF: 1 furosemide [Lasix] 40 mg tablet 80 mg PO QAM Qty: 180 RF: 3 gvcvhxqszg-cpvreio-iujonkck 50-325-40 mg capsule 1 cap PO BID PRN (Reason: Headache) Qty: 60 RF: 0 sumatriptan succinate [Imitrex] 100 mg tablet 100 mg PO BID MDD 2 PRN (Reason: migraine headache) 30 Days Qty: 12 RF: 5 Vyepti 100 mg/mL solution 100 mg IV .COMPLEX Qty: 1 RF: 3 simethicone [Gas Relief Ultra Strength] 180 mg Capsule 180 mg PO QPM RF: 0 acetaminophen [Tylenol Extra Strength] 500 mg Tablet 1,000 mg PO HS RF: 0 nitroglycerin [Nitrostat] 0.4 mg Tablet, Sublingual 0.4 mg Sublingual UD PRN (Reason: Chest Pain) RF: 0 coQ10 (ubiquinol) 200 mg Capsule 200 mg PO QPM RF: 0 Probiotic 3 billion cell Capsule 3 mmu cells PO DAILY RF: 0 metoclopramide HCl 5 mg tablet 5 mg PO AC RF: 0 ipratropium bromide 0.02 % solution 2.5 ml inhalation Q4 PRN (Reason: Shortness Of Breath Or Wheezing) RF: 0 Medical Marijuana 0 dose PO UD RF: 0 Excedrin Migraine 250-250-65 mg Tablet 1 tab PO BID PRN (Reason: Headache) RF: 0 simethicone 125 mg Tablet 125 mg PO QAM RF: 0 multivitamin [Multiple Vitamins] Tablet 1 tab PO DAILY RF: 0 Porter Milk of Magnesia 311 mg Tablet,Chewable See Rx Instructions .ROUTE .COMPLEX RF: 0 ascorbate calcium (vitamin C) 500 mg Tablet 250 mg PO BID RF: 0 aspirin [Aspirin Low Dose] 81 mg Tablet,Delayed Release (Dr/Ec) 81 mg PO QPM RF: 0 escitalopram oxalate 20 mg tablet 20 mg PO DAILY RF: 0 sennosides [senna] 8.6 mg Tablet 8.6 mg PO DAILY RF: 0 trazodone 50 mg tablet 25 - 50 mg PO HS RF: 0 benzonatate 100 mg capsule 100 mg PO TID PRN (Reason: Cough) RF: 0 polyethylene glycol 3350 [Miralax] 17 gram/dose Powder 17 g PO DAILY RF: 0 diclofenac sodium 1 % Gel 4 g TOPICAL DIRECTED PRN (Reason: Pain) RF: 0 guaifenesin [Mucinex] 600 mg Tablet Extended Release 12hr 600 mg PO BID RF: 0 methocarbamol 750 mg tablet 750 mg PO QAM RF: 0 budesonide-formoterol 160-4.5 mcg/actuation HFA aerosol inhaler 2 puff INHALATION BID RF: 0 gabapentin 300 mg Capsule 300 mg PO QID RF: 0 303 Muscle Relaxer 2 tab PO HS RF: 0 albuterol sulfate [Ventolin HFA] 90 mcg/actuation HFA aerosol inhaler 2 puff Inhalation QID PRN (Reason: Shortness Of Breath Or Wheezing) Qty: 54 RF: 1 Discharge Orders: Discharge Order (Routine); Ordered 05/27/21 Ordered By: Earnest De Dios Admission Data Admit Date/Time: 05/26/21 00:57 Attending Provider: Earnest De Dios Admit Provider: Patricio Deshpande Primary Care Provider: Krystal Marsh Other Providers: Patricio Deshpande Other Interventions: Discharge Summary Assessment (RN) Last Done: 05/27/21 13:29 Home Health Attestation I certify that this patient is under my care and that I, or a physicians assistant plant controller working with me, had a face to-face encounter that meets the home health [id number] encounter requirements with this patient. The encounter with the patient was in whole, or in part, for the following medical condition, which is the primary reason for home health care (list medical condition): I certify that, based on my findings, the following services are medically necessary home health services: My clinical findings support the need for the above services because: Further, I certify that my clinical findings support that this patient is homebound (i.e. absences from home require considerable and taxing effort and are for medical reasons or denominational services or infrequently or of short duration when for other reasons) because: Certification for Home Health Services: Based on the above findings, I certify that this patient is confined to the home and needs intermittent senior living care, physical therapy and/or speech therapy or continues to need occupational therapy. The patient is under my care, and I have initiated the establishment of the plan of care. This patient will be followed by a physician who will periodically review the plan of care.
== END 2021-05-27 15:40 | disposition hospice, home (50) | DRG 190 ==
LOC: ED 22:20 → 2N 05-26 00:57